=== PATIENT | female | born 1970 | race Two or more races ===

== ENCOUNTER 2020-08-08 11:10 | Outpatient (REF) | payer OTHER, SELFPAY ==
[2020-08-08 12:43] LABS: Hematocrit 32.1 % (37-47); Hemoglobin 10.1 g/dl (12.0-16.0); Mean Corpuscular HGB Conc 31.5 g/dl (31.0-35.0); Mean Corpuscular Hemoglobin 25.1 pg (27.0-33.0); Mean Corpuscular Volume 79.9 fL (80-98); Mean Platelet Volume 11.7 fL (9.4-12.3); Platelet Count 343 X10*3/uL (160-400); Red Blood Count 4.02 X10*6/uL (4.20-5.50); Red Cell Distribution Width 15.7 % (11.0-16.0); White Blood Count 4.6 X10*3/uL (4.8-10.8)
[2020-08-08 13:02] LABS: Alanine Aminotransferase 10 U/L (0-31); Albumin Level 4.3 g/dL (3.5-5.0); Alkaline Phosphatase 87 U/L (39-117); Anion Gap 12 (12-20); Aspartate Amino Transferase 18 U/L (5-31); Bilirubin Direct 0.2 mg/dL (0.0-0.5); Bilirubin Total 0.3 mg/dL (0.0-1.0); Blood Urea Nitrogen 10 mg/dL (9-16); Carbon Dioxide 27 mmol/L (22-29); Chloride 105 mmol/L (96-108); Estimated Glomerular Filt Rate > 60; Glucose Random 92 mg/dL (60-115); Iron 21 mcg/dL (30-160); Percent Iron Saturation 5 % (15-50); Potassium 4.3 mmol/l (3.3-5.1); Sodium 140 mmol/L (135-145); Total Iron Binding Capacity 384 mcg/dL (228-428); Total Protein 7.5 g/dL (6.5-8.0); Unsaturated Iron Binding 363 ug/dL
[2020-08-08 15:59] LABS: Vitamin B12 526 pg/mL (200-900)
[2020-08-08 17:05] LABS: Ferritin < 1 ng/mL (10-250); Thyroid Stimulating Hormone 25.65 mIU/mL (0.32-4.0); Vitamin D 25-OH Total 19.6 ng/mL (>30)
[2020-08-11 08:30] LABS: HIV AB/AG Nonreactive (Nonreactive); HIV Num 1 0.06 S/CO (0.00-0.99)
[2020-08-11 08:32] LABS: ~HepC Num1 0.14 S/CO (0.00-0.79); ~Hepatitis C Antibody Nonreactive (Nonreactive)
== END 2020-08-08 11:11 | disposition home or self-care (01) ==
LOC: HO.LAB 11:10
PROVIDERS: PCP Family Medicine; Visit Provider Family Medicine
DX: D50.0 Iron deficiency anemia secondary to blood loss (chronic) (principal); D03.9 Melanoma in situ, unspecified; E55.9 Vitamin D deficiency, unspecified; L29.9 Pruritus, unspecified; R53.83 Other fatigue
CPT/HCPCS: 36415; 80053; 80076; 82248; 82306; 82607; 82728; 83540; 84443; 85027; 86803; 87389

== ENCOUNTER 2020-08-29 07:58 | Outpatient (REF) | payer OTHER, SELFPAY | END 2020-08-29 07:59 | disposition home or self-care (01) | LOC: HO.MDS 07:58 | PROVIDERS: PCP Family Medicine; Visit Provider Internal Medicine | DX: D50.9 Iron deficiency anemia, unspecified (principal) | CPT/HCPCS: 96365; 96366; J1200; J1750; Q0163 ==

== ENCOUNTER 2021-01-20 13:26 | Outpatient (REF) | payer OTHER, SELFPAY ==
[2021-01-20 14:20] LABS: MANUAL DIFF FLAG NO
[2021-01-20 14:32] LABS: Basophils Percent Auto 0.6 % (0-2); Eosinophils Absolute Auto 0.1 X10*3/uL (0.0-0.4); Eosinophils Percent Auto 2.1 % (0-4); Hematocrit 39.2 % (37-47); Hemoglobin 12.7 g/dl (12.0-16.0); Lymphocytes Absolute Auto 1.5 X10*3/uL (1.2-4.9); Lymphocytes Percent Auto 28.4 % (20-40); Mean Corpuscular HGB Conc 32.4 g/dl (31.0-35.0); Mean Corpuscular Hemoglobin 28.9 pg (27.0-33.0); Mean Corpuscular Volume 89.1 fL (80-98); Mean Platelet Volume 11.3 fL (9.4-12.3); Monocytes Absolute Auto 0.5 X10*3/uL (0.1-1.2); Monocytes Percent Auto 8.7 % (2-11); Neutrophils Absolute Auto 3.2 X10*3/uL (2.0-8.3); Neutrophils Percent Auto 60.2 % (45-73); Platelet Count 285 X10*3/uL (160-400); Red Cell Distribution Width 12.3 % (11.0-16.0); White Blood Count 5.3 X10*3/uL (4.8-10.8)
[2021-01-20 14:43] LABS: Alanine Aminotransferase 19 U/L (0-31); Albumin Level 4.3 g/dL (3.5-5.0); Alkaline Phosphatase 84 U/L (39-117); Anion Gap 11 (12-20); Aspartate Amino Transferase 22 U/L (5-31); Bilirubin Total 0.6 mg/dL (0.0-1.0); Blood Urea Nitrogen 13 mg/dL (9-16); Calcium 9.5 mg/dL (8.4-10.2); Carbon Dioxide 30 mmol/L (22-29); Chloride 103 mmol/L (96-108); Estimated Glomerular Filt Rate > 60; Glucose Random 95 mg/dL (60-115); Iron 79 mcg/dL (30-160); Percent Iron Saturation 28 % (15-50); Potassium 4.6 mmol/L (3.3-5.1); Sodium 139 mmol/L (135-145); Total Iron Binding Capacity 282 mcg/dL (228-428); Total Protein 7.5 g/dL (6.5-8.0); Unsaturated Iron Binding 203 ug/dL
[2021-01-20 15:06] LABS: Ferritin 39 ng/mL (10-250); Thyroid Stimulating Hormone 1.23 uIU/mL (0.32-4.0); Vitamin D 25-OH Total 19.9 ng/mL (>30)
[2021-01-20 16:44] LABS: Vitamin B12 384 pg/mL (200-900)
== END 2021-01-20 13:27 | disposition home or self-care (01) ==
LOC: HO.LAB 13:26
PROVIDERS: Absent Provider Internal Medicine; PCP Family Medicine; Visit Provider Family Medicine
DX: E03.9 Hypothyroidism, unspecified (principal); D50.0 Iron deficiency anemia secondary to blood loss (chronic); E55.9 Vitamin D deficiency, unspecified; R53.83 Other fatigue
CPT/HCPCS: 36415; 80053; 82306; 82607; 82728; 83540; 83735; 84443; 85025

== ENCOUNTER 2021-03-28 10:08 | Outpatient (REF) | payer OTHER, SELFPAY ==
--- NOTE | ~2021-03-28 | MM_ITS ---
EXAMINATION: MM SCREENING DIGITAL BREAST TOMOSYNTHESIS, BILATERAL CLINICAL INFORMATION: Screening. Asymptomatic. The lifetime risk of breast cancer based on the Tyrer-Cuzick Model is 12%. COMPARISON: Mammography: 10/27/2018, 10/18/2018, 08/17/2017, 05/21/2014, 05/17/2013 TECHNIQUE: Digital breast tomosynthesis is performed in both the craniocaudal and mediolateral oblique views along with computer-aided detection (CAD). Synthesized 2D images are generated from the tomosynthesis. FINDINGS: There are scattered areas of fibroglandular density (ACR BI-RADS breast composition Category b). There are no significant masses, abnormal calcifications, or other abnormalities. Parenchymal pattern is similar to prior studies. No developing density. No significant changes. MM/MM tomosynthesis screening BI IMPRESSION: No mammographic evidence of malignancy. ASSESSMENT: BI-RADS 1: Negative RECOMMENDATION: Routine annual mammography screening. This patient's information was entered into a reminder system with a target due date for their next mammogram.
== END 2021-03-28 10:09 | disposition home or self-care (01) ==
LOC: HO.MAMMO 10:08
PROVIDERS: Visit Provider Family Medicine
DX: Z12.31 Encounter for screening mammogram for malignant neoplasm of breast (principal)
CPT/HCPCS: 77063; 77067

== ENCOUNTER 2021-08-14 07:17 | Inpatient (IN) | payer OTHER, SELFPAY ==
[2021-08-14] VITALS (13 sets, daily range): BP systolic 127–182; BP diastolic 58–87; PULSE 53–89; RESP 13–20; TEMP 36.1–36.9; O2SAT 96–100; BMI 35.1
--- NOTE | ~2021-08-14 | CT_ITS ---
EXAMINATION: CT ABDOMEN AND PELVIS WITH CONTRAST CLINICAL INFORMATION: Epigastric pain COMPARISON: Ultrasound abdomen right upper quadrant 08/14/2021, CT abdomen and pelvis (report) 10/13/2005. TECHNIQUE: Multidetector volumetric images were obtained from the superior aspect of the liver through the pubic symphysis following administration 100 mL of Omnipaque 350 intravenous contrast. Sagittal and coronal reformatted images were obtained on the technologist's workstation. Oral contrast: No This CT examination was performed using dose optimization techniques as appropriate, variously including the following: *Automated exposure control *Adjustment of mA and/or kV according to patient size (this includes techniques or standardized protocols for targeted exams where dose is matched to indication/reason for exam; i.e. extremities or head) *Use of iterative reconstruction technique DLP: 809 mGy-cm FINDINGS: LUNG BASES: The visualized lung bases are unremarkable. LIVER, GALLBLADDER, AND BILIARY TREE: Liver is normal in size since in contour. Parenchymal is homogeneous. No focal hepatic parenchymal lesion or intrahepatic ductal dilatation. The gallbladder is abnormal, measuring 4 cm in diameter with circumferential wall thickening and subserosal edema. The calculi and sludge noted on today's ultrasound are not appreciated on CT. Findings are consistent with cholecystitis. The common duct is normal in caliber. No visible common duct calculus. PANCREAS: Pancreas is normal in size and contour and attenuation. No pancreatic ductal distention. No peripancreatic inflammatory changes. SPLEEN: Unremarkable. ADRENAL GLANDS: Unremarkable. KIDNEYS AND URETERS: The kidneys are normal in size and show no hydronephrosis, hydroureter, calculi, or perinephric stranding. Left kidney has a interpolar cyst measuring approximately 6 x 4 cm and 2HU attenuation. Right kidney has a small posterior upper pole cyst 1.1 cm. No additional imaging follow-up required for the renal cysts. BLADDER: Unremarkable. GASTROINTESTINAL TRACT: There is mild thickening gastric antrum which may be related to nondistention as well as reactive changes from adjacent cholecystitis. There is no gastric distention or pneumatosis. The small and large bowel are normal in caliber. The appendix is normal. There is no ascites or fluid collection. ABDOMINAL WALL: No significant hernia is appreciated. LYMPH NODES: No lymphadenopathy. VASCULAR: Unremarkable. PELVIC VISCERA: The uterus is enlarged and has several fibroids, including exophytic left 5 cm and intramural left 5 cm. Small left adnexal cyst measures 2.0 x 2.7 cm. Small right adnexal cyst measures 2.0 x 2.9 cm. No pelvic ascites. The cysts are simple appearing and no follow-up imaging recommended. No pelvic ascites. OSSEOUS STRUCTURES: Unremarkable. CT/CT abdomen pelvis w con IMPRESSION: 1. Cholecystitis. No intrahepatic or extrahepatic biliary ductal dilatation. 2. Normal pancreas. No pancreatic ductal distention. 3. No hydronephrosis or perinephric stranding. 4. Enlarged uterus with fibroids.
--- NOTE | ~2021-08-14 | US_ITS ---
EXAMINATION: US ABDOMEN LIMITED CLINICAL INFORMATION: Epigastric pain. History gallstones. COMPARISON: Report CT abdomen and pelvis 10/13/2005. TECHNIQUE: Real-time imaging of the right upper quadrant abdominal viscera. FINDINGS: PANCREAS: The visualized pancreas is normal in size and echogenicity. There is no pancreatic ductal distention or retroperitoneal effusion. Portion distal body and tail obscured by bowel gas and not completely imaged. LIVER: Liver is normal in size and smooth in contour and normal in echogenicity. There is no focal hepatic parenchymal lesion or intrahepatic ductal dilatation. Doppler shows portal flow towards the liver. GALLBLADDER: The gallbladder is distended to 3.6 cm in diameter. There are scattered gallstones present as well as moderate layering sludge. There is mild circumferential thickening gallbladder wall measuring 0.5-0.6 cm. No pericholecystic fluid. Sonographic Chatterjee's sign is positive. COMMON BILE DUCT: Normal in caliber measuring 0.4 cm in diameter. No visible ductal calculus. RIGHT KIDNEY: Right kidney measures 10.8 cm in length. There is no hydronephrosis or caliectasis or visible calculi. Small cyst present upper pole 1.5 x 1.2 x 1.0 cm. There is normal renal parenchymal thickness and echogenicity. FREE FLUID: None. US/US abdomen limited IMPRESSION: 1. Abnormal gallbladder with gallstones, moderate intraluminal sludge, circumferential wall thickening, and positive sonographic Chatterjee's sign. Findings may be associated with acute or chronic cholecystitis. 2. No intrahepatic biliary ductal dilatation. Common duct unremarkable.
--- NOTE | 2021-08-14 07:43 | ECG_ITS ---
Test Reason : ABD PAIN Blood Pressure : / mmHG Vent. Rate : 057 BPM Atrial Rate : 057 BPM P-R Int : 140 ms QRS Dur : 086 ms QT Int : 458 ms P-R-T Axes : 031 008 026 degrees QTc Int : 445 ms Sinus bradycardia Minimal voltage criteria for LVH, may be normal variant ( R in aVL ) Borderline ECG NO PREVIOUS EKG Referred By: Michelle Alves Electronically Signed By:RAMYA ESCOBEDO MD
--- NOTE | 2021-08-14 07:46 | ED_ITS ---
HPI - Abdominal Pain General Chief Complaint: Abdominal Pain Stated Complaint: back & abd pain Time Seen by Provider: 08/14/21 07:25 Source: patient Mode of arrival: ambulatory Limitations: no limitations History of Present Illness HPI narrative: Patient comes emergency room complaining of 4 days of epigastric pain radiating towards the back. Patient also complaining of mild right upper quadrant pain. Patient states she feels very distended, bloated. Patient has tried [id number] pain medications and gas medications without relief. Patient denies vomiting, complaining of nausea, no diarrhea. Patient states that in the past, her PCP has told the patient that she has gallstones that were found incidentally, but due to the lack of symptoms, patient did not need any further intervention. Related Data Home Medications Medication Instructions Recorded Confirmed docusate sodium 100 mg capsule 1 cap PO BID 08/26/20 08/26/20 (DOK) ergocalciferol (vitamin D2) 1,250 1 cap PO QWEEK 08/26/20 08/26/20 mcg (50,000 unit) capsule ferrous sulfate 325 mg (65 mg 1 tab PO TID 08/26/20 08/26/20 iron) tablet levothyroxine 150 mcg tablet 1 tab PO DAILY 08/26/20 08/26/20 (Synthroid) melatonin 5 mg tablet 1 tab PO BEDTIME PRN 08/26/20 08/26/20 Allergies Allergy/AdvReac Type Severity Reaction Status Date / Time No Known Allergies Allergy Verified 08/26/20 13:25 Review of Systems Review of Systems Constitutional : No Weight loss, No Fever, No Chills, No Night Sweats, No Fatigue, No Malaise ENT/Mouth : No Hearing loss, No Ear Pain, No Nasal Congestion, No Sinus Pain, No Hoarseness, No sore throat, No Rhinorrhea, No Swallowing Difficulty Eyes: No Eye Pain, No Swelling, No Redness, No Foreign Body, No Discharge, No Vision Changes Cardiovascular : No Chest Pain, No SOB, No Dyspnea on Exertion, No Orthopnea, No Edema, No Palpitations Respiratory : No Cough, No Sputum, No Wheezing, No Smoke Exposure, No Dyspnea Gastrointestinal : Complaining of Nausea, No Vomiting, No Diarrhea, No Constipation, complaining of distension, epigastric and right upper quadrant pain radiating towards the back, denies melena Genitourinary : no irregular bleeding, No Dysuria, No Urinary Frequency, No Hematuria, No Urinary Incontinence, No Urgency, No Flank Pain, No Urinary Flow Changes, No Hesitancy Musculoskeletal : No joint pain, No Myalgias, No Joint Swelling Skin : No Skin Lesions, No rash Neuro : No Weakness, No Numbness, No Paresthesias, No Loss of Consciousness, No Dizziness, No Headache Psych : No Anxiety/Panic, No Depression, No SI/HI/AH/VH, No Social Issues, Heme/Lymph: No Bruising, No Bleeding,No Lymphadenopathy Endocrine : No Polyuria, No Polydipsia, No Temperature Intolerance Physical Exam Vital Signs: Vital Signs: Last Vital Signs Temp 97.1 F 08/14/21 07:32 Pulse 60 08/14/21 08:27 Resp 20 08/14/21 08:27 BP 138/65 08/14/21 09:07 Pulse Ox 100 08/14/21 08:27 Body Mass Index 35.1 Const: Other: Appearance: Alert. Oriented X3. No acute distress. Eyes: Pupils equal, round and reactive to light. ENT: Pharynx normal. Neck: Normal inspection. Neck supple. No lymph nodes noted. No crepitus CVS: Normal heart rate and rhythm. Pulses normal. Normal S1 and S2 Respiratory: No respiratory distress. Breath sounds normal. No Wheezing. No rales Abdomen: Soft , mildly distended, negative Chatterjee sign, pain to palpation over epigastric area, no rebound, no guarding. Skin: Skin warm and dry. Normal skin color. Normal skin turgor. Extremities: No lower extremity edema. No Lacerations. No Rash Neuro: Oriented X 3. No motor deficit. No sensory deficit. Moving all exter mities. No slurred speech. Course Course Course Narrative: Patient was evaluated by Dr. Hazel. Patient will be admitted to surgery service. CT scan has been ordered for Dr. Hazel' recomendations MDM - Abdominal Pain Lab Data Result diagrams: 08/14/21 08:20 08/14/21 08:20 Labs: Lab Results 08/14/21 08/14/21 08/14/21 Range/Units 08:20 08:20 08:20 WBC 7.0 (4.8-10.8) X10*3/uL RBC 4.54 (4.20-5.50) X10*6/uL Hgb 12.9 (12.0-16.0) g/dl Hct 38.7 (37-47) % MCV 85.2 (80-98) fL MCH 28.4 (27.0-33.0) pg MCHC 33.3 (31.0-35.0) g/dl RDW 13.0 (11.0-16.0) % Plt Count 243 (160-400) X10*3/uL MPV 11.0 (9.4-12.3) fL Immature Gran % (Auto) 0.3 (0.0-0.4) % Neut % (Auto) 69.9 (45-73) % Lymph % (Auto) 20.2 (20-40) % [place] % (Auto) 7.7 (2-11) % Eos % (Auto) 1.6 (0-4) % Baso % (Auto) 0.3 (0-2) % Lymph # (Auto) 1.4 (1.2-4.9) X10*3/uL [place] # (Auto) 0.5 (0.1-1.2) X10*3/uL Eos # (Auto) 0.1 (0.0-0.4) X10*3/uL Baso # (Auto) 0.0 (0.0-0.2) X10*3/uL Abs Immat Gran (auto) 0.02 (0.00-0.03) X10*3/uL Absolute Neuts (auto) 4.9 (2.0-8.3) X10*3/uL Absolute Nucleated RBC 0.000 (0.0-0.012) X10*3/uL Nucleated RBC % (auto) 0.0 (0.0-0.2) /100WBC Sodium 138 (135-145) mmol/L Potassium 4.2 (3.3-5.1) mmol/L Chloride 103 (96-108) mmol/L Carbon Dioxide 28 (22-29) mmol/L Anion Gap 11 L (12-20) BUN 8 L (9-16) mg/dL Creatinine 0.72 (0.5-1.4) mg/dL Estim Creat Clear Calc 95.7 Estimated GFR > 60 Random Glucose 107 (60-115) mg/dL Calcium 9.8 (8.4-10.2) mg/dL Total Bilirubin 0.7 (0.0-1.0) mg/dL Direct Bilirubin 0.2 (0.0-0.5) mg/dL AST 21 (5-31) U/L ALT 13 (0-31) U/L Alkaline Phosphatase 97 (39-117) U/L Total Protein 7.6 (6.5-8.0) g/dL Albumin 4.2 (3.5-5.0) g/dL Lipase 24 (8-78) U/L Urine Color YELLOW Urine Appearance CLEAR Urine pH 6.0 (5.0-8.0) Ur Specific [place] 1.020 (1.005-1.025) Urine Protein NEG (NEG-TRACE) MG/DL Urine Glucose (UA) NEG (NEG) MG/DL Urine Ketones NEG (NEG) MG/DL Urine Blood TRACE (NEG) Urine Nitrite NEG (NEG) Ur Leukocyte Esterase TRACE H (NEG) Urine RBC 1-4 (0) /HPF Urine WBC 5-9 H (0-4) /HPF Ur Squamous Epith Cells 1+ /LPF Urine Bacteria TRACE /LPF Urine Mucus 1+ /LPF Imaging Data US - abdomen: Radiologist's impression: US ABDOMEN LIMITED CLINICAL INFORMATION: Epigastric pain. History gallstones. COMPARISON: Report CT abdomen and pelvis 10/13/2005. TECHNIQUE: Real-time imaging of the right upper quadrant abdominal viscera. FINDINGS: PANCREAS: The visualized pancreas is normal in size and echogenicity. There is no pancreatic ductal distention or retroperitoneal effusion. Portion distal body and tail obscured by bowel gas and not completely imaged. LIVER: Liver is normal in size and smooth in contour and normal in echogenicity. There is no focal hepatic parenchymal lesion or intrahepatic ductal dilatation. Doppler shows portal flow towards the liver. GALLBLADDER: The gallbladder is distended to 3.6 cm in diameter. There are scattered gallstones present as well as moderate layering sludge. There is mild circumferential thickening gallbladder wall measuring 0.5-0.6 cm. No pericholecystic fluid. Sonographic Chatterjee's sign is positive. COMMON BILE DUCT: Normal in caliber measuring 0.4 cm in diameter. No visible ductal calculus. RIGHT KIDNEY: Right kidney measures 10.8 cm in length. There is no hydronephrosis or caliectasis or visible calculi. Small cyst present upper pole 1.5 x 1.2 x 1.0 cm. There is normal renal parenchymal thickness and echogenicity. FREE FLUID: None. US/US abdomen limited IMPRESSION: ? 1. Abnormal gallbladder with gallstones, moderate intraluminal sludge, circumferential wall thickening, and positive sonographic Chatterjee's sign. Findings may be associated with acute or chronic cholecystitis. ? 2. No intrahepatic biliary ductal dilatation. Common duct unremarkable. Discharge Plan Discharge Clinical Impression: Cholecystitis Patient Disposition: Admitted As Inpatient Prescriptions: No Action ferrous sulfate 325 mg (65 mg iron) tablet 1 tab PO TID RF: 0 levothyroxine [Synthroid] 150 mcg tablet 1 tab PO DAILY RF: 0 docusate sodium [DOK] 100 mg capsule 1 cap PO BID RF: 0 ergocalciferol (vitamin D2) 1,250 mcg (50,000 unit) capsule 1 cap PO QWEEK RF: 0 melatonin 5 mg tablet 1 tab PO BEDTIME PRN (Reason: insomnia) RF: 0 PMFSH Past Medical History Medical History Anxiety Candidosis of skin HTN (hypertension) Hypothyroid TANIA (iron deficiency anemia) Macromastia Shortness of breath Vitamin D deficiency Surgical History Previous section Social History Social History Are you a primary healthcare or medical to a significant other at home: No Alcohol intake: never Patient Tobacco Use Status: Never used Tobacco Use of substances other than those prescribed or required for medical reasons: No Advance Directives: No Patient : No
[2021-08-14 08:25] LABS: MANUAL DIFF FLAG NO
[2021-08-14] MEDS: ondansetron HCL 4 MG/2 ML VIAL IVPUSH (08:25)
[2021-08-14] MEDS: Morphine Sulfate 4 MG/ML CARTRIDGE IVPUSH (08:25)
[2021-08-14 08:26] LABS: Appearance Urine CLEAR; Color Urine YELLOW; Glucose Urine UA NEG (NEG); Leukocyte Esterase Urine TRACE (NEG); Nitrite Urine NEG (NEG); UACC Culture Trigger YES; Urine Blood TRACE (NEG); Urine Ketones NEG (NEG); Urine Protein NEG (NEG-TRACE)
[2021-08-14 08:28] LABS: Basophils Percent Auto 0.3 % (0-2); Eosinophils Absolute Auto 0.1 X10*3/uL (0.0-0.4); Eosinophils Percent Auto 1.6 % (0-4); Hematocrit 38.7 % (37-47); Hemoglobin 12.9 g/dl (12.0-16.0); Imm Gran Abs Auto 0.02 X10*3/uL (0.00-0.03); Imm Gran Pct Auto 0.3 % (0.0-0.4); Lymphocytes Absolute Auto 1.4 X10*3/uL (1.2-4.9); Lymphocytes Percent Auto 20.2 % (20-40); Mean Corpuscular HGB Conc 33.3 g/dl (31.0-35.0); Mean Corpuscular Hemoglobin 28.4 pg (27.0-33.0); Mean Corpuscular Volume 85.2 fL (80-98); Monocytes Absolute Auto 0.5 X10*3/uL (0.1-1.2); Monocytes Percent Auto 7.7 % (2-11); Neutrophils Absolute Auto 4.9 X10*3/uL (2.0-8.3); Neutrophils Percent Auto 69.9 % (45-73); Platelet Count 243 X10*3/uL (160-400); Red Blood Count 4.54 X10*6/uL (4.20-5.50)
[2021-08-14 08:37] LABS: Bacteria Urine TRACE /LPF; Mucus Urine 1+ /LPF; Squamous Epithelial Cell Urine 1+ /LPF
[2021-08-14 08:50] LABS: Alanine Aminotransferase 13 U/L (0-31); Albumin Level 4.2 g/dL (3.5-5.0); Alkaline Phosphatase 97 U/L (39-117); Anion Gap 11 (12-20); Aspartate Amino Transferase 21 U/L (5-31); Bilirubin Direct 0.2 mg/dL (0.0-0.5); Bilirubin Total 0.7 mg/dL (0.0-1.0); Blood Urea Nitrogen 8 mg/dL (9-16); Calcium 9.8 mg/dL (8.4-10.2); Carbon Dioxide 28 mmol/L (22-29); Chloride 103 mmol/L (96-108); Creatinine Clr Calc Pharmacy 95.7; Estimated Glomerular Filt Rate > 60; Glucose Random 107 mg/dL (60-115); Lipase 24 U/L (8-78); Potassium 4.2 mmol/L (3.3-5.1); Sodium 138 mmol/L (135-145); Total Protein 7.6 g/dL (6.5-8.0)
--- NOTE | 2021-08-14 09:08 | PC.NURSE ---
pt resting peacefully, reports feeling better, no pain in the upper mid abd, just some pain in the back, 3/10 denies nausea
--- NOTE | 2021-08-14 10:36 | PC.NURSE ---
dr acevedo the surgeon at bedside
[2021-08-14] MEDS: iohexoL 350 MG/ML 100 ML INFUS..BTL IV (11:36)
--- NOTE | 2021-08-14 12:18 | P.HPGS_ITS ---
History of Present Illness History of Present Illness Date of Service: 08/17/21 <Naresh Hazel MD - Last Filed: 08/17/21 13:12> 08/14/21 <Yolanda Norris MD - Last Filed: 08/14/21 14:22> Chief complaint: ACUTE CHOLECYSTITIS <Naresh Hazel MD - Last Filed: 08/17/21 13:12> Narrative: Farzana Quintnailla is a 51 year old female with thyroid disease, and asthma, who came to the emergency room this morning because of right upper quadrant pain. She says that this actually has been going on for about 4 days now. This had been periodic would be coming in waves. She however says that these had not improved at all and often times would be severe so she decided to eventually come to the emergency room this morning. She describes occasional nausea but no vomiting. She says she had been diagnosed to have gallstones in the past and would have periodic pain on the same area but this would resolve immediately. She otherwise denies any other significant complaints. She also mentioned that her past episodes seem to correlate with intake of fatty food. <Naresh Hazel MD - Last Filed: 08/17/21 13:12> Review of Systems Constitutional: Constitutional: Denies chills and Denies fever(s) <Naresh Hazel MD - Last Filed: 08/17/21 13:12> Cardiovascular: Cardiovascular: Denies chest pain, Denies dyspnea and Denies dyspnea on exertion <Naresh Hazel MD - Last Filed: 08/17/21 13:12> Respiratory: Respiratory: Denies cough, Denies dyspnea and Denies dyspnea on exertion <Naresh Hazel MD - Last Filed: 08/17/21 13:12> Gastrointestinal: Gastrointestinal: Denies hematochezia and Denies change in bowel habits <Naresh Hazel MD - Last Filed: 08/17/21 13:12> Genitourinary: Genitourinary: Denies hematuria <Naresh Hazel MD - Last Filed: 08/17/21 13:12> Musculoskeletal: Musculoskeletal: Denies back pain and Denies limited range of motion <Naresh Hazel MD - Last Filed: 08/17/21 13:12> Neurologic: Denies focal weakness and Denies convulsions <Naresh Hazel MD - Last Filed: 08/17/21 13:12> Psychiatric: Psychiatric: Denies depression and Denies mood swings <Naresh Hazel MD - Last Filed: 08/17/21 13:12> [facility] Past Medical History Medical History: Medical History Anxiety Candidosis of skin HTN (hypertension) Hypothyroid TANIA (iron deficiency anemia) Macromastia Shortness of breath Vitamin D deficiency <Naresh Hazel MD - Last Filed: 08/17/21 13:12> Surgical History Surgical History: Surgical History Previous section <Naresh Hazel MD - Last Filed: 08/17/21 13:12> Social History Social History: Social History Household Members: Spouse Housing: Apartment Are you a primary spiritual care coordinator to a significant other at home: No Do you presently have visiting nurse or other home services: No Alcohol intake: never Patient Tobacco Use Status: Never used Tobacco Second Hand Smoke Exposure: No service: No <Naresh Hazel MD - Last Filed: 08/17/21 13:12> Meds Allergies/Adverse reactions: Allergies Allergy/AdvReac Type Severity Reaction Status Date / Time No Known Allergies Allergy Verified 08/26/20 13:25 <Naresh Hazel MD - Last Filed: 08/17/21 13:12> Home medications: Home Medications Medication Instructions Recorded Confirmed Last Taken Type docusate sodium 100 mg capsule 1 cap PO BID 08/26/20 08/26/20 Unknown History (DOK) ergocalciferol (vitamin D2) 1,250 1 cap PO QWEEK 08/26/20 08/26/20 Unknown History mcg (50,000 unit) capsule ferrous sulfate 325 mg (65 mg 1 tab PO TID 08/26/20 08/26/20 Unknown History iron) tablet levothyroxine 150 mcg tablet 1 tab PO DAILY 08/26/20 08/26/20 Unknown History (Synthroid) melatonin 5 mg tablet 1 tab PO BEDTIME PRN 08/26/20 08/26/20 Unknown History <Naresh Hazel MD - Last Filed: 08/17/21 13:12> Physical Exam Vital Signs: Vital Signs: Last Vital Signs Temp 97.1 F 08/14/21 07:32 Pulse 53 10/29/21 10:46 Resp 20 08/14/21 10:46 BP 149/64 H 08/14/21 10:46 Pulse Ox 100 08/14/21 10:46 Body Mass Index 35.1 <Naresh Hazel MD - Last Filed: 08/17/21 13:12> Const: General: comfortable and no acute distress <Naresh Hazel MD - Last Filed: 08/17/21 13:12> Orientation/consciousness: patient oriented x3 <Naresh Hazel MD - Last Filed: 08/17/21 13:12> Neck: Neck: Yes no lymphadenopathy <Naresh Hazel MD - Last Filed: 08/17/21 13:12> Resp: Auscultation: clear to auscultation bilaterally <Naresh Hazel MD - Last Filed: 08/17/21 13:12> Cardio: Rhythm: regular rhythm <Naresh Hazel MD - Last Filed: 08/17/21 13:12> GI: Other: Tender on the right upper quadrant <Naresh Hazel MD - Last Filed: 08/17/21 13:12> Palpation (GI): Soft to palpation, Tenderness to palpation present (GI) and no guarding <Naresh Hazel MD - Last Filed: 08/17/21 13:12> Neuro: General: patient oriented x3 <Naresh Hazel MD - Last Filed: 08/17/21 13:12> Results Results Labs: Short CBC 08/14/21 Range/Units 08:20 WBC 7.0 (4.8-10.8) X10*3/uL Hgb 12.9 (12.0-16.0) g/dl Hct 38.7 (37-47) % Plt Count 243 (160-400) X10*3/uL BMP 08/14/21 08:20 Sodium 138 Potassium 4.2 Chloride 103 Carbon Dioxide 28 BUN 8 L Creatinine 0.72 Calcium 9.8 Liver Function 08/14/21 Range/Units 08:20 Total Bilirubin 0.7 (0.0-1.0) mg/dL Direct Bilirubin 0.2 (0.0-0.5) mg/dL AST 21 (5-31) U/L ALT 13 (0-31) U/L Alkaline Phosphatase 97 (39-117) U/L Albumin 4.2 (3.5-5.0) g/dL Urine 08/14/21 Range/Units 08:20 Urine Color YELLOW Urine Appearance CLEAR Urine pH 6.0 (5.0-8.0) Ur Specific [place] 1.020 (1.005-1.025) Urine Protein NEG (NEG-TRACE) MG/DL Urine Glucose (UA) NEG (NEG) MG/DL <Naresh Hazel MD - Last Filed: 08/17/21 13:12> Assessment and Plan (1) Cholecystitis: Status: Acute <Naresh Hazel MD - Last Filed: 08/17/21 13:12> 51-year-old female admitted for right upper quadrant pain. Her ultrasound does show some thickening of the gallbladder along with gallstones. This is highly suggestive of acute cholecystitis. Still has persistent pain so she wants to proceed with cholecystectomy. I explained to her the technique of laparoscopic cholecystectomy and possible open cholecystectomy. I reviewed with her the risks including but not limited to bleeding, infections, injury to the bowel, the liver and the bile duct, inherent risks of anesthesia, as well as the benefits and alternatives. She has given consent. Her sister was with her during the discussion. <Naresh Hazel MD - Last Filed: 08/17/21 13:12> Quality Stroke Does the patient have a stroke diagnosis?: No <Naresh Hazel MD - Last Filed: 08/17/21 13:12> VTE Prior VTE?: No <Naresh Hazel MD - Last Filed: 08/17/21 13:12> VTE Risk Level:: Medical - moderate - high <Naresh Hazel MD - Last Filed: 08/17/21 13:12> VTE Device Contraindication: N/A - Device Ordered <Naresh Hazel MD - Last Filed: 08/17/21 13:12> VTE Drug Contraindication: N/A - Med Ordered <Naresh Hazel MD - Last Filed: 08/17/21 13:12> Procedures Date of Service Date of Service: 08/14/21 <Naresh Hazel MD - Last Filed: 08/17/21 13:12>
[2021-08-14 13:20] LABS: COVID-19 Test Negative (Negative)
--- NOTE | 2021-08-14 14:16 | P.CONAN_ITS ---
[facility] Active Problems Active Problems: All Active Problems (Updated 08/14/21 @ 10:40 by Michelle rae MD) Anemia (Acute) Cholecystitis (Acute) Past Medical History Medical History Anxiety Candidosis of skin HTN (hypertension) Hypothyroid TANIA (iron deficiency anemia) Macromastia Shortness of breath Vitamin D deficiency Family History Family history of problems with anesthesia: No Surgical History Surgical History Previous section History of Problems with Anesthesia: No Social History Social History Are you a primary healthcare applications analyst to a significant other at home: No Alcohol intake: never Patient Tobacco Use Status: Never used Tobacco Second Hand Smoke Exposure: No Use of substances other than those prescribed or required for medical reasons: No Are you DNR?: No Advance Directives: No Advance Directives Information Provided: No (declined) Advance Directives on File: No Patient : No Meds Allergies Allergy/AdvReac Type Severity Reaction Status Date / Time No Known Allergies Allergy Verified 08/26/20 13:25 Active Medications: Current Medications Sodium Chloride (0.9 % Sodium Chloride Flush 3 Ml Syringe) [facility] Home Medications Medication Instructions Recorded Confirmed Last Taken Type docusate sodium 100 mg capsule 1 cap PO BID 08/26/20 08/26/20 Unknown History (DOK) ergocalciferol (vitamin D2) 1,250 1 cap PO QWEEK 08/26/20 08/26/20 Unknown History mcg (50,000 unit) capsule ferrous sulfate 325 mg (65 mg 1 tab PO TID 08/26/20 08/26/20 Unknown History iron) tablet levothyroxine 150 mcg tablet 1 tab PO DAILY 08/26/20 08/26/20 Unknown History (Synthroid) melatonin 5 mg tablet 1 tab PO BEDTIME PRN 08/26/20 08/26/20 Unknown History Exam Exam Date and Time: August 14, 2021 1416 Height,Weight and Vital Signs: Height 5 ft 2 in Weight 87.09 kg Last Vital Signs Temp 97.0 F 08/14/21 12:53 Pulse 57 08/14/21 12:53 Resp 16 08/14/21 12:53 BP 162/81 H 10/29/21 12:53 Pulse Ox 96 08/14/21 12:53 Pertinent Lab Results Pertinent Lab Results: Laboratory Tests 08/14/21 08/14/21 08/14/21 08:20 08:20 08:20 WBC 7.0 RBC 4.54 Hgb 12.9 Hct 38.7 MCV 85.2 MCH 28.4 MCHC 33.3 RDW 13.0 Plt Count 243 MPV 11.0 Immature Gran % (Auto) 0.3 Neut % (Auto) 69.9 Lymph % (Auto) 20.2 [place] % (Auto) 7.7 Eos % (Auto) 1.6 Baso % (Auto) 0.3 Lymph # (Auto) 1.4 [place] # (Auto) 0.5 Eos # (Auto) 0.1 Baso # (Auto) 0.0 Abs Immat Gran (auto) 0.02 Absolute Neuts (auto) 4.9 Absolute Nucleated RBC 0.000 Nucleated RBC % (auto) 0.0 Sodium 138 Potassium 4.2 Chloride 103 Carbon Dioxide 28 Anion Gap 11 L BUN 8 L Creatinine 0.72 Estim Creat Clear Calc 95.7 Estimated GFR > 60 Random Glucose 107 Calcium 9.8 Total Bilirubin 0.7 Direct Bilirubin 0.2 AST 21 ALT 13 Alkaline Phosphatase 97 Total Protein 7.6 Albumin 4.2 Lipase 24 Urine Color YELLOW Urine Appearance CLEAR Urine pH 6.0 Ur Specific Coello 1.020 Urine Protein NEG Urine Glucose (UA) NEG Urine Ketones NEG Urine Blood TRACE Urine Nitrite NEG Ur Leukocyte Esterase TRACE H Urine RBC 1-4 Urine WBC 5-9 H Ur Squamous Epith Cells 1+ Urine Bacteria TRACE Urine Mucus 1+ COVID-19 ([facility]) COVID-19 Clin Com 08/14/21 12:58 WBC RBC Hgb Hct MCV MCH MCHC RDW Plt Count MPV Immature Gran % (Auto) Neut % (Auto) Lymph % (Auto) [place] % (Auto) Eos % (Auto) Baso % (Auto) Lymph # (Auto) [place] # (Auto) Eos # (Auto) Baso # (Auto) Abs Immat Gran (auto) Absolute Neuts (auto) Absolute Nucleated RBC Nucleated RBC % (auto) Sodium Potassium Chloride Carbon Dioxide Anion Gap BUN Creatinine Estim Creat Clear Calc Estimated GFR Random Glucose Calcium Total Bilirubin Direct Bilirubin AST ALT Alkaline Phosphatase Total Protein Albumin Lipase Urine Color Urine Appearance Urine pH Ur Specific Coello Urine Protein Urine Glucose (UA) Urine Ketones Urine Blood Urine Nitrite Ur Leukocyte Esterase Urine RBC Urine WBC Ur Squamous Epith Cells Urine Bacteria Urine Mucus COVID-19 ([facility]) Negative COVID-19 Clin Com See Note Airway Mallampati Class: II TM Dist: >3cm Neck ROM: Full Heart: rrr Lungs: cta Assessment and Plan Assessment Anesthesia Assessment: Anesthesia Plan Discussed and Chart Reviewed Final Anesthetic Review Family History of Problems with Anesthesia: No History of Problems with Anesthesia: No NPO: Yes ASA Class: II Final Preanesthetic Review: No Changes in Pt Med Stat, Meds/Allgs Chart Reviewed and Consent Obtained/Reviewed Patient Risk: Intermediate Procedure Risk: Intermediate Anesthetic Plan Anesthetic Plan: GA Disposition: Standard PACU
--- NOTE | 2021-08-14 17:45 | W.PM.OPN ---
Operative Note Operative Note Date of Service: 08/14/21 Narrative: Preop diagnosis: Acute calculous cholecystitis Postop diagnosis: Acute calculous cholecystitis with hydrops, severe inflammation Procedure: Laparoscopic cholecystectomy Surgeon: Naresh Hazel MD The patient is a 51-year-old female seen in the ED this morning because of right upper quadrant pain. Imaging studies showed acute cholecystitis with gallstones. In view of severe pain, I explained to her that it would be best to proceed with cholecystectomy today. I reviewed with her the technique of laparoscopic cholecystectomy and possible open. I discussed the risks, benefits, and alternatives and she had given consent. She was brought to the operating room and placed supine on table under general anesthesia via endotracheal tube. The abdomen was prepped and draped in usual sterile fashion. A surgical time-out was done. The patient received Cefotan 2 g IV preoperatively I made a short incision on the supraumbilical margin using a blade 15 and this was carried down through the full-thickness of skin subcutaneous fat to the fascia. The fascia was incised. The peritoneum was entered. Please note the patient had a thick amount of subcutaneous fat in view of her morbid obesity. Through this incision a Uriel port was introduced. Pneumoperitoneum was introduced to a pressure of 15 mmHg and from here on the rest of procedure was done under vision with the laparoscope. With laparoscopic visualization, I proceeded to insert a 5/12 mm port in the epigastric area below the subcostal margin. 5 mm port introduced a small incision below the subcostal margin along the anterior axillary line and the midclavicular line. Graspers were placed through these working ports. The patient is placed in head-up and [id number] position. The fundus of the gallbladder was seen and this was markedly distended, inflamed and erythematous. We were unable to grasp the fundus in view of his distension and induration so I had to decompress this with an aspirating needle through 1 of the working ports. Clear fluid consistent with hydrops was aspirated. Eventually were able to apply a grasper at the fundus and used the suture tract the gallbladder cephalad. There was note of a lot of adherent omentum and adhesions on the anterior wall which had to carefully dissect using the [place] dissector. Eventually is able to apply another grasper towards the pouch. The neck of the gallbladder was severely inflamed there was note of a lot of indurated tissue in this area. There was a large stone impacted at the neck, and we had to gently milked this upwards towards the body of the gallbladder. We had a difficult time dissecting the neck of the gallbladder with the [place] dissector because of this dense induration. Proceeded slowly and this part of the procedure took bowel the extended period of time. Eventually, as able to visualize the cystic duct. The cystic artery was also seen and there was note of a lot of indurated and thick fibrotic tissue surrounding both the thick duct and the cystic artery. However, with careful dissection I was able to clearly define the confluence of the cystic duct with the neck of the gallbladder. I applied clips and 2 clips were applied distally. The cystic artery duct was transected between clips and scissors. We continued to therefore retract the gallbladder away from the liver bed. Continued to do blunt dissection with the [place] dissector to clearly define the cystic artery as well. This was clipped and was transected between clips with Endo scissors. With traction on the gallbladder away from the liver bed, I proceeded to then carefully divide across the thick, indurated hilum. I had to use the L hook cautery to divide through this very thick hilum. The plane between the gallbladder wall and liver bed was difficult to define in view of the thick, severe induration of the entire gallbladder wall. Again, this part of the procedure took an extended period of time. We had to do a mm by mm dissection with the L hook cautery as well as the electrocautery spatula to carefully separate the gallbladder wall from the liver bed. In view of the friability of the gallbladder wall, there were tears from the retraction and there were all stones that we had to retrieve that had spilled. We continued to separate the entire gallbladder wall from the liver bed. This dissection took a long period of time in view of the poor planes and severe induration. Eventually is on be able to completely separate the gallbladder and this was retrieved through an endobag through the umbilical incision. There were a lot of stones that had spilled from the air so we had to retrieve these and placed these in the endobag as well. I then did copious irrigation with the large carcass washer and suctioned out the irrigant fluid with a 10 mm so suction to retrieve any smaller stones as well. I then passed a 7. ALLIE drain through the epigastric port and the position this in the subhepatic space. This was brought out through the lateral-most port site. I observed for hemostasis. There was no evidence of any bile leak or any bleeding from the subhepatic space. I observed for 4 quadrants as well and there was no other pathology nor any evidence of any bowel injury Once hemostasis was ensured, I proceeded to then desufflate through the port sites. The ALLIE drain was secured to the skin with nylon 3-0 anchoring stitch. All ports were removed under vision laparoscoped. The umbilical port was removed last. The fascia of the umbilical incision was closed with [id number] Dexon 0 stitch. Skin closure was achieved on the incision using Polysorb 4-0 subcuticular running sutures. Steri-Strips and dressings were applied. All incisions were infiltrated with Marcaine 0.5% for postop analgesia. The patient tolerated procedure well. No complication noted. Initial final counts of sponges and instruments were correct. Estimated blood loss was about 100 cc Patient was extubated without difficulty and transferred to the recovery room with stable vital signs. Again in view of the difficulty of this procedure, it took an extended period of time to complete the entire cholecystectomy.
[2021-08-14] MEDS: fentaNYL citrate/PF 100 MCG/2 ML VIAL 25 MCG IVPUSH (18:08)
--- NOTE | 2021-08-14 18:49 | PM.EVENT ---
Event Note Date of Service: 08/14/21 Event Note: Seen postop Underwent laparoscopic cholecystectomy Prolonged procedure in view of severe inflammation, hydrops Seems to have adequate pain control ALLIE drain in place Serosanguineous output Stable vital sign Pain management Doing well overall Family updated by phone
[2021-08-14] MEDS: Piperacillin Sodium/Tazobactam 3.375 GM in 0.9 % Sodium Chloride 50 ML IV (19:58)
[2021-08-14] MEDS: Lactated Ringers 1,000 ML 80 ML IVCONT (19:59)
[2021-08-15] VITALS: BP 127/72; PULSE 73; RESP 17; TEMP 36.2; O2SAT 96
[2021-08-15] MEDS: Piperacillin Sodium/Tazobactam 3.375 GM in 0.9 % Sodium Chloride 50 ML IV ×4 (01:38→19:40)
[2021-08-15 04:00] VITALS: BP 134/63; PULSE 68; RESP 18; TEMP 36.6; O2SAT 99
[2021-08-15 06:12] LABS: Hematocrit 35.7 % (37-47); Mean Corpuscular HGB Conc 33.6 g/dl (31.0-35.0); Mean Corpuscular Hemoglobin 28.6 pg (27.0-33.0); Platelet Count 233 X10*3/uL (160-400); Red Cell Distribution Width 13.1 % (11.0-16.0); White Blood Count 8.2 X10*3/uL (4.8-10.8)
[2021-08-15] MEDS: Morphine Sulfate 2 MG/ML CARTRIDGE IVPUSH ×2 (06:18→19:40)
[2021-08-15 06:47] LABS: Anion Gap 10 (12-20); Blood Urea Nitrogen 6 mg/dL (9-16); Calcium 8.7 mg/dL (8.4-10.2); Carbon Dioxide 28 mmol/L (22-29); Chloride 104 mmol/L (96-108); Creatinine Clr Calc Pharmacy 98.4; Estimated Glomerular Filt Rate > 60; Glucose Random 104 mg/dL (60-115); Sodium 138 mmol/L (135-145)
[2021-08-15 07:57] VITALS: BP 132/62; PULSE 65; RESP 16; TEMP 37.6; O2SAT 98
[2021-08-15] MEDS: 0.9 % Sodium Chloride Flush 3 ML SYRINGE IVFLUSH ×2 (08:08→15:24)
--- NOTE | 2021-08-15 10:42 | PM.PNGS ---
Subjective Subjective Date of Service: 08/15/21 Interval history: Feels much better today than yesterday Some incisional pain Tolerating diet Physical Exam Vital Signs: Vital Signs: Last Vital Signs Temp 99.6 F 08/15/21 07:57 Pulse 65 08/15/21 07:57 Resp 16 08/15/21 07:57 BP 132/62 08/15/21 07:57 Pulse Ox 98 08/15/21 07:57 Body Mass Index 35.1 Const: Other: Chemistry 08/14/21 08/15/21 08:20 05:53 Sodium 138 138 Potassium 4.2 4.0 Carbon Dioxide 28 28 BUN 8 L 6 L Creatinine 0.72 0.70 Calcium 9.8 8.7 D Hematology 08/14/21 08/15/21 08:20 05:53 WBC 7.0 8.2 Hgb 12.9 12.0 Plt Count 243 233 Urinalysis 08/14/21 08:20 Urine Color YELLOW Urine Appearance CLEAR Urine pH 6.0 Ur Specific Gravit y 1.020 Urine Protein NEG Urine Glucose (UA) NEG Urine Ketones NEG Urine Blood TRACE Urine Nitrite NEG Ur Leukocyte Chante ase TRACE H Urine RBC 1-4 Urine WBC 5-9 H Ur Squamous Epith Cells 1+ General: comfortable and no acute distress Eyes: Sclerae: sclerae normal Resp: Effort & Inspection: normal respiratory effort GI: Other: Soft, ALLIE drain with scanty serosanguinous output, dressings dry Palpation (GI): not firm and no guarding Procedures Date of Service Date of Service: 08/15/21 Progress Note: A&P Assessment and plan (1) Cholecystitis: Status: Acute Assessment and Plan: Status post lap cholecystectomy Doing well Labs okay ALLIE drain with his scanty serosanguineous output Pain management Possible home tomorrow Family at bedside Fall Risk Details Current Medications: Current Medications Albuterol Sulfate (Albuterol Sulfate (0.083%) 2.5 Mg/3 Ml Vial.Neb) 2.5 mg INHALE ONCE PRN PRN Reason: Wheezing Fentanyl (Fentanyl Citrate/Pf 100 Mcg/2 Ml Vial) 50 mcg IVPUSH Q5M PRN; Protocol PRN Reason: Pain, Severe (Pain Scale 7-10) Fentanyl (Fentanyl Citrate/Pf 100 Mcg/2 Ml Vial) 25 mcg IVPUSH Q5M PRN; Protocol PRN Reason: Pain, Moderate (Pain Scale 4-6 Last Admin: 08/14/21 18:08 Dose: 25 mcg Documented by: Heparin Sodium (Porcine) (Heparin Sodium,Porcine 5,000 Unit/Ml Vial) 5,000 unit SUBCUT Q12H [facility] Piperacillin Sod/Tazobactam (Sod 3.375 gm/ Sodium Chloride) 50 mls @ 100 mls/hr IV Q6H [facility] Last Admin: 08/15/21 08:08 Dose: 100 mls/hr Documented by: Lactated Ringer's (Lr) 1,000 mls @ 80 mls/hr IVCONT .[id number] [facility] Last Admin: 08/14/21 19:59 Dose: 80 mls/hr Documented by: Levothyroxine Sodium (Levothyroxine Sodium 150 Mcg Tablet) 150 mcg PO DAILY@0600 [facility] Last Admin: 08/15/21 09:55 Dose: Not Given Documented by: Morphine Sulfate (Morphine Sulfate 2 Mg/Ml Cartridge) 2 mg IVPUSH Q3H PRN; Protocol PRN Reason: Pain, Severe (Pain Scale 7-10) Last Admin: 08/15/21 06:18 Dose: 2 mg Documented by: Ondansetron HCl (Ondansetron Hcl 4 Mg/2 Ml Vial) 4 mg IVPUSH ONCE PRN PRN Reason: Nausea and Vomiting Ondansetron HCl (Ondansetron Hcl 4 Mg/2 Ml Vial) 4 mg IVPUSH Q8H PRN PRN Reason: Nausea Oxycodone HCl (Oxycodone Hcl Immed Release 5 Mg Tablet) 10 mg PO ONCE PRN PRN Reason: Pain, Severe (Pain Scale 7-10) Oxycodone HCl (Oxycodone Hcl Immed Release 5 Mg Tablet) 5 mg PO ONCE PRN PRN Reason: Pain, Severe (Pain Scale 7-10) Oxycodone HCl (Oxycodone Hcl Immed Release 5 Mg Tablet) 10 mg PO Q4H PRN PRN Reason: Pain, Moderate (Pain Scale 4-6 Sodium Chloride (0.9 % Sodium Chloride Flush 3 Ml Syringe) 3 ml IVFLUSH QSHIFT [facility] Last Admin: 08/15/21 08:08 Dose: 3 ml Documented by: Time Spent With Patient Time: Total time spent is greater than 50% in coordination of care (as documented) at patient's floor/unit and/or counseling patient: Time with patient: 15 - 24 minutes Quality Stroke Does the patient have a stroke diagnosis?: No VTE Prior VTE?: No VTE Risk Level:: Medical - moderate - high VTE Device Contraindication: N/A - Device Ordered VTE Drug Contraindication: N/A - Med Ordered
--- NOTE | 2021-08-15 10:56 | MHC.CM.PN ---
dc plan home no servceis pt is independen t
[2021-08-15 11:38] VITALS: BP 128/62; PULSE 67; RESP 16; TEMP 36.7; O2SAT 100
--- NOTE | 2021-08-15 13:24 | HO.POSTANES ---
Post Anesthesia Evaluation Post Anesthesia Evaluation Vital Signs: Vital Signs Temp Pulse Resp BP Pulse Ox 08/15/21 11:38 98.1 F 67 16 128/62 100 08/15/21 07:57 99.6 F 65 16 132/62 98 08/15/21 04:00 97.8 F 68 18 134/63 99 Anesthesia: General Endotracheal-GETA Mental Status: Awake Pain Control: Satisfactory Nausea/Vomiting: None Hydration: Adequate Anesthesia-Related Issues: No Anes. Related Issues
[2021-08-15] MEDS: Heparin Sodium,Porcine 5,000 UNIT/ML VIAL 5000 UNIT SUBCUT ×2 (14:42→23:42)
[2021-08-15] MEDS: Lactated Ringers 1,000 ML 80 ML IVCONT (15:18)
[2021-08-15 15:36] VITALS: BP 119/60; PULSE 73; RESP 16; TEMP 37.2; O2SAT 95
[2021-08-15 19:30] VITALS: BP 153/55; PULSE 97; RESP 16; TEMP 36.8; O2SAT 94
[2021-08-16] VITALS: BP 127/72; PULSE 86; RESP 16; TEMP 36.7; O2SAT 92
[2021-08-16] MEDS: Piperacillin Sodium/Tazobactam 3.375 GM in 0.9 % Sodium Chloride 50 ML IV ×4 (01:05→21:00)
[2021-08-16 03:35] VITALS: BP 157/68; PULSE 77; RESP 16; TEMP 36.3; O2SAT 93
[2021-08-16] MEDS: Levothyroxine Sodium 150 MCG TABLET PO (05:30)
[2021-08-16] MEDS: Lactated Ringers 1,000 ML 80 ML IVCONT (05:31)
[2021-08-16 08:00] VITALS: BP 128/72; PULSE 75; RESP 18; TEMP 36.5; O2SAT 94
--- NOTE | 2021-08-16 11:09 | P.PNGS_ITS ---
Subjective Subjective Date of Service: 08/16/21 Interval history: Feels well Says she is much better compared to prior to surgery Has been ambulating Good oral intake Denies significant pain She says she has been ready to be discharged Physical Exam Vital Signs: Vital Signs: Last Vital Signs Temp 97.7 F 08/16/21 08:00 Pulse 75 08/16/21 08:00 Resp 18 08/16/21 08:00 BP 128/72 08/16/21 08:00 Pulse Ox 94 08/16/21 08:00 Body Mass Index 35.1 Chemistry 08/14/21 08/15/21 08:20 05:53 Sodium 138 138 Potassium 4.2 4.0 Carbon Dioxide 28 28 BUN 8 L 6 L Creatinine 0.72 0.70 Calcium 9.8 8.7 D Hematology 08/14/21 08/15/21 08:20 05:53 WBC 7.0 8.2 Hgb 12.9 12.0 Plt Count 243 233 Urinalysis 08/14/21 08:20 Urine Color YELLOW Urine Appearance CLEAR Urine pH 6.0 Ur Specific Gravit y 1.020 Urine Protein NEG Urine Glucose (UA) NEG Urine Ketones NEG Urine Blood TRACE Urine Nitrite NEG Ur Leukocyte Chante ase TRACE H Urine RBC 1-4 Urine WBC 5-9 H Ur Squamous Epith Cells 1+ Const: Other: Ambulating well General: comfortable and no acute distress Eyes: Sclerae: sclerae normal Resp: Effort & Inspection: normal respiratory effort GI: Other: Soft, nondistended, incisions clean and dry, ALLIE drain in place, scanty serosanguineous output with some old blood Procedures Date of Service Date of Service: 08/16/21 Progress Note: A&P Assessment and plan (1) Cholecystitis: Status: Acute Assessment and Plan: Status post laparoscopic cholecystectomy Doing very well She wants to go home Will DC home with ALILE drain Will see her in the office this week to remove ALLIE Instructed on care of the drain was with her during discussion Looks well and she agrees with plan Fall Risk Details Current Medications: Current Medications Albuterol Sulfate (Albuterol Sulfate (0.083%) 2.5 Mg/3 Ml Vial.Neb) 2.5 mg INHALE ONCE PRN PRN Reason: Wheezing Fentanyl (Fentanyl Citrate/Pf 100 Mcg/2 Ml Vial) 50 mcg IVPUSH Q5M PRN; Protocol PRN Reason: Pain, Severe (Pain Scale 7-10) Fentanyl (Fentanyl Citrate/Pf 100 Mcg/2 Ml Vial) 25 mcg IVPUSH Q5M PRN; Protocol PRN Reason: Pain, Moderate (Pain Scale 4-6 Last Admin: 08/14/21 18:08 Dose: 25 mcg Documented by: Heparin Sodium (Porcine) (Heparin Sodium,Porcine 5,000 Unit/Ml Vial) 5,000 unit SUBCUT Q12H [facility] Last Admin: 08/15/21 23:42 Dose: 5,000 unit Documented by: Piperacillin Sod/Tazobactam (Sod 3.375 gm/ Sodium Chloride) 50 mls @ 100 mls/hr IV Q6H [facility] Last Infusion: 08/16/21 06:53 Dose: Infused Documented by: Lactated Ringer's (Lr) 1,000 mls @ 80 mls/hr IVCONT .[id number] [facility] Last Admin: 08/16/21 05:31 Dose: 80 mls/hr Documented by: Levothyroxine Sodium (Levothyroxine Sodium 150 Mcg Tablet) 150 mcg PO DAILY@0600 [facility] Last Admin: 08/16/21 05:30 Dose: 150 mcg Documented by: Morphine Sulfate (Morphine Sulfate 2 Mg/Ml Cartridge) 2 mg IVPUSH Q3H PRN; Protocol PRN Reason: Pain, Severe (Pain Scale 7-10) Last Admin: 08/15/21 19:40 Dose: 2 mg Documented by: Ondansetron HCl (Ondansetron Hcl 4 Mg/2 Ml Vial) 4 mg IVPUSH ONCE PRN PRN Reason: Nausea and Vomiting Ondansetron HCl (Ondansetron Hcl 4 Mg/2 Ml Vial) 4 mg IVPUSH Q8H PRN PRN Reason: Nausea Oxycodone HCl (Oxycodone Hcl Immed Release 5 Mg Tablet) 10 mg PO ONCE PRN PRN Reason: Pain, Severe (Pain Scale 7-10) Oxycodone HCl (Oxycodone Hcl Immed Release 5 Mg Tablet) 5 mg PO ONCE PRN PRN Reason: Pain, Severe (Pain Scale 7-10) Oxycodone HCl (Oxycodone Hcl Immed Release 5 Mg Tablet) 10 mg PO Q4H PRN PRN Reason: Pain, Moderate (Pain Scale 4-6 Sodium Chloride (0.9 % Sodium Chloride Flush 3 Ml Syringe) 3 ml IVFLUSH QSHIFT [facility] Last Admin: 08/16/21 07:59 Dose: Not Given Documented by: Time Spent With Patient Time: Total time spent is greater than 50% in coordination of care (as documented) at patient's floor/unit and/or counseling patient: Time with patient: 15 - 24 minutes Quality Stroke Does the patient have a stroke diagnosis?: No VTE Prior VTE?: No VTE Risk Level:: Medical - moderate - high VTE Device Contraindication: N/A - Device Ordered VTE Drug Contraindication: N/A - Med Ordered
[2021-08-16 11:50] VITALS: BP 114/63; PULSE 85; RESP 18; TEMP 37.6; O2SAT 94
[2021-08-16] MEDS: Heparin Sodium,Porcine 5,000 UNIT/ML VIAL 5000 UNIT SUBCUT (12:21)
--- NOTE | 2021-08-16 13:51 | MHC.CM.PN ---
DC TODAY, HOME WITH NO SERVICES
[2021-08-16 15:39] VITALS: BP 162/70; PULSE 100; RESP 16; TEMP 36.6; O2SAT 98
[2021-08-16] MEDS: 0.9 % Sodium Chloride Flush 3 ML SYRINGE IVFLUSH (16:22)
[2021-08-16 19:27] VITALS: BP 175/69; PULSE 84; RESP 15; TEMP 36.6; O2SAT 97
[2021-08-17] VITALS: BP 135/65; PULSE 71; RESP 16; TEMP 36.4; O2SAT 97
[2021-08-17 03:33] VITALS: BP 163/80; PULSE 73; RESP 16; TEMP 36; O2SAT 99
[2021-08-17] MEDS: Levothyroxine Sodium 150 MCG TABLET PO (06:29)
[2021-08-17] MEDS: oxyCODONE HCl Immed Release 5 MG TABLET 10 MG PO ×2 (07:48→11:02)
[2021-08-17 07:50] VITALS: BP 136/77; PULSE 66; RESP 18; TEMP 36.5; O2SAT 95
--- NOTE | 2021-08-17 08:27 | PM.PNGS ---
Subjective Subjective Date of Service: 08/17/21 Interval history: Continues to do well Says she is comfortable No significant pain Good GI intake Physical Exam Vital Signs: Vital Signs: Last Vital Signs Temp 97.7 F 08/17/21 07:50 Pulse 66 08/17/21 07:50 Resp 18 08/17/21 07:50 BP 136/77 08/17/21 07:50 Pulse Ox 95 08/17/21 07:50 Body Mass Index 35.1 Const: General: comfortable and no acute distress Eyes: Sclerae: sclerae normal Resp: Effort & Inspection: normal respiratory effort Cardio: Rate: regular rate GI: Other: ALLIE drain in place, with scanty thick old blood, incisions clean and dry Palpation (GI): Soft to palpation, not firm and nontender Procedures Date of Service Date of Service: 08/17/21 Progress Note: A&P Assessment and plan (1) Cholecystitis: Status: Acute Assessment and Plan: Status post laparoscopic cholecystectomy Continues do well Exam benign DC home as planned Follow-up in the office this week removed ALLIE drain Fall Risk Details Current Medications: Current Medications Albuterol Sulfate (Albuterol Sulfate (0.083%) 2.5 Mg/3 Ml Vial.Neb) 2.5 mg INHALE ONCE PRN PRN Reason: Wheezing Fentanyl (Fentanyl Citrate/Pf 100 Mcg/2 Ml Vial) 50 mcg IVPUSH Q5M PRN; Protocol PRN Reason: Pain, Severe (Pain Scale 7-10) Fentanyl (Fentanyl Citrate/Pf 100 Mcg/2 Ml Vial) 25 mcg IVPUSH Q5M PRN; Protocol PRN Reason: Pain, Moderate (Pain Scale 4-6 Last Admin: 08/14/21 18:08 Dose: 25 mcg Documented by: Heparin Sodium (Porcine) (Heparin Sodium,Porcine 5,000 Unit/Ml Vial) 5,000 unit SUBCUT Q12H COUNTS INCLUDE 234 BEDS AT THE [facility] Last Admin: 08/16/21 23:21 Dose: Not Given Documented by: Piperacillin Sod/Tazobactam (Sod 3.375 gm/ Sodium Chloride) 50 mls @ 100 mls/hr IV Q6H COUNTS INCLUDE 234 BEDS AT THE [facility] Last Admin: 08/17/21 07:46 Dose: Not Given Documented by: Lactated Ringer's (Lr) 1,000 mls @ 80 mls/hr IVCONT .[id number] COUNTS INCLUDE 234 BEDS AT THE [facility] Last Admin: 08/17/21 07:46 Dose: Not Given Documented by: Levothyroxine Sodium (Levothyroxine Sodium 150 Mcg Tablet) 150 mcg PO DAILY@0600 COUNTS INCLUDE 234 BEDS AT THE [facility] Last Admin: 08/17/21 06:29 Dose: 150 mcg Documented by: Morphine Sulfate (Morphine Sulfate 2 Mg/Ml Cartridge) 2 mg IVPUSH Q3H PRN; Protocol PRN Reason: Pain, Severe (Pain Scale 7-10) Last Admin: 08/15/21 19:40 Dose: 2 mg Documented by: Ondansetron HCl (Ondansetron Hcl 4 Mg/2 Ml Vial) 4 mg IVPUSH ONCE PRN PRN Reason: Nausea and Vomiting Ondansetron HCl (Ondansetron Hcl 4 Mg/2 Ml Vial) 4 mg IVPUSH Q8H PRN PRN Reason: Nausea Oxycodone HCl (Oxycodone Hcl Immed Release 5 Mg Tablet) 5 mg PO ONCE PRN PRN Reason: Pain, Severe (Pain Scale 7-10) Oxycodone HCl (Oxycodone Hcl Immed Release 5 Mg Tablet) 10 mg PO Q4H PRN PRN Reason: Pain, Moderate (Pain Scale 4-6 Sodium Chloride (0.9 % Sodium Chloride Flush 3 Ml Syringe) 3 ml IVFLUSH QSHIFT COUNTS INCLUDE 234 BEDS AT THE [facility] Last Admin: 08/17/21 07:46 Dose: Not Given Documented by: Time Spent With Patient Time: Total time spent is greater than 50% in coordination of care (as documented) at patient's floor/unit and/or counseling patient: Time with patient: 15 - 24 minutes Quality Stroke Does the patient have a stroke diagnosis?: No VTE Prior VTE?: No VTE Risk Level:: Medical - moderate - high VTE Device Contraindication: N/A - Device Ordered VTE Drug Contraindication: N/A - Med Ordered
--- NOTE | 2021-08-17 08:34 | MHC.CM.PN ---
PT CLEARED TO DC HOME TODAY WITH NO NEW SERVICES PT TO ARRANGE TRANSPORTATION
--- NOTE | 2021-08-17 12:37 | P.DS_ITS ---
DS: Providers Provider Date of Service: 08/17/21 Date of admission: 08/14/21 12:21 Primary care physician: Magui Perez MD Attending physician on admission: Naresh Hazel DS: Diagnosis Discharge Diagnosis (1) Cholecystitis: Status: Acute DS: Summary Hospital Course Hospital Course: BRIEF HPI: ?Farzana Quintanilla is a 51 year old female with thyroid disease, and asthma, who came to the emergency room this morning because of right upper quadrant pain.? She says that this actually has been going on for about 4 days now.? This had been periodic would be coming in waves.? She however says that these had not improved at all and often times would be severe so she decided to eventually come to the emergency room this morning. She describes occasional nausea but no vomiting.? She says she had been diagnosed to have gallstones in t he past and would have periodic pain on the same area but this would resolve immediately.? She otherwise denies any other significant complaints. Her past episodes seem to correlate with intake of fatty food. Work up in the ED included an ABD US which showed some thickening of the gallbladder along with gallstones, suggestive of acute cholecystitis.? HOSPITAL COURSE: She was admitted to the surgical service for treatment of the acute calculous cholecystitis. In view of her persistent pain, she wanted to proceed with laparoscopic cholecystectomy possible open. On 08/14/21, a laparoscopic cholecystectomy was performed by Dr. Hazel without complication. The gallbladder was markedly distended, inflamed and erythematous with an adherent omentum and found to be hydroptic. A ALLIE drain was placed intraoperatively. The patient tolerated the procedure well, completed routine recovery in PACU and was admitted to the medical/surgical floor for observation. The patient had an uncomplicated recovery course. Her home medications were resumed. She felt much improved post operatively with good pain control on PRN analgesics. She remained inpatient for 3 days post op for pain control and while her activity and PO intake increased. She was kept on IV zosyn while inpatient given the significant inflammation found intraoperatively. She was ambulated. Her ALLIE drain output remained nonbilious but was left in place until she is seen at the office this week. On the day of discharge, she was tolerating a solid diet with good PO intake, had good pain control with a benign abdominal exam and clean incisions. She was discharged to home on 08/17/21 in stable condition with the ALLIE drain in place. She is to follow up with Dr. Hazel this week for drain removal, post op check. Status at Discharge Functional status at discharge: independent ambulation Overall status at discharge: patient is progressing back to baseline Time Spent with Patient Time attestation: Total time spent providing and/or coordinating discharge services: Discharge coordination time: Greater than 30 minutes Quality: Stroke Does the patient have a stroke diagnosis?: No Physical Exam Vital Signs: Vital Signs: Last Vital Signs Temp 97.7 F 08/17/21 07:50 Pulse 66 08/17/21 07:50 Resp 18 08/17/21 07:50 BP 136/77 08/17/21 07:50 Pulse Ox 95 08/17/21 07:50 Body Mass Index 35.1 Const: General: comfortable, no acute distress and alert Eyes: Sclerae: sclerae normal GI: Other: ALLIE with scanty old bloody drainage Inspection: No distended and Yes incision (clean) Palpation (GI): Soft to palpation, Tenderness to palpation present (GI) (mild incisional), no guarding and not rigid Skin: General skin exam: no rashes or lesions noted DS: Data Data Completed and Pending Pending studies at discharge: Pending at discharge 08/14/21 17:05 Surgical [PTH] Routine Discharge Plan Discharge Patient Disposition: Home, Self-Care Discharge Diagnosis: Acute calculous cholecystitis with hydrops Referrals: Magui Perez MD [Primary Care Provider] - 1 Week Naresh Hazel MD [Physician] - 1 Week Discharge Medications: New oxycodone-acetaminophen [Percocet] 5-325 mg tablet 1 tab PO Q4-6H PRN (Reason: pain) Qty: 30 RF: 0 ibuprofen 600 mg tablet 600 mg PO Q6H PRN (Reason: pain) Qty: 20 RF: 0 Continued ferrous sulfate 325 mg (65 mg iron) tablet 1 tab PO TID RF: 0 levothyroxine [Synthroid] 150 mcg tablet 1 tab PO DAILY RF: 0 docusate sodium [DOK] 100 mg capsule 1 cap PO BID RF: 0 ergocalciferol (vitamin D2) 1,250 mcg (50,000 unit) capsule 1 cap PO QWEEK RF: 0 melatonin 5 mg tablet 1 tab PO BEDTIME PRN (Reason: insomnia) RF: 0 Discharge Orders: Discharge Order (Routine); Ordered 08/16/21 Ordered By: Naresh Hazel Activity on Discharge: No heavy lifting Stand Alone Forms: Patient Portal Discharge page Activity Restrictions/Additional Instructions: If the incision area is tender, you may apply an ice pack for short intervals (No more than 20 minutes on, followed by at least 20 minutes off). Do not apply heat. Do not use creams, lotions, or topical antibiotics unless instructed to do so by your surgeon. These can cause infection or allergic reaction. Empty ALLIE drain twice a day and record output OK to shower No lifting more than 20 lb No strenuous activities Call the office for follow-up this week - with Dr. Hazel [phone] Call Your Doctor If: -Your temperature exceeds 101.5? F -You experience excessive pain or swelling -You have an unexpected reaction to medication -You have excessive bleeding -You experience continued vomiting/nausea -Your incision begins to separate -Your incision shows signs of infection such as increased redness, swelling, excessive pain, drainage (light blood or clear fluid is normal) or heat Care Plan Goals: Control pain Health Concerns: Control pain Plan of Treatment: Oral pain meds Assessment: Doing very well Discharge Date/Time: 08/17/21 11:34
== END 2021-08-17 11:34 | disposition home or self-care (01) | DRG 263 ==
LOC: HO.ED 10:52 → HO.EDOVER 12:37 → HO.S3 14:19 → HO.ICU 20:22 → HO.S3 20:28
PROVIDERS: Admitting Provider Surgery; Emergency Provider Emergency Medicine; PCP Family Medicine; Visit Provider Surgery
PROC: 0FT44ZZ Resection of Gallbladder, Percutaneous Endoscopic Approach (ICD-10-PCS; CPT 47562; principal; 2021-08-14 14:30)
DX: K80.01 Calculus of gallbladder with acute cholecystitis with obstruction (principal); K82.1 Hydrops of gallbladder; E03.9 Hypothyroidism, unspecified; Z20.822 Contact with and (suspected) exposure to COVID-19; Z79.1 Long term (current) use of non-steroidal anti-inflammatories (NSAID); Z79.890 Hormone replacement therapy; Z79.899 Other long term (current) drug therapy
CPT/HCPCS: 36415; 74177; 76705; 80048; 80076; 81001; 83690; 85025; 85027; 87086; 87088; 87147; 87186; 87635; 88304; 93005; 96374; 96375; 99024; 99284; 99285; J0131; J1100; J1170; J2250; J2270; J2370; J2405; J2543; J3010; Q9967

== ENCOUNTER → 2021-08-14 12:21 | Outpatient (BNV) | payer OTHER, SELFPAY | PROVIDERS: Admitting Provider Surgery; Emergency Provider Emergency Medicine; PCP Family Medicine; Visit Provider Surgery | DX: K81.9 Cholecystitis, unspecified (principal) ==

== ENCOUNTER → 2021-08-19 14:04 | Outpatient (BNVA) | payer OTHER, SELFPAY | PROVIDERS: PCP Family Medicine; Referring Provider Family Medicine; Visit Provider Surgery ==

== ENCOUNTER 2021-10-05 15:49 | Outpatient (REF) | payer OTHER, SELFPAY ==
--- NOTE | ~2021-10-05 | XR_ITS ---
EXAMINATION: 1. RADIOGRAPHS LEFT CLAVICLE 2. RADIOGRAPHS LEFT SHOULDER 3. RADIOGRAPHS LEFT HUMERUS CLINICAL INFORMATION: Pain COMPARISON: None TECHNIQUE: 2 views of the left clavicle, 4 views of the left shoulder and 2 views of the left humerus were obtained. FINDINGS: No fracture of the left clavicle. There are only minimal hypertrophic changes of the left acromioclavicular joint. There is no fracture of the left humerus. Left humeral head demonstrates good articulation with the glenoid fossa. Visualized left-sided ribs and lung parenchyma are unremarkable. XR/XR clavicle LT IMPRESSION: -Minimal degenerative changes of the left shoulder. -No fracture of the left humerus or left clavicle.
--- NOTE | ~2021-10-05 | XR_ITS ---
EXAMINATION: 1. RADIOGRAPHS LEFT CLAVICLE 2. RADIOGRAPHS LEFT SHOULDER 3. RADIOGRAPHS LEFT HUMERUS CLINICAL INFORMATION: Pain COMPARISON: None TECHNIQUE: 2 views of the left clavicle, 4 views of the left shoulder and 2 views of the left humerus were obtained. FINDINGS: No fracture of the left clavicle. There are only minimal hypertrophic changes of the left acromioclavicular joint. There is no fracture of the left humerus. Left humeral head demonstrates good articulation with the glenoid fossa. Visualized left-sided ribs and lung parenchyma are unremarkable. XR/XR humerus LT IMPRESSION: -Minimal degenerative changes of the left shoulder. -No fracture of the left humerus or left clavicle.
--- NOTE | ~2021-10-05 | XR_ITS ---
EXAMINATION: 1. RADIOGRAPHS LEFT CLAVICLE 2. RADIOGRAPHS LEFT SHOULDER 3. RADIOGRAPHS LEFT HUMERUS CLINICAL INFORMATION: Pain COMPARISON: None TECHNIQUE: 2 views of the left clavicle, 4 views of the left shoulder and 2 views of the left humerus were obtained. FINDINGS: No fracture of the left clavicle. There are only minimal hypertrophic changes of the left acromioclavicular joint. There is no fracture of the left humerus. Left humeral head demonstrates good articulation with the glenoid fossa. Visualized left-sided ribs and lung parenchyma are unremarkable. XR/XR shoulder LT min 2V IMPRESSION: -Minimal degenerative changes of the left shoulder. -No fracture of the left humerus or left clavicle.
== END 2021-10-05 15:50 | disposition home or self-care (01) ==
LOC: HO.LAB 15:49
PROVIDERS: PCP Family Medicine; Visit Provider Internal Medicine
DX: M25.512 Pain in left shoulder (principal); M79.602 Pain in left arm
CPT/HCPCS: 73000; 73030; 73060

== ENCOUNTER 2021-11-26 10:00 | Outpatient (RCR) | payer OTHER, SELFPAY | END 2021-12-11 07:55 | disposition home or self-care (01) | LOC: HO.PTCHIC 10:00 | PROVIDERS: PCP Family Medicine; Visit Provider Family Medicine | DX: M25.512 Pain in left shoulder (principal) | CPT/HCPCS: 97014; 97110; 97140; 97161; 97530 ==

== ENCOUNTER → 2021-12-29 09:59 | Outpatient (BNVA) | payer OTHER, SELFPAY | PROVIDERS: PCP Family Medicine; Visit Provider Physician Assistant | DX: M75.102 Unspecified rotator cuff tear or rupture of left shoulder, not specified as traumatic (principal); G89.29 Other chronic pain | CPT/HCPCS: 99202 ==

== ENCOUNTER → 2022-01-04 13:54 | Outpatient (BNVA) | payer OTHER, SELFPAY | PROVIDERS: PCP Family Medicine; Visit Provider Physician Assistant | DX: M75.102 Unspecified rotator cuff tear or rupture of left shoulder, not specified as traumatic (principal) | CPT/HCPCS: J1040 ==

== ENCOUNTER 2022-03-04 11:49 | Outpatient (REF) | payer OTHER, SELFPAY ==
--- NOTE | ~2022-03-04 | XR_ITS ---
EXAMINATION: XR CHEST CLINICAL INFORMATION: Right upper quadrant pain COMPARISON: None TECHNIQUE: 2 views of the chest were obtained. FINDINGS: No significant abnormality is noted involving the heart, lungs, mediastinum, bony thorax or soft tissues. XR/XR chest 2V IMPRESSION: Unremarkable chest examination.
== END 2022-03-04 11:50 | disposition home or self-care (01) ==
LOC: HO.XRAY 11:49
PROVIDERS: Absent Provider Family Medicine; PCP Family Medicine; Visit Provider Nurse Practitioner Family
DX: R10.11 Right upper quadrant pain (principal)
CPT/HCPCS: 71046

== ENCOUNTER 2022-04-06 13:21 | Outpatient (REF) | payer OTHER, SELFPAY ==
--- NOTE | ~2022-04-06 | MM_ITS ---
EXAMINATION: MM SCREENING DIGITAL BREAST TOMOSYNTHESIS, BILATERAL CLINICAL INFORMATION: Screening. Asymptomatic. The lifetime risk of breast cancer based on the Tyrer-Cuzick Model is 16%. COMPARISON: Mammography: 03/28/2021, 10/27/2018, 10/18/2018, 08/17/2017 TECHNIQUE: Digital breast tomosynthesis is performed in both the craniocaudal and mediolateral oblique views along with computer-aided detection (CAD). Synthesized 2D images are generated from the tomosynthesis. Additional bilateral MLO views are provided. FINDINGS: There are scattered areas of fibroglandular density (ACR BI-RADS breast composition Category b). There are no significant masses, abnormal calcifications, or other abnormalities. Parenchymal pattern is similar to prior studies. No architectural abnormality. The axilla are unremarkable. MM/MM tomosynthesis screening BI IMPRESSION: No mammographic evidence of malignancy. ASSESSMENT: BI-RADS 1: Negative RECOMMENDATION: Routine annual mammography screening. This patient's information was entered into a reminder system with a target due date for their next mammogram.
== END 2022-04-06 13:22 | disposition home or self-care (01) ==
LOC: HO.MAMMO 13:21
PROVIDERS: PCP Family Medicine; Visit Provider Family Medicine
DX: Z12.31 Encounter for screening mammogram for malignant neoplasm of breast (principal)
CPT/HCPCS: 77063; 77067

== ENCOUNTER 2023-04-21 12:53 | Outpatient (REF) | payer OTHER, SELFPAY ==
[2023-04-25 15:48] LABS: Anti Nuclear Antibody Screen NEGATIVE (NEGATIVE)
== END 2023-04-21 12:54 | disposition home or self-care (01) ==
LOC: HO.LAB 12:53
PROVIDERS: PCP Family Medicine; Visit Provider Family Medicine
DX: R53.83 Other fatigue (principal); I10 Essential (primary) hypertension; E55.9 Vitamin D deficiency, unspecified; E03.9 Hypothyroidism, unspecified; D50.8 Other iron deficiency anemias; M79.10 Myalgia, unspecified site
CPT/HCPCS: 36415; 80048; 80061; 80076; 82306; 82607; 82746; 83036; 83540; 84443; 85025; 85652; 86038; 86140; 86431; 86617; 86618

== ENCOUNTER → 2023-05-05 12:00 | Outpatient (BNV) | payer OTHER, SELFPAY | PROVIDERS: PCP Family Medicine; Visit Provider Radiology Diagnostic Radiology | DX: Z12.31 Encounter for screening mammogram for malignant neoplasm of breast (principal) | CPT/HCPCS: 77063; 77067 ==

== ENCOUNTER 2023-05-05 12:12 | Outpatient (REF) | payer OTHER, SELFPAY ==
--- NOTE | ~2023-05-05 | MM_ITS ---
EXAMINATION: MM SCREENING DIGITAL BREAST TOMOSYNTHESIS, BILATERAL CLINICAL INFORMATION: Screening. Asymptomatic. The lifetime risk of breast cancer based on the Tyrer-Cuzick Model is 7.4%. COMPARISON: Mammography: This study is compared with prior exams dating back to 2019. TECHNIQUE: Digital breast tomosynthesis is performed in both the craniocaudal and mediolateral oblique views along with computer-aided detection (CAD). Synthesized 2D images are generated from the tomosynthesis. FINDINGS: The breasts are almost entirely fatty (ACR BI-RADS breast composition Category a). There are no significant masses, abnormal calcifications, or other abnormalities. MM/MM tomosynthesis screening BI IMPRESSION: No mammographic evidence of malignancy. ASSESSMENT: BI-RADS BI-RADS 1 - Negative RECOMMENDATION: Routine annual mammography screening. 1 year F/U This examination should not preclude the clinical evaluation of a suspicious palpable abnormality. This patient's information was entered into a reminder system with a target due date for their next mammogram.
== END 2023-05-05 12:13 | disposition home or self-care (01) ==
LOC: HO.MAMMO 12:12
PROVIDERS: PCP Family Medicine; Visit Provider Family Medicine
DX: Z12.31 Encounter for screening mammogram for malignant neoplasm of breast (principal)
CPT/HCPCS: 77063; 77067

== ENCOUNTER 2023-08-23 10:56 | Outpatient (REF) | payer OTHER, SELFPAY ==
--- NOTE | ~2023-08-23 | XR_ITS ---
EXAMINATION: XR ANKLE, BILATERAL XR FOOT, BILATERAL XR HAND, BILATERAL XR WRIST, BILATERAL XR SHOULDER, BILATERAL XR KNEE, BILATERAL CLINICAL INFORMATION: Pain. COMPARISON: Radiographs of bilateral knees of 08/16/2014. TECHNIQUE: 3 views each of bilateral foot. 3 views each of bilateral ankles. 4 views each of bilateral hands. 4 views each of bilateral knees. 4 views each of bilateral shoulders. FINDINGS: LEFT ANKLE: Tiny plantar calcaneal spur. Joint effusion. Alignment preserved. No displaced fracture. Soft tissue swelling along the medial aspect of the ankle. RIGHT ANKLE: Soft tissue swelling particularly along the medial ankle. Joint effusion. Small plantar calcaneal spur. Alignment preserved. LEFT FOOT: Mild degenerative changes in the 1st metatarsophalangeal joint. Alignment preserved. Mild concavity/ulcerations with sclerosis along the lateral aspects of the 1st, 2nd and 3rd metatarsal heads. No displaced fracture. RIGHT FOOT: Mild degenerative changes in the 1st metatarsophalangeal joint. Alignment preserved. No displaced fracture. LEFT HAND/WRIST: Moderate degenerative changes in the 1st carpometacarpal joint with joint space narrowing and hypertrophic change. Mild degenerative changes in the 1st metacarpophalangeal joint. Alignment preserved. RIGHT HAND/WRIST: Moderate degenerative changes in the 1st carpometacarpal joint with joint space narrowing and hypertrophic change. Mild degenerative changes in the 1st metacarpophalangeal joint. Alignment preserved. LEFT KNEE: Mild medial joint space narrowing with small medial marginal osteophytes. No significant joint effusion. RIGHT KNEE: Mild medial joint space narrowing with small medial marginal osteophytes. No significant joint effusion. LEFT SHOULDER: Mild degenerative changes in the acromioclavicular and glenohumeral joints. No abnormal soft tissue calcifications identified adjacent to the humeral head. Degenerative changes with levoscoliosis on limited images of the upper thoracic spine. RIGHT SHOULDER: Mild degenerative changes in the acromioclavicular and glenohumeral joints. No abnormal soft tissue calcifications identified adjacent to the humeral head XR/XR shoulder LT min 2V IMPRESSION: 1. Bilateral ankle joint effusions with soft tissue swelling. 2. Mild degenerative changes in the bilateral 1st metatarsophalangeal joints. 3. Moderate degenerative changes in the bilateral 1st carpometacarpal joints. 4. Mild degenerative changes in the bilateral knees. 5. Mild degenerative changes in the bilateral shoulders. CT scan or MRI should be considered for further evaluation if there is concern for fracture or other underlying pathology.
[2023-08-23 13:44] LABS: Basophils Percent Auto 0.4 % (0-2); Eosinophils Absolute Auto 0.1 X10*3/uL (0.0-0.4); Eosinophils Percent Auto 1.3 % (0-4); Hematocrit 38.4 % (37.0-47.0); Hemoglobin 12.9 g/dl (12.0-16.0); Imm Gran Abs Auto 0.01 X10*3/uL (0.00-0.03); Imm Gran Pct Auto 0.2 % (0.0-0.4); Lymphocytes Absolute Auto 1.3 X10*3/uL (1.2-4.9); Lymphocytes Percent Auto 29.4 % (20-40); MANUAL DIFF FLAG NO; Mean Corpuscular HGB Conc 33.6 g/dl (31.0-35.0); Mean Corpuscular Hemoglobin 29.2 pg (27.0-33.0); Mean Corpuscular Volume 86.9 fL (80.0-98.0); Mean Platelet Volume 11.7 fL (9.4-12.3); Monocytes Absolute Auto 0.3 X10*3/uL (0.1-1.2); Monocytes Percent Auto 6.4 % (2-11); Neutrophils Absolute Auto 2.8 x10*3/uL (2.0-8.3); Neutrophils Percent Auto 62.3 % (45-73); Platelet Count 299 X10*3/uL (160-400); Red Blood Count 4.42 X10*6/uL (4.20-5.50); Red Cell Distribution Width 12.9 % (11.0-16.0); White Blood Count 4.5 X10*3/uL (4.8-10.8)
[2023-08-23 13:58] LABS: Appearance Urine Clear; Color Urine Yellow; Glucose Urine UA Negative (Negative); Leukocyte Esterase Urine Small (1+) (Negative); Nitrite Urine Negative (Negative); PH 5.5 (5.0-9.0); Specific Gravity - Urine 1.025 (1.005-1.025); UMIC TRIGGER UA YES; Urine Blood Negative (Negative); Urine Ketones Negative (Negative); Urine Protein Negative (Neg-Trace)
[2023-08-23 14:02] LABS: Bacteria Urine Trace (None Seen); Hyaline Casts Urine 0-2 /LPF (0-2); RBC Urine 0-2 /HPF (0-2)
[2023-08-23 14:13] LABS: Alanine Aminotransferase 14 U/L (0-31); Albumin Level 4.3 g/dL (3.5-5.0); Alkaline Phosphatase 113 U/L (39-117); Anion Gap 11 (12-20); Aspartate Amino Transferase 20 U/L (5-31); Bilirubin Total 0.5 mg/dL (0.0-1.0); Blood Urea Nitrogen 14 mg/dL (9-16); C Reactive Protein 0.64 mg/dL (< or = 0.50); Calcium 9.9 mg/dL (8.4-10.2); Carbon Dioxide 27 mmol/L (22-29); Chloride 107 mmol/L (96-108); Estimated Glomerular Filt Rate > 60; Glucose Random 102 mg/dL (60-115); Potassium 3.7 mmol/L (3.3-5.1); Sodium 141 mmol/L (135-145); Total Protein 7.8 g/dL (6.5-8.0)
[2023-08-23 14:30] LABS: Creatinine Urine 187.95 mg/dL; Protein/Creatinine Ratio, Ur 0.06 (<0.2); Total Protein Urine Random 11 mg/dL (<12)
[2023-08-23 21:07] LABS: Erythrocyte Sedimentation Rate 20 MM/HR (0-20)
[2023-08-24 04:27] LABS: HBS Num1 357.93 mIU/mL (0-7.99); HBc Num1 0.12 S/CO (0.00-0.79); HBsAGNum1 0.28 S/CO (0.00-0.99); Hepatitis A Antibody IgM 0.25 Index (0-0.79); Hepatitis B Core Antibody Nonreactive (Nonreactive); Hepatitis B Surface Antigen Negative (Negative); ~HepC Num1 0.08 S/CO (0.00-0.79); ~Hepatitis A Antibody IgM Nonreactive (Nonreactive); ~Hepatitis B Surface Antibody REACTIVE (Nonreactive); ~Hepatitis C Antibody Nonreactive (Nonreactive)
[2023-08-24 17:24] LABS: Complement C3 178 mg/dL (83-193)
[2023-08-25 13:22] LABS: Cyclic Citrullinated Peptide <16 UNITS
[2023-08-25 19:03] LABS: TS Negative Control Passed; TS Panel A 0; TS Panel B 0; TS Positive Control Passed; TSpotTB Negative (Negative)
[2023-08-25 21:54] LABS: Prot Elec - Albumin 4.2 g/dL (3.8-4.8); Prot Elec - Alpha1 0.3 g/dL (0.2-0.3); Prot Elec - Alpha2 0.8 g/dL (0.5-0.9); Prot Elec - Beta 1 0.4 g/dL (0.4-0.6); Prot Elec - Beta 2 0.5 g/dL (0.2-0.5); Prot Elec - Gamma 1.2 g/dL (0.8-1.7); Prot Elec - Total Protein 7.4 g/dL (6.1-8.1)
[2023-08-26 13:18] LABS: Anti DNA DS Antibody <1 IU/mL; Antibody to SS-A Antigen <1.0 NEG AI (<1.0 NEG); Antibody to SS-B Antigen <1.0 NEG AI (<1.0 NEG); SM/Ribonucleoprotein Ab <1.0 NEG AI (<1.0 NEG); Smith Protein <1.0 NEG AI (<1.0 NEG)
[2023-08-31 10:48] LABS: IgA 283 mg/dL (47-310); IgG 1438 mg/dL (600-1640); IgM 119 mg/dL (50-300)
== END 2023-08-23 10:57 | disposition home or self-care (01) ==
LOC: HO.LAB 10:56
PROVIDERS: PCP Family Medicine; Visit Provider Student in an Organized Health Care Education/Training Program
DX: Z11.59 Encounter for screening for other viral diseases (principal); M06.9 Rheumatoid arthritis, unspecified; Z22.7 Latent tuberculosis; M25.50 Pain in unspecified joint; Z72.89 Other problems related to lifestyle
CPT/HCPCS: 36415; 73030; 73110; 73130; 73564; 73610; 73630; 80053; 81001; 82570; 82784; 84156; 84165; 85025; 85652; 86140; 86160; 86200; 86225; 86235; 86334; 86481; 86704; 86706; 86709; 86803; 87340

== ENCOUNTER 2023-08-23 10:56 | Outpatient (AMB) | payer OTHER, SELFPAY ==
--- NOTE | 2023-08-23 10:59 | A.OFFVIS_ITS ---
Intake Vital Signs 08/23/23 11:00 Height 5 ft 2 in Weight 198 lb 3.129 oz BMI 36.2 BP 146/90 H Blood Pressure Location Rt brachial Position Sitting Pulse 76 Pulse Source Pulse Oximeter Temp 97.5 F Temp Source Skin Pulse Oximetry (%) 99 Intake Visit Reasons: arthralgia Intake Note: New pt presents today for consult, referred by PCP Magui Perez. C/o morning stiffness ,headaches, fatigue and pain and swelling in multiple joints. Pain started approx. October 2022. States she feels very tired all the time, she had a hx of anemia in the past, but her iron is good now. Has tried tylenol, diclofenac. 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 The condition started back in 2011. Patient was evaluated by terrazzo installer Dr. Appiah and there was suspicion for seronegative RA. A prednisone trial was prescribed but patient did not follow-up. She states that since the beginning of 2022 she has been having worsening pain everywhere. She has pain in her hands, knuckles, elbows, shoulders, knees, left jaw, ankles. She gets intermittent swelling of her ankles and hands. Morning stiffness lasting 2 hours. She is unaware of any family history of an autoimmune rheumatic disease. She denies any skin rashes. Denies any fevers or weight loss. [facility], [facility] Medical History (Updated 08/23/23 @ 11:55 by Jammie Harvey MD) Shortness of breath Vitamin D deficiency TANIA (iron deficiency anemia) Anxiety Hypothyroid Candidosis of skin HTN (hypertension) Macromastia Surgical History History of laparoscopic cholecystectomy Previous section Family History Other Family history of arthritis Family history of bone cancer Social History Household Members: Spouse Housing: Apartment Are you a primary hourly caregiver to a significant other at home: No Do you presently have visiting nurse or other home services: No Alcohol intake: never Patient Tobacco Use Status: Never used Tobacco Second Hand Smoke Exposure: No service: No 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al status: employed 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 Review of Systems Const Reports fatigue and Reports weakness Eyes Reports dry eyes ENT Reports dry mouth Musc Reports arthralgias, Reports joint swelling and Reports stiffness Skin/Breast Reports alopecia and Reports rash Neuro Reports weakness Endo Reports fatigue Physical Exam Vital Signs: Last Vital Signs Temp 97.5 F 08/23/23 11:00 Pulse 76 08/23/23 11:00 BP 146/90 H 08/23/23 11:00 Pulse Ox 99 08/23/23 11:00 BMI result Body Mass Index 36.2 Const General: cooperative, healthy appearing and comfortable Nutritional Appearance: obese Orientation/consciousness: patient oriented x3 Limitations: no limitations HEENT Head: Yes normocephalic and Yes atraumatic Mouth: moist mucous membranes Resp Effort & Inspection: normal respiratory effort and able to speak in complete sentences Auscultation: clear to auscultation bilaterally Cardio Rate: regular rate GI Inspection: No distended Palpation (GI): Soft to palpation and nontender Neuro General: patient oriented x3 Extrem Other: Right 3rd MCP swelling without significant tenderness Bilateral positive MCP squeeze test Bilateral tender wrists, few tender PIP is Bilateral reduced shoulder abduction Left ankle tenderness Negative MTP squeeze test and negative MTP tenderness Normal nailfold capillaroscopy Assessment & Plan Assessment & Plan (1) Polyarthralgia: Code(s): M25.50 - Pain in unspecified joint Plan: This is a 53-year-old female who presents for evaluation of diffuse joint pain and swelling, symptoms are intermittent and started in 2011 but have become progressive over the last year. Will order comprehensive serology to screen for underlying autoimmune rheumatic disease. Check x-rays of involved joints. Start prednisone therapeutic trial Follow-up in 3 weeks Plan I spent 46 minutes reviewing patient's chart, evaluating patient, ordering diagnostic workup, counseling patient and documenting in the chart Orders: Orders C Reactive Protein Today M06.9 - Rheumatoid arthritis, unspecified Hepatitis A,B,C Profile Today Z11.59 - Encounter for screening for other viral diseases T Spot TB Today Z22.7 - Latent tuberculosis Immunofixation Pnl, Serum Today M06.9 - Rheumatoid arthritis, unspecified XR shoulder LT min 2V Today M06.9 - Rheumatoid arthritis, unspecified XR knee RT 3V Today M06.9 - Rheumatoid arthritis, unspecified XR ankle RT min 3V Today M06.9 - Rheumatoid arthritis, unspecified XR foot LT min 3V Today M06.9 - Rheumatoid arthritis, unspecified Anti DNA DS Antibody Today M25.50 - Pain in unspecified joint Complement C3 Today M25.50 - Pain in unspecified joint Complement C4 Today M25.50 - Pain in unspecified joint UA w Microscopic Today M25.50 - Pain in unspecified joint Complete Blood Count Auto Diff Today M06.9 - Rheumatoid arthritis, unspecified Comprehensive Met. Panel Today M06.9 - Rheumatoid arthritis, unspecified Erythrocyte Sedimentation Rate Today M06.9 - Rheumatoid arthritis, unspecified Protein Electrophoresis, Serum Today M06.9 - Rheumatoid arthritis, unspecified Cyclic Citrullinated Peptide Today M06.9 - Rheumatoid arthritis, unspecified XR hand wrist LT Today M06.9 - Rheumatoid arthritis, unspecified XR hand wrist RT Today M06.9 - Rheumatoid arthritis, unspecified XR shoulder RT min 2V Today M06.9 - Rheumatoid arthritis, unspecified XR knee LT 3V Today M06.9 - Rheumatoid arthritis, unspecified XR knee standing BI Today M06.9 - Rheumatoid arthritis, unspecified XR ankle LT min 3V Today M06.9 - Rheumatoid arthritis, unspecified XR foot RT min 3V Today M06.9 - Rheumatoid arthritis, unspecified Anti Extractable Nuclear Ag Today M25.50 - Pain in unspecified joint Protein Creatinine Ratio, Ur Today M25.50 - Pain in unspecified joint Sjogren's Antibodies Today M25.50 - Pain in unspecified joint Medications: New prednisone Take 3 tabs by mouth once daily for 1 week then 2 tabs daily for 1 week then 1 tab daily for 1 week then stop 42 tabs 0RF Coding Level of Care Code New Pt Level 4 (63970) Diagnoses Polyarthralgia M25.50
[2023-08-23 11:00] VITALS: BP 146/90; PULSE 76; TEMP 36.4; O2SAT 99; BMI 36.2
== END 2023-08-23 11:49 | disposition home or self-care (01) ==
PROVIDERS: PCP Family Medicine; Visit Provider Student in an Organized Health Care Education/Training Program
DX: M25.50 Pain in unspecified joint (principal)
CPT/HCPCS: 99204

== ENCOUNTER 2023-10-26 09:32 | Outpatient (AMB) | payer MEDICAID, SELFPAY ==
--- NOTE | 2023-10-26 09:47 | MHC.OFFVIS ---
Intake Vital Signs 10/26/23 09:49 Height 5 ft 2 in Weight 200 lb 9.93 oz BMI 36.7 BP 152/86 H Blood Pressure Location Rt brachial Position Sitting Pulse 81 Pulse Source Pulse Oximeter Temp 96.8 F Temp Source Skin Pulse Oximetry (%) 97 Oxygen Delivery Method Room Air Intake Visit Reasons: RA Intake Note: Pt last seen 08/23/23 presents today for follow up and test results. C/o lots of pain in knees/legs, hands, neck. Reports almost falling on several occasions due to hip pain. Coiled Tubing Operator Required: Yes Coiled Tubing Operator Name: Simone Angela #[id number] Accompanied by: Self / Same As Patient Allergies No Known Allergies Allergy (Verified 10/26/23 09:51) Medication List - Last Reconciled 10/26/23 by Jammie Harvey MD acetaminophen (Tylenol Extra Strength) 500 mg PO Q6H PRN ibuprofen 600 mg PO Q6H PRN levothyroxine (Synthroid) 1 tab PO DAILY losartan 25 mg PO DAILY melatonin 5 mg PO BEDTIME PRN HPI HPI Comments History of Present Illness Details Patient returns for follow-up after completion of her diagnostic workup. She took prednisone taper as prescribed and it gave her about 60% relief but the pain returned when she completed the course. Initial hx:This is a 53-year-old female who presents for evaluation of diffuse joint pain. The condition started back in 2011. Patient was evaluated by dubbing machine operator Dr. Appiah and there was suspicion for seronegative RA. A prednisone trial was prescribed but patient did not follow-up. She states that since the beginning of 2022 she has been having worsening pain everywhere. She has pain in her hands, knuckles, elbows, shoulders, knees, left jaw, ankles. She gets intermittent swelling of her ankles and hands. Morning stiffness lasting 2 hours. She is unaware of any family history of an autoimmune rheumatic disease. She denies any skin rashes. Denies any fevers or weight loss. [facility] Medical History (Updated 10/26/23 @ 12:05 by Jammie Harvey MD) Shortness of breath Vitamin D deficiency TANIA (iron deficiency anemia) Anxiety Hypothyroid Candidosis of skin HTN (hypertension) Macromastia Surgical History History of laparoscopic cholecystectomy Previous section Family History Other Family history of arthritis Family history of bone cancer Social History Household Members: Spouse Housing: Apartment Are you a primary health care recruiter to a significant other at home: No Do you presently have visiting nurse or other home services: No Alcohol intake: never Patient Tobacco Use Status: Never used Tobacco Second Hand Smoke Exposure: No service: No 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al status: employed 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 Review of Systems Const Reports fatigue and Reports weakness Musc Reports arthralgias, Reports joint swelling and Reports stiffness Neuro Reports weakness Endo Reports fatigue Physical Exam Vital Signs: Last Vital Signs Temp 96.8 F 10/26/23 09:49 Pulse 81 10/26/23 09:49 BP 152/86 H 10/26/23 09:49 Pulse Ox 97 10/26/23 09:49 Oxygen Delivery Method Room Air 10/26/23 09:49 BMI result Body Mass Index 36.7 Const General: cooperative, healthy appearing and comfortable Nutritional Appearance: obese Orientation/consciousness: patient oriented x3 Limitations: no limitations HEENT Head: Yes normocephalic and Yes atraumatic Mouth: moist mucous membranes Resp Effort & Inspection: normal respiratory effort and able to speak in complete sentences Cardio Rate: regular rate GI Inspection: No distended Palpation (GI): Soft to palpation and nontender Neuro General: patient oriented x3 Extrem Other: Right 3rd MCP swelling without significant tenderness Bilateral positive MCP squeeze test Bilateral tender wrists, few tender PIP is Bilateral reduced shoulder abduction Left ankle tenderness Negative MTP squeeze test and negative MTP tenderness Normal nailfold capillaroscopy Results Reviewed Results Reviewed: Ordering Physician: Jammie Harvey MD Date of Service: 08/23/23 Procedure(s): XR shoulder LT min 2V Accession Number(s): [id number] cc: Magui Perez MD; Jammie Harvey MD~ EXAMINATION: XR ANKLE, BILATERAL XR FOOT, BILATERAL XR HAND, BILATERAL XR WRIST, BILATERAL XR SHOULDER, BILATERAL XR KNEE, BILATERAL CLINICAL INFORMATION: Pain. COMPARISON: Radiographs of bilateral knees of 08/16/2014. TECHNIQUE: 3 views each of bilateral foot. 3 views each of bilateral ankles. 4 views each of bilateral hands. 4 views each of bilateral knees. 4 views each of bilateral shoulders. FINDINGS: LEFT ANKLE: Tiny plantar calcaneal spur. Joint effusion. Alignment preserved. No displaced fracture. Soft tissue swelling along the medial aspect of the ankle. RIGHT ANKLE: Soft tissue swelling particularly along the medial ankle. Joint effusion. Small plantar calcaneal spur. Alignment preserved. LEFT FOOT: Mild degenerative changes in the 1st metatarsophalangeal joint. Alignment preserved. Mild concavity/ulcerations with sclerosis along the lateral aspects of the 1st, 2nd and 3rd metatarsal heads. No displaced fracture. RIGHT FOOT: Mild degenerative changes in the 1st metatarsophalangeal joint. Alignment preserved. No displaced fracture. LEFT HAND/WRIST: Moderate degenerative changes in the 1st carpometacarpal joint with joint space narrowing and hypertrophic change. Mild degenerative changes in the 1st metacarpophalangeal joint. Alignment preserved. RIGHT HAND/WRIST: Moderate degenerative changes in the 1st carpometacarpal joint with joint space narrowing and hypertrophic change. Mild degenerative changes in the 1st metacarpophalangeal joint. Alignment preserved. LEFT KNEE: Mild medial joint space narrowing with small medial marginal osteophytes. No significant joint effusion. RIGHT KNEE: Mild medial joint space narrowing with small medial marginal osteophytes. No significant joint effusion. LEFT SHOULDER: Mild degenerative changes in the acromioclavicular and glenohumeral joints. No abnormal soft tissue calcifications identified adjacent to the humeral head. Degenerative changes with levoscoliosis on limited images of the upper thoracic spine. RIGHT SHOULDER: Mild degenerative changes in the acromioclavicular and glenohumeral joints. No abnormal soft tissue calcifications identified adjacent to the humeral head XR/XR shoulder LT min 2V IMPRESSION: 1. Bilateral ankle joint effusions with soft tissue swelling. 2. Mild degenerative changes in the bilateral 1st metatarsophalangeal joints. 3. Moderate degenerative changes in the bilateral 1st carpometacarpal joints. 4. Mild degenerative changes in the bilateral knees. 5. Mild degenerative changes in the bilateral shoulders. CT scan or MRI should be considered for further evaluation if there is concern for fracture or other underlying pathology. Assessment & Plan Assessment & Plan (1) Seronegative rheumatoid arthritis: Code(s): M06.00 - Rheumatoid arthritis without rheumatoid factor, unspecified site Plan: This is a 53-year-old female who presents for evaluation of diffuse joint pain and swelling, symptoms are intermittent and started in 2011 but have become progressive over the last year. On exam she has multiple tender joints and few swollen joints. X-rays show bilateral ankle effusions. Serologies are negative, inflammatory markers are elevated. Clinical picture consistent with new onset seronegative rheumatoid arthritis. Will need to start DMARDs. Discussed risks and benefits of methotrexate. Patient agreed to proceed. Start methotrexate 15 mg weekly for 2 weeks then 20 mg once weekly Folic acid 1 mg daily Labs before next visit in 10 weeks (2) intermediate methotrexate user: Code(s): Z79.631 - continuous churn buttermaker (current) use of antimetabolite agent Plan: Monitor safety labs Patient has been menopausal for about 1 year. Denies alcohol use Plan I spent 29 minutes reviewing patient's chart, evaluating patient, ordering diagnostic workup, counseling patient and documenting in the chart Orders: Orders Complete Blood Count Auto Diff 10 Weeks Z79.631 - intermediate (current) use of antimetabolite agent Erythrocyte Sedimentation Rate 10 Weeks Z79.631 - continuous churn buttermaker (current) use of antimetabolite agent Comprehensive Met. Panel 10 Weeks Z79.631 - continuous churn buttermaker (current) use of antimetabolite agent C Reactive Protein 10 Weeks Z79.631 - continuous churn buttermaker (current) use of antimetabolite agent Medications: New methotrexate sodium take 6 tabs by mouth once weekly for 2 weeks then 8 tabs weekly 72 tabs 0RF folic acid 1 mg PO DAILY 90 tabs 1RF Coding Level of Care Code Est Pt Level 4 (75062) Diagnoses Seronegative rheumatoid arthritis M06.00 intermediate methotrexate user Z79.631
[2023-10-26 09:49] VITALS: BP 152/86; PULSE 81; TEMP 36; O2SAT 97; BMI 36.7
== END 2023-10-26 10:15 | disposition home or self-care (01) ==
PROVIDERS: PCP Family Medicine; Referring Provider Family Medicine; Visit Provider Student in an Organized Health Care Education/Training Program
DX: M06.00 Rheumatoid arthritis without rheumatoid factor, unspecified site (principal); Z79.631 Long term (current) use of antimetabolite agent
CPT/HCPCS: 99214

== ENCOUNTER 2023-10-26 09:32 | Outpatient (REF) | payer MEDICAID, SELFPAY ==
[2023-10-26 11:22] LABS: MANUAL DIFF FLAG NO
[2023-10-26 12:16] LABS: Basophils Percent Auto 0.6 % (0-2); Eosinophils Absolute Auto 0.1 X10*3/uL (0.0-0.4); Eosinophils Percent Auto 2.3 % (0-4); Hematocrit 40.4 % (37.0-47.0); Hemoglobin 13.6 g/dl (12.0-16.0); Imm Gran Abs Auto 0.01 X10*3/uL (0.00-0.03); Imm Gran Pct Auto 0.2 % (0.0-0.4); Lymphocytes Absolute Auto 1.4 X10*3/uL (1.2-4.9); Lymphocytes Percent Auto 27.4 % (20-40); Mean Corpuscular HGB Conc 33.7 g/dl (31.0-35.0); Mean Corpuscular Hemoglobin 29.5 pg (27.0-33.0); Mean Corpuscular Volume 87.6 fL (80.0-98.0); Mean Platelet Volume 11.7 fL (9.4-12.3); Monocytes Absolute Auto 0.4 X10*3/uL (0.1-1.2); Monocytes Percent Auto 6.8 % (2-11); Neutrophils Absolute Auto 3.2 x10*3/uL (2.0-8.3); Neutrophils Percent Auto 62.7 % (45-73); Platelet Count 283 X10*3/uL (160-400); Red Blood Count 4.61 X10*6/uL (4.20-5.50); Red Cell Distribution Width 12.9 % (11.0-16.0); White Blood Count 5.2 X10*3/uL (4.8-10.8)
[2023-10-26 12:46] LABS: Anion Gap 13 (12-20); Blood Urea Nitrogen 14 mg/dL (9-16); Carbon Dioxide 27 mmol/L (22-29); Chloride 105 mmol/L (96-108); Estimated Glomerular Filt Rate > 60; Potassium 4.1 mmol/L (3.3-5.1); Sodium 141 mmol/L (135-145); Uric Acid 5.5 mg/dL (2.4-5.7)
[2023-10-26 12:50] LABS: Creatinine Urine 280.67 mg/dL; Protein/Creatinine Ratio, Ur 0.06 (<0.2); Total Protein Urine Random 16 mg/dL (<12)
[2023-10-26 13:02] LABS: Vitamin D 25-OH Total 14.4 ng/mL (>30)
[2023-10-26 13:56] LABS: Appearance Urine Clear; Color Urine Yellow; Glucose Urine UA Negative (Negative); Leukocyte Esterase Urine Small (1+) (Negative); Nitrite Urine Negative (Negative); PH 5.5 (5.0-9.0); UMIC TRIGGER UA YES; Urine Blood Negative (Negative); Urine Ketones Trace mg/dL (Negative); Urine Protein Negative (Neg-Trace)
[2023-10-26 16:33] LABS: Bacteria Urine Trace (None Seen); RBC Urine 0-2 /HPF (0-2)
[2023-10-26 16:45] LABS: Specific Gravity - Urine >= 1.030 (1.005-1.025)
== END 2023-10-26 09:33 | disposition home or self-care (01) ==
LOC: HO.LAB 09:32
PROVIDERS: PCP Family Medicine; Visit Provider Internal Medicine Nephrology
DX: E55.9 Vitamin D deficiency, unspecified (principal); N28.1 Cyst of kidney, acquired; M06.00 Rheumatoid arthritis without rheumatoid factor, unspecified site; Z79.631 Long term (current) use of antimetabolite agent
CPT/HCPCS: 36415; 80051; 81001; 81003; 82306; 82310; 82565; 82570; 84156; 84520; 84550; 85025; 99212

== ENCOUNTER 2023-11-30 10:28 | Outpatient (AMB) | payer MEDICAID, SELFPAY ==
[2023-11-30 10:34] VITALS: BP 151/72; PULSE 74; BMI 36.7
--- NOTE | 2023-11-30 10:34 | MHC.OFFVIS ---
Intake Vital Signs 11/30/23 10:34 Height 5 ft 2 in Weight 200 lb 9.93 oz BMI 36.7 BP 151/72 H Blood Pressure Location Lt brachial Position Sitting Pulse 74 Intake Visit Reasons: Colonoscopy Screening Intake Note: Patient presents to in office visit today as a new patient for colonoscopy screening. CC: Patient states that everything she eats sends her to the bathroom. She c/o burning sensations from he throat, heartburn, and diarrhea, abdominal pain. Denies other GI symptoms. 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 She is referred by Magui Perez of [facility]. PMX Asthma Seronegative rheumatoid arthritis Hypertension Hypothyroid Iron-deficiency anemia Macromastia Anxiety Knee pain Iron deficiency anemia * SURGICAL HISTORY Cholecystectomy - 3 years ago section Colonoscopy-2011, Mathis negative study * ALLERGIES: NKDA * Shout[facility] LABS: Laboratory Tests 08/23/23 10/26/23 10/26/23 12:36 11:21 11:21 WBC 5.2 Hgb 13.6 Hct 40.4 Plt Count 283 Estimated GFR > 60 Total Bilirubin 0.5 AST 20 ALT 14 Alkaline Phosphata se 113 C-Reactive Protein 0.64 H TODAY'S VISIT She is here with her sister Cyndi who is supportive. She had her GB out 3 years ago and has had many years of severe GERD with burning in her throat, dyspepsia, and fecal urgency after eating. The fecal urgency is more severe in the mornings it makes her fearful to eat breakfast, or to go to eat. The stools will be watery to soft. She will have the same response later in the day although it has not quite as severe. She has a globus sensation and a burning is worse when she lays down at night which is something to be expected. She has been using Tums mostly as needed to treat this. She does not take any regular acid reducing medication. She has gained a little weight recently, she does note is that the symptoms are also much worse with foods like garlic. There is no family history of similar symptoms. There were no medication changes at the time this started, she did start a methotrexate recently which could worsen these conditions but most of this was going on long before she started this medication. She is also due for screening colonoscopy and I think an EGD would be prudent. She does have asthma that is controlled and denies any cardiac problems. There are no prior problems with anesthesia or sedation. There are no infectious disease problems. There is no known family history of colon cancer, stomach cancer, esophageal cancer or colon polyps. We are going to start her on cholestyramine since it sounds like she is having classic post cholecystectomy syndrome with bile gastritis and bile reflux. I am not going to start her any other acid reducing medications yet because were going to get an H pylori breath test to see if this is complicating the presentation. Return office visit in 3 weeks to evaluate her response to medications. [facility] Medical History Shortness of breath Vitamin D deficiency TANIA (iron deficiency anemia) Anxiety Hypothyroid Candidosis of skin HTN (hypertension) Macromastia Surgical History H/O colonoscopy History of laparoscopic cholecystectomy Previous section Family History Other Family history of arthritis Family history of bone cancer Social History Household Members: Spouse Housing: Apartment Are you a primary pet caretaker to a significant other at home: No Do you presently have visiting nurse or other home services: No Alcohol intake: never Patient Tobacco Use Status: Never used Tobacco Second Hand Smoke Exposure: No service: No 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al status: employed 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 Review of Systems Const Denies fatigue, Denies fever(s), Denies night sweats, Denies poor appetite, Reports weight gain and Denies weight loss ENT Reports Normal hearing present, Denies dental pain, Denies dysphagia, Denies hearing loss, Denies mouth pain, Denies odynophagia, Denies throat swelling, Denies tongue swelling and Reports other (Dentition adequate) Card Reports no additional complaints Resp Reports no additional complaints GI Details: Denies abdominal pain, Denies melena, Denies bloating, Denies hematochezia, Denies constipation, Denies GI cramping, Denies dysphagia, Denies excessive flatus, Denies early satiety, Reports dyspepsia, Reports heartburn, Denies diarrhea, Reports loose stools, Denies nausea, Denies odynophagia, Denies vomiting and Denies hematemesis Musc Reports arthralgias and Reports joint swelling Skin/Breast Denies pruritus, Denies lesions, Denies rash and Denies jaundice Neuro Reports Normal hearing present and Denies Abnormal speech present Endo Denies fatigue Aller/Immun Denies throat swelling and Denies tongue swelling Physical Exam Vital Signs: Last Vital Signs Pulse 74 11/30/23 10:34 BP 151/72 H 11/30/23 10:34 BMI result Body Mass Index 36.7 Const General: cooperative, no acute distress, well developed and well groomed Nutritional Appearance: well nourished and obese Orientation/consciousness: oriented to person, oriented to place and oriented to time Limitations: No language barrier HEENT Head: Yes normocephalic and Yes atraumatic Eyes General: appearance normal, both eyes and all related structures Pupils: Equal, round and reactive pupils present Neck Neck: Yes normal visual inspection and Yes no lymphadenopathy Thyroid: Thyroid normal Resp Effort & Inspection: normal respiratory effort and able to speak in complete sentences Auscultation: clear to auscultation bilaterally Cardio Rate: regular rate Rhythm: regular rhythm Heart sounds: Normal, physiologic split S2 sound present Peripheral pulses: radial pulses present and posterior tibial pulses present GI Inspection: No distended, Yes Abdominal panniculus present, Yes obesity, Yes scar and Yes striae Palpation (GI): Soft to palpation, nontender, no guarding, not rigid and No hepatosplenomegaly present Percussion: Yes normal to percussion Auscultation: normal bowel sounds Rectal Exam - Female: deferred Abdomen image: 1. surgical scars 2. 3. Skin General skin exam: no rashes or lesions noted, turgor normal, skin not dry, no jaundice, No spider nevi and no striae Rashes: no rashes Nails: normal Neuro General: oriented to person, oriented to place and oriented to time Cranial nerves: Yes Equal, round and reactive pupils present and Yes Normal hearing present Speech: No Abnormal speech present Extrem General: Yes normal to inspection, No clubbing, No cyanosis and No edema Psych Appearance: grossly normal and well kempt Mental Status: mental status grossly normal Speech and movement: Normal speech and movement present Affect: normal affect Attitude: cooperative Thought process: Normal thought process present and not confabulating Thought content: Normal thought content present Insight: Fair insight present (Psych) and Limited insight present (Psych) Judgement: Fair judgement present (Psych) and Limited judgement present (Psych) Assessment & Plan Assessment & Plan (1) Post-cholecystectomy syndrome: Code(s): K91.5 - Postcholecystectomy syndrome (2) Odynophagia: Code(s): R13.10 - Dysphagia, unspecified (3) GERD (gastroesophageal reflux disease): Code(s): K21.9 - Gastro-esophageal reflux disease without esophagitis (4) Dyspepsia: Code(s): R10.13 - Epigastric pain Plan She is here with her sister Cyndi who is supportive. She had her GB out 3 years ago and has had many years of severe GERD with burning in her throat, dyspepsia, and fecal urgency after eating. The fecal urgency is more severe in the mornings it makes her fearful to eat breakfast, or to go to eat. The stools will be watery to soft. She will have the same response later in the day although it has not quite as severe. She has a globus sensation and a burning is worse when she lays down at night which is something to be expected. She has been using Tums mostly as needed to treat this. She does not take any regular acid reducing medication. She has gained a little weight recently, she does note is that the symptoms are also much worse with foods like garlic. There is no family history of similar symptoms. There were no medication changes at the time this started, she did start a methotrexate recently which could worsen these conditions but most of this was going on long before she started this medication. She is also due for screening colonoscopy and I think an EGD would be prudent. She does have asthma that is controlled and denies any cardiac problems. There are no prior problems with anesthesia or sedation. There are no infectious disease problems. There is no known family history of colon cancer, stomach cancer, esophageal cancer or colon polyps. We are going to start her on cholestyramine since it sounds like she is having classic post cholecystectomy syndrome with bile gastritis and bile reflux. I am not going to start her any other acid reducing medications yet because were going to get an H pylori breath test to see if this is complicating the presentation. Return office visit in 3 weeks to evaluate her response to medications. Orders: Orders EGD/[place] Combo - GI Use Only Today R10.13 - Epigastric pain, R13.10 - Dysphagia, unspecified H Pylori Breath Test Today R10.13 - Epigastric pain, R13.10 - Dysphagia, unspecified Medications: New polyethylene glycol 3350 (Miralax) 238 grams PO ONCE 1 day 238 grams 0RF colonoscopy prep cholestyramine (with sugar) 4 gram administer w/meal; avoid other meds within 1hr before or 4-6hr after dose 4 grams PO BID 60 ea 6RF K21.9 - Gastro-esophageal reflux disease without esophagitis, K91.5 - Postcholecystectomy syndrome, R13.10 - Dysphagia, unspecified bisacodyl (Dulcolax (bisacodyl)) 10 mg (2 x 5 mg) PO BEDTIME 2 days 4 tabs 0RF Coding Level of Care Code New Pt Level 3 (90646) Diagnoses Post-cholecystectomy syndrome K91.5 Odynophagia R13.10 GERD (gastroesophageal reflux disease) K21.9 Dyspepsia R10.13
== END 2023-11-30 12:04 | disposition home or self-care (01) ==
PROVIDERS: PCP Family Medicine; Visit Provider Nurse Practitioner
DX: K91.5 Postcholecystectomy syndrome (principal); R13.10 Dysphagia, unspecified; K21.9 Gastro-esophageal reflux disease without esophagitis; R10.13 Epigastric pain
CPT/HCPCS: 99203

== ENCOUNTER 2023-11-30 10:28 | Outpatient (REF) | payer MEDICAID, SELFPAY ==
[2023-12-02 10:36] LABS: H Pylori Breath Test Negative (Negative)
== END 2023-11-30 10:29 | disposition home or self-care (01) ==
LOC: HO.LNP 10:28
PROVIDERS: PCP Family Medicine; Visit Provider Nurse Practitioner
DX: R13.10 Dysphagia, unspecified (principal); R10.13 Epigastric pain; Z11.0 Encounter for screening for intestinal infectious diseases; K91.5 Postcholecystectomy syndrome; K21.9 Gastro-esophageal reflux disease without esophagitis
CPT/HCPCS: 83013; 99212

== ENCOUNTER 2024-01-17 11:52 | Outpatient (AMB) | payer MEDICAID, SELFPAY ==
--- NOTE | 2024-01-17 12:06 | A.OFFVIS_ITS ---
Vital Signs 01/17/24 12:16 Height 5 ft 2 in Weight 200 lb 9.93 oz BMI 36.7 BP 143/78 H Blood Pressure Location Lt brachial Position Sitting Pulse 67 Intake Visit Reasons: 3 week follow up Intake Note: Patient presents to in office visit today in follow up of dyspepsia. CC: Patient states she is doing a little bit better. 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 She had her GB out 3 years ago and has had many years of severe GERD with burning in her throat, dyspepsia, and fecal urgency after eating. The fecal urgency is more severe in the mornings it makes her fearful to eat breakfast, or to go to eat. The stools will be watery to soft. She will have the same response later in the day although it has not quite as severe. She has a globus sensation and a burning is worse when she lays down at night w hich is something to be expected. She has been using Tums mostly as needed to treat this. She does not take any regular acid reducing medication. She has gained a little weight recently, she does note is that the symptoms are also much worse with foods like garlic. There is no family history of similar symptoms. There were no medication changes at the time this started, she did start a methotrexate recently which could worsen these conditions but most of this was going on long before she started this medication. She is also due for screening colonoscopy and I think an EGD would be prudent. She does have asthma that is controlled and denies any cardiac problems. There are no prior problems with anesthesia or sedation. There are no infectious disease problems. There is no known family history of colon cancer, stomach cancer, esophageal cancer or colon polyps. We are going to start her on cholestyramine since it sounds like she is having classic post cholecystectomy syndrome with bile gastritis and bile reflux. I am not going to start her any other acid reducing medications yet because were going to get an H pylori breath test to see if this is complicating the prese ntation. Return office visit in 3 weeks to evaluate her response to medications. Orders: Orders EGD/[place] Combo - GI Use Only Today R10.13 - Epigastric pain, R13.10 - Dysphagia, unspecified H Pylori Breath Test Today R10.13 - Epigastric pain, R13.10 - Dysphagia, unspecified Medications: New polyethylene glycol 3350 (Miralax) 238 grams PO ONCE 1 day 238 grams 0RF colonoscopy prep cholestyramine (with sugar) 4 gram administer w/meal; avoid other meds within 1hr before or 4-6hr after dose 4 grams PO BID 60 ea 6RF K21.9 - Gastro-esophageal reflux disease without esophagitis, K91.5 - Postcholecystectomy syndrome, R13.10 - Dysphagia, unspecified bisacodyl (Dulcolax (bisacodyl)) 10 mg (2 x 5 mg) PO BEDTIME 2 days 4 tabs 0RF LABS: Laboratory Tests 11/30/23 12:02 H. pylori Breath Test Negative EGD/COLONOSCOPY BIOPSY TODAY'S VISIT She has not heard to schedule the scope, I did not send the request, sending today. She is doing much better with the cholestyramine, but not taking consistently bid. Will increase to 2 packets as she still will have post prandial diarrhea. Her nausea is also improved. I explained to her why it is important to take it consistently and why it will probably be a chronic lifelong medication. However we will also try increasing the dose to see if this helps her more before we move on to a different medication. Return office visit in 8 weeks [facility] Medical History Shortness of breath Vitamin D deficiency TANIA (iron deficiency anemia) Anxiety Hypothyroid Candidosis of skin HTN (hypertension) Macromastia Surgical History H/O colonoscopy History of laparoscopic cholecystectomy Previous section Family History Other Family history of arthritis Family history of bone cancer Social History Household Members: Spouse Housing: Apartment Are you a primary healthcare educator to a significant other at home: No Do you presently have visiting nurse or other home services: No Alcohol intake: never Patient Tobacco Use Status: Never used Tobacco Second Hand Smoke Exposure: No service: No 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al status: employed 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 Review of Systems Const Denies fatigue, Denies fever(s), Denies night sweats, Denies poor appetite and Denies weight loss ENT Reports Normal hearing present, Denies dental pain, Denies dysphagia, Denies hearing loss, Denies mouth pain, Denies odynophagia, Denies throat swelling, Denies tongue swelling and Reports other (Dentition adequate) Card Reports no additional complaints Resp Reports no additional complaints GI Details: Denies abdominal pain, Denies melena, Denies bloating, Denies hematochezia, Denies constipation, Denies GI cramping, Denies dysphagia, Denies excessive flatus, Denies early satiety, Denies heartburn, Reports diarrhea, Denies nausea, Denies odynophagia, Denies vomiting and Denies hematemesis Skin/Breast Denies pruritus, Denies lesions, Denies rash and Denies jaundice Neuro Reports Normal hearing present and Denies Abnormal speech present Endo Denies fatigue Aller/Immun Denies throat swelling and Denies tongue swelling Physical Exam Vital Signs: Last Vital Signs Pulse 67 01/17/24 12:16 BP 143/78 H 01/17/24 12:16 BMI result Body Mass Index 36.7 Const General: cooperative, no acute distress, well developed and well groomed Nutritional Appearance: well nourished and obese Orientation/consciousness: oriented to person, oriented to place and oriented to time Limitations: No language barrier HEENT Head: Yes normocephalic and Yes atraumatic Eyes General: appearance normal, both eyes and all related structures Pupils: Equal, round and reactive pupils present Neck Neck: Yes normal visual inspection and Yes no lymphadenopathy Thyroid: Thyroid normal Resp Effort & Inspection: normal respiratory effort and able to speak in complete sentences Auscultation: clear to auscultation bilaterally Cardio Rate: regular rate Rhythm: regular rhythm Heart sounds: Normal, physiologic split S2 sound present Peripheral pulses: radial pulses present and posterior tibial pulses present GI Inspection: No distended, No Abdominal panniculus present and Yes obesity Palpation (GI): Soft to palpation, nontender, no guarding, not rigid and No hepatosplenomegaly present Percussion: Yes normal to percussion Auscultation: normal bowel sounds Rectal Exam - Female: deferred Skin General skin exam: no rashes or lesions noted, turgor normal, skin not dry, no jaundice, No spider nevi and no striae Rashes: no rashes Nails: normal Neuro General: oriented to person, oriented to place and oriented to time Cranial nerves: Yes Equal, round and reactive pupils present and Yes Normal hearing present Speech: No Abnormal speech present Extrem General: Yes normal to inspection, No clubbing, No cyanosis and No edema Psych Appearance: grossly normal and well kempt Mental Status: mental status grossly normal Speech and movement: Normal speech and movement present Affect: normal affect Attitude: cooperative Thought process: Normal thought process present and not confabulating Thought content: Normal thought content present Insight: Limited insight present (Psych) Judgement: Limited judgement present (Psych) Assessment & Plan Assessment & Plan (1) Post-cholecystectomy syndrome: Code(s): K91.5 - Postcholecystectomy syndrome Category: Medical (2) GERD (gastroesophageal reflux disease): Code(s): K21.9 - Gastro-esophageal reflux disease without esophagitis Category: Medical (3) Odynophagia: Code(s): R13.10 - Dysphagia, unspecified Category: Medical (4) Dyspepsia: Code(s): R10.13 - Epigastric pain Category: Medical Plan She has not heard to schedule the scope, I did not send the request, sending today. She is doing much better with the cholestyramine, but not taking consistently bid. Will increase to 2 packets as she still will have post prandial diarrhea. Her nausea is also improved. I explained to her why it is important to take it consistently and why it will probably be a chronic lifelong medication. However we will also try increasing the dose to see if this helps her more before we move on to a different medication. Return office visit in 8 weeks Medications: Changed From cholestyramine (with sugar) 4 gram administer w/meal; avoid other meds within 1hr before or 4-6hr after dose 4 grams PO BID 60 ea 6RF K91.5 - Postcholecystectomy syndrome, K21.9 - Gastro- esophageal reflux disease without esophagitis, R13.10 - Dysphagia, unspecified To cholestyramine (with sugar) 4 gram administer w/meal; avoid other meds within 1hr before or 4-6hr after dose 8 grams PO BID 120 ea 6RF K91.5 - Postcholecystectomy syndrome, K21.9 - Gastro- esophageal reflux disease without esophagitis, R13.10 - Dysphagia, unspecified Coding Level of Care Code Est Pt Level 3 (06584) Diagnoses Post-cholecystectomy syndrome K91.5 GERD (gastroesophageal reflux disease) K21.9 Odynophagia R13.10 Dyspepsia R10.13
[2024-01-17 12:16] VITALS: BP 143/78; PULSE 67; BMI 36.7
== END 2024-01-17 12:54 | disposition home or self-care (01) ==
PROVIDERS: PCP Family Medicine; Visit Provider Nurse Practitioner
DX: K91.5 Postcholecystectomy syndrome (principal); K21.9 Gastro-esophageal reflux disease without esophagitis; R13.10 Dysphagia, unspecified; R10.13 Epigastric pain
CPT/HCPCS: 99213

== ENCOUNTER → 2024-01-17 11:52 | Outpatient (BNVA) | payer MEDICAID, SELFPAY | PROVIDERS: PCP Family Medicine; Visit Provider Nurse Practitioner | DX: K91.5 Postcholecystectomy syndrome (principal); K21.9 Gastro-esophageal reflux disease without esophagitis; R13.10 Dysphagia, unspecified; R10.13 Epigastric pain | CPT/HCPCS: 99212 ==

== ENCOUNTER 2024-01-26 07:41 | Outpatient (REF) | payer MEDICAID, SELFPAY ==
[2024-02-02 18:59] LABS: HPV mRNA E6/E7 rflx Not Detected (Not Detected)
[2024-02-03 00:48] LABS: C. trachomatis RNA TMA NOT DETECTED (NOT DETECTED); N. gonorrhoeae RNA TMA NOT DETECTED (NOT DETECTED); Trichomonas (NAAT) NOT DETECTED (NOT DETECTED)
== END 2024-01-26 07:42 | disposition home or self-care (01) ==
LOC: HO.HHCLNP 07:41
PROVIDERS: Visit Provider Family Medicine
DX: Z01.419 Encounter for gynecological examination (general) (routine) without abnormal findings (principal)
CPT/HCPCS: 36415; 87491; 87591; 87624; 87661; 88142

== ENCOUNTER 2024-01-26 12:52 | Outpatient (REF) | payer MEDICAID, SELFPAY ==
--- NOTE | ~2024-01-26 | XR_ITS ---
EXAMINATION: XR TEMPOROMANDIBULAR JOINT, BILATERAL CLINICAL INFORMATION: TMJ inflammation, pain in left TMJ base. COMPARISON: None available. TECHNIQUE: Lateral closed and open views as well as a single Bala view of bilateral temporomandibular joints. 5 views total. FINDINGS: Visualized severely limited due to overlying bony structures. RIGHT TMJ Condyle appears to be seated within the mandibular fossa on the closed-mouth view with expected movement on open-mouth view. LEFT TMJ The condyle is difficult to appreciate on the closed-mouth view due to multiple overlying bony structures, but is possibly appropriately seated within the mandibular fossa. The condyle appears to translate anteriorly on the open-mouth view. XR/XR TMJ BI IMPRESSION: 1. Right TMJ condyle appears to be seated within the mandibular fossa on the closed-mouth view with expected movement on open-mouth view. 2. Left TMJ condyle is difficult to appreciate on the closed-mouth view due to multiple overlying bony structures, but is possibly appropriately seated within the mandibular fossa. The condyle appears to translated anteriorly on the open-mouth view. 3. Visualization severely limited due to overlying bony structures. Additional imaging, possibly with MRI, recommended for better visualization.
== END 2024-01-26 12:53 | disposition home or self-care (01) ==
LOC: HO.XRAY 12:52
PROVIDERS: Visit Provider Family Medicine
DX: M26.69 Other specified disorders of temporomandibular joint (principal)
CPT/HCPCS: 36415; 70330; 87491; 87591; 87624; 87661; 88142

== ENCOUNTER 2024-02-23 11:51 | Outpatient (REF) | payer MEDICAID, SELFPAY ==
[2024-02-23 12:06] LABS: MANUAL DIFF FLAG NO
[2024-02-23 12:48] LABS: Basophils Percent Auto 0.2 % (0-2); Eosinophils Absolute Auto 0.1 X10*3/uL (0.0-0.4); Eosinophils Percent Auto 2.5 % (0-4); Hematocrit 38.2 % (37.0-47.0); Hemoglobin 12.9 g/dl (12.0-16.0); Imm Gran Abs Auto 0.01 X10*3/uL (0.00-0.03); Imm Gran Pct Auto 0.2 % (0.0-0.4); Lymphocytes Absolute Auto 1.3 X10*3/uL (1.2-4.9); Lymphocytes Percent Auto 30.8 % (20-40); Mean Corpuscular HGB Conc 33.8 g/dl (31.0-35.0); Mean Corpuscular Hemoglobin 29.5 pg (27.0-33.0); Mean Corpuscular Volume 87.2 fL (80.0-98.0); Mean Platelet Volume 11.1 fL (9.4-12.3); Monocytes Absolute Auto 0.3 X10*3/uL (0.1-1.2); Monocytes Percent Auto 7.4 % (2-11); Neutrophils Absolute Auto 2.5 x10*3/uL (2.0-8.3); Neutrophils Percent Auto 58.9 % (45-73); Platelet Count 308 X10*3/uL (160-400); Red Blood Count 4.38 X10*6/uL (4.20-5.50); Red Cell Distribution Width 13.4 % (11.0-16.0); White Blood Count 4.3 X10*3/uL (4.8-10.8)
[2024-02-23 13:25] LABS: Erythrocyte Sedimentation Rate 27 MM/HR (0-20)
[2024-02-23 13:27] LABS: Alanine Aminotransferase 16 U/L (0-31); Albumin Level 4.4 g/dL (3.5-5.0); Alkaline Phosphatase 104 U/L (39-117); Anion Gap 14 (12-20); Aspartate Amino Transferase 21 U/L (5-31); Bilirubin Total 0.6 mg/dL (0.0-1.0); Blood Urea Nitrogen 14 mg/dL (9-16); C Reactive Protein 0.65 mg/dL (< or = 0.50); Carbon Dioxide 25 mmol/L (22-29); Chloride 105 mmol/L (96-108); Estimated Glomerular Filt Rate > 60; Glucose Random 100 mg/dL (60-115); Potassium 4.2 mmol/L (3.3-5.1); Sodium 140 mmol/L (135-145)
== END 2024-02-23 11:52 | disposition home or self-care (01) ==
LOC: HO.LAB 11:51
PROVIDERS: Visit Provider Student in an Organized Health Care Education/Training Program
DX: Z79.631 Long term (current) use of antimetabolite agent (principal)
CPT/HCPCS: 36415; 80053; 85025; 85652; 86140

== ENCOUNTER 2024-03-13 11:16 | Outpatient (AMB) | payer MEDICAID, SELFPAY ==
--- NOTE | 2024-03-13 11:18 | A.OFFVIS_ITS ---
Vital Signs 03/13/24 11:25 Height 5 ft 2 in Weight 199 lb 11.821 oz BMI 36.5 BP 144/69 H Blood Pressure Location Lt brachial Position Sitting Pulse 63 Intake Visit Reasons: 8 week follow up Intake Note: Patient in office today in 8 weeks follow up of post-cholecystectomy syndrome. CC: Patient states that she is doing better with new dose of Cholestyramine and denies having any new GI concerns. Sdv Pilot/Navigator/Dds Operator Required: No Accompanied by: Self / Same As Patient Allergies No Known Allergies Allergy (Verified 03/13/24 11:28) HPI HPI 8 week follow up: Details: Assessment & Plan (1) Post-cholecystectomy syndrome: Code(s): K91.5 - Postcholecystectomy syndrome Category: Medical (2) GERD (gastroesophageal reflux disease): Code(s): K21.9 - Gastro-esophageal reflux disease without esophagitis Category: Medical (3) Odynophagia: Code(s): R13.10 - Dysphagia, unspecified Category: Medical (4) Dyspepsia: Code(s): R10.13 - Epigastric pain Category: Medical Plan She has not heard to schedule the scope, I did not send the request, sending today. She is doing much better with the cholestyramine, but not taking consistently bid. Will increase to 2 packets as she still will have post prandial diarrhea. Her nausea is also improved. I explained to her why it is important to take it consistently and why it will probably be a chronic lifelong medication. However we will also try increasing the dose to see if this helps her more before we move on to a different medication. Return office visit in 8 weeks Medications: Changed From cholestyramine (with sugar) 4 gram administer w/meal; avoid other meds within 1hr before or 4-6hr after dose 4 grams PO BID 60 ea 6RF K91.5 - Postcholecystectomy syndrome, K21.9 - Gastro-esophageal reflux disease without esophagitis, R13.10 - Dysphagia, unspecified To cholestyramine (with sugar) 4 gram administer w/meal; avoid other meds within 1hr before or 4-6hr after dose 8 grams PO BID 120 ea 6RF K91.5 - Postcholecystectomy syndrome, K21.9 - Gastro- esophageal reflux disease without esophagitis, R13.10 - Dysphagia, unspecified EGD/COLONOSCOPY Scheduled 06/07/2024 BIOPSY TODAY'S VISIT She has a / appt after scope, she continues to do quite well on cholestyramine to control her diarrhea. Asks for dx list r/t applying for disability r/t OA. With this she remains satisfied with her GI regimen. ROV in [facility] Medical History (Updated 03/13/24 @ 16:39 by CHARY Hernandez) Shortness of breath Vitamin D deficiency TANIA (iron deficiency anemia) Anxiety Hypothyroid Candidosis of skin HTN (hypertension) Macromastia Surgical History (Updated 03/13/24 @ 11:38 by CHARY Hernandez) H/O colonoscopy History of laparoscopic cholecystectomy Previous section Family History Other Family history of arthritis Family history of bone cancer Social History Household Members: Spouse Housing: Apartment Are you a primary life care planner to a significant other at home: No Do you presently have visiting nurse or other home services: No Alcohol intake: never Patient Tobacco Use Status: Never used Tobacco Second Hand Smoke Exposure: No service: No 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al status: employed 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 Review of Systems Const Denies fatigue, Denies fever(s), Denies night sweats, Denies poor appetite and Denies weight loss ENT Reports Normal hearing present, Denies dental pain, Denies dysphagia, Denies hearing loss, Denies mouth pain, Reports neck pain, Denies odynophagia, Denies throat swelling, Denies tongue swelling and Reports other (Dentition adequate) Card Reports no additional complaints Resp Reports no additional complaints GI Details: Denies abdominal pain, Denies melena, Denies bloating, Denies hematochezia, Denies constipation, Denies GI cramping, Denies dysphagia, Denies excessive flatus, Denies early satiety, Reports heartburn, Reports diarrhea, Denies nausea, Denies odynophagia, Denies vomiting and Denies hematemesis Musc Reports myalgias, Reports arthralgias, Reports joint swelling and Reports neck pain Skin/Breast Denies pruritus, Denies lesions, Denies rash and Denies jaundice Neuro Reports Normal hearing present and Denies Abnormal speech present Endo Denies fatigue Aller/Immun Denies throat swelling and Denies tongue swelling Physical Exam Vital Signs: Last Vital Signs Pulse 63 03/13/24 11:25 BP 144/69 H 03/13/24 11:25 BMI result Body Mass Index 36.5 Const General: cooperative, no acute distress, well developed and well groomed Nutritional Appearance: well nourished and obese Orientation/consciousness: oriented to person, oriented to place and oriented to time Limitations: No language barrier HEENT Head: Yes normocephalic and Yes atraumatic Eyes General: appearance normal, both eyes and all related structures Pupils: Equal, round and reactive pupils present Neck Neck: Yes normal visual inspection and Yes no lymphadenopathy Thyroid: Thyroid normal Resp Effort & Inspection: normal respiratory effort and able to speak in complete sentences Auscultation: clear to auscultation bilaterally Cardio Rate: regular rate Rhythm: regular rhythm Heart sounds: Normal, physiologic split S2 sound present Peripheral pulses: radial pulses present and posterior tibial pulses present GI Inspection: No distended, No Abdominal panniculus present and Yes obesity Palpation (GI): Soft to palpation, nontender, no guarding, not rigid and No hepatosplenomegaly present Percussion: Yes normal to percussion Auscultation: normal bowel sounds Rectal Exam - Female: deferred Skin General skin exam: no rashes or lesions noted, turgor normal, skin not dry, no jaundice, No spider nevi and no striae Rashes: no rashes Nails: normal Neuro General: oriented to person, oriented to place and oriented to time Cranial nerves: Yes Equal, round and reactive pupils present and Yes Normal hearing present Speech: No Abnormal speech present Extrem General: No clubbing, No cyanosis and No edema Right upper extremity: edema, elbow/forearm Details: swelling Location: of the olecranon and wrist Details: swelling Location: of the dorsal wrist Psych Appearance: grossly normal and well kempt Mental Status: mental status grossly normal Speech and movement: Normal speech and movement present Affect: normal affect Attitude: cooperative Thought process: Normal thought process present and not confabulating Thought content: Normal thought content present Insight: Limited insight present (Psych) Judgement: Limited judgement present (Psych) Assessment & Plan Assessment & Plan (1) Post-cholecystectomy syndrome: Code(s): K91.5 - Postcholecystectomy syndrome Category: Medical (2) GERD (gastroesophageal reflux disease): Comment: Managed with cholestyramine Code(s): K21.9 - Gastro-esophageal reflux disease without esophagitis Category: Medical (3) Odynophagia: Code(s): R13.10 - Dysphagia, unspecified Category: Medical (4) Dyspepsia: Comment: Managed with cholestyramine Code(s): R10.13 - Epigastric pain Category: Medical Plan She has a 9/5 appt after scope, she continues to do quite well on cholestyramine to control her diarrhea. Asks for dx list r/t applying for disability r/t OA. With this she remains satisfied with her GI regimen. ROV in Jun. Coding Level of Care Code Est Pt Level 3 (08899) Diagnoses Post-cholecystectomy syndrome K91.5 GERD (gastroesophageal reflux disease) K21.9 Odynophagia R13.10 Dyspepsia R10.13
[2024-03-13 11:25] VITALS: BP 144/69; PULSE 63; BMI 36.5
== END 2024-03-13 12:39 | disposition home or self-care (01) ==
PROVIDERS: PCP Family Medicine; Visit Provider Nurse Practitioner
DX: K91.5 Postcholecystectomy syndrome (principal); K21.9 Gastro-esophageal reflux disease without esophagitis; R13.10 Dysphagia, unspecified; R10.13 Epigastric pain
CPT/HCPCS: 99213

== ENCOUNTER → 2024-03-13 11:16 | Outpatient (BNVA) | payer MEDICAID, SELFPAY | PROVIDERS: PCP Family Medicine; Visit Provider Nurse Practitioner | DX: K91.5 Postcholecystectomy syndrome (principal); K21.9 Gastro-esophageal reflux disease without esophagitis; R13.10 Dysphagia, unspecified; R10.13 Epigastric pain | CPT/HCPCS: 99212 ==

== ENCOUNTER 2024-04-02 12:45 | Outpatient (AMB) | payer MEDICAID, SELFPAY ==
--- NOTE | 2024-04-02 12:50 | A.OFFVIS_ITS ---
Vital Signs 04/02/24 12:51 Height 5 ft 2 in Weight 199 lb 8.293 oz BMI 36.5 BP 138/72 Blood Pressure Location Rt brachial Position Sitting Pulse 93 Pulse Source Pulse Oximeter Pulse Oximetry (%) 100 Oxygen Delivery Method Room Air Intake Visit Reasons: RA Intake Note: Patient last seen 10/26/23 presents today for follow up and test results. Allergies No Known Allergies Allergy (Verified 04/02/24 12:53) Medication List - Last Reconciled 04/02/24 by Jammie Harvey MD acetaminophen (Tylenol Extra Strength) 500 mg PO Q6H PRN bisacodyl (Dulcolax (bisacodyl)) 10 mg (2 x 5 mg) PO BEDTIME 2 days cholestyramine (with sugar) 4 gram 8 grams PO BID folic acid 1 mg PO DAILY ibuprofen 600 mg PO Q6H PRN levothyroxine (Synthroid) 1 tab PO DAILY losartan 25 mg PO DAILY melatonin 5 mg PO BEDTIME PRN methotrexate sodium 20 mg (8 x 2.5 mg) PO QWEEK polyethylene glycol 3350 (Miralax) 238 grams PO ONCE 1 day prednisone Take 3 tabs daily for 1 week, 2 tabs daily for 1 week, 1 tab daily for 1 week then stop HPI Comments Details: 53-year-old female with seronegative RA returns for follow-up. After last visit patient took methotrexate as prescribed for 2 months but did not follow-up or do the requested blood work. She restarted the methotrexate about a month ago. Patient stated that the methotrexate helped her ankle swelling but did not help her wrist and shoulder pain much. She is complaining of pain in both shoulders, worse on the right, right wrist, both ankles worse on the right. Initial hx:This is a 53-year-old female who presents for evaluation of diffuse joint pain. The condition started back in 2011. Patient was evaluated by silk washing machine operator Dr. Appiah and there was suspicion for seronegative RA. A prednisone trial was prescribed but patient did not follow-up. She states that since the beginning of 2022 she has been having worsening pain everywhere. She has pain in her hands, knuckles, elbows, shoulders, knees, left jaw, ankles. She gets intermittent swelling of her ankles and hands. Morning stiffness lasting 2 hours. She is unaware of any family history of an autoimmune rheumatic disease. She denies any skin rashes. Denies any fevers or weight loss. [facility] Medical History Shortness of breath Vitamin D deficiency TANIA (iron deficiency anemia) Anxiety Hypothyroid Candidosis of skin HTN (hypertension) Macromastia Surgical History H/O colonoscopy History of laparoscopic cholecystectomy Previous section Family History Other Family history of arthritis Family history of bone cancer Social History Household Members: Spouse Housing: Apartment Are you a primary care center manager to a significant other at home: No Do you presently have visiting nurse or other home services: No Alcohol intake: never Patient Tobacco Use Status: Never used Tobacco Second Hand Smoke Exposure: No service: No 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al status: employed 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 Review of Systems Musc Reports arthralgias, Reports joint swelling and Reports stiffness Physical Exam Vital Signs: Last Vital Signs Pulse 93 04/02/24 12:51 BP 138/72 04/02/24 12:51 Pulse Ox 100 04/02/24 12:51 Oxygen Delivery Method Room Air 04/02/24 12:51 BMI result Body Mass Index 36.5 Const General: cooperative, healthy appearing and comfortable Nutritional Appearance: obese Orientation/consciousness: patient oriented x3 Limitations: no limitations HEENT Head: Yes normocephalic and Yes atraumatic Mouth: moist mucous membranes Resp Effort & Inspection: normal respiratory effort and able to speak in complete sentences Cardio Rate: regular rate GI Inspection: No distended Palpation (GI): Soft to palpation and nontender Neuro General: patient oriented x3 Extrem Other: Right wrist swelling and pain with flexion and extension Right 3rd MCP swelling without significant tenderness Z deformity bilateral thumbs Bilateral reduced shoulder abduction R>L Bilateral ankle swelling and tenderness, more prominent on the right Bilateral knee pain with full extension. No swelling, warmth or tenderness Normal nailfold capillaroscopy Results Reviewed Results Reviewed: Ordering Physician: Jammie Harvey MD Date of Service: 08/23/23 Procedure(s): XR shoulder LT min 2V Accession Number(s): [id number] cc: Magui Perez MD; Jammie Harvey MD~ EXAMINATION: XR ANKLE, BILATERAL XR FOOT, BILATERAL XR HAND, BILATERAL XR WRIST, BILATERAL XR SHOULDER, BILATERAL XR KNEE, BILATERAL CLINICAL INFORMATION: Pain. COMPARISON: Radiographs of bilateral knees of 08/16/2014. TECHNIQUE: 3 views each of bilateral foot. 3 views each of bilateral ankles. 4 views each of bilateral hands. 4 views each of bilateral knees. 4 views each of bilateral shoulders. FINDINGS: LEFT ANKLE: Tiny plantar calcaneal spur. Joint effusion. Alignment preserved. No displaced fracture. Soft tissue swelling along the medial aspect of the ankle. RIGHT ANKLE: Soft tissue swelling particularly along the medial ankle. Joint effusion. Small plantar calcaneal spur. Alignment preserved. LEFT FOOT: Mild degenerative changes in the 1st metatarsophalangeal joint. Alignment preserved. Mild concavity/ulcerations with sclerosis along the lateral aspects of the 1st, 2nd and 3rd metatarsal heads. No displaced fracture. RIGHT FOOT: Mild degenerative changes in the 1st metatarsophalangeal joint. Alignment preserved. No displaced fracture. LEFT HAND/WRIST: Moderate degenerative changes in the 1st carpometacarpal joint with joint space narrowing and hypertrophic change. Mild degenerative changes in the 1st metacarpophalangeal joint. Alignment preserved. RIGHT HAND/WRIST: Moderate degenerative changes in the 1st carpometacarpal joint with joint space narrowing and hypertrophic change. Mild degenerative changes in the 1st metacarpophalangeal joint. Alignment preserved. LEFT KNEE: Mild medial joint space narrowing with small medial marginal osteophytes. No significant joint effusion. RIGHT KNEE: Mild medial joint space narrowing with small medial marginal osteophytes. No significant joint effusion. LEFT SHOULDER: Mild degenerative changes in the acromioclavicular and glenohumeral joints. No abnormal soft tissue calcifications identified adjacent to the humeral head. Degenerative changes with levoscoliosis on limited images of the upper thoracic spine. RIGHT SHOULDER: Mild degenerative changes in the acromioclavicular and glenohumeral joints. No abnormal soft tissue calcifications identified adjacent to the humeral head XR/XR shoulder LT min 2V IMPRESSION: 1. Bilateral ankle joint effusions with soft tissue swelling. 2. Mild degenerative changes in the bilateral 1st metatarsophalangeal joints. 3. Moderate degenerative changes in the bilateral 1st carpometacarpal joints. 4. Mild degenerative changes in the bilateral knees. 5. Mild degenerative changes in the bilateral shoulders. CT scan or MRI should be considered for further evaluation if there is concern for fracture or other underlying pathology. Assessment & Plan Assessment & Plan (1) Seronegative rheumatoid arthritis: Comment: -ve RF -ve CCP dx 10/2023 MTX 10/2023 Code(s): M06.00 - Rheumatoid arthritis without rheumatoid factor, unspecified site Category: Medical Plan: This is a 53-year-old female with seronegative RA who presents for follow-up. Patient was last seen/2023 and did not take methotrexate consistently as prescribed. He continues to have multiple swollen tender joints. Advised patient to be compliant with methotrexate. Take methotrexate 20 mg weekly split dose. Folic acid 1 mg daily Prednisone taper for relief Labs before next visit in 2 months (2) group home methotrexate user: Code(s): Z79.631 - intermission coordinator (current) use of antimetabolite agent Category: Medical Plan: Monitor safety labs Patient has been menopausal for about 1 year. Denies alcohol use Plan I spent 29 minutes reviewing patient's chart, evaluating patient, ordering diagnostic workup, counseling patient and documenting in the chart Orders: Orders Complete Blood Count Auto Diff 2 Months M06.00 - Rheumatoid arthritis without rheumatoid factor, unspecified site, Z79.631 - group home (current) use of antimetabolite agent C Reactive Protein 2 Months M06.00 - Rheumatoid arthritis without rheumatoid factor, unspecified site, Z79.631 - intermission coordinator (current) use of antimetabolite agent Erythrocyte Sedimentation Rate 2 Months M06.00 - Rheumatoid arthritis without rheumatoid factor, unspecified site, Z79.631 - intermission coordinator (current) use of antimetabolite agent Comprehensive Met. Panel 2 Months M06.00 - Rheumatoid arthritis without rheumatoid factor, unspecified site, Z79.631 - group home (current) use of antimetabolite agent Medications: New prednisone Take 3 tabs daily for 1 week, 2 tabs daily for 1 week, 1 tab daily for 1 week then stop 42 tabs 0RF Coding Level of Care Code Est Pt Level 4 (64641) Diagnoses Seronegative rheumatoid arthritis M06.00 group home methotrexate user Z79.631
[2024-04-02 12:51] VITALS: BP 138/72; PULSE 93; O2SAT 100; BMI 36.5
== END 2024-04-02 13:04 | disposition home or self-care (01) ==
PROVIDERS: PCP Family Medicine; Referring Provider Family Medicine; Visit Provider Student in an Organized Health Care Education/Training Program
DX: M06.00 Rheumatoid arthritis without rheumatoid factor, unspecified site (principal); Z79.631 Long term (current) use of antimetabolite agent
CPT/HCPCS: 99214

== ENCOUNTER → 2024-04-02 12:45 | Outpatient (BNVA) | payer MEDICAID, SELFPAY | PROVIDERS: PCP Family Medicine; Visit Provider Student in an Organized Health Care Education/Training Program | DX: M06.00 Rheumatoid arthritis without rheumatoid factor, unspecified site (principal); Z79.631 Long term (current) use of antimetabolite agent | CPT/HCPCS: 99212 ==

== ENCOUNTER 2024-04-30 11:31 | Outpatient (REF) | payer MEDICAID, SELFPAY ==
[2024-04-30 13:15] LABS: MANUAL DIFF FLAG NO
[2024-04-30 13:32] LABS: Basophils Percent Auto 0.5 % (0-2); Eosinophils Absolute Auto 0.1 X10*3/uL (0.0-0.4); Hemoglobin 12.8 g/dl (12.0-16.0); Imm Gran Abs Auto 0.01 X10*3/uL (0.00-0.03); Imm Gran Pct Auto 0.2 % (0.0-0.4); Lymphocytes Absolute Auto 1.3 X10*3/uL (1.2-4.9); Lymphocytes Percent Auto 29.2 % (20-40); Mean Corpuscular HGB Conc 33.7 g/dl (31.0-35.0); Mean Corpuscular Hemoglobin 29.8 pg (27.0-33.0); Mean Corpuscular Volume 88.4 fL (80.0-98.0); Mean Platelet Volume 11.4 fL (9.4-12.3); Monocytes Absolute Auto 0.3 X10*3/uL (0.1-1.2); Monocytes Percent Auto 6.3 % (2-11); Neutrophils Absolute Auto 2.6 x10*3/uL (2.0-8.3); Neutrophils Percent Auto 60.8 % (45-73); Platelet Count 289 X10*3/uL (160-400); White Blood Count 4.3 X10*3/uL (4.8-10.8)
[2024-04-30 13:54] LABS: Alanine Aminotransferase 16 U/L (0-31); Albumin Level 4.3 g/dL (3.5-5.0); Alkaline Phosphatase 108 U/L (39-117); Amylase 59 U/L (28-100); Anion Gap 14 (12-20); Aspartate Amino Transferase 20 U/L (5-31); Bilirubin Total 0.5 mg/dL (0.0-1.0); Blood Urea Nitrogen 14 mg/dL (9-16); Calcium 9.7 mg/dL (8.4-10.2); Carbon Dioxide 26 mmol/L (22-29); Chloride 106 mmol/L (96-108); Estimated Glomerular Filt Rate > 60; Glucose Random 99 mg/dL (60-115); Lipase 28 U/L (8-78); Potassium 4.2 mmol/L (3.3-5.1); Sodium 142 mmol/L (135-145); Total Protein 7.7 g/dL (6.5-8.0)
== END 2024-04-30 11:32 | disposition home or self-care (01) ==
LOC: HO.HHCL 11:31
PROVIDERS: Visit Provider Internal Medicine
DX: R10.10 Upper abdominal pain, unspecified (principal); R39.15 Urgency of urination
CPT/HCPCS: 36415; 80053; 82150; 83690; 85025; 87086

== ENCOUNTER 2024-05-02 15:11 | Outpatient (REF) | payer MEDICAID, SELFPAY ==
[2024-05-02 18:10] LABS: CDiff Gene PCR NEGATIVE (Negative)
== END 2024-05-02 15:12 | disposition home or self-care (01) ==
LOC: HO.HHCLNP 15:11
PROVIDERS: Visit Provider Internal Medicine
DX: R10.10 Upper abdominal pain, unspecified (principal)
CPT/HCPCS: 87338; 87493

== ENCOUNTER 2024-05-07 11:18 | Outpatient (REF) | payer MEDICAID, SELFPAY | END 2024-05-07 11:19 | disposition home or self-care (01) | LOC: HO.MAMMO 11:18 | PROVIDERS: PCP Family Medicine; Visit Provider Family Medicine | DX: Z12.31 Encounter for screening mammogram for malignant neoplasm of breast (principal) | CPT/HCPCS: 77063; 77067 ==

== ENCOUNTER → 2024-05-07 11:45 | Outpatient (BNV) | payer MEDICAID, SELFPAY | PROVIDERS: PCP Family Medicine; Visit Provider Radiology Diagnostic Radiology | DX: Z12.31 Encounter for screening mammogram for malignant neoplasm of breast (principal) | CPT/HCPCS: 77063; 77067 ==

== ENCOUNTER 2024-06-07 10:27 | Day surgery (SDC) | payer MEDICAID, SELFPAY ==
[2024-06-07 10:59] VITALS: BMI 36.6
--- NOTE | 2024-06-07 11:07 | HO.ANESPROP2 ---
HPI - Anesthesia Eval Consult details Narrative: for colon screen and upper endo PMFSH Active Problems Active Problems: All Active Problems Dyspepsia (Acute) Odynophagia (Acute) GERD (gastroesophageal reflux disease) (Acute) Post-cholecystectomy syndrome (Acute) jail methotrexate user (Acute) Seronegative rheumatoid arthritis (Acute) Painful arc syndrome of left shoulder (Acute) Anemia (Acute) Previous section (Acute) History of laparoscopic cholecystectomy (Acute) H/O colonoscopy (Acute) HTN (hypertension) (Acute) Hypothyroid (Acute) Vitamin D deficiency (Acute) TANIA (iron deficiency anemia) (Acute) Past Medical History Medical History Asthma Shortness of breath Vitamin D deficiency TANIA (iron deficiency anemia) Anxiety Hypothyroid Candidosis of skin HTN (hypertension) Macromastia Family History Family History Other Family history of arthritis Family history of bone cancer Family history of problems with anesthesia: No Surgical History Surgical History H/O colonoscopy History of laparoscopic cholecystectomy Previous section History of Problems with Anesthesia: No Social History Social History Household Members: Spouse Housing: Apartment Are you a primary doggy daycare activities director to a significant other at home: No Do you presently have visiting nurse or other home services: No Alcohol intake: never Patient Tobacco Use Status: Never used Tobacco Second Hand Smoke Exposure: No Advance Directives: No Advance Directives Information Provided: Yes service: No 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al status: employed 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 Meds Allergies Allergy/AdvReac Type Severity Reaction Status Date / Time No Known Allergies Allergy Verified 06/07/24 10:51 Active Medications: Current Medications Lactated Ringer's (Lr) 1,000 mls @ 100 mls/hr IVCONT .Q10H [facility] Home Medications ?Medication ?Instructions ?Recorded ?Confirmed ?Last Taken ?Type levothyroxine 150 mcg tablet 1 tab PO DAILY 08/26/20 06/07/24 Unknown History (Synthroid) acetaminophen 500 mg tablet 500 mg PO Q6H PRN Pain, Mild 08/23/23 06/07/24 Unknown History (Tylenol Extra Strength) losartan 25 mg tablet 25 mg PO DAILY 08/23/23 06/07/24 Unknown History melatonin 5 mg tablet 5 mg PO BEDTIME PRN Sleep 08/23/23 06/07/24 Unknown History Exam Airway Mallampati Class: II TM Dist: >3cm Neck ROM: Full Heart: rrr Lungs: cta Assessment and Plan Assessment Anesthesia Assessment: Anesthesia Plan Discussed Final Anesthetic Review Family History of Problems with Anesthesia: No History of Problems with Anesthesia: No NPO: Yes ASA Class: III Final Preanesthetic Review: No Changes in Pt Med Stat, Meds/Allgs Chart Reviewed, Consent Obtained/Reviewed and Anes Risks/Benef Reviewed Patient Risk: Intermediate Procedure Risk: Low Anesthetic Plan Anesthetic Plan: MAC: Disposition: Standard PACU
[2024-06-07 11:12] VITALS: BP 141/79; PULSE 71; RESP 14; TEMP 36.3; O2SAT 96
[2024-06-07 11:21] VITALS: BP 141/79; PULSE 71; RESP 14; TEMP 36.3; O2SAT 96
[2024-06-07] MEDS: Lactated Ringers 1,000 ML 100 ML IVCONT (11:30)
--- NOTE | 2024-06-07 11:58 | MHC.SHP ---
Pre-Procedural Eval Section A - 24 Hr Update-Section A only Date of Service: 06/07/24 Section B - Complete if H&P > 30 days Chief Complaint: GERD, dysphagia, diarrhea Details of Present Illness: Shortness of breath Vitamin D deficiency TANIA (iron deficiency anemia) Anxiety Hypothyroid Candidosis of skin HTN (hypertension) Macromastia Surgical History (Updated 03/13/24 @ 11:38 by CHARY Hernandez) H/O colonoscopy History of laparoscopic cholecystectomy Previous section Allergies: Allergies Allergy/AdvReac Type Severity Reaction Status Date / Time No Known Allergies Allergy Verified 06/07/24 10:51 Review of Systems Review of Systems Comment: Ten point ROS negative Exam Exam Comment: Gen appear: No acute distress HEENT: no icterus Chest: No overt resp distress Abd: soft, nontender, nondistended Psych: Stable affect, answering questions appropriately Neuro: A/Ox3 noted to move all extremities spontaneously Ext: no peripheral edema Plan Diagnosis/Plan: Unchanged I have reviewed the history and physical and performed a pertinent physical examination on my patient. No changes have occurred unless specified. Time Spent With Patient Time: Total time managing care of this patient today ____ minutes.
--- NOTE | 2024-06-07 12:39 | P.OPN-COLO_ITS ---
Colonoscopy Operative Note Operative Note Date of Service: 06/07/24 Narrative: Procedure: Upper endoscopy and colonoscopy Indication: GERD, dysphagia, chronic diarrhea Endoscopist: Dasia Guzman MD Anesthesia Provider: Renya Orona CRNA Anesthesia type: MAC Instrument: [id number] and [id number] Colonoscopy Procedure:? The procedure, indications, preparation and potential complications were reviewed with the patient, who indicated understanding and gave written informed consent to proceed. A digital rectal exam was performed which was abnormal for external hemorrhoids.? A distal attachment cap was affixed to the tip of the scope and the colonoscope was then inserted through the anus and advanced through the colon and advanced to the cecum at 75 cm and terminal ileum.? Appendiceal orifice and ileocecal valve were identified. Mucosa was carefully examined under high definition white light as the instrument was slowly withdrawn in a r etrograde panoramic fashion. Retroflexion was performed in rectum. The procedure was not difficult. The quality of the prep was BBPS: 3+3+3 = excellent Withdrawal time 7 minutes Limitations: No limitations Findings: Mucosa: Normal mucosa to cecum and terminal ileum. Cold forceps biopsies were taken from the right and left side of the colon to rule out microscopic colitis. Protruding lesions: * Large internal hemorrhoids without stigmata of recent bleeding. Excavated lesions: * Moderate diverticulosis of the left colon. EGD Procedure:?? The patient was then turned for the upper endoscopy The endoscope was introduced through the bite block, and advanced to the 2nd part of the duodenum. The mucosa was carefully examined on slow withdrawal of the endoscope. The patient tolerated the procedure well. There were no immediate complications.? EGD Findings:? * Esophagus:? The Z-line was at 36 cm. There were small erosions at GEJ not crossing the top of mucosal folds. Cold forceps biopsies were taken from the lower esophagus. * Stomach:?Scant heme in the body of the stomach, otherwise normal gastric mucosa. Retroflexion was performed in the cardia that showed Hill grade 2 hiatal hernia. Random cold forceps biopsies were taken to rule out H pylori * Duodenum:? Normal duodenal mucosa to the extent examined. Cold forceps biopsies were taken from the duodenal bulb and 2nd portion of the duodenal to rule out celiac sprue. Additional intervention: A soft tipped Savary wire was advanced through the biopsy channel and left in the antrum. The gastroscope was then backed out. A 19 mm Savary Gavin bougie was advanced over the guidewire and the esophagus was dilated. The scope was then reintroduced. No tear or heme was seen. Impression: * Grade A esophagitis (biopsy) * Hiatal hernia * Gastritis (biopsy) * Normal duodenal mucosa (biopsy) * Normal colon and terminal ileum mucosa (biopsy) * Diverticulosis * Hemorrhoids Recommendations:?? * Follow-up path results * Start omeprazole 20 mg once daily * Avoid NSAIDs * Repeat colonoscopy for symptomatic colorectal cancer screening recommended in 10 years
[2024-06-07 12:43] VITALS: BP 115/71; PULSE 103; RESP 16; TEMP 36.3; O2SAT 94
[2024-06-07 12:58] VITALS: BP 128/79; PULSE 65; RESP 16; O2SAT 99
[2024-06-07 13:13] VITALS: BP 148/63; PULSE 63; RESP 16; O2SAT 100
--- OUTSIDE RECORDS SUMMARY | 2024-06-09 23:41 | XMS_ITS | Continuity of Care Document ---
Author Organization [facility] Address [address] [place] [address]- Care Team Providers Care Registered Nurse Nursery Name Role Phone Magui Perez MD Primary Care Physician Encounter [facility] Date(s): 11/22/19 - 02/24/20 [facility] Care [address] [place] [address]- [facility] Discharge Disposition: A-D/C Home Attending Physician: Wendy Goode MD Admitting Physician: Wendy Goode MD Referring Physician: Magui Perez MD Allergies, Adverse Reactions, Alerts Substance Reaction Severity Status NKA Active Medications Synthroid 0.075 mg oral tablet 1 tablet = 75 mcg, By Mouth, Daily, # 30 tablet, 0 Refills, Maintenance, 02/23/18 10:28:37 EDT, Tablet Start Date: 02/23/18 Status: Ordered Vitamin D 49155 iu oral capsule 50,000 International_Units, 1, capsule, By Mouth, Daily, Refills 0, Maintenance, 02/23/18 10:28:50 EDT Start Date: 02/23/18 Status: Ordered Problem List Condition Effective Dates Status Health Status Inform ant Hypothyroidism(Confirmed) Active Iron deficiency anemia(Confirmed) Active Menorrhagia(Confirmed) Active Vital Signs Most recent to oldest [Reference Range]: 1 Height 157.48 cm (12/25/19 2:27 PM) Weight 85.6 kg (12/25/19 2:27 PM) Pulse Rate [55-90 bpm] 70 bpm (12/25/19 2:27 PM) Body Mass Index [18.5-24.99] 34.52 *>HHI* (12/25/19 2:27 PM) Blood Pressure [90-138/55-84 mm Hg] 143/ 64mm Hg *H* (12/25/19 2:27 PM) Temperature [96.8-100.4 DegF] 96.9 DegF (12/25/19 2:27 PM) Blood pressure sites Arm, left (12/25/19 2:27 PM) Temperature Route Temporal (12/25/19 2:27 PM) Dry Weight 85.6 kg (12/25/19 2:27 PM) Weight Obtained Via Standing scale (12/25/19 2:27 PM) Dry Weight Obtained Via Standing scale (12/25/19 2:27 PM) Social History Social History Type Response Smoking Status Never smoker entered on: 01/01/15 Sex
--- OUTSIDE RECORDS SUMMARY | 2024-06-09 23:41 | XMS_ITS | Continuity of Care Document ---
Author Organization [facility] ancer Care Address [address] [place] [address]- Care Team Providers Care Faculty Research Physician Name Role Phone Magui Perez MD Primary Care Physician Encounter [facility] [id number] Date(s): 11/22/19 - 12/02/19 [facility] Care [address] [place] [address]- [facility] Attending Physician: Daniel Brooks Admitting Physician: Admtr, Daniel Referring Physician: Admtr, Ar8 Allergies, Adverse Reactions, Alerts Substance Reaction Severity Status NKA Active Medications Aerochamber See Instructions, # 1 each, Maintenance, Use with albuterol, 10/05/17 7:56:21, Compound Start Date: 10/05/17 Status: Ordered albuterol CFC free 90 mcg/inh inhalation aerosol 2, puffs, Inhalation, 4 times a day, PRN, # 25 Gm, Refills 0, Tot. Refills 0, Maintenance, 177:56:07, Aerosol, Print Requisition, Compound Start Date: 10/05/17 Status: Ordered Iron Chews = 15 mg, By Mouth, Daily, 0 Refills, Maintenance, 02/23/18 10:29:03 EDT Start Date: 02/23/18 Status: Ordered Synthroid 0.075 mg oral tablet 1 tablet = 75 mcg, By Mouth, Daily, # 30 tablet, 0 Refills, Maintenance, 02/23/18 10:28:37 EDT, Tablet Start Date: 02/23/18 Status: Ordered Vitamin D 79480 iu oral capsule 50,000 International_Units, 1, capsule, By Mouth, Daily, Refills 0, Maintenance, 02/23/18 10:28:50 EDT Start Date: 02/23/18 Status: Ordered Problem List Condition Effective Dates Status Health Status Inform ant Hypothyroidism(Confirmed) Active Iron deficiency anemia(Confirmed) Active Menorrhagia(Confirmed) Active Social History Social History Type Response Smoking Status Never smoker entered on: 01/01/15 Sex
--- OUTSIDE RECORDS SUMMARY | 2024-06-09 23:41 | XMS_ITS | Patient Health Record ---
Author Organization Buddy Sanchez III, MD Address [address] [facility] [place] [address] Care Team Providers Care Snowboarding Instructor Name Role Phone [facility] Primary Care Provider Ksenia vailable Buddy Sanchez Unavailable [phone] REASON FOR REFERRAL No Information MEDICATIONS Medication SIG (Take, Route, Frequency, Duration) Notes Start Date End Date Status Zithromax Z-Luisito 250 MG 2 tablets on the first day, then 1 tablet daily for 4 days Orally Once a day 09/28/2013 10/17/2023 Active Ferrous Sulfate 325 (65 Fe) MG 1 tablet Orally once a day 10/17/2023 10/17/2023 Active Synthroid 137 MCG 1 tablet on an empty stomach in the morning Orally Once a day 10/17/2023 10/17/2023 Active SOCIAL HISTORY Sex Assigned At : Social History Observation Description Sex Assigned At Unknown Alcohol Screen Question Answer Notes Did you have a drink containing alcohol in the p ast year? No Points 0 Interpretation Negative PROBLEMS Problem Type ICD Code Onset Dates Problem Status W/U Status Risk SNOMED Code Notes Problem Obesity (278.00) Active confirmed Obesity (273274543) I discussed portion control, weight reduction, gradual exercise with her today. Problem Hypothyroid (244.9) Active confirmed Hypothyroid (29335231) Problem Iron deficiency anemia (280.9) Active confirmed Iron deficiency anemia (46024967) Her hematocrit is stable in the anemia has resolved with iron therapy. No change in her regimen as necessary. Problem Graves disease (242.00) Active confirmed Graves disease (908386193) Problem Menorrhagia (626.2) Active confirmed Menorrhagia (375540814) PLAN OF TREATMENT Pending Test Test Name Order Date PROFILE, RANDOM (COMPREHENSIVE METABOLIC ) 09/21/2012 PROFILE, RANDOM (COMPREHENSIVE METABOLIC ) 09/28/2013 PROFILE, RANDOM (COMPREHENSIVE METABOLIC ) 05/16/2012 PROFILE, RANDOM (COMPREHENSIVE METABOLIC ) 05/28/2013 PROFILE, RANDOM (COMPREHENSIVE METABOLIC ) 11/24/2012 PROFILE, RANDOM (COMPREHENSIVE METABOLIC ) 12/26/2013 FERRITIN 09/21/2012 FERRITIN 09/28/2013 FERRITIN 05/16/2012 FERRITIN 05/28/2013 FERRITIN 11/24/2012 FERRITIN 12/26/2013 CBC w DIFF 11/24/2012 CBC w DIFF 12/26/2013 CBC w DIFF 09/21/2012 CBC w DIFF 09/28/2013 CBC w DIFF 05/16/2012 CBC w DIFF 05/28/2013 RETICULOCYTE COUNT,CORRECTED 11/24/2012 RETICULOCYTE COUNT,CORRECTED 05/16/2012 RETICULOCYTE COUNT,CORRECTED 05/28/2013 Insurance Providers Payer Name Payer Address Payer Phone Subscriber Number Group Number Insured Name Patient Relationship to Insured Coverage Start Date Coverage End Date [facility] [address] [place] [address] [id number] ELBA ROBB Self - patient is the insured MEDICAL (GENERAL) HISTORY Medical History History ICD Code Graves diease hypoithyroid secondary SYED ablation iron deicilency anemia menorraghia
--- OUTSIDE RECORDS SUMMARY | 2024-06-09 23:41 | XMS_ITS | Continuity of Care Document ---
Author Organization [facility] Address [address] [place] [address]- Care Team Providers Care Telecommunication Operator Name Role Phone Magui Perez MD Primary Care Physician Encounter [facility] [place] Date(s): 12/06/23 - 01/05/24 [facility] [address] [place] [address]- Attending Physician: Daniel Brooks Admitting Physician: Daniel Brooks Referring Physician: trDaniel Allergies, Adverse Reactions, Alerts No Known Allergies Medications Synthroid 0.075 mg oral tablet 1 tablet = 75 mcg, By Mouth, Daily, # 30 tablet, 0 Refills, Maintenance, 02/23/18 10:28:37 EDT, Tablet Start Date: 02/23/18 Status: Ordered Vitamin D 99983 iu oral capsule 50,000 International_Units, 1, capsule, By Mouth, Daily, Refills 0, Maintenance, 02/23/18 10:28:50 EDT Start Date: 02/23/18 Status: Ordered Problem List Condition Confirmation Course Effective Dates Status H ealth Status Informant Hypothyroidism Confirmed Active Iron deficiency anemia Confirmed Active Menorrhagia Confirmed Active Social History Social History Type Response Smoking Status Never smoker entered on: 01/01/15 Sex Laboratory * Event Display: Non BH Lab Results Authored Date: Patient Care team information Care Team Personnel Name: Magui Perez MD Position: [facility] Outreach Member Role: PCP Address: Address: [address] [place] [address] [address] [place] [address]- Name: Jose David Howard MD Position: [facility] Renal MD Member Role: Lifetime Consulting Physician Address: Address: [address] [facility] [place] [address]- Care Team Related Persons Name: WALKERBI COYNEBELL Address: [address] [address]
--- OUTSIDE RECORDS SUMMARY | 2024-06-09 23:41 | XMS_ITS | Continuity of Care Document ---
Author Organization [facility] Address [address] [place] [address]- Care Team Providers Care Wood Cut Engraver Name Role Phone Magui Perez MD Primary Care Physician Encounter [facility] ACCT R [id number] Date(s): 09/07/23 - 01/05/24 [facility] [address] [place] [address]- Attending Physician: Darius Jessica Admitting Physician: Darius Jessica Referring Physician: Magui Perez MD Allergies, Adverse Reactions, Alerts No Known Allergies Medications Synthroid 0.075 mg oral tablet 1 tablet = 75 mcg, By Mouth, Daily, # 30 tablet, 0 Refills, Maintenance, 02/23/18 10:28:37 EDT, Tablet Start Date: 02/23/18 Status: Ordered Vitamin D 35092 iu oral capsule 50,000 International_Units, 1, capsule, By Mouth, Daily, Refills 0, Maintenance, 02/23/18 10:28:50 EDT Start Date: 02/23/18 Status: Ordered Problem List Condition Confirmation Course Effective Dates Status H ealth Status Informant Hypothyroidism Confirmed Active Iron deficiency anemia Confirmed Active Menorrhagia Confirmed Active Social History Social History Type Response Smoking Status Never smoker entered on: 01/01/15 Sex Patient Care team information Care Team Personnel Name: Magui Perez MD Position: [facility] Outreach Member Role: PCP Address: Address: [address] [facility] [address] [place] [address]- [place] Name: Jose David Howard MD Position: [facility] Renal MD Member Role: Lifetime Consulting Physician Address: Address: [address] [place] [address] [address] [facility] [place] [address]- Care Team Related Persons Name: WALKERJOHANNA COYNE Address: home [address] [place] [address]
== END 2024-06-07 14:13 | disposition home or self-care (01) ==
PROVIDERS: PCP Family Medicine; Visit Provider Internal Medicine
PROC: (CPT 45380; principal; 2024-06-07 11:30)
DX: K91.5 Postcholecystectomy syndrome (principal); K52.9 Noninfective gastroenteritis and colitis, unspecified; K57.30 Diverticulosis of large intestine without perforation or abscess without bleeding; K64.8 Other hemorrhoids; R13.10 Dysphagia, unspecified; K21.9 Gastro-esophageal reflux disease without esophagitis; K20.80 Other esophagitis without bleeding; K29.50 Unspecified chronic gastritis without bleeding; K44.9 Diaphragmatic hernia without obstruction or gangrene; I10 Essential (primary) hypertension; D50.9 Iron deficiency anemia, unspecified; R06.02 Shortness of breath; E03.9 Hypothyroidism, unspecified; E55.9 Vitamin D deficiency, unspecified; Z79.899 Other long term (current) drug therapy; Z90.49 Acquired absence of other specified parts of digestive tract
CPT/HCPCS: 45380; 43248; 43239; 88305; 88313; 88342; C1769; J1596; J2704

== ENCOUNTER → 2024-06-07 10:27 | Outpatient (BNV) | payer MEDICAID, SELFPAY | PROVIDERS: PCP Family Medicine; Visit Provider Internal Medicine | DX: K52.9 Noninfective gastroenteritis and colitis, unspecified (principal); K57.30 Diverticulosis of large intestine without perforation or abscess without bleeding; K64.8 Other hemorrhoids; K21.00 Gastro-esophageal reflux disease with esophagitis, without bleeding | CPT/HCPCS: 43248; 45380 ==

== ENCOUNTER → 2024-06-12 14:31 | Outpatient (RCR) | payer OTHER, SELFPAY ==
[2020-08-26 13:16] VITALS: BMI 35.2
[2020-08-26 13:18] VITALS: BP 148/76; PULSE 92; RESP 18; TEMP 37.1; O2SAT 98
--- NOTE | 2020-08-26 13:30 | PM.HEMONCCN ---
Subjective - Subjective Chief complaint: Fatigue Patient: new to practice Consult date: 08/26/20 Primary Care Provider: Magui Perez MD HPI - Consult Narrative Narrative: Farzana Quintanilla is a 50 year old female with longstanding history of iron deficiency anemia. She has a history of both blood transfusion and iron infusion because of this. Her hemoglobin has been as low as 6 gram/dL in the past. She was seen by instructional leader multiple times in the past. She had a GI workup with both endoscopy and colonoscopy some years ago which was negative. She has been on oral iron supplementation for the past few weeks. She does get some stomach upset and feels that it takes too long for oral iron to have any effect. She reports fatigue, excessive sleepiness, exertional shortness of breath and occasional dizziness. She would like to have an iron infusion. Her last iron infusion was at [facility] a year ago and she tolerated it quite well. She denies any fever, chills, cough or shortness of breath. No heartburn or reflux symptoms. No hematochezia, melena or abdominal discomfort. Review of Systems - Constitutional Reports as per HPI, Reports no additional constitutional complaints - Cardiovascular Reports no additional cardiovascular complaints - Respiratory Reports no additional respiratory complaints - Gastrointestinal Reports no additional gastrointestinal complaints Oncology Screenings - ECOG Performance Status ECOG Performance Status: 1 [facility] Medical History: Medical History (Last Updated 08/26/20 @ 12:53 by Mary Hooper RN) Anxiety Candidosis of skin HTN (hypertension) Hypothyroid TANIA (iron deficiency anemia) Macromastia Shortness of breath Vitamin D deficiency Surgical History: Surgical History (Last Updated 08/26/20 @ 13:27 by Mary Hooper RN) Previous section Smoking status: Never smoker Home Medications and Allergies Current Medications: Current Medications Generic Name Dose Route Start Last Admin Trade Name Freq PRN Reason Stop Dose Admin Influenza Virus Vaccine Quadrival 0.5 ml 08/26/20 13:24 Flu Vacc [id number](6mos Up)/Pf 0.5 Ml Syringe IM 08/26/20 13:25 .ONCE ONE Home Medications Medication Instructions Recorded Confirmed Type docusate sodium [DOK] 1 cap PO BID 08/26/20 08/26/20 History ergocalciferol (vitamin D2) 1 cap PO QWEEK 08/26/20 08/26/20 History ferrous sulfate 1 tab PO TID 08/26/20 08/26/20 History levothyroxine [Synthroid] 1 tab PO DAILY 08/26/20 08/26/20 History melatonin 1 tab PO BEDTIME PRN 08/26/20 08/26/20 History Allergies Allergy/AdvReac Type Severity Reaction Status Date / Time No Known Allergies Allergy Verified 08/26/20 13:25 Physical Exam Vital signs: Vital Signs Temp 98.7 F 08/26/20 13:18 Pulse 92 08/26/20 13:18 Resp 18 08/26/20 13:18 BP 148/76 H 08/26/20 13:18 Pulse Ox 98 08/26/20 13:18 Intake & Output 08/25/20 08/26/20 08/26/20 18:59 06:59 18:59 Other: Weight 87.2 kg Weight 87.2 kg - Constitutional Present: no acute distress - Routine HEENT Exam Head: Present: normal inspection Eye: Present: EOMI - Routine Neck Exam Present: full ROM. Absent: lymphadenopathy - Routine Respiratory Exam Present: CTAB - Routine Cardiovascular Exam Cardiovascular: Present: RRR, S1, S2 - Routine Abdominal Exam Present: soft. Absent: tenderness - Routine Extremities Exam Absent: pedal edema Assessment and Plan (1) Anemia Status: Acute Qualifiers: Anemia type: iron deficiency Iron deficiency anemia type: chronic blood loss Qualified Code(s): D50.0 - Iron deficiency anemia secondary to blood loss (chronic) 1. This is a 50 year old woman with longstanding iron deficiency anemia. She appears to have inadequate absorption of iron from dietary sources and has had chronic blood loss with previous menorrhagia. She has a history of port blood transfusion and parenteral iron therapy with instructional leader in the past. Her last iron infusion was over a year ago. She tolerates it well and usually does well after iron infusion, she does not tolerate oral iron very well. She has had a GI workup with both EGD and colonoscopy for iron deficiency anemia a few years ago, this was normal. Today we discussed parenteral iron therapy with iron dextran. Possible infusion reactions were discussed. Patient is willing to proceed. Repeat blood work including iron studies, vitamin B12 /folic acid levels on her next visit. Follow-up in 2 months.
[2020-08-26] MEDS: Flu Vacc QS2020-21(6mos up)/PF 0.5 ML SYRINGE IM (13:55)
--- NOTE | 2020-08-26 15:06 | MHC.HEMONC ---
Intial consult, Patient booked for iron dextran for 08/29/20 based on hgb of 10.1 from 08/08/20 draw per . Flu shot given in right deltoid pt ana maria. well. Follow up in 3 months.
== END | disposition home or self-care (01) ==
LOC: HO.ONC 08-26 12:47
PROVIDERS: PCP Family Medicine; Referring Provider Family Medicine; Visit Provider Internal Medicine
DX: D50.0 Iron deficiency anemia secondary to blood loss (chronic) (principal); Z23 Encounter for immunization
CPT/HCPCS: 90686; 99204

== ENCOUNTER 2024-06-14 14:14 | Outpatient (AMB) | payer MEDICAID, SELFPAY ==
--- NOTE | 2024-06-14 14:18 | A.OFFVIS_ITS ---
Vital Signs 06/14/24 14:22 Height 5 ft 2 in Weight 198 lb 3.129 oz BMI 36.2 BP 126/70 Blood Pressure Location Lt brachial Position Sitting Pulse 75 Pulse Source Pulse Oximeter Pulse Oximetry (%) 97 Oxygen Delivery Method Room Air Intake Visit Reasons: RA Intake Note: Patient presents today for follow up on RA and lab review. She was last seen on 04/02/2024. Allergies prednisone Adverse Reaction (Mild, Verified 06/14/24 14:22) Stomach Upset Medication List - Last Reconciled 06/14/24 by Jammie Harvey MD acetaminophen (Tylenol Extra Strength) 500 mg PO Q6H PRN folic acid 1 mg PO DAILY ibuprofen 600 mg PO Q6H PRN levothyroxine (Synthroid) 1 tab PO DAILY losartan 25 mg PO DAILY melatonin 5 mg PO BEDTIME PRN methotrexate sodium 20 mg (8 x 2.5 mg) PO QWEEK omeprazole 20 mg PO DAILY prednisone Take 3 tabs daily for 1 week, 2 tabs daily for 1 week, 1 tab daily for 1 week then stop HPI Comments Details: 54-year-old female with seronegative RA returns for follow-up. She has been taking methotrexate 20 mg weekly regularly since last visit. It is well tolerated. She states that the pain and swelling of her ankles and feet is much better. Main complaint today is significant pain on the radial aspect of her right wrist. Significant difficulty with activity such as carrying and twisting. 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 Initial hx:This is a 53-year-old female who presents for evaluation of diffuse joint pain. The condition started back in 2011. Patient was evaluated by english as a second language teacher Dr. Appiah and there was suspicion for seronegative RA. A prednisone trial was prescribed but patient did not follow-up. She states that since the beginning of 2022 she has been having worsening pain everywhere. She has pain in her hands, knuckles, elbows, shoulders, knees, left jaw, ankles. She gets intermittent swelling of her ankles and hands. Morning stiffness lasting 2 hours. She is unaware of any family history of an autoimmune rheumatic disease. She denies any skin rashes. Denies any fevers or weight loss. [facility] Medical History Asthma Shortness of breath Vitamin D deficiency TANIA (iron deficiency anemia) Anxiety Hypothyroid Candidosis of skin HTN (hypertension) Macromastia Surgical History H/O colonoscopy History of laparoscopic cholecystectomy Previous section Family History Other Family history of arthritis Family history of bone cancer Social History Household Members: Spouse Housing: Apartment Are you a primary healthcare technician to a significant other at home: No Do you presently have visiting nurse or other home services: No Alcohol intake: never Patient Tobacco Use Status: Never used Tobacco Second Hand Smoke Exposure: No service: No 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al status: employed 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: ROLL 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/ rt hand Review of Systems Musc Reports arthralgias and Reports stiffness Physical Exam Vital Signs: Last Vital Signs Pulse 75 06/14/24 14:22 BP 126/70 06/14/24 14:22 Pulse Ox 97 06/14/24 14:22 Oxygen Delivery Method Room Air 06/14/24 14:22 BMI result Body Mass Index 36.2 Const General: cooperative, healthy appearing and comfortable Nutritional Appearance: obese Orientation/consciousness: patient oriented x3 Limitations: no limitations HEENT Head: Yes normocephalic and Yes atraumatic Mouth: moist mucous membranes Resp Effort & Inspection: normal respiratory effort and able to speak in complete sentences Cardio Rate: regular rate GI Inspection: No distended Palpation (GI): Soft to palpation and nontender Neuro General: patient oriented x3 Extrem Other: Right wrist tenderness at the radial aspect With positive Gwendolyn's test No active synovitis otherwise both hands and wrists Normal range of motion of shoulders without pain Negative MTP squeeze test bilaterally No ankle swelling or tenderness bilaterally Z deformity bilateral thumbs Normal nailfold capillaroscopy Results Reviewed Results Reviewed: Ordering Physician: Jammie Harvey MD Date of Service: 08/23/23 Procedure(s): XR shoulder LT min 2V Accession Number(s): [id number] cc: Magui Perez MD; Jammie Harvey MD~ EXAMINATION: XR ANKLE, BILATERAL XR FOOT, BILATERAL XR HAND, BILATERAL XR WRIST, BILATERAL XR SHOULDER, BILATERAL XR KNEE, BILATERAL CLINICAL INFORMATION: Pain. COMPARISON: Radiographs of bilateral knees of 08/16/2014. TECHNIQUE: 3 views each of bilateral foot. 3 views each of bilateral ankles. 4 views each of bilateral hands. 4 views each of bilateral knees. 4 views each of bilateral shoulders. FINDINGS: LEFT ANKLE: Tiny plantar calcaneal spur. Joint effusion. Alignment preserved. No displaced fracture. Soft tissue swelling along the medial aspect of the ankle. RIGHT ANKLE: Soft tissue swelling particularly along the medial ankle. Joint effusion. Small plantar calcaneal spur. Alignment preserved. LEFT FOOT: Mild degenerative changes in the 1st metatarsophalangeal joint. Alignment preserved. Mild concavity/ulcerations with sclerosis along the lateral aspects of the 1st, 2nd and 3rd metatarsal heads. No displaced fracture. RIGHT FOOT: Mild degenerative changes in the 1st metatarsophalangeal joint. Alignment preserved. No displaced fracture. LEFT HAND/WRIST: Moderate degenerative changes in the 1st carpometacarpal joint with joint space narrowing and hypertrophic change. Mild degenerative changes in the 1st metacarpophalangeal joint. Alignment preserved. RIGHT HAND/WRIST: Moderate degenerative changes in the 1st carpometacarpal joint with joint space narrowing and hypertrophic change. Mild degenerative changes in the 1st metacarpophalangeal joint. Alignment preserved. LEFT KNEE: Mild medial joint space narrowing with small medial marginal osteophytes. No significant joint effusion. RIGHT KNEE: Mild medial joint space narrowing with small medial marginal osteophytes. No significant joint effusion. LEFT SHOULDER: Mild degenerative changes in the acromioclavicular and glenohumeral joints. No abnormal soft tissue calcifications identified adjacent to the humeral head. Degenerative changes with levoscoliosis on limited images of the upper thoracic spine. RIGHT SHOULDER: Mild degenerative changes in the acromioclavicular and glenohumeral joints. No abnormal soft tissue calcifications identified adjacent to the humeral head XR/XR shoulder LT min 2V IMPRESSION: 1. Bilateral ankle joint effusions with soft tissue swelling. 2. Mild degenerative changes in the bilateral 1st metatarsophalangeal joints. 3. Moderate degenerative changes in the bilateral 1st carpometacarpal joints. 4. Mild degenerative changes in the bilateral knees. 5. Mild degenerative changes in the bilateral shoulders. CT scan or MRI should be considered for further evaluation if there is concern for fracture or other underlying pathology. Assessment & Plan Assessment & Plan (1) Seronegative rheumatoid arthritis: Comment: -ve RF -ve CCP dx 10/2023 MTX 10/2023 Code(s): M06.00 - Rheumatoid arthritis without rheumatoid factor, unspecified site Category: Medical Plan: This is a 53-year-old female with seronegative RA who presents for follow-up. Patient has been taking methotrexate 20 mg weekly regularly since last visit with significant improvement. Her complaint today is due to right de Quervain tenosynovitis. Continue with methotrexate 20 mg weekly Continue folic acid 1 mg daily Labs before next visit in 3 months (2) custodial methotrexate user: Code(s): Z79.631 - custodial (current) use of antimetabolite agent Category: Medical Plan: Monitor safety labs Patient has been menopausal for about 1 year. Denies alcohol use (3) De Quervain's tenosynovitis, right: Code(s): M65.4 - Radial styloid tenosynovitis [de Quervain] Category: Medical Plan: Discussed with patient the nature of de Quervain tenosynovitis. It is an overuse tendonitis. It needs some rest. I will prescribe a thumb spica splint. Advised patient to use Voltaren gel 4 times a day Plan I spent 29 minutes reviewing patient's chart, evaluating patient, ordering diagnostic workup, counseling patient and documenting in the chart Medications: New [thumb spica] wear nightly & as much as possible throughout the day 1 ea 0RF M65.4 - Radial styloid tenosynovitis [de Quervain] Refilled methotrexate sodium 20 mg (8 x 2.5 mg) PO QWEEK 96 tabs 0RF Discontinued prednisone Discontinued Reason: Patient Completed Course Take 3 tabs daily for 1 week, 2 tabs daily for 1 week, 1 tab daily for 1 week then stop 42 tabs 0RF Coding Level of Care Code Est Pt Level 4 (69752) Diagnoses Seronegative rheumatoid arthritis M06.00 ocean transportation intermediary methotrexate user Z79.631 De Quervain's tenosynovitis, right M65.4
[2024-06-14 14:22] VITALS: BP 126/70; PULSE 75; O2SAT 97; BMI 36.2
== END 2024-06-14 14:42 | disposition home or self-care (01) ==
PROVIDERS: PCP Family Medicine; Visit Provider Student in an Organized Health Care Education/Training Program
DX: M06.00 Rheumatoid arthritis without rheumatoid factor, unspecified site (principal); Z79.631 Long term (current) use of antimetabolite agent; M65.4 Radial styloid tenosynovitis [de Quervain]
CPT/HCPCS: 99214

== ENCOUNTER → 2024-06-14 14:14 | Outpatient (BNVA) | payer MEDICAID, SELFPAY | PROVIDERS: PCP Family Medicine; Visit Provider Student in an Organized Health Care Education/Training Program | DX: M06.00 Rheumatoid arthritis without rheumatoid factor, unspecified site (principal); M65.4 Radial styloid tenosynovitis [de Quervain]; Z79.631 Long term (current) use of antimetabolite agent | CPT/HCPCS: 99212 ==

== ENCOUNTER 2024-06-21 11:41 | Outpatient (REF) | payer MEDICAID, SELFPAY ==
[2024-06-21 13:37] LABS: MANUAL DIFF FLAG NO
[2024-06-21 13:45] LABS: Basophils Percent Auto 0.4 % (0-2); Eosinophils Absolute Auto 0.2 X10*3/uL (0.0-0.4); Eosinophils Percent Auto 3.2 % (0-4); Hematocrit 39.9 % (37.0-47.0); Hemoglobin 13.1 g/dl (12.0-16.0); Lymphocytes Absolute Auto 1.4 X10*3/uL (1.2-4.9); Lymphocytes Percent Auto 27.4 % (20-40); Mean Corpuscular HGB Conc 32.8 g/dl (31.0-35.0); Mean Corpuscular Hemoglobin 28.6 pg (27.0-33.0); Mean Corpuscular Volume 87.1 fL (80.0-98.0); Mean Platelet Volume 11.7 fL (9.4-12.3); Monocytes Absolute Auto 0.4 X10*3/uL (0.1-1.2); Monocytes Percent Auto 7.7 % (2-11); Neutrophils Absolute Auto 3.1 x10*3/uL (2.0-8.3); Neutrophils Percent Auto 61.3 % (45-73); Platelet Count 304 X10*3/uL (160-400); Red Blood Count 4.58 X10*6/uL (4.20-5.50); Red Cell Distribution Width 12.7 % (11.0-16.0); White Blood Count 5.1 X10*3/uL (4.8-10.8)
[2024-06-21 14:09] LABS: Alanine Aminotransferase 16 U/L (0-31); Albumin Level 4.3 g/dL (3.5-5.0); Alkaline Phosphatase 116 U/L (39-117); Anion Gap 14 (12-20); Aspartate Amino Transferase 19 U/L (5-31); Bilirubin Direct 0.2 mg/dL (0.0-0.5); Bilirubin Total 0.5 mg/dL (0.0-1.0); Blood Urea Nitrogen 14 mg/dL (9-16); C Reactive Protein 1.02 mg/dL (< or = 0.50); Calcium 10.1 mg/dL (8.4-10.2); Carbon Dioxide 25 mmol/L (22-29); Chloride 107 mmol/L (96-108); Cholesterol 205 mg/dL (<200); Estimated Glomerular Filt Rate > 60; Glucose Random 100 mg/dL (60-115); HDL Cholesterol 57 mg/dL (>40); Iron 79 mcg/dL (30-160); LDL Cholesterol Calculated 127 mg/dL (<100); Percent Iron Saturation 30 % (15-50); Potassium 4.1 mmol/L (3.3-5.1); Sodium 142 mmol/L (135-145); Total Iron Binding Capacity 264 mcg/dL (228-428); Total Protein 7.8 g/dL (6.5-8.0); Triglycerides 109 mg/dL (<150); Unsaturated Iron Binding 185 ug/dL
[2024-06-21 14:26] LABS: Thyroid Stimulating Hormone 7.58 uIU/mL (0.32-4.0)
[2024-06-21 14:36] LABS: Erythrocyte Sedimentation Rate 29 MM/HR (0-20)
[2024-06-21 18:45] LABS: Estimated Average Glucose 111 mg/dL; Hemoglobin A1c % 5.5 % (<6.0)
[2024-06-21 19:08] LABS: Ferritin 65 ng/mL (10-250); Free T4 (Free Thyroxine) 1.22 ng/dL (0.71-1.85); Vitamin D 25-OH Total 22.4 ng/mL (>30)
== END 2024-06-21 11:42 | disposition home or self-care (01) ==
LOC: HO.HHCL 11:41
PROVIDERS: Referring Provider Student in an Organized Health Care Education/Training Program; Visit Provider Family Medicine
DX: M06.00 Rheumatoid arthritis without rheumatoid factor, unspecified site (principal); R53.83 Other fatigue; Z79.631 Long term (current) use of antimetabolite agent; K21.9 Gastro-esophageal reflux disease without esophagitis; K91.5 Postcholecystectomy syndrome
CPT/HCPCS: 36415; 80053; 80061; 82248; 82306; 82728; 83036; 83540; 84439; 84443; 85025; 85652; 86140; 99212

== ENCOUNTER 2024-06-21 15:30 | Outpatient (AMB) | payer MEDICAID, SELFPAY ==
--- NOTE | 2024-06-21 15:37 | A.OFFVIS_ITS ---
Vital Signs 06/21/24 15:38 Height 5 ft 2 in Weight 198 lb 13.711 oz BMI 36.4 BP 110/82 Blood Pressure Location Lt brachial Position Sitting Pulse 94 Intake Visit Reasons: s/p colonoscopy Intake Note: Patient in office today in follow up s/p colonoscopy and EGD. CC: Patient c/o constipation, nausea, noises and movement from her stomach since after procedure. Per patient she took Miralax and was able to have a BM. Denies having other GI symptoms or concerns. Animal Shelter Clerk Required: No Accompanied by: Self / Same As Patient Allergies prednisone Adverse Reaction (Mild, Verified 06/21/24 15:42) Stomach Upset HPI HPI s/p colonoscopy: Details: Assessment & Plan (1) Post-cholecystectomy syndrome: Code(s): K91.5 - Postcholecystectomy syndrome Category: Medical (2) GERD (gastroesophageal reflux disease): Comment: Managed with cholestyramine Code(s): K21.9 - Gastro-esophageal reflux disease without esophagitis Category: Medical (3) Odynophagia: Code(s): R13.10 - Dysphagia, unspecified Category: Medical (4) Dyspepsia: Comment: Managed with cholestyramine Code(s): R10.13 - Epigastric pain Category: Medical Plan She has a 9/5 appt after scope, she continues to do quite well on cholestyramine to control her diarrhea. Asks for dx list r/t applying for disability r/t OA. With this she remains satisfied with her GI regimen. ROV in Jun. EGD/COLONOSCOPY 06/07/24 Findings: Mucosa: Normal mucosa to cecum and terminal ileum. Cold forceps biopsies were taken from the right and left side of the colon to rule out microscopic colitis. Protruding lesions: * Large internal hemorrhoids without stigmata of recent bleeding.Excavated lesions: * Moderate diverticulosis of the left colon. EGD Procedure:?? The patient was then turned for the upper endoscopy The endoscope was introduced through the bite block, and advanced to the 2nd part of the duodenum. The mucosa was carefully examined on slow withdrawal of the endoscope. The patient tolerated the procedure well. There were no immediate complications.? EGD Findings:? * Esophagus:? The Z-line was at 36 cm. There were small erosions at GEJ not crossing the top of mucosal folds. Cold forceps biopsies were taken from the lower esophagus. * Stomach:?Scant heme in the body of the stomach, otherwise normal gastric mucosa. Retroflexion was performed in the cardia that showed Hill grade 2 hiatal hernia. Random cold forceps biopsies were taken to rule out H pylori * Duodenum:? Normal duodenal mucosa to the extent examined. Cold forceps biopsies were taken from the duodenal bulb and 2nd portion of the duodenal to rule out celiac sprue.Additional intervention: A soft tipped Savary wire was advanced through the biopsy channel and left in the antrum. The gastroscope was then backed out. A 19 mm Savary Gavin bougie was advanced over the guidewire and the esophagus was dilated. The scope was then reintroduced. No tear or heme was seen. Impression: * Grade A esophagitis (biopsy) * Hiatal hernia * Gastritis (biopsy) * Normal duodenal mucosa (biopsy) * Normal colon and terminal ileum mucosa (biopsy) * Diverticulosis * Hemorrhoids Recommendations:?? * Follow-up path results * Start omeprazole 20 mg once daily * Avoid NSAIDs * Repeat colonoscopy for symptomatic colorectal cancer screening recommended in 10 years BIOPSY Received: 06/07/24 Diagnosis A. Colon, right, biopsy: Colonic mucosa within normal limits; negative for m icroscopic colitis. B. Colon, left, biopsy: Colonic mucosa within normal limits; negative for microscopic colitis. C. Duodenum, biopsy: Duodenal mucosa within normal limits. D. Stomach, random, biopsy: Antral-type and oxyntic mucosa with mild chronic inactive inflammation; no Helicobacter organisms seen. E. Esophagus, lower, biopsy: - Cardiac-type mucosa with mild chronic inactive inflammation; no intestinal metaplasia seen. - Squamous mucosa within normal limits TODAY'S VISIT She is agreeable to a 10 year follow up. The procedure was well tolerated. The results were explained and the patient is agreeable to the follow-up interval as stated. The bowel pattern has returned to normal. Education was provided to tell any 1st degree relatives about their findings to be sure that they are screened by age 45. Educated that they will be put on a recall list when it is time for their repeat scope but should they move out of state or away from the hospital they will need to remember along with their primary to repeat the procedure in a timely fashion to avoid any adverse complications. She feels quite well on her cholestyramine and omeprazole. She now has occasional CIC, discussed cutting back to qd yesica until bowels moving better. Biopsies showed healing already, so she likely had bile mediated gastritis/GERD that was well effected by the bile binding agent. ROV 6 mos. PFSH Medical History (Updated 06/21/24 @ 15:52 by CHARY Hernandez) Dyspepsia TANIA (iron deficiency anemia) Asthma Shortness of breath Vitamin D deficiency Anxiety Hypothyroid Candidosis of skin HTN (hypertension) Macromastia Surgical History (Updated 06/21/24 @ 15:52 by CHARY Hernandez) Previous section History of laparoscopic cholecystectomy H/O colonoscopy Family History Other Family history of arthritis Family history of bone cancer Social History Household Members: Spouse Housing: Apartment Are you a primary healthcare specialist to a significant other at home: No Do you presently have visiting nurse or other home services: No Alcohol intake: never Patient Tobacco Use Status: Never used Tobacco Second Hand Smoke Exposure: No service: No 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al status: employed 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 Review of Systems Const Denies fatigue, Denies fever(s), Denies night sweats, Denies poor appetite and Denies weight loss ENT Reports Normal hearing present, Denies dental pain, Denies dysphagia, Denies hearing loss, Denies mouth pain, Denies odynophagia, Denies throat swelling, Denies tongue swelling and Reports other (Dentition adequate) Card Reports no additional complaints Resp Reports no additional complaints GI Details: Denies abdominal pain, Denies melena, Denies bloating, Denies hematochezia, Denies constipation, Denies GI cramping, Denies dysphagia, Denies excessive flatus, Denies early satiety, Reports heartburn, Reports diarrhea, Denies nausea, Denies odynophagia, Denies vomiting and Denies hematemesis Skin/Breast Denies pruritus, Denies lesions, Denies rash and Denies jaundice Neuro Reports Normal hearing present and Denies Abnormal speech present Endo Denies fatigue Aller/Immun Denies throat swelling and Denies tongue swelling Physical Exam Vital Signs: Last Vital Signs Pulse 94 06/21/24 15:38 BP 110/82 06/21/24 15:38 BMI result Body Mass Index 36.4 Const General: cooperative, no acute distress, well developed and well groomed Nutritional Appearance: well nourished and obese Orientation/consciousness: oriented to person, oriented to place and oriented to time Limitations: No language barrier HEENT Head: Yes normocephalic and Yes atraumatic Eyes General: appearance normal, both eyes and all related structures Pupils: Equal, round and reactive pupils present Neck Neck: Yes normal visual inspection and Yes no lymphadenopathy Thyroid: Thyroid normal Resp Effort & Inspection: normal respiratory effort and able to speak in complete sentences Auscultation: clear to auscultation bilaterally Cardio Rate: regular rate Rhythm: regular rhythm Heart sounds: Normal, physiologic split S2 sound present Peripheral pulses: radial pulses present and posterior tibial pulses present GI Inspection: No distended, No Abdominal panniculus present and Yes obesity Palpation (GI): Soft to palpation, nontender, no guarding, not rigid and No hepatosplenomegaly present Percussion: Yes normal to percussion Auscultation: normal bowel sounds Rectal Exam - Female: deferred Skin General skin exam: no rashes or lesions noted, turgor normal, skin not dry, no jaundice, No spider nevi and no striae Rashes: no rashes Nails: normal Neuro General: oriented to person, oriented to place and oriented to time Cranial nerves: Yes Equal, round and reactive pupils present and Yes Normal hearing present Speech: No Abnormal speech present Extrem General: Yes normal to inspection, No clubbing, No cyanosis and No edema Psych Appearance: grossly normal and well kempt Mental Status: mental status grossly normal Speech and movement: Normal speech and movement present Affect: normal affect Attitude: cooperative Thought process: Normal thought process present and not confabulating Thought content: Normal thought content present Insight: Fair insight present (Psych) Judgement: Fair judgement present (Psych) Results Reviewed Results Reviewed: EGD/COLONOSCOPY 06/07/24 Findings: Mucosa: Normal mucosa to cecum and terminal ileum. Cold forceps biopsies were taken from the right and left side of the colon to rule out microscopic colitis. Protruding lesions: * Large internal hemorrhoids without stigmata of recent bleeding.Excavated lesions: * Moderate diverticulosis of the left colon. EGD Procedure:?? The patient was then turned for the upper endoscopy The endoscope was introduced through the bite block, and advanced to the 2nd part of the duodenum. The mucosa was carefully examined on slow withdrawal of the endoscope. The patient tolerated the procedure well. There were no immediate complications.? EGD Findings:? * Esophagus:? The Z-line was at 36 cm. There were small erosions at GEJ not crossing the top of mucosal folds. Cold forceps biopsies were taken from the lower esophagus. * Stomach:?Scant heme in the body of the stomach, otherwise normal gastric mucosa. Retroflexion was performed in the cardia that showed Hill grade 2 hiatal hernia. Random cold forceps biopsies were taken to rule out H pylori * Duodenum:? Normal duodenal mucosa to the extent examined. Cold forceps biopsies were taken from the duodenal bulb and 2nd portion of the duodenal to rule out celiac sprue.Additional intervention: A soft tipped Savary wire was advanced through the biopsy channel and left in the antrum. The gastroscope was then backed out. A 19 mm Savary Gavin bougie was advanced over the guidewire and the esophagus was dilated. The scope was then reintroduced. No tear or heme was seen. Impression: * Grade A esophagitis (biopsy) * Hiatal hernia * Gastritis (biopsy) * Normal duodenal mucosa (biopsy) * Normal colon and terminal ileum mucosa (biopsy) * Diverticulosis * Hemorrhoids Recommendations:?? * Follow-up path results * Start omeprazole 20 mg once daily * Avoid NSAIDs * Repeat colonoscopy for symptomatic colorectal cancer screening recommended in 10 years BIOPSY Received: 06/07/24 Diagnosis A. Colon, right, biopsy: Colonic mucosa within normal limits; negative for microscopic colitis. B. Colon, left, biopsy: Colonic mucosa within normal limits; negative for microscopic colitis. C. Duodenum, biopsy: Duodenal mucosa within normal limits. D. Stomach, random, biopsy: Antral-type and oxyntic mucosa with mild chronic inactive inflammation; no Helicobacter organisms seen. E. Esophagus, lower, biopsy: - Cardiac-type mucosa with mild chronic inactive inflammation; no intestinal metaplasia seen. - Squamous mucosa within normal limits Assessment & Plan Assessment & Plan (1) GERD (gastroesophageal reflux disease): Comment: Managed with cholestyramine Code(s): K21.9 - Gastro-esophageal reflux disease without esophagitis Category: Medical (2) Post-cholecystectomy syndrome: Code(s): K91.5 - Postcholecystectomy syndrome Category: Medical Plan She is agreeable to a 10 year follow up. The procedure was well tolerated. The results were explained and the patient is agreeable to the follow-up interval as stated. The bowel pattern has returned to normal. Education was provided to tell any 1st degree relatives about their findings to be sure that they are screened by age 45. Educated that they will be put on a recall list when it is time for their repeat scope but should they move out of state or away from the hospital they will need to remember along with their primary to repeat the procedure in a timely fashion to avoid any adverse complications. She feels quite well on her cholestyramine and omeprazole. She now has occasional CIC, discussed cutting back to qd yesica until bowels moving better. Biopsies showed healing already, so she likey had bile mediated gastritis/GERD that was well effected by the bile binding agent. ROV 6 mos. Medications: New cholestyramine (with sugar) 4 gram administer w/meal; avoid other meds within 1hr before or 4-6hr after dose 4 grams PO BID 60 ea 6RF K91.5 - Postcholecystectomy syndrome Refilled omeprazole 20 mg PO DAILY 90 caps 1RF Coding Level of Care Code Est Pt Level 3 (31076) Diagnoses GERD (gastroesophageal reflux disease) K21.9 Post-cholecystectomy syndrome K91.5
[2024-06-21 15:38] VITALS: BP 110/82; PULSE 94; BMI 36.4
== END 2024-06-21 15:59 | disposition home or self-care (01) ==
PROVIDERS: PCP Family Medicine; Visit Provider Nurse Practitioner
DX: K21.9 Gastro-esophageal reflux disease without esophagitis (principal); K91.5 Postcholecystectomy syndrome
CPT/HCPCS: 99213

== ENCOUNTER 2024-06-28 13:04 | Outpatient (REF) | payer MEDICAID, SELFPAY ==
--- NOTE | ~2024-06-28 | US_ITS ---
EXAMINATION: US SOFT TISSUE HEAD/NECK CLINICAL INFORMATION: Pain and swelling right suboccipital area. COMPARISON: None available. TECHNIQUE: Linear transducer grayscale and color Doppler examination of the area indicated by the patient in the right suboccipital area. FINDINGS: Within the right occipital region, there are 7 x 4 x 6 mm and 7 x 4 x 3 mm reniform lymph nodes. These show normal architectural features. No sizable lymphadenopathy is seen. There is no mass or fluid collection. No foreign body is seen. US/US soft tiss head and/or neck IMPRESSION: There are shotty, nonpathologically enlarged right occipital lymph nodes, corresponding with the palpable finding described by the patient. These are nonspecific and should be managed on a clinical basis. No sizable lymphadenopathy or mass is seen. Electronically signed by: Martin Thomas MD 07/05/2024 07:27 PM EDT
== END 2024-06-28 13:05 | disposition home or self-care (01) ==
LOC: HO.US 13:04
PROVIDERS: PCP Family Medicine; Visit Provider Family Medicine
DX: R22.1 Localized swelling, mass and lump, neck (principal)
CPT/HCPCS: 76536

== ENCOUNTER 2024-07-19 09:55 | Outpatient (REF) | payer MEDICAID, SELFPAY ==
[2024-07-19 11:18] LABS: MANUAL DIFF FLAG NO
[2024-07-19 11:27] LABS: Basophils Percent Auto 0.4 % (0-2); Eosinophils Absolute Auto 0.1 X10*3/uL (0.0-0.4); Eosinophils Percent Auto 2.6 % (0-4); Hematocrit 37.7 % (37.0-47.0); Hemoglobin 12.5 g/dl (12.0-16.0); Imm Gran Abs Auto 0.01 X10*3/uL (0.00-0.03); Imm Gran Pct Auto 0.2 % (0.0-0.4); Lymphocytes Absolute Auto 1.4 X10*3/uL (1.2-4.9); Lymphocytes Percent Auto 30.5 % (20-40); Mean Corpuscular HGB Conc 33.2 g/dl (31.0-35.0); Mean Corpuscular Hemoglobin 28.7 pg (27.0-33.0); Mean Corpuscular Volume 86.7 fL (80.0-98.0); Mean Platelet Volume 11.3 fL (9.4-12.3); Monocytes Absolute Auto 0.4 X10*3/uL (0.1-1.2); Monocytes Percent Auto 8.1 % (2-11); Neutrophils Absolute Auto 2.7 x10*3/uL (2.0-8.3); Neutrophils Percent Auto 58.2 % (45-73); Platelet Count 285 X10*3/uL (160-400); Red Blood Count 4.35 X10*6/uL (4.20-5.50); Red Cell Distribution Width 12.7 % (11.0-16.0); White Blood Count 4.6 X10*3/uL (4.8-10.8)
[2024-07-19 11:39] LABS: Anion Gap 12 (12-20); Blood Urea Nitrogen 12 mg/dL (9-16); Calcium 10.1 mg/dL (8.4-10.2); Carbon Dioxide 27 mmol/L (22-29); Chloride 108 mmol/L (96-108); Estimated Glomerular Filt Rate > 60; Glucose Random 105 mg/dL (60-115); Potassium 4.3 mmol/L (3.3-5.1); Sodium 143 mmol/L (135-145)
[2024-07-19 12:14] LABS: Folate 8.1 ng/mL (> or = 4.0); Vitamin B12 452 pg/mL (200-900)
[2024-07-19 13:40] LABS: TSH reflex Free T4 0.47 uIU/mL (0.32-4.0); Vitamin D 25-OH Total 25.7 ng/mL (>30)
== END 2024-07-19 09:56 | disposition home or self-care (01) ==
LOC: HO.HHCL 09:55
PROVIDERS: Visit Provider Family Medicine
DX: E03.9 Hypothyroidism, unspecified (principal); E55.9 Vitamin D deficiency, unspecified; R53.83 Other fatigue
CPT/HCPCS: 36415; 80048; 82306; 82607; 82746; 84443; 85025

== ENCOUNTER 2024-08-07 09:11 | Outpatient (REF) | payer MEDICAID, SELFPAY ==
--- NOTE | ~2024-08-07 | FL_ITS ---
EXAMINATION: XR FLUOROSCOPY UPPER GI WITH AIR CLINICAL INFORMATION: Dysphagia. Globus sensation COMPARISON: None TECHNIQUE: Fluoroscopic air contrast upper GI examination was performed utilizing standard techniques with thin and thick barium and effervescent granules. Numerous spot images were obtained. FINDINGS: Lateral cine images of the oropharynx and hypopharynx demonstrate normal swallow mechanism with normal epiglottic inversion and soft palate elevation. No tracheal penetration, glottic or subglottic aspiration identified. No nasopharyngeal reflux present. Hypopharyngeal structures appear normal without evidence of mass or diverticulum. There was no significant cricopharyngeal achalasia. Dual and single contrast images of the esophagus demonstrate normal caliber, contour, and mucosal pattern. No evidence of stricture, mass, or ulcerations identified. Esophageal peristalsis is mildly disorganized. A small type I hiatal hernia is present. No significant gastroesophageal reflux was seen during the course of the examination and on reflux views. Dual contrast and single contrast images of the stomach demonstrated a normal contour. There are multiple small foci of contrast pooling in the body and fundus of the stomach that may present small superficial mucosal erosions. No masses are seen. Contrast freely passed into the gastric antrum and duodenal bulb without delay. Single and air-contrast images of the duodenal bulb demonstrate no abnormality. The duodenal sweep has a normal appearance, course, and mucosal fold appearance. The imaged proximal jejunum has a normal fold pattern and caliber. FLUOROSCOPY TIME: 4 minutes 9 seconds Number of Spot Images: 5 Number of Cine: 14 DOSE AREA PRODUCT: 2999 uGy-m2 (microgray-meter squared) FL/FL barium swallow with air IMPRESSION: 1. Mildly disorganized esophageal peristalsis. 2. Small type I hiatal hernia. 3. Multiple small foci of contrast pooling in the body and fundus of the stomach that may present small superficial mucosal erosions. Recommend correlation with the recent EGD. 4. No findings in the oropharynx or hypopharynx to explain globus sensation. This procedure was performed by Julio César Tucker PA-C, and supervised by Dr. Moran Electronically signed by: Jose Moran MD 08/09/2024 02:06 PM EDT
== END 2024-08-07 09:12 | disposition home or self-care (01) ==
LOC: HO.XRAY 09:11
PROVIDERS: PCP Family Medicine; Visit Provider Family Medicine
DX: K44.9 Diaphragmatic hernia without obstruction or gangrene (principal); R09.A2 Foreign body sensation, throat
CPT/HCPCS: 74221

== ENCOUNTER → 2024-08-07 09:12 | Outpatient (BNV) | payer MEDICAID, SELFPAY | PROVIDERS: PCP Family Medicine; Visit Provider Physician Assistant Surgical | DX: R13.10 Dysphagia, unspecified (principal) | CPT/HCPCS: 74246 ==

== ENCOUNTER 2024-08-27 15:39 | Outpatient (REF) | payer OTHER, SELFPAY ==
[2024-08-27 15:58] LABS: MANUAL DIFF FLAG NO
[2024-08-27 16:10] LABS: Basophils Percent Auto 0.4 % (0-2); Eosinophils Absolute Auto 0.1 X10*3/uL (0.0-0.4); Eosinophils Percent Auto 1.9 % (0-4); Hematocrit 38.4 % (37.0-47.0); Imm Gran Abs Auto 0.01 X10*3/uL (0.00-0.03); Imm Gran Pct Auto 0.2 % (0.0-0.4); Lymphocytes Absolute Auto 1.5 X10*3/uL (1.2-4.9); Lymphocytes Percent Auto 27.3 % (20-40); Mean Corpuscular HGB Conc 33.9 g/dl (31.0-35.0); Mean Corpuscular Hemoglobin 28.6 pg (27.0-33.0); Mean Corpuscular Volume 84.6 fL (80.0-98.0); Mean Platelet Volume 10.4 fL (9.4-12.3); Monocytes Absolute Auto 0.3 X10*3/uL (0.1-1.2); Monocytes Percent Auto 5.8 % (2-11); Neutrophils Absolute Auto 3.4 x10*3/uL (2.0-8.3); Neutrophils Percent Auto 64.4 % (45-73); Platelet Count 305 X10*3/uL (160-400); Red Blood Count 4.54 X10*6/uL (4.20-5.50); Red Cell Distribution Width 12.8 % (11.0-16.0); White Blood Count 5.3 X10*3/uL (4.8-10.8)
[2024-08-27 16:49] LABS: Alanine Aminotransferase 22 U/L (0-31); Albumin Level 4.4 g/dL (3.5-5.0); Alkaline Phosphatase 111 U/L (39-117); Anion Gap 13 (12-20); Aspartate Amino Transferase 25 U/L (5-31); Bilirubin Total 0.6 mg/dL (0.0-1.0); Blood Urea Nitrogen 15 mg/dL (9-16); C Reactive Protein 0.99 mg/dL (< or = 0.50); Calcium 10.2 mg/dL (8.4-10.2); Carbon Dioxide 26 mmol/L (22-29); Chloride 106 mmol/L (96-108); Estimated Glomerular Filt Rate > 60; Glucose Random 108 mg/dL (60-115); Potassium 3.7 mmol/L (3.3-5.1); Sodium 141 mmol/L (135-145)
[2024-08-27 17:09] LABS: Erythrocyte Sedimentation Rate 28 MM/HR (0-20)
== END 2024-08-27 15:40 | disposition home or self-care (01) ==
LOC: HO.LAB 15:39
PROVIDERS: PCP Family Medicine; Visit Provider Student in an Organized Health Care Education/Training Program
DX: M06.00 Rheumatoid arthritis without rheumatoid factor, unspecified site (principal); Z79.631 Long term (current) use of antimetabolite agent
CPT/HCPCS: 36415; 80053; 85025; 85652; 86140

== ENCOUNTER 2024-08-29 10:34 | Outpatient (AMB) | payer OTHER, SELFPAY ==
--- NOTE | 2024-08-29 10:41 | A.OFFVIS_ITS ---
Vital Signs 08/29/24 10:45 Height 5 ft 2 in Weight 201 lb 15.095 oz BMI 36.9 BP 124/80 Blood Pressure Location Lt brachial Position Sitting Respiration 16 Pulse 72 Pulse Source Pulse Oximeter Temp 98 F Pulse Oximetry (%) 98 Oxygen Delivery Method Room Air Intake Visit Reasons: RA/CM Intake Note: Patient presents for RA. Director New Product Required: Yes Director New Product Language: Warp Hauler Services: Director New Product Offered & Declined Director New Product Name: N/A Information Interpreted: non-clinical & clinical Space Scheduler: Space Scheduler Present (N/A) Allergies prednisone Adverse Reaction (Mild, Verified 08/29/24 10:44) Stomach Upset Medication List - Last Reconciled 08/29/24 by Jammie Harvey MD acetaminophen (Tylenol Extra Strength) 500 mg PO Q6H PRN cholestyramine (with sugar) 4 gram 4 grams PO BID ibuprofen 600 mg PO Q6H PRN levothyroxine (Synthroid) 1 tab PO DAILY losartan 25 mg PO DAILY melatonin 5 mg PO BEDTIME PRN omeprazole 20 mg PO DAILY [thumb spica wear nightly & as much as possible throughout the day] HPI Comments Details: 54-year-old female with seronegative RA returns for follow-up. Initial hx:This is a 53-year-old female who presents for evaluation of diffuse joint pain. The condition started back in 2011. Patient was evaluated by fabric worker Dr. Appiah and there was suspicion for seronegative RA. A prednisone trial was prescribed but patient did not follow-up. She states that since the beginning of 2022 she has been having worsening pain everywhere. She has pain in her hands, knuckles, elbows, shoulders, knees, left jaw, ankles. She gets intermittent swelling of her ankles and hands. Morning stiffness lasting 2 hours. She is unaware of any family history of an autoimmune rheumatic disease. She denies any skin rashes. Denies any fevers or weight loss. [facility] Medical History (Updated 08/29/24 @ 11:18 by Jammie Harvey MD) Dyspepsia TANIA (iron deficiency anemia) Asthma Shortness of breath Vitamin D deficiency Anxiety Hypothyroid Candidosis of skin HTN (hypertension) Macromastia Surgical History Previous section History of laparoscopic cholecystectomy H/O colonoscopy Family History Other Family history of arthritis Family history of bone cancer Social History Household Members: Spouse Housing: Apartment Are you a primary career resource technician to a significant other at home: No Do you presently have visiting nurse or other home services: No Alcohol intake: never Patient Tobacco Use Status: Never used Tobacco Second Hand Smoke Exposure: No service: No 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al status: employed 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 Physical Exam Vital Signs: Last Vital Signs Temp 98 F 08/29/24 10:45 Pulse 72 08/29/24 10:45 Resp 16 08/29/24 10:45 BP 124/80 08/29/24 10:45 Pulse Ox 98 08/29/24 10:45 Oxygen Delivery Method Room Air 08/29/24 10:45 BMI result Body Mass Index 36.9 Const General: cooperative, healthy appearing and comfortable Nutritional Appearance: obese Orientation/consciousness: patient oriented x3 Limitations: no limitations HEENT Head: Yes normocephalic and Yes atraumatic Mouth: moist mucous membranes Resp Effort & Inspection: normal respiratory effort and able to speak in complete sentences Cardio Rate: regular rate GI Inspection: No distended Palpation (GI): Soft to palpation and nontender Neuro General: patient oriented x3 Extrem Other: Prominence of bilateral 3rd MCPs but no significant swelling or tenderness Negative Gwendolyn's test bilaterally today Bilateral limited shoulder abduction Few fibromyalgia tender points Z deformity bilateral thumbs Normal nailfold capillaroscopy Assessment & Plan Assessment & Plan (1) Seronegative rheumatoid arthritis: Comment: -ve RF -ve CCP dx 10/2023 MTX 10/2023 DC 08/2024 Code(s): M06.00 - Rheumatoid arthritis without rheumatoid factor, unspecified site Category: Medical Plan: This is a 53-year-old female diagnosed with seronegative RA who presents for follow-up. Patient has been taking methotrexate regularly for about 10 months now without any significant improvement. I am questioning the diagnosis of RA. DC methotrexate and folic acid. I will order right hand MRI to evaluate for inflammatory arthritis. Follow-up after MRI is completed Plan I spent 15 minutes reviewing patient's chart, evaluating patient, ordering diagnostic workup, counseling patient and documenting in the chart Orders: Orders MR hand RT wo con Today M25.541 - Pain in joints of right hand Medications: Discontinued folic acid Discontinued Reason: Doctor's Order 1 mg PO DAILY 90 tabs 1RF methotrexate sodium Discontinued Reason: Doctor's Order 20 mg (8 x 2.5 mg) PO QWEEK 96 tabs 0RF Coding Level of Care Code Est Pt Level 3 (69566) Diagnoses Seronegative rheumatoid arthritis M06.00
[2024-08-29 10:45] VITALS: BP 124/80; PULSE 72; RESP 16; TEMP 36.6; O2SAT 98; BMI 36.9
== END 2024-08-29 11:20 | disposition home or self-care (01) ==
PROVIDERS: PCP Family Medicine; Visit Provider Student in an Organized Health Care Education/Training Program
DX: M06.00 Rheumatoid arthritis without rheumatoid factor, unspecified site (principal)
CPT/HCPCS: 99213

== ENCOUNTER → 2024-08-29 10:34 | Outpatient (BNVA) | payer OTHER, SELFPAY | PROVIDERS: PCP Family Medicine; Visit Provider Student in an Organized Health Care Education/Training Program | DX: M06.00 Rheumatoid arthritis without rheumatoid factor, unspecified site (principal) | CPT/HCPCS: 99212 ==

== ENCOUNTER 2024-10-09 13:44 | Outpatient (AMB) | payer OTHER, SELFPAY ==
[2024-10-09 14:02] VITALS: BP 134/72; PULSE 94; O2SAT 98; BMI 36.2
--- NOTE | 2024-10-09 14:02 | A.OFFVIS_ITS ---
Vital Signs 10/09/24 14:02 Height 5 ft 2 in Weight 198 lb BMI 36.2 BP 134/72 Blood Pressure Location Lt brachial Position Sitting Pulse 94 Pulse Source Pulse Oximeter Pulse Oximetry (%) 98 Oxygen Delivery Method Room Air Intake Visit Reasons: RA/FMS Intake Note: Patient last seen by Doctor Jammie Harvey on 08/29/24. Presents today for RA/FMS follow up and MRI RT hand test results. Accompanied by: Spouse Allergies prednisone Adverse Reaction (Mild, Verified 10/09/24 14:03) Stomach Upset Medication List - Last Reconciled 10/09/24 by Jammie Harvey MD acetaminophen (Tylenol Extra Strength) 500 mg PO Q6H PRN cholestyramine (with sugar) 4 gram 4 grams PO BID ibuprofen 600 mg PO Q6H PRN levothyroxine (Synthroid) 1 tab PO DAILY losartan 25 mg PO DAILY melatonin 5 mg PO BEDTIME PRN omeprazole 20 mg PO DAILY [thumb spica wear nightly & as much as possible throughout the day] HPI Comments Details: 54-year-old female with seronegative RA returns for follow-up. She has discontinued methotrexate since last visit. She completed her right hand MRI. She states that she continues to have diffuse pain especially her right hand, especially the right wrist, intermittent ankle pain, neck pain, left hip pain, she has days when she has morning stiffness that lasts all day, Initial hx:This is a 53-year-old female who presents for evaluation of diffuse joint pain. The condition started back in 2011. Patient was evaluated by mass spectrometry specialist Dr. Appiah and there was suspicion for seronegative RA. A prednisone trial was prescribed but patient did not follow-up. She states that since the beginning of 2022 she has been having worsening pain everywhere. She has pain in her hands, knuckles, elbows, shoulders, knees, left jaw, ankles. She gets intermittent swelling of her ankles and hands. Morning stiffness lasting 2 hours. She is unaware of any family history of an autoimmune rheumatic disease. She denies any skin rashes. Denies any fevers or weight loss. [facility] Medical History (Updated 10/09/24 @ 14:57 by Jammie Harvey MD) Dyspepsia TANIA (iron deficiency anemia) Asthma Shortness of breath Vitamin D deficiency Anxiety Hypothyroid Candidosis of skin HTN (hypertension) Macromastia Surgical History Previous section History of laparoscopic cholecystectomy H/O colonoscopy Family History Other Family history of arthritis Family history of bone cancer Social History Household Members: Spouse Housing: Apartment Are you a primary life care planner to a significant other at home: No Do you presently have visiting nurse or other home services: No Alcohol intake: never Patient Tobacco Use Status: Never used Tobacco Second Hand Smoke Exposure: No service: No 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al status: employed 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 Review of Systems ENT Reports neck pain Musc Reports back pain, Reports arthralgias, Reports neck pain and Reports stiffness Physical Exam Vital Signs: Last Vital Signs Pulse 94 10/09/24 14:02 BP 134/72 10/09/24 14:02 Pulse Ox 98 10/09/24 14:02 Oxygen Delivery Method Room Air 10/09/24 14:02 BMI result Body Mass Index 36.2 Const General: cooperative, healthy appearing and comfortable Nutritional Appearance: obese Orientation/consciousness: patient oriented x3 Limitations: no limitations HEENT Head: Yes normocephalic and Yes atraumatic Mouth: moist mucous membranes Resp Effort & Inspection: normal respiratory effort and able to speak in complete sentences Cardio Rate: regular rate GI Inspection: No distended Palpation (GI): Soft to palpation and nontender Neuro General: patient oriented x3 Extrem Other: Right wrist tenderness and pain with full flexion and extension Left wrist with no swelling, tenderness or pain with full flexion-extension Prominence of bilateral 3rd MCPs but no significant swelling or tenderness Negative Gwendolyn's test bilaterally today Bilateral limited shoulder abduction Few fibromyalgia tender points Z deformity bilateral thumbs Normal nailfold capillaroscopy Assessment & Plan Assessment & Plan (1) Seronegative rheumatoid arthritis: Comment: -ve RF -ve CCP dx 10/2023 MTX 10/2023 DC 08/2024 ineffective Code(s): M06.00 - Rheumatoid arthritis without rheumatoid factor, unspecified site Category: Medical Plan: This is a 89year-old female diagnosed with seronegative RA who presents for follow-up after completion of her right hand MRI which showed right radioulnar joint effusion. Which is consistent with active inflammatory arthritis. At this time, patient failed methotrexate. Needs a different DMARDs. Discussed risks and benefits of TNF inhibitors. Patient agreed to proceed. Will start prior authorization for [facility] before next visit in 3 months (2) High risk medication use: Code(s): Z79.899 - Other shelter (current) drug therapy Category: Medical Plan: Side effects of Enbrel were discussed with the patient in detail including increased risk of infection, demyelinating disease, reactivation of latent TB, possible increased risk of solid and skin tumors. Patient fully aware. Advised patient to seek medical care [facility] if patient has an infection and advised patient to stop the medication until the infection is resolved. Plan I spent 25 minutes reviewing patient's chart, evaluating patient, ordering diagnostic workup, counseling patient and documenting in the chart Orders: Orders Complete Blood Count Auto Diff 3 Months M06.00 - Rheumatoid arthritis without rheumatoid factor, unspecified site C Reactive Protein 3 Months M06.00 - Rheumatoid arthritis without rheumatoid factor, unspecified site T Spot TB 3 Months Z11.7 - Encounter for testing for latent tuberculosis infection Comprehensive Met. Panel 3 Months M06.00 - Rheumatoid arthritis without rheumatoid factor, unspecified site Erythrocyte Sedimentation Rate 3 Months M06.00 - Rheumatoid arthritis without rheumatoid factor, unspecified site Hepatitis A,B,C Profile 3 Months Z11.59 - Encounter for screening for other viral diseases Coding Level of Care Code Est Pt Level 4 (10849) Diagnoses Seronegative rheumatoid arthritis M06.00 High risk medication use Z79.899
== END 2024-10-09 14:53 | disposition home or self-care (01) ==
PROVIDERS: PCP Family Medicine; Visit Provider Student in an Organized Health Care Education/Training Program
DX: M06.00 Rheumatoid arthritis without rheumatoid factor, unspecified site (principal); Z79.899 Other long term (current) drug therapy
CPT/HCPCS: 99214

== ENCOUNTER → 2024-10-09 13:44 | Outpatient (BNVA) | payer OTHER, SELFPAY | PROVIDERS: PCP Family Medicine; Visit Provider Student in an Organized Health Care Education/Training Program | DX: M06.00 Rheumatoid arthritis without rheumatoid factor, unspecified site (principal); Z79.899 Other long term (current) drug therapy | CPT/HCPCS: 99212 ==

== ENCOUNTER 2025-01-24 10:20 | Outpatient (REF) | payer MEDICAID, SELFPAY ==
--- OUTSIDE RECORDS SUMMARY | 2025-01-24 12:10 | XMS_ITS | Encounter Summary ---
Author Organization [employer] Address [address] [place] [address] 7 [place] [address] Care Team Providers Care Picker Feeder Name Role Phone Magui Perez MD Primary Care Provider +1- [phone] Enrique Harvey MD Unavailable January Unavailable Manjinder Serrano Unavailable Unavailable Reason for Visit * Reason Onset Date Comments Med Refill 01/17/2025 Encounter Details Date Type Department Care Team (Late st Contact Info) Description 01/17/2025 Refill [facility] MEDICINE [address] [place], [place] [phone] Magui Perez MD [address] [place], [place] [phone] Depression, unspecified depression type Social History Tobacco Use Types Packs/Day Years Used Date Smoking Tobacco: Never Passive Smoke Exposure: Never Smokeless Tobacco: Never Alcohol Use Standard Drinks/Week Comments Never 0 (1 standard drink = 0.6 oz pur e alcohol) Alcohol Answer Date Recorded Frequency of Alcohol Consumption Not on file 07/19/2024 Average Number of Drinks Not on file 024 Frequency of Binge Drinking Not on file 12/2023 Score 0 07/19/2024 Depression Answer Date Recorded Patient Health Questionnaire-9 Score 14 07/19/2024 Patient Health Questionnaire-9 Score 14 07/19/2024 Last PHQ-9: Questionnaire Data Not on file 1 Housing Stability Answer Date Recorded What is your housing situation today? I have padmini suarez 06/21/[address] you li ve. Do you have problems with any of the following? None of the above 06/21/2024 Food Insecurity Answer Date Recorded Within the past 12 months, y ou worried that your food would run out before you got money to buy more: Never True 06/21/2024 Within the past 12 months,th e food you bought just didn't last and you didn't have enough money to get more: Never True 02/2024 Transportation Answer Date Recorded In the past 12 months, has l ack of transportation kept you from medical appts, meetings, work or from getting things needed for daily living? No 06/21/2024 Utilities Answer Date Recorded In the past 12 months, has t he electric, gas, oil or water company threatened to shut off services in your home? No 06/21/2024 Depression Answer Date Recorded Patient Health Questionnaire-2 Score 2 07/19/2024 Internet Access Answer Date Recorded Internet Access Q1 Yes 06/21/2024 Internet Access Q2 Not on file 06/21/2024 Comments Unknown Sex and Gender Information Value Date Recorded Sex Assigned at Female 04/14/2023 11:47 AM EDT Legal Sex Female 3:50 PM EDT Gender Identity Female 04/14/2023 11:47 AM EDT Sexual Orientation Straight 04/14/2023 11 :47 AM EDT documented as of this encounter Plan of Treatment Not on file documented as of this encounter Visit Diagnoses Diagnosis Depression, unspecified depression type documented in this encounter Additional Health Concerns Assessment Noted Time PHQ-9 Depression Total Score: 14 024 10:21 AM EDT documented as of this encounter Care Teams Picker Feeder Relationship Specialty Start Date End Date Magui Perez MD [address] [place] [id number] PCP - General Family Medicine 12/14/17 Enrique Harvey MD [address] [place] [address] Rheumatology 10/09/24January [address] 3rd [place] [address] Gastroenterology 10/09/24 Manjinder Serrano [address] [place] [phone] Ophthalmology 11/02/24 documented as of this encounter
--- OUTSIDE RECORDS SUMMARY | 2025-01-24 12:11 | XMS_ITS | Encounter Summary ---
Author Organization [employer] Address [address] [facility] 7 [place] [address] Care Team Providers Care Pharmacy Services Director Name Role Phone Magui Perez MD Primary Care Provider [phone]- [phone] Enrique Harvey MD Unavailable January Unavailable Manjinder Serrano Unavailable Unavailable Reason for Visit * Reason Onset Date Comments Referral 10/21/2023 Encounter Details Date Type Department Care Team (Late st Contact Info) Description 10/21/2023 Telephone [facility] MEDICINE [address] [place] [address] Magui Perez MD [address] [place] [address] Referral Social History Tobacco Use Types Packs/Day Years Used Date Smoking Tobacco: Never Smokeless Tobacco: Never Depression Answer Date Recorded Patient Health Questionnaire-9 Score 0 04/20/2023 Housing Stability Answer Date Recorded What is your housing situation today? I have padmini suarez 08/02/[address] you li ve. Do you have problems with any of the following? None of the above 08/02/2023 Food Insecurity Answer Date Recorded Within the past 12 months, y ou worried that your food would run out before you got money to buy more: Never True 08/02/2023 Within the past 12 months,th e food you bought just didn't last and you didn't have enough money to get more: Never True Transportation Answer Date Recorded In the past 12 months, has l ack of transportation kept you from medical appts, meetings, work or from getting things needed for daily living? No 08/02/2023 Utilities Answer Date Recorded In the past 12 months, has t he electric, gas, oil or water company threatened to shut off services in your home? No 08/02/2023 Depression Answer Date Recorded Patient Health Questionnaire-2 Score 0 04/20/2023 Comments Unknown Sex and Gender Information Value Date Recorded Sex Assigned at Female 04/14/2023 11:47 AM EDT Legal Sex Female 3:50 PM EDT Gender Identity Female 04/14/2023 11:47 AM EDT Sexual Orientation Straight 04/14/2023 11 :47 AM EDT documented as of this encounter Miscellaneous Notes * Telephone Encounter - Jarocho Shah - 10/21/2023 2:59 PM EST Tc from pt requesting a [facility] Patient has not symptoms Please contact pt @ [phone] documented in this encounter Plan of Treatment Not on file documented as of this encounter Visit Diagnoses Diagnosis Routine eye exam Examination of eyes and vision documented in this encounter Additional Health Concerns Assessment Noted Time PHQ-9 Depression Total Score: 0 04/20/20 23 10:16 AM EDT documented as of this encounter Care Teams Pharmacy Services Director Relationship Specialty Start Date End Date Magui Perez MD [address] [place] [address] PCP - General Family Medicine 12/14/17 Enrique Harvey MD [address] [place] [address] Rheumatology 10/09/24January [address] 3rd [place] [address] Gastroenterology 10/09/24 Manjinder Serrano [address] [place] [address] Ophthalmology 11/02/24 documented as of this encounter
--- OUTSIDE RECORDS SUMMARY | 2025-01-24 12:11 | XMS_ITS | Encounter Summary ---
Author Organization [employer] Address [address] [place] [address] 7 [place] [address] Care Team Providers Care Potato Loader Name Role Phone Magui Perez MD Primary Care Provider +1- [phone] Enrique Harvey MD Unavailable January Unavailable Manjinder Serrano Unavailable Unavailable Reason for Visit * Reason Onset Date Comments Med Refill chartprep 07/16/2024 Encounter Details Date Type Department Care Team (Late st Contact Info) Description 07/16/2024 Refill [facility] MEDICINE [address] [place], [place] [phone] Leana To DO [address] [place], [place] [phone] Pain Social History Tobacco Use Types Packs/Day Years [...] encounter Miscellaneous Notes * Telephone Encounter - Cailin Villarreal RN - 07/19/2024 4:38 PM EDT Telephone call to pt to advise of below results. Advised pt that thyroid levels are normal and to continue with medication. Advised pt that vitamin D level improved but still low and to take supplement that was sent to pharmacy on file and also to get 10-15 min of sunshine per day. Pt asked if she can get a refill on inhaler, did not know name of inhaler. No inhaler noted on current med list, will route message to PCP for guidance. * Telephone Encounter - Cailin Villarreal RN - 07/19/2024 4:37 PM EDT ----- Message from Magui Perez MD sent at 07/19/2024 2:04 PM EDT ----- Please let patient know thyroid is great. Continue current med. Vit is is improved but still a little low, Continue her vit D 2000IU daily and try to get about 10-15 min of sun daily. Thank you. * Telephone Encounter - Cailin Villarreal RN - 07/19/2024 3:06 PM EDT ----- Message from Magui Perez MD sent at 07/19/2024 2:04 PM EDT ----- Please let patient know thyroid is great. Continue current med. Vit is is improved but still a little low, Continue her vit D 2000IU daily and try to get about 10-15 min of sun daily. Thank you. * Telephone Encounter - Sherly Craft MA - 07/16/2024 8:23 AM EDT ..Chart Prep Labs: done Images: done Vaccines due: Covid Due and Shingles in pharmacy Due Referrals: Derm is pending and Home sleep test 07/17/24 1:00 [facility] Screenings: colonoscopy done and Mammogram done Overdue care gaps: PHQ-9 and Oral Health documented in this encounter Plan of Treatment Not on file documented as of this encounter Visit Diagnoses Diagnosis Pain Generalized pain documented in this encounter Additional Health Concerns Assessment Noted Time PHQ-9 Depression Total Score: 0 04/20/20 23 10:16 AM EDT documented as of this encounter Care Teams Potato Loader Relationship Specialty Start Date End Date Magui Perez MD [address] [place] [id number] PCP - General Family Medicine 12/14/17 Enrique Harvey MD [address] [place] [address] [place] [address] Rheumatology 10/09/24January [address] [facility] [address] [place] [address] Gastroenterology 10/09/24 Manjinder Serrano [address] [place] [address] Ophthalmology 11/02/24 documented as of this encounter
--- OUTSIDE RECORDS SUMMARY | 2025-01-24 12:11 | XMS_ITS | Encounter Summary ---
Author Organization [facility], Address [address] [place] [address] Phone Care Team Providers Care Biomedical Engineering Director Name Role Phone Magui Perez MD Primary Care Provider U [email or web address] Encounter Details Date Type Department Care Team (Late st Contact Info) Description 03/30/2022 Documentation Only [facility], [address] [place] [address] Magui Perez MD [address] [place] [address] Social History Tobacco Use Types Packs/Day Years Used Date Smoking Tobacco: Never Assessed Comments Unknown Sex and Gender Information Value Date Recorded Sex Assigned at Not on file Legal Sex Female 10:19 AM EDT Gender Identity Not on file Sexual Orientation Not on file documented as of this encounter Plan of Treatment Not on file documented as of this encounter Visit Diagnoses Not on filedocumented in this encounter Care Teams Biomedical Engineering Director Relationship Specialty Start Date End Date Magui Perez MD PCP - General Family Medicine 03/30/22 documented as of this encounter
--- OUTSIDE RECORDS SUMMARY | 2025-01-24 12:11 | XMS_ITS | Encounter Summary ---
Author Organization [employer] [facility] Address [address] [place] [address] 7 [place] [address] Care Team Providers Care Supply Chain Director Name Role Phone Magui Perez MD Primary Care Provider +1- [phone] Enrique Harvey MD Unavailable January Unavailable Manjinder Serrano Unavailable Unavailable Encounter Details Date Type Department Care Team (Late st Contact Info) Description 10/31/2022 Abstract [facility] MEDICINE [address] [place], [place] [phone] Magui Perez MD [address] [place], [place] [phone] Social History Tobacco Use Types Packs/Day Years Used Date Smoking Tobacco: Never Smokeless Tobacco: Never Comments Unknown Sex and Gender Information Value Date Recorded Sex Assigned at Female 04/14/2023 11:47 AM EDT Legal Sex Female 3:50 PM EDT Gender Identity Female 04/14/2023 11:47 AM EDT Sexual Orientation Straight 04/14/2023 11 :47 AM EDT COVID-19 Exposure Response Date Recorded In the last 10 days, have yo u been in contact with someone who was confirmed or suspected to have Coronavirus/COVID-19? No / Unsure 10/14/2022 8:51 AM EST documented as of this encounter Plan of Treatment Not on file documented as of this encounter Procedures Procedure Name Priority Date/Time Associated Diagnosis Comments HPV HIGH RISK PCR Routine 10/18/2018 12:00 AM EST PAP SMEAR Routine 10/18/2018 12:00 AM EST documented in this encounter Results * HPV High Risk PCR (10/18/2018 12:00 AM EST) Swab Cervical swab / Unknown Historical Provider LAB MICROBIOLOGY - GENERA L ORDERABLES Final Result Performing Organization Address [facility] Co de Phone Number [facility] [address] [place] [address] [phone] * Pap Smear (10/18/2018 12:00 AM EST) Swab Historical Provider LAB CYTOLOGY ORDERABLES F inal Result Performing Organization Address [facility] Co de Phone Number [facility] [address] [place] [address] [phone] documented in this encounter Visit Diagnoses Not on filedocumented in this encounter Care Teams Supply Chain Director Relationship Specialty Start Date End Date Chris, MD Magui [address] [place] [address] PCP - General Family Medicine 12/14/17 Enrique Harvey MD [address] [place] [address] Rheumatology 10/09/24[address] 3rd [place] [address] Gastroenterology 10/09/24 Manjinder Serrano [address] [place] [address] Ophthalmology 11/02/24 documented as of this encounter
--- OUTSIDE RECORDS SUMMARY | 2025-01-24 12:11 | XMS_ITS | Data Portability ---
Author Organization [place] - [facility], Allergy Address [address] [place] [id number] Assessment Encounter Date Assessment Date Assessment LastModified by Organization Details LastModified Time 12/10/2024 12/10/2024 Patient describe s 2-year history of intermittent dysphagia for solid food with a residual sensation of something in her throat. She has begun work with gastroenterology with upper GI study as well as reflux management and adjustment of medications to address previous gallbladder removal. My examination today reveals no palpable mass in the neck and a fiberoptic laryngoscopy was also benign with no lesions around the larynx or hypopharynx. Reassurance was given, no specific new intervention is recommended. 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 Results were not available for me to review today [email or web address] Not available 12/10/2024 09:37:00 Plan of Treatment Reminders Order Date Submit Date Provider Last Modified By Organization Details Last Modified Time Details Appointments Hearing Test 2024 10:30A M Hearing Test Not available Not available Not available Establish ed 15 2024 11:00A M MICHELLE MORENO MD Not available Not available Not available Lab None recorded. Referral None recorded. Procedures None recorded. Surgeries None recorded. Imaging None recorded. Medication Orders None recorded. Patient TargetsNo targets recorded. Patient InstructionsNo instructions recorded. Reason for Referral None Reported. Problems Name Problem SNOMED Code Status Onset Date Resolution Date Notes Provider Name and Address Organization Details Recorded Time Feeling of lump in throat 315106076 Active 2024 MICHELLE MORENO MD [address], [address], [place] - [facility] 09:35:32 Bilateral tinnitus 8940886355376 Active 2024 MICHELLE MORENO MD 100 [facility] 100, [place], [address], [facility] - [facility] 09:35:37 Problem Notes None recorded. Procedures Surgical History Date Name Laterality Status Provider Name and Address Organization Details Recorded Time 12/10/2024 FOL_DP completed MICHELLE MORENO MD 100 [facility] 100, [place], [address], [facility] - [facility] 12/06/2024 08:09:31 Imaging Results None recorded. Procedure Notes None recorded. Medical Equipment None Reported. Medications Name Sig Start Date Stop Date Status Note LastModified by Organization Details LastModified Time amoxicillin 500 mg capsule TAKE 1 CAPSULE BY MOUTH EVERY 8 HOURS active Not Available Not Available No t Available prednisone 10 mg tablet TAKE 3 TABS DAILY FOR 1 WEEK, 2 TABS DAILY FOR 1 WEEK, 1 TAB DAILY FOR 1 WEEK THEN STOP 12/10 completed Not Available Not Available Not Available Synthroid 150 mcg tablet TAKE 1 TABLET (150 MCG) BY MOUTH BEFORE BREAKFAST . active Not Available Not Available No t Available triamcinolo ne acetonide 0.025 % lotion 1 APPLICATI ON 2X A DAY X15 DAYS.USE FINGERTIP UNITS DISCUSSED WHICH IS EQUIVALEN T TO 0.5GRAM active Not Available Not Available No t Available ondansetron 8 mg disintegrat ing tablet DISSOLVE 1 TABLET BY MOUTH EVERY 8 HOURS NEEDED FOR NAUSEA AND VOMITING FOR UP TO 7 DAYS active Not Available Not Available No t Available famotidine 20 mg tablet TAKE 1 TABLET BY MOUTH TWICE DAILY active Not Available Not Available No t Available methotrexat e sodium 2.5 mg tablet TAKE 8 TABLETS BY MOUTH EVERY WEEK active Not Available Not Available No t Available baclofen 10 mg tablet TAKE 1 TABLET BY MOUTH THREE TIMES DAILY IN THE MORNING, AT NOON, AND AT BEDTIME NEEDED FOR MUSCLE SPASMS active Not Available Not Available No t Available neomycin-po lymyxin-dex ameth 3.5 mg/mL-10,00 0 unit/mL-0.1 % eye drops INSTILL 1 DROP INTO BOTH EYES FOUR TIMES A DAY USE FOR 2 WEEKS active Not Available Not Available No t Available triamcinolo ne acetonide 0.1 % topical ointment APPLY TOPICALLY IF NEEDED IN THE MORNING AND AT BEDTIME FOR RASH. active Not Available Not Available No t Available losartan 25 mg tablet TAKE 1 TABLET (25 MG) BY MOUTH ONCE PER DAY. active Not Available Not Available No t Available omeprazole 20 mg capsule,del ayed release TAKE 1 CAPSULE BY MOUTH EVERY DAY , DO NOT BREAK, CRUSH, DISSOLVE OR CHEW active Not Available Not Available No t Available folic acid 1 mg tablet TAKE 1 TABLET BY MOUTH EVERY DAY active Not Available Not Available No t Available estradiol 0.01% (0.1 mg/gram) vaginal cream APPLY 1 GRAM TOPICALLY VAGINALLY EVERY DAY AT BEDTIME FOR FOURTEEN DAYS THEN DECREASE TO TWICE A WEEK active Not Available Not Available No t Available fluticasone propionate 50 mcg/actuati on nasal spray,suspe nsion INSTILL 2 SPRAYS IN EACH NOSTRIL ONCE DAILY active Not Available Not Available No t Available clotrimazol e 1 % topical cream TAKE 1 APPLICATI ON (TOPICAL) 2 TIMES PER DAY FOR 2 WKS active Not Available Not Available No t Available loratadine 10 mg tablet TAKE 1 TABLET BY MOUTH EVERY DAY active Not Available Not Available No t Available Ventolin HFA 90 mcg/actuati on aerosol inhaler INHALE 2 PUFFS EVERY 4 HOURS IF NEEDED FOR WHEEZING. active Not Available Not Available No t Available Sharps Container active Not Available Not Available No t Available cholestyram ine (with sugar) 4 gram powder for susp in a packet 4 G ORALLY 2 TIMES A DAY ADMINISTE R W/MEAL AVOID OTHER MEDS WITHIN 1HR BEFORE OR 4-6HR AFTER DOSE active Not Available Not Available No t Available Alcohol Prep Pads active Not Available Not Available No t Available duloxetine 20 mg capsule,del ayed release TAKE 1 TAB BY MOUTH DAILY DO NOT CRUSH OR CHEW. active Not Available Not Available No t Available Enbrel SureClick 50 mg/mL (1 mL) subcutaneou s pen injector active Not Available Not Available Not Available diclofenac 1 % topical gel APPLY 2 G TOPICALLY IF NEEDED IN THE MORNING, AT NOON, IN THE EVENING, AND AT BEDTIME (PAIN). active Not Available Not Available No t Available melatonin 5 mg tablet TAKE 1 TABLET BY MOUTH DAILY AT BEDTIME NEEDED FOR SLEEP. active Not Available Not Available No t Available cholecalcif emy (vitamin D3) 50 mcg (2,000 unit) capsule TAKE 1 CAPSULE (50 MCG) BY MOUTH ONCE PER DAY. active Not Available Not Available No t Available Vitals Date Recorded Body height Body mass index (BMI) Body weight Provider Name and Address Organization Details Last Updated DateTime 12/10/2024 157.48 cm 36.6 kg/m2 16978.47 g Brenton Spear [place] - [facility] 12/10/2024 09:18:56 Social History None recorded. Functional Status None recorded. Mental Status None recorded. Family History Relationship Description Onset Age of this Age Resolved Age Notes LastModified by Organization Details LastModified Time Paternal Aunt Disorder of thyroid gland [email or web address] Not available 2024 09:24:19 Maternal Grandmother Asthma [email or web address] Not available 2024 09:24:19 Sister Migraine [email or web address] Not available 12/10/2024 09:24:19 Medical History Condition Response Allergies/Hayfever N Heart Problems N Tonsil Infections N Emphysema N Migraines N Thyroid Problems Y Glaucoma N Developmental Delay N Depression N COPD N Nasal or Sinus Problems N Anemia Y Immune System Disorder N Anesthesia Complications N Heart Attack (HI) N Other Skin Condition N Diabetes N Rhinitis N Bleeding Disorder Y Food Allergy N Hearing Loss N Arthritis Y Hyperlipidemia N Cancer N Stroke N Dementia N Nasal polyps N Asthma Y Sleep Disorder Y High Cholesterol N GERD/Reflux Y Liver Disease N Headaches N Fibromyalgia N Hypertension Y Speech Delay N Kidney Disease N Gynecological HistoryNo gynecological history recorded. Obstetrics History GPAL:G 0 P 0 0 0 0 Past Encounters Encounter ID Performer Location Encounter Start Date Encounter Closed Date Diagnosis/Indication Diagnosis SNOMED-CT Code Diagnosis ICD10 Code Diagnosis Note [id number] MICHELLE MORENO MD [facility] [address] [address] 12/10/2024 09:12:12 12/10/2024 09:38:15 Feeling of lump in throat 053333025 R09.89 Bilateral tinnitus 57721 96150 102 H93.13 At the end of the visit patient indicated a secondary concern of bilateral tinnitus that has been present for a long time. Will make arrangemen ts for audiometri c testing at a future appointmen t with physician medical lab assistant Health Concerns Section Related Observation LastModified by Organization Detai ls LastModified Time None Recorded Concern Status LastModified by Organization Details LastModified Time None Recorded Advance Directives Directive None Recorded Payers Encounter Date Sequence Insurance Name Policy Number Policy Estevez Covered Member ID Estevez Member ID Guarantor Name 12/10/2024 1 [place] [facility] Farzana Denis [id number] Farzana Denis Notes Date Note Type Note Provider Name and Address Organization Details Recorded Time 5 text/html globusdysphagia with some solid food and pills get stuck intermittentlocated left neck near larynxonset around 2021+reflux on pepcid+hx of radiation to thyroidno difficulty with liquid or solidhad ba swallow at [facility] in Aug 2024[facility] consult December to review results. UGI showed inflammation in esophagus and stomachprev using meds for reflux famotidine & omeprazole, now only TUMS as she feels better controlhx of galbladder removal - now on cholestyramine MICHELLE MORENO MD [address] [place] [address], [address], [place] - [facility] 12/10/2024 09:37:17 OBGyn Episode No OBEpisode recorded.
--- OUTSIDE RECORDS SUMMARY | 2025-01-24 12:11 | XMS_ITS | Encounter Summary ---
Author Organization [facility], Address [address] [place] [address] Phone Care Team Providers Care Digital Color Press Operator Name Role Phone Magui Perez MD Primary Care Provider U bettyaildaiana Encounter Details Date Type Department Care Team (Late st Contact Info) Description 04/12/2022 Documentation Only [facility], [address] [place] [address] Magui Preez MD [address] [place] [address] Social History Tobacco Use Types Packs/Day Years [...] on filedocumented in this encounter Care Teams Digital Color Press Operator Relationship Specialty Start Date End Date Magui Perez MD PCP - General Family Medicine 03/30/22 documented as of this encounter
--- OUTSIDE RECORDS SUMMARY | 2025-01-24 12:11 | XMS_ITS | Encounter Summary ---
Author Organization [employer] Address [address] [place] [address] 7 [place] [address] Care Team Providers Care Campaign Consultant Name Role Phone Magui Perez MD Primary Care Provider [phone]- [phone] Enrique Harvey MD Unavailable January Unavailable Manjinder Serrano Unavailable Unavailable Reason for Visit * Reason Onset Date Comments Med Refill 08/06/2024 Encounter Details Date Type Department Care Team (Late st Contact Info) Description 08/06/2024 Telephone [facility] MEDICINE [address] [place], [place] [phone] Magui Perez MD [address] [place], [place] [phone] Med Refill Social History Tobacco Use Types Packs/Day Years [...] encounter Miscellaneous Notes * Telephone Encounter - Kathy Laura RN - 08/07/2024 2:41 PM EDT TC placed to pt with a performance improvement manager in regards to request for an albuterol inhaler due to difficulty breathing and occasional wheezing. No documented albuterol is mentioned in pt medication list or PCP OV notes. Pt did have a visit on 11/04/20 in which she was assessed to have mild intermittent asthma and given an albuterol inhaler to aid in SOB. Pt informed that this message will be sent to Dr. Dorado's for further review and if the albuterol is prescribed the pt will be informed. * Telephone Encounter - Jarrod Craft - 08/06/2024 1:26 PM EDT Tc from patient calling to request a script for a albuterol inhaler technical report writer does not see medication on chart and asked who prescribed the medication and why is it needed and patient responded it was the PCP and it is only for night time use for wheezing during the day patient is fine documented in this encounter Plan of Treatment Not on file documented as of this encounter Visit Diagnoses Not on filedocumented in this encounter Additional Health Concerns Assessment Noted Time PHQ-9 Depression Total Score: 14 024 10:21 AM EDT documented as of this encounter Care Teams Campaign Consultant Relationship Specialty Start Date End Date Magui Perez MD [address] [place] [address] PCP - General Family Medicine 12/14/17 Enrique Harvey MD [address] [place] [address] Rheumatology 10/09/24January [address] 3rd [place] [address] Gastroenterology 10/09/24 Manjinder Serrano [address] [place] [address] Ophthalmology 11/02/24 documented as of this encounter
--- OUTSIDE RECORDS SUMMARY | 2025-01-24 12:11 | XMS_ITS | Encounter Summary ---
Author Organization [facility], Address [address] [place] [address] Phone Care Team Providers Care Band Presser Name Role Phone Magui Perez MD Primary Care Provider U malik Encounter Details Date Type Department Care Team (Late st Contact Info) Description 10/28/2023 Documentation Only [facility], [address] [place] [address] [place] [address] [place] [address] Social History Tobacco Use Types Packs/Day Years Used Date Smoking Tobacco: Never Alcohol Use Standard Drinks/Week Comments Never 0 (1 standard drink = 0.6 oz pur e alcohol) Comments Unknown Sex and Gender Information Value Date Recorded Sex Assigned at Not on file Legal Sex Female 10:19 AM EDT Gender Identity Not on file Sexual Orientation Not on file documented as of this encounter Plan of Treatment Not on file documented as of this encounter Visit Diagnoses Not on filedocumented in this encounter Care Teams Band Presser Relationship Specialty Start Date End Date Magui Perez MD PCP - General Family Medicine 03/30/22 documented as of this encounter
--- OUTSIDE RECORDS SUMMARY | 2025-01-24 12:11 | XMS_ITS | Encounter Summary ---
Author Organization [employer] Address [address] [facility] [address] 7 [place] [address] Care Team Providers Care Insurance Claims Representative Name Role Phone Magui Perez MD Primary Care Provider +1- [phone] Enrique Harvey MD Unavailable January Unavailable Manjinder Serrano Unavailable Unavailable Reason for Visit * Reason Comments Med Refill Encounter Details Date Type Department Care Team (Late st Contact Info) Description 06/14/2024 Refill [facility] MEDICINE [address] [place], [place] [phone] Farzana Haq MD [address] [place], [place] [phone] Insomnia, unspecified type Social History Tobacco Use Types Packs/Day Years Used Date Smoking Tobacco: Never Passive Smoke Exposure: Never Smokeless Tobacco: Never Alcohol Use Standard Drinks/Week Comments Never 0 (1 standard drink = 0.6 oz pur e alcohol) Depression Answer Date Recorded Patient Health Questionnaire-9 [...] as of this encounter Visit Diagnoses Diagnosis Insomnia, unspecified type documented in this encounter Additional Health Concerns Assessment Noted Time PHQ-9 Depression Total Score: 0 04/20/20 23 10:16 AM EDT documented as of this encounter Care Teams Insurance Claims Representative Relationship Specialty Start Date End Date Magui Perez MD [address] [place] [address] PCP - General Family Medicine 12/14/17 Enrique Harvey MD [address] [place] [address] Rheumatology 10/09/24January [address] 3rd [place] [address] Gastroenterology 10/09/24 Manjinder Serrano [address] [place] [address] Ophthalmology 11/02/24 documented as of this encounter
--- OUTSIDE RECORDS SUMMARY | 2025-01-24 12:11 | XMS_ITS | Encounter Summary ---
Author Organization [employer] Address [address] [facility] 7 [place] [address] Care Team Providers Care Scrap Cutter Name Role Phone Magui Perez MD Primary Care Provider +1- [phone] Enrique Harvey MD Unavailable January Unavailable Manjinder Serrano Unavailable Unavailable Encounter Details Date Type Department Care Team (Late st Contact Info) Description 11/21/2023 Orders Only [facility] MEDICINE [address] [place], [place] [phone] Magui Perez MD [address] [place], [place] [phone] Arthralgia, unspecified joint Social History Tobacco Use Types Packs/Day Years [...] as of this encounter Visit Diagnoses Diagnosis Arthralgia, unspecified joint documented in this encounter Additional Health Concerns Assessment Noted Time PHQ-9 Depression Total Score: 0 04/20/20 23 10:16 AM EDT documented as of this encounter Care Teams Scrap Cutter Relationship Specialty Start Date End Date Magui Perez MD [address] [place] [address] PCP - General Family Medicine 12/14/17 Enrique Harvey MD [address] [place] [address] Rheumatology 10/09/24January [address]rd [place] [address] Gastroenterology 10/09/24 Manjinder Serrano [address] [place] [id number] Ophthalmology 11/02/24 documented as of this encounter
--- OUTSIDE RECORDS SUMMARY | 2025-01-24 12:11 | XMS_ITS | Encounter Summary ---
Author Organization [employer] Address [address] [facility] 7 [place] [address] Care Team Providers Care Relay Adjuster Name Role Phone Magui Perez MD Primary Care Provider +1- [phone] Enrique Harvey MD Unavailable January Unavailable Manjinder Serrano Unavailable Unavailable Reason for Visit * Reason Comments Med Change Request Encounter Details Date Type Department Care Team (Late st Contact Info) Description 07/30/2024 Refill [facility] MEDICINE [address] [place], [place] [phone] Magui Perez MD [address] [place], [place] [phone] Insomnia, unspecified type Social History Tobacco Use [...] documented as of this encounter Care Teams Relay Adjuster Relationship Specialty Start Date End Date Magui Perez MD [address] [place] [address] PCP - General Family Medicine 12/14/17 Enrique Harvey MD [address] [place] [address] Rheumatology 10/09/24January [address] 3rd [place] [address] Gastroenterology 10/09/24 Manjinder Serrano [address] [place] [address] Ophthalmology 11/02/24 documented as of this encounter
--- OUTSIDE RECORDS SUMMARY | 2025-01-24 12:11 | XMS_ITS | Encounter Summary ---
Author Organization [facility], Address [address] [place] [address] Phone Care Team Providers Care Loans Officer Name Role Phone Magui Perez MD Primary Care Provider U bettyaildaiana Encounter Details Date Type Department Care Team (Late st Contact Info) Description 03/30/2022 Documentation Only [facility], [address] [place] [address] Magui Perez MD [address] [place] [address] Social History Tobacco Use Types Packs/Day Years [...] on filedocumented in this encounter Care Teams Loans Officer Relationship Specialty Start Date End Date Magui Perez MD PCP - General Family Medicine 03/30/22 documented as of this encounter
--- OUTSIDE RECORDS SUMMARY | 2025-01-24 12:11 | XMS_ITS | Clinical Summary ---
Author Organization [facility], Address [address] [place] [address] [place] [address] Phone Care Team Providers Care French Lecturer Name Role Phone Chris, Magui Steinberg MD Primary Care Provider U navailable Allergies No known active allergies Medications FeroSul 325 (65 Fe) MG tablet TAKE 1 TABLET BY MOUTH THREE TIMES DAILY WITH ORANGE JUICE 03/12/2022 Active losartan (COZAAR) 25 MG tablet Take 25 mg by mouth 1 (one) time each day 03/04/2022 Active Active Problems Problem Noted Date Diagnosed Date Multiple acquired kidney cysts 05/31/2022 Hypertension 05/28/2022 Hypothyroidism 05/28/2022 Anemia 05/28/2022 Vitamin D deficiency 05/28/2022 Social History Tobacco Use Types Packs/Day Years Used Date Smoking Tobacco: Never Tobacco Cessation:Counseling Given: Not Answered Alcohol Use Standard Drinks/Week Comments Never 0 (1 standard drink = 0.6 oz pur e alcohol) Comments Unknown Sex and Gender Information Value Date Recorded Sex Assigned at Not on file Legal Sex Female 10:19 AM EDT Gender Identity Not on file Sexual Orientation Not on file Last Filed Vital Signs Vital Sign Reading Time Taken Comments Blood Pressure 130/83 11/01/2023 3:57 PM EST Pulse 60 11/01/2023 3:57 PM EST Temperature - - Respiratory Rate - - Oxygen Saturation - - Inhaled Oxygen Concentration - - Weight - - Height - - Body Mass Index - - Plan of Treatment Health Maintenance Due Date Last Done Comments Breast Cancer Screening 1971 Hepatitis B Vaccine (1 of 3 - 19+ 3-dose series) 1990 09/28/2006, 04/05/2006, 03/04/2006 Colorectal Cancer Screening: Annual FOBT 2020 Colorectal Cancer Screening: Colonoscopy 2020 Colorectal Cancer Screening: Sigmoidoscopy 2020 Influenza Vaccine (Season Ended) 2025 07/30/2022, 12/03/2021, 08/26/2020, Additional history exists Pneumococcal Vaccine: Peds ( 0 to 5 Years) and At-Risk Patients (6 to 49 Years) Completed 04/20/2023 Insurance Medicaid [place] Care Teams French Lecturer Relationship Specialty Start Date End Date Park, Magui Steinberg MD PCP - General Family Medicine 03/30/22
--- OUTSIDE RECORDS SUMMARY | 2025-01-24 12:11 | XMS_ITS | Clinical Summary ---
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 Role Phone Magui Perez MD Primary Care Provider [phone] Enrique Harvey MD Unavailable January Unavailable Manjinder Serrano Unavailable Unavailable Allergies No known active allergies Medications estradiol (Estrace) 0.1 MG/GM vaginal creamIndications:V aginal atrophy 1 gram cream per vagina nightly for 14 days then 1 gram cream per vagina twice a week, estonian 42.5 g 024 Active baclofen (Lioresal) 10 MG tabletIndications: Pain TAKE 1 TABLET BY MOUTH IN THE MORNING, AT NOON AND AT BEDTIME IF NEEDED FOR MUSCLE SPASMS 60 tablet 1 024 Active cholecalciferol (Vitamin D-3) 50 MCG (2000 UT) capsuleIndications :Vitamin D deficiency Take 1 capsule (50 mcg) by mouth Once per day. 30 capsule 11 024 Active cholestyramine (Questran) 4 g packetIndications: History of cholecystectomy Take 2 packets (8 g) by mouth with breakfast and with evening meal. 60 each 3 024 Active Diclofenac Sodium 1 % gelIndications:Ser onegative rheumatoid arthritis (CMS/HCC) Apply 2 g topically if needed in the morning, at noon, in the evening, and at bedtime (pain). 150 g 1 024 Active fluticasone (Flonase) 50 MCG/ACT nasal sprayIndications:S easonal allergies Administer 2 sprays into each nostril Once per day. Shake gently. Before first use, prime pump. After use, clean tip and replace cap. 16 g 3 024 2024 Active loratadine (Claritin) 10 MG tabletIndications: Seasonal allergies Take 1 tablet (10 mg) by mouth Once per day. 30 tablet 3 024 2024 Active losartan (Cozaar) 25 MG tabletIndications: Primary hypertension Take 1 tablet (25 mg) by mouth Once per day. 90 tablet 3 024 Active omeprazole (PriLOSEC) [address] capsuleIndications :Gastroesophageal reflux disease, unspecified whether esophagitis present Take 1 capsule (20 mg) by mouth before breakfast. Do not crush or chew. 30 capsule 3 024 2024 Active DULoxetine (Cymbalta) [address] capsuleIndications :Depression, unspecified depression type Take 1 tab po daily Do not crush or chew. 90 capsule 3 024 Active Ventolin HFA 108 (90 Base) MCG/ACT inhalerIndications :Mild intermittent asthma without complication INHALE 2 PUFFS EVERY 4 HOURS IF NEEDED FOR WHEEZING. 18 g 1 024 Active methotrexate 2.5 MG tabletIndications: Seronegative rheumatoid arthritis (CMS/HCC) Take by mouth. Follow directions carefully, and ask to explain any part you do not understand. Take exactly as directed. Active folic acid (Folvite) 1 MG tabletIndications: Seronegative rheumatoid arthritis (CMS/HCC) Take by mouth Once per day. Active terbinafine (LamISIL AT) 1 % creamIndications:T inea pedis of right foot Apply topically 2 times daily. 12 g 1 025 Active melatonin 5 MG tabletIndications: Insomnia, unspecified type TAKE 1 TABLET BY MOUTH DAILY AT BEDTIME NEEDED FOR SLEEP. 90 tablet 025 Active levothyroxine (Synthroid, Levoxyl) 50 MCG tabletIndications: Hypothyroidism, unspecified type TAKE 1 TABLET BY MOUTH EVERY DAY BEFORE BREAKFAST 90 tablet 025 Active levothyroxine (Synthroid, Levoxyl) 150 MCG tabletIndications: Hypothyroidism, unspecified type TAKE 1 TABLET BY MOUTH BEFORE BREAKFAST 90 tablet 024 2024 Discontinued(R eorder (will not trigger notification to Pharmacy)) melatonin 5 MG tabletIndications: Insomnia, unspecified type TAKE 1 TABLET BY MOUTH DAILY AT BEDTIME NEEDED FOR SLEEP. 30 tablet 1 025 2024 Discontinued levothyroxine (Synthroid, Levoxyl) 150 MCG tabletIndications: Hypothyroidism, unspecified type TAKE 1 TABLET BY MOUTH BEFORE BREAKFAST 90 tablet 025 2024 Discontinued levothyroxine (Synthroid, Levoxyl) 50 MCG tabletIndications: Hypothyroidism, unspecified type TAKE 1 TABLET BY MOUTH EVERY DAY BEFORE BREAKFAST 90 tablet 025 2024 Discontinued(R eorder (will not trigger notification to Pharmacy)) Active Problems Problem Noted Date Diagnosed Date Tinea pedis of right foot 10/24/2024 Overview (10/24/2024): - Prescribed terbinafine (LamISIL AT) 1 % cream 10/24/24 Assessment & Plan (10/24/2024 10:42 AM EST): - Prescribed terbinafine (LamISIL AT) 1 % cream 10/24/24 Macromastia 10/24/2024 Overview (10/24/2024): - Referred to Physical Therapy 10/24/24 Assessment & Plan (10/24/2024 10:41 AM EST): - Referred to Physical Therapy 10/24/24 Depression 07/19/2024 Overview (07/19/2024): -Start Cymbalta 20 mg Assessment & Plan (07/19/2024 11:06 AM EDT): -Start Cymbalta 20 mg Gastroesophageal reflux disease 07/19/2024 Seasonal allergies 07/19/2024 Skin lesion 07/19/2024 Overview (10/24/2024): - Seen on 08/31/24 in [facility]. Spots in her body to be checked, developed over yrs. Benign nevus: Benign, R cheek, defer tx. Dermatofibroma: Benign, R thigh. Defer tx Assessment & Plan (10/24/2024 9:52 AM EST): - Seen on 08/31/24 in [facility]. Spots in her body to be checked, developed over yrs. Benign nevus: Benign, R cheek, defer tx. Dermatofibroma: Benign, R thigh. Defer tx Assessment & Plan (07/19/2024 11:07 AM EDT): -referred to Derm 07/19/24 Globus sensation 07/06/2024 Overview (09/04/2024): Seen in walk in 06/21/24 for fatigue and cocern for neck swelling. US 07/05/24 There are shotty, nonpathologically enlarged right occipital lymph nodes, corresponding with the palpable finding described by the patient. These are nonspecific and should be managed on a clinical basis. No sizable lymphadenopathy or mass is seen. Barrium swallow 09/03/2024 1. Mildly disorganized esophageal peristalsis. 2. Small type I hiatal hernia. 3. Multiple small foci of contrast pooling in the body and fundus of the stomach that may present small superficial mucosal erosions. Recommend correlation with the recent EGD. 4. No findings in the oropharynx or hypopharynx to explain globus sensation. H/O tubal ligation 06/21/2024 Chronic abdominal pain 02/14/2024 Overview (03/13/2024): Patient has many years of severe GERD with burning in her throat, dyspepsia, and fecal urgency after eating. She has a chronic globus sensation and a burning is worse when she lays down at night. -seen by GI 02/14/24 EGD and colonoscopy ordered -seen by GI 03/13/24 doing well on cholestyramine to control her diarrhea Iron deficiency anemia 01/26/2024 TMJ inflammation 01/26/2024 Overview (02/07/2024): XR 02/07/24 IMPRESSION: 1. Right TMJ condyle appears to be seated within the mandibular fossa on the closed-mouth view with expected movement on open-mouth view. 2. Left TMJ condyle is difficult to appreciate on the closed-mouth view due to multiple overlying bony structures, but is possibly appropriately seated within the mandibular fossa. The condyle appears to translated anteriorly on the open-mouth view. 3. Visualization severely limited due to overlying bony structures. Additional imaging, possibly with MRI, recommended for better visualization. Assessment & Plan (01/26/2024 11:37 AM EDT): Jaw: Tenderness, swelling and pain on movement present. Comments: Tenderness on the left TMJ Tinnitus of left ear 01/26/2024 Vaginal atrophy 01/26/2024 Overview (01/26/2024): -trial of estrogen cream Assessment & Plan (01/26/2024 11:55 AM EDT): -trial of estrogen cream Daytime somnolence 01/26/2024 Overview (07/19/2024): -referral to sleep study on 01/26/2024, has not been scheduled -advised pt to call 07/19/24 Assessment & Plan (07/19/2024 11:00 AM EDT): -referral to sleep study on 01/26/2024, has not been scheduled -advised pt to call 07/19/24 Assessment & Plan (01/26/2024 12:01 PM EDT): -referral to sleep study on 01/26/2024 Cardiac risk counseling 01/26/2024 Overview (07/19/2024): The 10-year ASCVD risk score (Yadira COLLAZO, et al., 2019) is: 2.5% Values used to calculate the score: Age: 54 years Sex: Female Is Non- : No Diabetic: No Tobacco smoker: No Systolic Blood Pressure: 138 mmHg Is BP treated: Yes HDL Cholesterol: 57 mg/dL Total Cholesterol: 205 mg/dL Graves disease 04/20/2023 Menorrhagia 04/20/2023 Obesity 04/20/2023 Seronegative rheumatoid arthritis 04/20/2023 Overview (10/24/2024): Pt reports multiple areas or arthralgia with associated fatigue and swelling. Symptoms worse in the morning. -Labs on 04/20/2023 showed significant for elevated CRP of 1.04 with mildly elevated ESR of 23, ISMAEL rhumatiod factor and lyme antibodies negative, TSH was normal. -Given her swelliong on exam and cont pain will referr to rhumatology 05/23/2023. -last rheumatology visit 10/2023 of diffuse joint pain and swelling, symptoms are intermittent and started in 2011 but have become progressive over the last year. On exam she has multiple tender joints and few swollen joints. X-rays show bilateral ankle effusions. Serologies are negative, inflammatory markers are elevated. Clinical picture consistent with new onset seronegative rheumatoid arthritis. Will need to start DMARDs. In 10/2023 discussed risks and benefits of methotrexate. Patient agreed to proceed. Start methotrexate 15 mg weekly for 2 weeks then 20 mg once week. Folic acid 1 mg daily. Saw [facility] Lead last month in 06/2024. 07/19/24 discussed possibility of menopausal symptoms worsening pain, pt declined any treatment offered. -will trial Diclofenac Gel. -will provide a note that states pt cannot work due to the severity of her disease. -Seen by presetter operator Dr. Harvey 08/31/24 diagnosed with seronegative RA who presents for follow-up. Patient has been taking methotrexate regularly for about 10 months now without any significant improvement. I am questioning the diagnosis of RA. DC methotrexate and folic acid. I will order right hand MRI toevaluate for inflammatory arthritis. Follow-up after MRI is completed - note from Dr. Harvey 10/09/24: right hand MRI which showed right radioulnar joint effusion. Which is consistent with active inflammatory arthritis. At this time, patient failed methotrexate. Needs a different DMARDs. Discussed risks and benefits of TNF inhibitors. Patient agreed to proceed. Will start prior authorization for Enbrel - Continue Cymbalta. Will follow up with Dr. Harvey in December of 202410/24/24 - Prescribed methotrexate 2.5 MG tablet 10/24/24 - Prescribed folic acid (Folvite) 1 MG tablet 10/24/24 Assessment & Plan (10/24/2024 10:38 AM EST): Pt reports multiple areas or arthralgia with associated fatigue and swelling. Symptoms worse in the morning. -Labs on 04/20/2023 showed significant for elevated CRP of 1.04 with mildly elevated ESR of 23, ISMAEL rhumatiod factor and lyme antibodies negative, TSH was normal. -Given her swelliong on exam and cont pain will referr to rhumatology 05/23/2023. -last rheumatology visit 10/2023 of diffuse joint pain and swelling, symptoms are intermittent and started in 2011 but have become progressive over the last year. On exam she has multiple tender joints and few swollen joints. X-rays show bilateral ankle effusions. Serologies are negative, inflammatory markers are elevated. Clinical picture consistent with new onset seronegative rheumatoid arthritis. Will need to start DMARDs. In 10/2023 discussed risks and benefits of methotrexate. Patient agreed to proceed. Start methotrexate 15 mg weekly for 2 weeks then 20 mg once week. Folic acid 1 mg daily. Saw [facility] Lead last month in 06/2024. 07/19/24 discussed possibility of menopausal symptoms worsening pain, pt declined any treatment offered. -will trial Diclofenac Gel. -will provide a note that states pt cannot work due to the severity of her disease. -Seen by presetter operator Dr. Harvey 08/31/24 diagnosed with seronegative RA who presents for follow-up. Patient has been taking methotrexate regularly for about 10 months now without any significant improvement. I am questioning the diagnosis of RA. DC methotrexate and folic acid. I will order right hand MRI toevaluate for inflammatory arthritis. Follow-up after MRI is completed - note from Dr. Harvey 10/09/24: right hand MRI which showed right radioulnar joint effusion. Which is consistent with active inflammatory arthritis. At this time, patient failed methotrexate. Needs a different DMARDs. Discussed risks and benefits of TNF inhibitors. Patient agreed to proceed. Will start prior authorization for Enbrel - Continue Cymbalta. Will follow up with Dr. Harvey in December of 202410/24/24 - Prescribed methotrexate 2.5 MG tablet 10/24/24 - Prescribed folic acid (Folvite) 1 MG tablet 10/24/24 Assessment & Plan (07/19/2024 11:03 AM EDT): Pt reports multiple areas or arthralgia with associated fatigue and swelling. Symptoms worse in the morning. -Labs on 04/20/2023 showed significant for elevated CRP of 1.04 with mildly elevated ESR of 23, ISMAEL rhumatiod factor and lyme antibodies negative, TSH was normal. -Given her swelliong on exam and cont pain will referr to rhumatology 05/23/2023. -last rheumatology visit 10/2023 of diffuse joint pain and swelling, symptoms are intermittent and started in 2011 but have become progressive over the last year. On exam she has multiple tender joints and few swollen joints. X-rays show bilateral ankle effusions. Serologies are negative, inflammatory markers are elevated. Clinical picture consistent with new onset seronegative rheumatoid arthritis. Will need to start DMARDs. In 10/2023 discussed risks and benefits of methotrexate. Patient agreed to proceed. Start methotrexate 15 mg weekly for 2 weeks then 20 mg once week. Folic acid 1 mg daily. Saw [facility] Lead last month in 06/2024. 07/19/24 discussed possibility of menopausal symptoms worsening pain, pt declined any treatment offered. -will trial Diclofenac Gel. -will provide a note that states pt cannot work due to the severity of her disease. Assessment & Plan (01/26/2024 11:43 AM EDT): Pt reports multiple areas or arthralgia with associated fatigue and swelling. Symptoms worse in the morning. -Labs on 04/20/2023 showed significant for elevated CRP of 1.04 with mildly elevated ESR of 23, ISMAEL rhumatiod factor and lyme antibodies negative, TSH was normal. -Given her swelliong on exam and cont pain will referr to rhumatology 05/23/2023. -last rheumatology visit 10/2023 of diffuse joint pain and swelling, symptoms are intermittent and started in 2011 but have become progressive over the last year. On exam she has multiple tender joints and few swollen joints. X-rays show bilateral ankle effusions. Serologies are negative, inflammatory markers are elevated. Clinical picture consistent with new onset seronegative rheumatoid arthritis. Will need to start DMARDs. Discussed risks and benefits of methotrexate. Patient agreed to proceed. Start methotrexate 15 mg weekly for 2 weeks then 20 mg once weekly Folic acid 1 mg daily Assessment & Plan (05/23/2023 11:19 AM EDT): Pt reports multiple areas or arthralgia with associated fatigue and swelling. Symptoms worse in the morning. -Labs on 04/20/2023 showed significant for elevated CRP of 1.04 with mildly elevated ESR of 23, ISMAEL rhumatiod factor and lyme antibodies negative, TSH was normal. -Given her swelliong on exam and cont pain will referr to rhumatology 05/23/2023. Assessment & Plan (04/20/2023 10:54 AM EDT): Pt reports multiple areas or arthralgia with associated fatigue and swelling. Symptoms worse in the morning. -Labs ordered 04/20/2023. -Follow up 1 month. Other specified health status 04/15/2023 Overview (11/02/2024): -next physical exam due after 07/19/25 -eye care facilitated by [facility] -dental home is [facility] -health care proxy filed 07/19/24 Assessment & Plan (07/19/2024 10:34 AM EDT): -next physical exam due after 07/19/25 -[facility] -dental home is [facility] -health care proxy given and filed 07/19/24 Assessment & Plan (01/26/2024 11:41 AM EDT): -next physical exam due after 04/20/2024 -eye care facilitated by [facility] -dental home is [facility] Assessment & Plan (04/20/2023 10:45 AM EDT): -next physical exam due after 04/20/2024. -eye care facilitated by [facility] -dental home is Colon cancer screening 04/15/2023 Overview (07/19/2024): -colonocopy normal with Dr. Mathis 06/06/2012 who left the area -referal for [facility] gastro given 04/2023, pt given number for [facility] gastro to call 05/23/2023 -seen by Tanya [facility]OS[facility] 11/30/2023 for colonoscopy intake -colonoscopy done 05/2024 with abnormal results. Assessment & Plan (01/26/2024 11:37 AM EDT): -colonocopy normal with Dr. Mathis 06/06/2012 who left the area -referal for [facility] gastro given 04/2023, pt given number for [facility] gastro to call 05/23/2023 -seen by Tanya [facility] 11/30/2023 for colonoscopy intake Assessment & Plan (05/23/2023 11:08 AM EDT): -colonocopy normal with Dr. Mathis 06/06/2012 -Gave number for [facility] gastro to call 05/23/2023. Assessment & Plan (04/20/2023 10:52 AM EDT): -colonocopy normal with Dr. Mathis 06/06/2012 -Referral placed 04/20/2023. Cyst of kidney, acquired 05/31/2022 Overview (10/24/2024): Ultrasound done for abdominal pain on 03/16/22 showed a 4.1 renal cyst with septation will repeat in 6 months -Followed by nephrology had apt for circa Oct 2023 and per pt does not need follow up Assessment & Plan (01/26/2024 11:43 AM EDT): Ultrasound done for abdominal pain on 03/16/22 showed a 4.1 renal cyst with septation will repeat in 6 months -Followed by nephrology had apt for Jun 2023 Assessment & Plan (04/20/2023 11:06 AM EDT): Ultrasound done for abdominal pain on 03/16/22 showed a 4.1 renal cyst with septation will repeat in 6 months -Followed by nephrology and has apt for Jun 2023 Vitamin D deficiency 05/28/2022 Overview (07/19/2024): Lab Results Component Value Date [id number] 22.4 04/21/2023 -reordered Vit D 07/19/24 Assessment & Plan (07/19/2024 10:50 AM EDT): Lab Results Component Value Date [id number] 22.4 04/21/2023 -reordered Vit D 07/19/24 Assessment & Plan (01/26/2024 11:42 AM EDT): Lab Results Component Value Date [id number] 22.4 04/21/2023 Anxiety 11/15/2013 Hypertension 05/28/2013 Overview (07/19/2024): -Blood pressure is at goal -Continue lifestyle modifications -Continue current medications Assessment & Plan (10/24/2024 11:35 AM EST): -Blood pressure is at goal -Continue lifestyle modifications -Continue current medications Assessment & Plan (07/19/2024 10:53 AM EDT): -Blood pressure is at goal -Continue lifestyle modifications -Continue current medications Assessment & Plan (01/26/2024 11:43 AM EDT): -Blood pressure is at goal -Continue lifestyle modifications -Continue current medications Assessment & Plan (04/20/2023 10:55 AM EDT): -Blood pressure normal on recheck. -Continue lifestyle modifications -Continue current medications Hypothyroid 06/09/2012 Overview (10/24/2024): Lab Results Component Value Date TSH 0.47 07/19/2024 TSH 7.58 (H) 06/21/2024 TSH 12.13 (H) 10/14/2022 -PA done for Syntrhoid prescribed by endocrinology who wanted pt on brand name due to uncontrolled on generic -take med at same time on empty stomach daily -will restart Synthroid as pt was not taking it consistently 07/19/24 Assessment & Plan (10/24/2024 11:35 AM EST): Lab Results Component Value Date TSH 0.47 07/19/2024 TSH 7.58 (H) 06/21/2024 TSH 12.13 (H) 10/14/2022 -PA done for Syntrhoid prescribed by endocrinology who wanted pt on brand name due to uncontrolled on generic -take med at same time on empty stomach daily -will restart Synthroid as pt was not taking it consistently 07/19/24 Assessment & Plan (07/19/2024 10:49 AM EDT): Lab Results Component Value Date TSH 3.06 04/21/2023 TSH 12.13 (H) 10/14/2022 -PA done for Syntrhoid prescribed by endocrinology who wanted pt on brand name due to uncontrolled on generic -take med at same time on empty stomach daily -will restart Synthroid as pt was not taking it consistently 07/19/24 -reordered labs 07/19/24 Assessment & Plan (01/26/2024 11:42 AM EDT): Lab Results Component Value Date TSH 3.06 04/21/2023 TSH 12.13 (H) 10/14/2022 -PA done for Syntrhoid prescribed by endocrinology who wanted pt on brand name due to uncontrolled on generic -take med at same time on empty stomach daily Assessment & Plan (05/23/2023 11:02 AM EDT): -Continue Synthroid 150mg daily -PA done for Syntrhoid prescribed by endocrinology who wanted pt on brand name due to uncontrolled on generic -take med at same time on empty stomach daily Lab Results Component Value Date TSH 3.06 04/21/2023 TSH 12.13 (H) 10/14/2022 Assessment & Plan (04/20/2023 10:24 AM EDT): -Continue Synthroid 150mg daily -PA done for Syntrhoid prescribed by endocrinology who wanted pt on brand name due to uncontrolled on generic -take med at same time on empty stomach daily -TSH on 03/04/22 0.81. History of anemia 06/09/2012 Overview (01/26/2024): Lab Results Component Value Date HGB 12.9 08/23/2023 HGB 13.0 04/21/2023 HGB 13.9 10/14/2022 HGB 12.5 03/04/2022 HEMATOCRIT 40.9 10/14/2022 HEMATOCRIT 37.2 03/04/2022 Assessment & Plan (01/26/2024 11:42 AM EDT): Lab Results Component Value Date HGB 12.9 08/23/2023 HGB 13.0 04/21/2023 HGB 13.9 10/14/2022 HGB 12.5 03/04/2022 HEMATOCRIT 40.9 10/14/2022 HEMATOCRIT 37.2 03/04/2022 Resolved Problems Problem Noted Date Diagnosed Date Resolved Date History of cholecystectomy 07/19/2024 0 10/24/2024 History of laparoscopic cholecystectomy 06/21/2024 09/04/2024 prison methotrexate user 06/21/2024 10/24/2024 Upper abdominal pain 04/30/2024 024 Assessment & Plan (04/30/2024 12:22 PM EDT): labs ordered Patient is s/p cholecystectomy hold US/T for now Famotidine and zofran fr symptoms Once I know results I will call patient I advise not to miss her GI appointment I advise patient to avoid NSAIDs, spicy and acid food, I advise to eat at the same time every day, I advise to elevate the head of the bed and take medications as prescribe Urinary urgency 04/30/2024 10/09/2024 Assessment & Plan (04/30/2024 12:21 PM EDT): UA done was clean I will send anyway culture and Ill let her know results Dislocation of jaw 01/26/2024 Cervical cancer screening 01/26/2024 Candidiasis 04/20/2023 11/21/2023 Assessment & Plan (04/20/2023 10:52 AM EDT): Powder given 04/20/2023. Anemia 05/28/2022 04/20/2023 Knee pain 08/20/2014 10/24/2024 Encounters Date Type Department Care Team Description 01/17/2025 Refill [facility] [address] [place] [address] Magui Perez MD Depression, unspecified depression type 01/16/2025 Refill [facility] [address] [place] [address] Magui Perez MD Hypothyroidism, unspecified type 01/16/2025 Refill [facility] [address] [place] [address] Magui Perez MD Insomnia, unspecified type 01/10/2025 Refill [facility] [address] [place] [address] [place], [place], [facility] Hypothyroidism, unspecified type 01/09/2025 Telephone [facility] [address] [place] [address] Magui Perez MD Med Refill 01/04/2025 Refill [facility] [address] [place] [address] Magui Perez MD Hypothyroidism, unspecified type 12/28/2024 Population Health Risk Score [facility] () Department [address] [id number] Provider, Population Health Generic 12/23/2024 Refill [facility] [address] [place] [address] Magui Perez MD Insomnia, unspecified type from Last 3 Months Immunizations Name Administration Dates Next Due Hep B, adult 09/28/2006,04/05/2006,03/04/2006 Influenza injectable quadriv alent IIV4 with preservative 12/14/2017 Influenza injectable quadriv alent preservative free 07/30/2022,12/03/2021,08/26/2020,2018 Influenza, IIV3, injectable 07/03/2014,0 07/09/2011,07/16/2009,2007,07/25/2007,08/29/2006,10/12/2005 Influenza, Split (incl. thais fied surface antigen) 07/23/2013 Pneumococcal Conjugate PCV 20 04/20/2023 TD (adult), 2 Lf tetanus tox oid, preservative free, adsorbed 03/04/2006 Tdap 12/14/2017 Family History Medical History Relation Name Comments Diabetes Father Hypertension Father Pancreatic cancer Mother Relation Name Status Comments Father Mother Social History Tobacco Use Types Packs/Day Years [...] Orientation Straight 04/14/2023 11 :47 AM EDT Last Filed Vital Signs Vital Sign Reading Time Taken Comments Blood Pressure 139/86 10/24/2024 9:49 AM EST Pulse 65 10/24/2024 9:49 AM EST Temperature 36.1 ??C (96.9 ??F) 10/24/2024 9:49 AM ES T Respiratory Rate 19 10/24/2024 9:49 AM EST Oxygen Saturation 96% 10/24/2024 9:49 AM EST Inhaled Oxygen Concentration - - Weight 91.2 kg (201 lb) 10/24/2024 9:49 AM EST Height 157.5 cm (5' 2 ) 10/24/2024 9:49 AM EST Body Mass Index 36.76 10/24/2024 9:49 AM EST Plan of Treatment Health Maintenance Due Date Last Done Comments CT Colonography 1971 FIT DNA/Cologuard 1971 FIT 1971 FOBT 1970 Sigmoidoscopy 1971 Dental Prophylaxis 01/22/2015 07/23/2014 Dental Oral Exam 08/02/2015 01/30/2015, 06/28/2014 Dental X-Ray: Bitewings 02/01/2016 01/30/2015, 06/28 Dental X-Ray: Full Mouth 06/29/2017 06/28/2014 Depression Monitoring 01/17/2025 07/19/2024, 024 Influenza Vaccine (#1) 2025 , 12/03/2021, 08/26/2020, Additional history exists Postponed from 06/17/2024 (Patient Refused) SDOH Screening 06/21/2025 06/21/2024 Alcohol/Substance Use Screening 07/19/2025 07/19/2024 COVID-19 Vaccine ( season) 2025 01/23/2021, 12/26/2020 Postponed from 06/17/2024 (Patient Refused) Depression Screening 07/19/2025 07/19/2024, 07/19/20 24 Zoster Vaccines (1 of 2) 07/19/2025 Pos tponed from 2021 (Patient Refused) Tobacco Screening 10/24/2025 10/24/2024 Mammogram 05/07/2026 05/07/2024, 04/17, 04/06/2022, Additional history exists Pap Smear 01/25/2027 01/26/2024, 01/15, 10/18/2018 DTaP/Tdap/Td Vaccines (2 - Td or Tdap) 12/14/2027 12/14/2017, 03/04/2006 Cervical Cancer Screening 01/25/2029 HPV/Cotest 01/25/2029 01/26/2024, 11/2018, 10/18/2018 Lipid Panel 06/21/2029 06/21/2024, 03/2023, 12/04/2021 Colonoscopy 06/07/2034 06/07/2024, 05/18, 06/06/2012 Colorectal Cancer Screening 06/07/2034 RSV Patients and Patients Aged 60 years or older (1 - 1-dose 75+ series) 2046 Hepatitis B Vaccines Completed 09/28/2006, 04/05/2006, 03/04/2006 HIV Screening Completed 08/08/2020, 11/19/2019 Pneumococcal Vaccine: 50+ Years Completed 04/20/2023 Hepatitis C Screening Completed 08/23/2023 , 03/04/2022, 03/04/2022, Additional history exists HIB Vaccines Aged Out No longer eligi ble based on patient's age to complete this topic HPV Vaccines Aged Out No longer eligi ble based on patient's age to complete this topic Hepatitis A Vaccines Aged Out No long er eligible based on patient's age to complete this topic IPV Vaccines Aged Out No longer eligi ble based on patient's age to complete this topic Meningococcal Vaccine Aged Out No kristian geetha eligible based on patient's age to complete this topic RSV under 20 months Aged Out No longe r eligible based on patient's age to complete this topic Rotavirus Vaccines Aged Out No longer eligible based on patient's age to complete this topic Procedures Procedure Name Priority Date/Time Associated Diagnosis Comments LIPID PANEL, STANDARD Routine 06/21/2024 11:45 AM EDT Fatigue, unspecified type HM COLONOSCOPY Routine 06/07/2024 BI MAMMOGRAM SCREENING TOMOSYNTHESIS BILATERAL Routine 05/07/2024 11:36 AM EDT HPV MRNA E6/E7 REFLEX TO HPV 16, 18/45 Routine 01/26/2024 12:00 PM EDT PAP SMEAR Routine 01/26/2024 12:00 PM EDT TMJ inflammation HEPATITIS PANEL, GENERAL Routine 08/23/2023 12:36 PM EST ZZZ HISTORICAL HIV AB/AG Routine 08/08/2020 11:40 AM EDT BITEWINGS - 4 RADIOGRAPHIC IMAGES Routine 01/30/2015 12:00 AM EDT PERIODIC ORAL EVALUATION - ESTABLISHED PATIENT Routine 01/30/2015 12:00 AM EDT PROPHYLAXIS - ADULT Routine 07/23/2014 1 2:00 AM EDT INTRAORAL - COMPLETE SERIES OF RADIOGRAPHIC IMAGES Routine 06/28/2014 12:00 AM EDT from Last 3 Months or Most Recently Relevant to Health Maintenance Results * (ABNORMAL) Lipid Panel, Standard (06/21/2024 11:45 AM EDT) Triglycerides 109 <150 mg/dL [facility] Comment:Desirable Triglyceri de: less than 150 mg/dLBorderline High Triglyceride 150-199 mg/dLHigh Triglyceride: 200-499 mg/dLVery High Triglyceride: greater than or equal to 5OO mg/dL Cholesterol 205(H) <200 mg/dL [facility] Comment:Desirable Cholestero l: less than 200 mg/dLBorderline High Cholesterol: 200-239 mg/dLHigh Cholesterol: greater than 239 mg/dL LDL Cholesterol Calculated 127(H) <100 mg/dL [facility] Comment:Desirable LDL: less than 100 mg/dLNear Optimal/Above Optimal LDL: 110- 129 mg/dLBorderline High LDL: 130-159 mg/dLHigh LDL: 160-189 mg/dLVery High LDL: greater than or equal to 190 mg/dL HDL Cholesterol 57 >40 mg/dL [facility] Comment:Desirable HDL: great er than 40 mg/dL Note: This HDL assay may give artificially low results in patients with liver disease. Blood Venous blood specimen / Unknown 06/21/2024 11:45 AM EDT 06/21/2024 1:30 PM EDT us Leana To DO LAB BLOOD ORDERABLES Final R esult [facility] [address] [place] [address] [phone] * Hm Colonoscopy (06/07/2024) Colonoscopy Normal Normal Comment:with Dasia Guzman MD Historical Provider HEALTH MAINTENANCE Final Result * BI Mammogram Screening Tomosynthesis Bilateral (05/07/2024 11:36 AM EDT) Anatomical Region Laterality Modality Breast Bilateral Mammography 05/07/2024 11:3 6 AM EDT Narrative 05/29/2024 9:40 PM EDT ? [facility] [place] ? [address] ?[place] [address] ? Mammography Report ? Signed ? Patient: Adeel Quintanilla,Vivian ?MR#: ?? [id number] ? : 1970 ?Acct:[id number] ? Age/Sex: 53 / F ?ADM Date: 07/22/24 ? Loc: HO.MAMMO ? Attending Dr: Magui Perez MD ? Ordering Physician: Magui Perez MD ?Results: 1N ?? egative ? Date of Service: 05/07/24 ?Follow Up: 1 Year From Orig ?? inal Mammogram ? Procedure(s): MM tomosynthesis screening BI ?? Accession Number(s): [id number] ? cc: Magui Perez MD ? EXAMINATION: ?? MM SCREENING DIGITAL BREAST TOMOSYNTHESIS, BILATERAL ? CLINICAL INFORMATION: ? Screening. Asymptomatic. ? COMPARISON: ?? Mammography: This study is compared with prior exams dating back to ?? 2019. ? TECHNIQUE: ?? Digital breast tomosynthesis is performed in both the craniocaudal and ?? mediolateral oblique views along with computer-aided detection (CAD). ?? Synthesized 2D images are generated from the tomosynthesis. ? FINDINGS: ?? The breasts are almost entirely fatty (ACR BI-RADS breast composition ?? Category a). ? There are no significant masses, abnormal calcifications, or other ?? abnormalities. ? MM/MM tomosynthesis screening BI ?? IMPRESSION: ?? No mammographic evidence of malignancy. ? ASSESSMENT: ? BI-RADS BI-RADS 1 - Negative ? RECOMMENDATION: ?? Routine annual mammography screening. ? 1 year F/U ? This examination should not preclude the clinical evaluation of a ?? suspicious palpable abnormality. ? This patient's information was entered into a reminder system with a ?? target due date for their next mammogram. ? Dictated By: ?Rosy Palm MD ? Signed By: ?<Electronically signed by Rosy Palm MD in OV> ? 05/29/242135 ? DD/ 35 ? TD/TT: ? Chef Under: ? Procedure Brian Pelaez - 05/29/2024 [facility] [address] [place], [place] [address] Mammography Report Signed Patient: Farzana Zapien MMR#: [id number] : 1970Acct:[id number] Age/Sex: 53 / FADM Date: 05/07/24 Loc: HO.MAMMO Attending Dr: Magui Perez MD Ordering Physician: Magui Perez MDResults: 1N egative Date of Service: 05/07/24Follow Up: 1 Year From Orig inal Mammogram Procedure(s): MM tomosynthesis screening BI Accession Number(s): [id number] cc: Magui Perez MD EXAMINATION: MM SCREENING DIGITAL BREAST TOMOSYNTHESIS, BILATERAL CLINICAL INFORMATION: Screening. Asymptomatic. COMPARISON: Mammography: This study is compared with prior exams dating back to 2019. TECHNIQUE: Digital breast tomosynthesis is performed in both the craniocaudal and mediolateral oblique views along with computer-aided detection (CAD). Synthesized 2D images are generated from the tomosynthesis. FINDINGS: The breasts are almost entirely fatty (ACR BI-RADS breast composition Category a). There are no significant masses, abnormal calcifications, or other abnormalities. MM/MM tomosynthesis screening BI IMPRESSION: No mammographic evidence of malignancy. ASSESSMENT: BI-RADS BI-RADS 1 - Negative RECOMMENDATION: Routine annual mammography screening. 1 year F/U This examination should not preclude the clinical evaluation of a suspicious palpable abnormality. This patient's information was entered into a reminder system with a target due date for their next mammogram. Dictated By: Rosy Palm MD Signed By: <Electronically signed by Rosy Palm MD in OV> 05/29/24 2136 DD/ 1136 TD/TT: Chef Under: us Magui Perez MD IMG BI PROCEDURES Edited R esult - Final * HPV mRNA E6/E7 w/Reflex to HPV Genotypes 16, 18/45 (01/26/2024 12:00 PM EDT) HPV nRNA E6/E7 Not Detected Not Detected [facility] Comment:Methodology: Transcr iption-Mediated AmplificationThis assay detects E6/E7 viral messenger RNA (mRNA) from 14high-risk HPV types (16,18,31,33,35,39,45,51,52,56,58,59,66,68).Cervical sources are required for HPV testing.If a vaginal source from a patient who has had atotal hysterectomy with removal of cervix wassubmitted, please contact the testing laboratoryfor alternative testing options.For additional information, please refer tohttp://education.ProviderTrust/faq/NVR540e5(This link if provided for information/educational purposes only.)THIS TEST WAS PERFORMED AT:[facility] [place] [phone] ENRIQUEZ MD HPV mRNA E6/E7 [facility] HPV 16 RNA [facility] HPV 18/45 RNA [facility] 01/26/2024 12:0 0 PM EDT 01/31/2024 12:00 PM EDT us Magui Perez MD LAB CYTOLOGY ORDERABLES Fi nal Result [facility] [address] [place] [phone] * Pap Smear (01/26/2024 12:00 PM EDT) 01/26/2024 12:0 0 PM EDT 01/31/2024 12:00 PM EDT Narrative [facility] - 02/13/2024 12:50 PM EDT ----- ------- Name: Farzana Zapien ? Age/Sex: 53/F ? : 1970 Unit#: [id number] ?? Attend Dr: Magui Perez MD ?Re01/26/24 ?Status: DEP REF ? Location: HO.HHCLNP ? Disch: ? ----- ------- SPEC : [id number] ? RECD: 01/31/24-1199 ? STATUS: ??SOUT ? REQ NUM: [id number] ? JAMILAH: 01/26/24-1200 ? SUBM DR: Magui Perez MD ? ENTERED: ??01/31/24-1246 ?SP TYPE: Pap Smr ?OTHR DR: ? ORDERED: ??Pap Smear ? Interpretation ?? Satisfactory for evaluation. ?? Negative for intraepithelial lesion or malignancy. ?HPV mRNA E6/E7: ?NOT DETECTED ? This assay detects E6/E7 viral messenger RNA (mRNA) from 14 high-risk HPV types (16, 18, ?? 31, 33, 35, 39, 45, 51, 52, 56, 58, 59, 66, 68) ?? HPV testing performed by [facility], [place], [place]. ??See reference laboratory ?? portion of the EMR for entire report. ?Clinical Information LMP: Postmenopausal Previous PAP test: Unknown date, WNL ? Material Received ?? ThinPrep-Vaginal/Cervical ----- ------- Signed (signature on file) JUSTIN Doe (ASCP) 02/13/24 1250 ? ----- ------- ? END OF REPORT ? us Magui Perez MD LAB CYTOLOGY ORDERABLES Fi nal Result [facility] [address] [place] [address] [phone] * Hepatitis Panel, General (08/23/2023 12:36 PM EST) Hepatitis A IgM Nonreactive Nonreactive [facility] Comment:IgM antibodies to HUANG V not detected; does not exclude earlyacute or recovered HAV infection. ~Hepatitis B Surface Antibody REACTIVE Nonreactive [facility] Comment:REACTIVE: > 11.99 mI U/mL Hepatitis B Core Antibody Nonreactive Nonreactive [facility] Hepatitis C Antibody Nonreactive Nonreactive [facility] Comment:Antibodies to HCV no t detected; does not exclude early acuteHCV infection. Hepatitis B Surface Ag Negative Negative [facility] 08/23/2023 12:3 6 PM EST 08/23/2023 12:36 PM EST us Generic External Data Provider LAB BLOOD ORDERAB LES Final Result Performing Organization Address City/[facility]/ZIP Co de Phone Number [facility] [address] [place] [address] [phone] * HIV AB/AG (08/08/2020 11:40 AM EDT) HIV AB/AG Nonreactive Nonreactive [facility] Comment: HIV-1 p24 Ag and/or HIV-1/HIV-2 Ab not detected. ?? A test result that is nonreactive does not exclude the possibility of exposure to or infection with HIV-1 and/or HIV-2. Nonreactive results in this assay for individuals with prior exposure to HIV-1 and/or HIV-2 may be due to antigen and antibody levels that are below the limit of detection of this assay. ?? The [employer] Bilingual Patient Support Caseworker HIV Ag/Ab Combo assay result and supplemental assay results should be interpreted in conjunction with the patient's clinical presentation, history and other laboratory results. ??If the results are inconsistent with clinical evidence, additional testing is suggested to confirm the result. 08/08/2020 11:4 0 AM EDT Magui Perez MD HISTORICAL/NON ORDERABLE L ABS Final Result Performing Organization Address City/[facility]/ZIP Co de Phone Number [facility] [address] from Last 3 Months or Most Recently Relevant to Health Maintenance Insurance [facility] C3 HSN PARTIAL DENTAL-[facility] MEDICAID STAND ADULT BY[place] DENTAL [facility] Advance Directives Documents on File Type Date Recorded Patient Stone Belt Sander Expl anation Advance Directives and Living Will 07/19/2024 Health Care Proxy 07/19/24 Care Teams Oil Seal Assembler Relationship Specialty Start Date End Date Chris, MD Magui [address] [place] [address] PCP - General Family Medicine 12/14/17 Enrique Harvey MD [address] [place] [address] Rheumatology 10/09/24[address] [place] [address] Gastroenterology 10/09/24 Manjinder Serrano [address] [place] [phone] Ophthalmology 11/02/24
--- OUTSIDE RECORDS SUMMARY | 2025-01-24 12:11 | XMS_ITS | Encounter Summary ---
Author Organization [employer] Address [address] [facility] [address] [facility] 7 [place] [address] Care Team Providers Care Home Health Rn Name Role Phone Magui Perez MD Primary Care Provider [phone]- [phone] Enrique Harvey MD Unavailable January Unavailable Manjinder Serrano Unavailable Unavailable Reason for Visit * Reason Onset Date Comments Med Refill 07/03/2024 Encounter Details Date Type Department Care Team (Late st Contact Info) Description 07/03/2024 Refill [facility] [address] [place], [place] [phone] Leana To DO [address] [place], [place] [phone] Social History Tobacco Use Types Packs/Day Years Used Date Smoking Tobacco: Never Passive Smoke Exposure: Never Smokeless Tobacco: Never Alcohol Use Standard Drinks/Week Comments Never 0 (1 standard drink = 0.6 oz pur e alcohol) Depression Answer Date Recorded Patient Health Questionnaire-9 Score 0 04/20/2023 Housing Stability Answer Date Recorded What is your housing situation today? I have padminikevin suarez 06/21/[address] you [...] Recorded Patient Health Questionnaire-2 Score 0 04/20/2023 Internet Access Answer Date Recorded Internet Access [...] documented as of this encounter Care Teams Home Health Rn Relationship Specialty Start Date End Date Magui Perez MD [address] [place] [address] PCP - General Family Medicine 12/14/17 Enrique Harvey MD [address] [place] [address] Rheumatology 10/09/24January [address] [place] [address] Gastroenterology 10/09/24 Manjinder Serrano [address] [place] [address] Ophthalmology 11/02/24 documented as of this encounter
--- OUTSIDE RECORDS SUMMARY | 2025-01-24 12:11 | XMS_ITS | Encounter Summary ---
Author Organization [facility] Address [address] [place] [address] 7 [place] [address] Care Team Providers Care Switchgear Repairer Name Role Phone Magui Perez MD Primary Care Provider [phone]- [phone] Enrique Harvey MD Unavailable January Unavailable Manjinder Serrano Unavailable Unavailable Reason for Visit * Reason Onset Date Comments Med Refill 04/20/2023 Encounter Details Date Type Department Care Team (Late st Contact Info) Description 04/20/2023 Telephone [facility] [address] [place], [place] [phone] Magui Perez MD [address] [place], [place] [phone] Med Refill Social History Tobacco Use Types Packs/Day Years Used Date Smoking Tobacco: Never Smokeless Tobacco: Never Depression Answer Date Recorded Patient Health Questionnaire-9 Score 0 04/20/2023 Depression Answer Date Recorded Patient Health Questionnaire-2 [...] suspected to have Coronavirus/COVID-19? No / Unsure 04/20/2023 9:56 AM EDT documented as of this encounter Miscellaneous Notes * Telephone Encounter - Kaylin Marks - 04/20/2023 11:21 AM EDT Tc from pt requesting medication nystatin (Mycostatin) [id number] UNIT/GM powder to be sent to [facility] pharmacy. documented in this encounter Plan of Treatment Not on file documented as of this encounter Visit Diagnoses Not on filedocumented in this encounter Additional Health Concerns Assessment Noted Time PHQ-9 Depression Total Score: 0 04/20/20 23 10:16 AM EDT documented as of this encounter Care Teams Switchgear Repairer Relationship Specialty Start Date End Date Magui Perez MD [address] [place] [address] PCP - General Family Medicine 12/14/17 nErique Harvey MD [address] [place] [address] Rheumatology 10/09/24January [address] [place] [address] Gastroenterology 10/09/24 Manjinder Serrano [address] [place] [address] Ophthalmology 11/02/24 documented as of this encounter
--- OUTSIDE RECORDS SUMMARY | 2025-01-24 12:11 | XMS_ITS | Encounter Summary ---
Author Organization [employer] Address [address] [facility] 7 [place] [address] Care Team Providers Care Health Lead Name Role Phone Magui Perez MD Primary Care Provider [phone]- [phone] Enrique Harvey MD Unavailable January Unavailable Manjinder Serrano Unavailable Unavailable Encounter Details Date Type Department Care Team (Late st Contact Info) Description 07/20/2024 Orders Only [facility] [address] [place], [place] [phone] Magui Perez MD [address] [place], [place] [phone] Social History Tobacco Use Types Packs/Day Years [...] documented as of this encounter Care Teams Health Lead Relationship Specialty Start Date End Date Magui Perez MD [address] [place] [phone] PCP - General Family Medicine 12/14/17 Enrique Harvey MD [address] [place] [address] Rheumatology 10/09/24January [address]rd [place] [address] Gastroenterology 10/09/24 Manjinder Serrano [address] [place] [address] Ophthalmology 11/02/24 documented as of this encounter
[2025-01-24 14:42] LABS: MANUAL DIFF FLAG NO
[2025-01-24 14:51] LABS: Basophils Percent Auto 0.7 % (0-2); Eosinophils Absolute Auto 0.1 X10*3/uL (0.0-0.4); Eosinophils Percent Auto 2.9 % (0-4); Hematocrit 39.3 % (37.0-47.0); Hemoglobin 13.1 g/dl (12.0-16.0); Imm Gran Abs Auto 0.01 X10*3/uL (0.00-0.03); Imm Gran Pct Auto 0.2 % (0.0-0.4); Lymphocytes Absolute Auto 1.6 X10*3/uL (1.2-4.9); Lymphocytes Percent Auto 38.2 % (20-40); Mean Corpuscular HGB Conc 33.3 g/dl (31.0-35.0); Mean Corpuscular Hemoglobin 28.5 pg (27.0-33.0); Mean Corpuscular Volume 85.6 fL (80.0-98.0); Mean Platelet Volume 11.1 fL (9.4-12.3); Monocytes Absolute Auto 0.4 X10*3/uL (0.1-1.2); Monocytes Percent Auto 8.7 % (2-11); Neutrophils Percent Auto 49.3 % (45-73); Platelet Count 304 X10*3/uL (160-400); Red Blood Count 4.59 X10*6/uL (4.20-5.50); Red Cell Distribution Width 13.4 % (11.0-16.0); White Blood Count 4.1 X10*3/uL (4.8-10.8)
[2025-01-24 15:21] LABS: Alanine Aminotransferase 21 U/L (0-31); Anion Gap 10 (12-20); Aspartate Amino Transferase 28 U/L (5-31); Bilirubin Total 0.6 mg/dL (0.0-1.0); Blood Urea Nitrogen 11 mg/dL (9-16); C Reactive Protein 0.42 mg/dL (< or = 0.50); Calcium 9.4 mg/dL (8.4-10.2); Carbon Dioxide 27 mmol/L (22-29); Chloride 109 mmol/L (96-108); Estimated Glomerular Filt Rate > 60; Glucose Random 93 mg/dL (60-115); Potassium 3.9 mmol/L (3.3-5.1); Sodium 142 mmol/L (135-145); Total Protein 7.4 g/dL (6.5-8.0)
[2025-01-24 15:27] LABS: Erythrocyte Sedimentation Rate 16 MM/HR (0-20)
[2025-01-24 15:29] LABS: Alkaline Phosphatase 103 U/L (39-117)
[2025-01-25 04:19] LABS: HBS Num1 309.72 mIU/mL (0-7.99); Hepatitis B Core Antibody Nonreactive (Nonreactive); Hepatitis B Surface Antigen Negative (Negative); ~HepC Num1 0.23 S/CO (0.00-0.79); ~Hepatitis B Surface Antibody REACTIVE (Nonreactive); ~Hepatitis C Antibody Nonreactive (Nonreactive)
[2025-01-27 14:12] LABS: TS Negative Control Passed; TS Panel A 1; TS Panel B 0; TS Positive Control Passed; TSpotTB Negative (Negative)
[2025-01-29 08:06] LABS: Hepatitis A Antibody IgM 0.16 Index (0-0.79); ~Hepatitis A Antibody IgM Nonreactive (Nonreactive)
== END 2025-01-24 10:21 | disposition home or self-care (01) ==
LOC: HO.CHCLDS 10:20
PROVIDERS: Visit Provider Student in an Organized Health Care Education/Training Program
DX: M06.00 Rheumatoid arthritis without rheumatoid factor, unspecified site (principal); Z11.7 Encounter for testing for latent tuberculosis infection; Z11.59 Encounter for screening for other viral diseases
CPT/HCPCS: 36415; 80053; 85025; 85652; 86140; 86481; 86704; 86706; 86709; 86803; 87340

== ENCOUNTER 2025-01-31 10:58 | Outpatient (AMB) | payer OTHER, SELFPAY ==
--- NOTE | 2025-01-31 11:19 | A.OFFVIS_ITS ---
Vital Signs 01/31/25 11:24 Height 5 ft 2 in Weight 199 lb 4.766 oz BMI 36.4 BP 130/82 Blood Pressure Location Lt brachial Position Sitting Respiration 16 Pulse 77 Pulse Source Pulse Oximeter Pulse Oximetry (%) 99 Oxygen Delivery Method Room Air Intake Visit Reasons: RA Intake Note: Patient presents today for RA follow up. Allergies prednisone Adverse Reaction (Mild, Verified 01/31/25 11:24) Stomach Upset Medication List - Last Reconciled 01/31/25 by Cary Kraus MD acetaminophen (Tylenol Extra Strength) 500 mg PO Q6H PRN cholestyramine (with sugar) 4 gram 4 grams PO BID ibuprofen 600 mg PO Q6H PRN levothyroxine (Synthroid) 1 tab PO DAILY losartan 25 mg PO DAILY melatonin 5 mg PO BEDTIME PRN omeprazole 20 mg PO DAILY [thumb spica wear nightly & as much as possible throughout the day] HPI Comments Details: Patient is a 54-year-old female with hypothyroidism, hypertension, GERD and seronegative rheumatoid arthritis here today for follow up Interval History: Patient last seen 10/09/[address] Harvey. At that time she was following up for her rheumatoid arthritis. She had discontinued her methotrexate and completed her right hand MRI. The right hand MRI showed right radioulnar joint effusion consistent with active inflammatory arthritis. Given she did not tolerate methotrexate she was started on Enbrel Patient started the Enbrel but noted dizziness and injection site reactions and so self discontinued the medication Continues to have prolonged AM stiffness with pain involving the hands, elbows and shoulders R>L Rheumatologic History: This is a 53-year-old female who presents for evaluation of diffuse joint pain. The condition started back in 2011. Patient was evaluated by operations administrative assistant Dr. Appiah and there was suspicion for seronegative RA. A prednisone trial was prescribed but patient did not follow-up. She states that since the beginning of 2022 she has been having worsening pain everywhere. She has pain in her hands, knuckles, elbows, shoulders, knees, left jaw, ankles. She gets intermittent swelling of her ankles and hands. Morning stiffness lasting 2 hours. She is unaware of any family history of an autoimmune rheumatic disease. She denies any skin rashes. Denies any fevers or weight loss. Current Rheumatology Medication(s): Enbrel 50mg SC weekly (self discontinued) [facility] Medical History (Updated 01/31/25 @ 11:46 by Cary Kraus MD) Dyspepsia TANIA (iron deficiency anemia) Asthma Shortness of breath Vitamin D deficiency Anxiety Hypothyroid Candidosis of skin HTN (hypertension) Macromastia Surgical History Previous section History of laparoscopic cholecystectomy H/O colonoscopy Family History Other Family history of arthritis Family history of bone cancer Social History Household Members: Spouse Housing: Apartment Are you a primary child care cook to a significant other at home: No Do you presently have visiting nurse or other home services: No Alcohol intake: never Patient Tobacco Use Status: Never used Tobacco Second Hand Smoke Exposure: No service: No 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al status: employed 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 Review of Systems Const Details: Review of Systems Constitutional: Denies fever, chills, weight loss ENT: Denies vision changes, eye pain or eye redness, dental caries, dry mouth GI: Denies nausea, vomiting, diarrhea, abdominal pain, change in BM Pulm: Denies SOB, CRESPO, hemoptysis, wheezing Cards: Denies chest pain, palpitations Skin: Denies Raynaud's, rash, nail changes, photosensitivity, RN MEDICATION: Denies headaches, weakness, paresthesias, recurrent falls MSK: as per HPI All other systems reviewed and are unremarkable except noted above Physical Exam Vital Signs: Last Vital Signs Pulse 77 01/31/25 11:24 Resp 16 01/31/25 11:24 BP 130/82 01/31/25 11:24 Pulse Ox 99 01/31/25 11:24 Oxygen Delivery Method Room Air 01/31/25 11:24 BMI result Body Mass Index 36.4 Vital signs reviewed Physical Examination CONSTITUITIONAL Patient alert and cooperative. Well appearing and in no apparent painful distress HEENT Conjunctiva and sclera clear. ?Pupils equal round and reactive to light. ?No lymphadenopathy. ? CHEST/RESPIRATORY SYSTEM Normal respiratory effort and able to speak in complete sentences. ?Clear to auscultation bilaterally. ?No crackles, rales, rhonchi, wheezes heard. CARDIAC SYSTEM Regular rate and rhythm. ?S1 and S2 heard no murmurs. ?Radial pulses intact bilaterally MSK Hands: ?Able to make a fist bilaterally. No TTP of the MCPs. TTP of the PIPs bilaterally Wrists: ?Full range of motion at the wrists without pain. ?No tenderness to palpation or synovitis noted to the wrists. Elbows: Full range of motion without pain. No tenderness, weakness, swelling, increased warmth or erythema. Shoulders: Decreased active ROM to the right shoulder but full passive ROM with TTP of the subacromial bursa. Full active ROM to the left shoulder. Hips: Full range of motion without pain. Hip bursa: No tenderness to palpation Knees: ?Full range of motion. ?No tenderness, swelling, increased warmth or erythema.?Bilateral crepitations felt Ankles: Full range of motion. ?No tenderness, swelling, increased warmth or erythema.? Feet: ?Negative squeeze test. ?No tenderness to palpation or swelling of the MTPs. Tender points:?No tenderness to palpation of the bilateral trapezius, supraspinatus, greater trochanters, anterior costochondral junctions, bilateral gluteal areas, bilateral suboccipital muscle insertions SKIN Skin intact without rashes. Results Reviewed Results Reviewed: Laboratory Tests 07/19/24 08/27/24 01/24/25 11:35 15:58 10:21 WBC 4.1 L RBC 4.59 Hgb 13.1 Hct 39.3 Plt Count 304 ESR 28 H 16 Sodium 142 Potassium 3.9 Chloride 109 H Carbon Dioxide 27 BUN 11 Creatinine 0.68 AST 28 ALT 21 Alkaline Phosphatase 103 C-Reactive Protein 0.99 H 0.42 25-OH Vitamin D Total 25.7 L Immunology labs 04/21/23 08/23/23 08/23/23 13:16 12:36 Unknown Rheumatoid Factor < 13.0 Cycl Citrul Peptide IgG <16 YANDY Screen NEGATIVE SS-A/Ro Antibody <1.0 NEG SS-B/La Antibody <1.0 NEG Sm (Matthews) Antibody <1.0 NEG SM/BENCH TECHNICIAN IgG Antibody <1.0 NEG Double Strand DNA Ab <1 Complement C3 178 Complement C4 42 MRI Right Hand 09/06/24 There is nonspecific arthropathy at the 1st DIP with dorsal subluxation of the 1st distal phalanx in relation to the 1st proximal phalanx with a joint effusion and mild subchondral bone edema. There is also mild degenerative change noted at the 1st CMC articulation. There is also a fusion at the distal radioulnar joint noted. No significant erosion detected and no significant tenosynovitis is identified Assessment & Plan Assessment & Plan (1) Seronegative rheumatoid arthritis: Comment: -ve RF -ve CCP dx 10/2023 MTX 10/2023 DC 08/2024 ineffective Enbrel: allergic reactions Code(s): M06.00 - Rheumatoid arthritis without rheumatoid factor, unspecified site Category: Medical Plan: #Seronegative rheumatoid arthritis Patient is a 54-year-old female with seronegative rheumatoid arthritis here today for follow up. Patient not able to tolerate Enbrel and so she self discontinued it. She also had allergic reactions to this medication. She is still having moderate to severe rheumatoid arthritis with tender and swollen jelena nts affecting her hands, wrists and shoulders. We will need to change medications we will start Humira Plan - Stop Enbrel - Start Humira 40mg SC every 2 weeks - RTC 4 months - Labs before visit: CBC, CMP, ESR,CRP (2) Encounter for monitoring of adalimumab therapy: Code(s): Z51.81 - Encounter for therapeutic drug level monitoring; Z79.620 - intermediate accountant (current) use of immunosuppressive biologic Plan: #Long-term Use of TNF Inhibitors: Humira Discussed with the patient the benefits and risks of TNF inhibitors for the management of the rheumatic condition Benefits include reduce pain, maintenance of remission and reduction of flares as well as ?progression of the disease Risks include injection sites/infusion reactions, serious infections (such as bacterial infections, opportunistic infections), malignancy, delaminating syndromes, autoimmune phenomena, CHF exacerbations, palmar plantar psoriasis and cytopenias Recommended rotating injection sites, and holding medication during and for up to 1 week after resolution of a febrile illness or open skin wound Plan I spent 32 minutes reviewing the record and labs, taking a history, examining the patient, discussing the treatment plan, ordering diagnostic work up and documenting in the medical record Orders: Orders Complete Blood Count Auto Diff 4 Months M06.00 - Rheumatoid arthritis without rheumatoid factor, unspecified site Erythrocyte Sedimentation Rate 4 Months M06.00 - Rheumatoid arthritis without rheumatoid factor, unspecified site Comprehensive Met. Panel 4 Months M06.00 - Rheumatoid arthritis without rheumatoid factor, unspecified site C Reactive Protein 4 Months M06.00 - Rheumatoid arthritis without rheumatoid factor, unspecified site Medications: New adalimumab (Humira(CF) Pen) 40 mg (0.4 mL) subcut Q2W 2 ea 5RF M06.00 - Rheumatoid arthritis without rheumatoid factor, unspecified site Discontinued etanercept (Enbrel SureClick) Discontinued Reason: Doctor's Order 50 mg subcut QWEEK 4 mL 5RF M06.00 - Rheumatoid arthritis without rheumatoid factor, unspecified site Coding Level of Care Code Est Pt Level 4 (74063) Complex EM visit Add On G2211 Diagnoses Seronegative rheumatoid arthritis M06.00 Encounter for monitoring of adalimumab therapy Z51.81; Z79.620
[2025-01-31 11:24] VITALS: BP 130/82; PULSE 77; RESP 16; O2SAT 99; BMI 36.4
--- OUTSIDE RECORDS SUMMARY | 2025-01-31 13:25 | XMS_ITS | Encounter Summary ---
Author Organization [employer] Address [address] [place] [address] 7 [place] [address] Care Team Providers Care Ramp Flight Attendant Name Role Phone Magui Perez MD Primary Care Provider [phone]- [phone] Enrique Harvey MD Unavailable January Unavailable Manjinder Serrano Unavailable Unavailable Reason for Visit * Reason Onset Date Comments Med Refill 01/17/2025 Encounter Details Date Type Department Care Team (Late st Contact Info) Description 01/17/2025 Refill [facility] MEDICINE [address] [place], [place] [phone] Magui Perez MD [address] [place], [place] [phone] Depression, unspecified depression type Social History Tobacco [...] documented as of this encounter Care Teams Ramp Flight Attendant Relationship Specialty Start Date End Date Magui Perez MD [address] [place] [address] PCP - General Family Medicine 12/14/17 Enrique Harvey MD [address] [place] [address] Rheumatology 10/09/24January [address] 3rd [place] [address] Gastroenterology 10/09/24 Manjinder Serrano [address] [place] [address] Ophthalmology 11/02/24 documented as of this encounter
--- OUTSIDE RECORDS SUMMARY | 2025-01-31 13:25 | XMS_ITS | Encounter Summary ---
Author Organization [facility], Address [address] [place] [address] Phone Care Team Providers Care Hearing Aid Dispenser Name Role Phone Magui Perez MD Primary Care Provider U bettyaildaiana Encounter Details Date Type Department Care Team (Late st Contact Info) Description 03/30/2022 Documentation Only [facility], [address] [place] [address] Magui Perez MD [address] [place] [address] Social History Tobacco Use Types Packs/Day Years [...] on filedocumented in this encounter Care Teams Hearing Aid Dispenser Relationship Specialty Start Date End Date Magui Perez MD PCP - General Family Medicine 03/30/22 documented as of this encounter
--- OUTSIDE RECORDS SUMMARY | 2025-01-31 13:25 | XMS_ITS | Encounter Summary ---
Author Organization [facility], Address [address] [place] [address] Phone Care Team Providers Care Cyber Analyst Name Role Phone Magui Perez MD Primary Care Provider U bettyaildaiana Encounter Details Date Type Department Care Team (Late st Contact Info) Description 04/12/2022 Documentation Only [facility], [address] [place] [address] Magui Perez MD [address] [place] [address] Social History Tobacco Use Types Packs/Day Years [...] on filedocumented in this encounter Care Teams Cyber Analyst Relationship Specialty Start Date End Date Magui Perez MD PCP - General Family Medicine 03/30/22 documented as of this encounter
--- OUTSIDE RECORDS SUMMARY | 2025-01-31 13:25 | XMS_ITS | Encounter Summary ---
Author Organization [facility], Address [address] [place] [address] Phone Care Team Providers Care Ferryboat Pilot Name Role Phone Magui Perez MD Primary Care Provider U malik Encounter Details Date Type Department Care Team (Late st Contact Info) Description 10/28/2023 Documentation Only [facility], [address] [place] [address] [place], [place] [address] [place] [address] Social History Tobacco Use Types [...] on filedocumented in this encounter Care Teams Ferryboat Pilot Relationship Specialty Start Date End Date Magui Perez MD PCP - General Family Medicine 03/30/22 documented as of this encounter
--- OUTSIDE RECORDS SUMMARY | 2025-01-31 13:25 | XMS_ITS | Encounter Summary ---
Author Organization [facility] Address [address] [place] [address] 7 [place] [address] Care Team Providers Care Hub Associate Name Role Phone Magui Perez MD Primary Care Provider +1- [phone] Enrique Harvey MD Unavailable January Unavailable Manjinder Serrano Unavailable Unavailable Reason for Visit * Reason Onset Date Comments Med Refill 04/20/2023 Encounter Details Date Type Department Care Team (Late st Contact Info) Description 04/20/2023 Telephone [facility] MEDICINE [address] [place], [place] [phone] Magui Perez MD [address] [place], [place] [phone] Med Refill Social History Tobacco Use Types [...] Tc from pt requesting medication nystatin (Mycostatin) 833654 UNIT/GM powder to be sent to [facility] pharmacy. documented in this encounter Plan of Treatment Not on file documented as of this encounter Visit Diagnoses Not on filedocumented in this encounter Additional Health Concerns Assessment Noted Time PHQ-9 Depression Total Score: 0 04/20/20 23 10:16 AM EDT documented as of this encounter Care Teams Hub Associate Relationship Specialty Start Date End Date Magui Perez MD [address] [place] [address] PCP - General Family Medicine 12/14/17 Enrique Harvey MD [address] [place] [address] Rheumatology 10/09/24January [address] 3rd [place] [address] Gastroenterology 10/09/24 Manjinder Serrano [address] [place] [address] Ophthalmology 11/02/24 documented as of this encounter
--- OUTSIDE RECORDS SUMMARY | 2025-01-31 13:25 | XMS_ITS | Encounter Summary ---
Author Organization [facility], Address [address] [place] [address] Phone Care Team Providers Care Environmental Health Technologist Name Role Phone Magui Perez MD Primary Care Provider U bettyaildaaina Encounter Details Date Type Department Care Team (Late st Contact Info) Description 03/30/2022 Documentation Only [facility], [address] [place] [address] Magui Perez MD [address] [place] [address] Social History Tobacco Use Types Packs/Day Years [...] on filedocumented in this encounter Care Teams Environmental Health Technologist Relationship Specialty Start Date End Date Magui Perez MD PCP - General Family Medicine 03/30/22 documented as of this encounter
--- OUTSIDE RECORDS SUMMARY | 2025-01-31 13:26 | XMS_ITS | Clinical Summary ---
Author Organization [facility], Address [address] [place] [address] [place] [address] Phone Care Team Providers Care Grinding Room Supervisor Name Role Phone Chris, Magui Steinberg MD [...] 12/03/2021, 08/26/2020, Additional history exists Pneumococcal Vaccine: 50+ Years Completed 3 Pneumococcal Vaccine: Peds ( 0 to 5 Years) and At-Risk Patients (6 to 49 Years) Discontinued 04/20/2023 Insurance Medicaid [place] Care Teams Grinding Room Supervisor Relationship Specialty Start Date End Date [place], Magui Steinberg MD PCP - General Family Medicine 03/30/22
--- OUTSIDE RECORDS SUMMARY | 2025-01-31 13:26 | XMS_ITS | Encounter Summary ---
Author Organization [employer] [facility] Address [address] [facility] 7 [place] [address] Care Team Providers Care Auto Repair Shop Manager Name Role Phone Magui Perez MD Primary Care Provider [phone]- [phone] Enrique Harvey MD Unavailable January Unavailable Manjinder Serrano Unavailable Unavailable Encounter Details Date Type Department Care Team (Late st Contact Info) Description 07/20/2024 Orders Only [facility] MEDICINE [address] [place], [place] [phone] Magui Perez MD [address] [place], [place] [phone] Social History Tobacco Use Types Packs/Day Years [...] documented as of this encounter Care Teams Auto Repair Shop Manager Relationship Specialty Start Date End Date Magui Perez MD [address] [place] [address] PCP - General Family Medicine 12/14/17 Enrique Harvey MD [address] [place] [address] Rheumatology 10/09/24January [address] 3rd [place] [address] Gastroenterology 10/09/24 Manjinder Serrano [address] [place] [address] Ophthalmology 11/02/24 documented as of this encounter
--- OUTSIDE RECORDS SUMMARY | 2025-01-31 13:26 | XMS_ITS | Data Portability ---
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 Procedures Surgical History Date Name Laterality Status Provider Name and Address Organization Details Recorded Time 12/10/2024 FOL_DP completed MICHELLE MORENO MD 100 [facility], [place], [address], [facility] - [facility] 12/06/2024 08:09:31 Imaging Results None [...] Updated DateTime 12/10/2024 157.48 cm 36.6 kg/m2 84195.47 g Brenton Spear [place] - [facility] 12/10/2024 09:18:56 Social History None [...] Emphysema N Migraines N Thyroid Problems Y Developmental Delay N Glaucoma N Depression N COPD N Nasal or Sinus Problems N Anemia Y Immune System Disorder N Anesthesia Complications N Heart Attack ([place]) N Other Skin Condition N Diabetes N Rhinitis N Bleeding Disorder Y Food Allergy N Arthritis Y Hearing Loss N Hyperlipidemia N Cancer N Stroke N Dementia N Nasal polyps N Asthma Y High Cholesterol N Sleep Disorder Y GERD/Reflux Y Liver Disease N Headaches N Fibromyalgia N Hypertension Y Speech Delay N Kidney Disease N Gynecological HistoryNo gynecological history recorded. Obstetrics History GPAL:G 0 P 0 0 0 0 Past Encounters Encounter ID Performer Location Encounter Start Date Encounter Closed Date Diagnosis/Indication Diagnosis SNOMED-CT Code Diagnosis ICD10 Code Diagnosis Note [id number] MICHELLE MORENO MD [facility] [address] [address] 12/10/2024 09:12:12 12/10/2024 09:38:15 Feeling of lump in throat 805887546 R09.89 Bilateral tinnitus 88625 91655 102 H93.13 At the end of the visit patient indicated a secondary concern of bilateral tinnitus that has been present for a long time. Will make arrangemen ts for audiometri c testing at a future appointmen t with physician nurse's assistant Health Concerns Section Related Observation LastModified by Organization Detai ls LastModified Time None Recorded Concern Status LastModified by Organization Details LastModified Time None Recorded Advance Directives Directive None Recorded Payers Encounter Date Sequence Insurance Name Policy Number Policy Estevez Covered Member ID Estevez Member ID Guarantor Name 12/10/2024 1 [place] [facility] Farzana Denis [id number] Farzana Denis Notes Date Note Type Note Provider Name and Address Organization Details Recorded Time 5 text/html globusdysphagia with some solid food and pills get stuck intermittentlocated left neck near larynxonset around 2021+reflux on pepcid+hx of radiation to thyroidno difficulty with liquid or solidhad ba swallow at [facility] in Aug 2024GI consult December to review results. UGI showed inflammation in esophagus and stomachprev using meds for reflux famotidine & omeprazole, now only TUMS as she feels better controlhx of galbladder removal - now on cholestyramine MICHELLE MORENO MD [address] [place] [address], [phone], [place] - [facility] 12/10/2024 09:37:17 OBGyn Episode No OBEpisode recorded.
--- OUTSIDE RECORDS SUMMARY | 2025-01-31 13:26 | XMS_ITS | Encounter Summary ---
Author Organization [facility] [facility] Address [address] [place] [address] 7 [place] [address] Care Team Providers Care Office Bookkeeper Name Role Phone Magui Perez MD Primary Care Provider +1- [phone] Enrique Harvey MD Unavailable January Unavailable Manjinder Serrano Unavailable Unavailable Encounter Details Date Type Department Care Team (Late st Contact Info) Description 10/31/2022 Abstract [facility] MEDICINE [address] [place], [place] [phone] Magui Perez MD [address] [place], [place] [phone] Social History Tobacco Use Types Packs/Day Years [...] L ORDERABLES Final Result Performing Organization Address [facility] Co de Phone Number [facility] [address] [place] [address] [phone] * Pap Smear (10/18/2018 12:00 AM EST) Swab Historical Provider LAB CYTOLOGY ORDERABLES F inal Result Performing Organization Address [facility] Co de Phone Number [facility] [address] [place] [address] [phone] documented in this encounter Visit Diagnoses Not on filedocumented in this encounter Care Teams Office Bookkeeper Relationship Specialty Start Date End Date Chris, MD Magui [address] [place] [address] PCP - General Family Medicine 12/14/17 Enrique Harvey MD [address] [place] [address] Rheumatology 10/09/24January [address] 3rd [place] [address] Gastroenterology 10/09/24 Manjinder Serrano [address] [place] [address] Ophthalmology 11/02/24 documented as of this encounter
--- OUTSIDE RECORDS SUMMARY | 2025-01-31 13:26 | XMS_ITS | Encounter Summary ---
Author Organization [employer] Address [address] [place] [address] 7 [place] [address] Care Team Providers Care Iv Rn Name Role Phone Magui Perez MD Primary Care Provider +1- [phone] Enrique Harvey MD Unavailable January Unavailable Manjinder Serrano Unavailable Unavailable Reason for Visit * Reason Onset Date Comments Med Refill chartprep 07/16/2024 Encounter Details Date Type Department Care Team (Late st Contact Info) Description 07/16/2024 Refill [facility] [address] [place], [place] [phone] Leana To DO 230 [place], [place] [phone] Pain Social History Tobacco Use Types Packs/Day [...] pending and Home sleep test 07/17/24 1:00 [facility] Screenings: colonoscopy done and Mammogram done Overdue care gaps: PHQ-9 and Oral Health documented in this encounter Plan of Treatment Not on file documented as of this encounter Visit Diagnoses Diagnosis Pain Generalized pain documented in this encounter Additional Health Concerns Assessment Noted Time PHQ-9 Depression Total Score: 0 04/20/20 23 10:16 AM EDT documented as of this encounter Care Teams Iv Rn Relationship Specialty Start Date End Date Magui Perez MD [address] [place] [address] PCP - General Family Medicine 12/14/17 Enrique Harvey MD [address] [place] [address] [place] [address] Rheumatology 10/09/24January [address] 3rd [place] [address] Gastroenterology 10/09/24 Manjinder Serrano [address] [place] [address] Ophthalmology 11/02/24 documented as of this encounter
--- OUTSIDE RECORDS SUMMARY | 2025-01-31 13:26 | XMS_ITS | Clinical Summary ---
Author Organization [employer] Address [address] [place] [address] 7t [place] [address] Care Team Providers Care Intervention Teacher Name Role Phone Magui Perez MD Primary Care Provider +1- [phone] Enrique Harvey MD Unavailable January Unavailable Manjinder Serrano Unavailable Unavailable Allergies No known active allergies Medications estradiol (Estrace) 0.1 MG/GM vaginal creamIndications:V aginal atrophy 1 gram cream per vagina nightly for 14 days then 1 gram cream per vagina twice a week, wolof 42.5 g 024 Active baclofen (Lioresal) 10 [...] Overview (10/24/2024): - Seen on 08/31/24 in [facility]. Spots in her body to be checked, developed over yrs. Benign nevus: Benign, R cheek, defer tx. Dermatofibroma: Benign, R thigh. Defer tx Assessment & Plan (10/24/2024 9:52 AM EST): - Seen on 08/31/24 in [facility]. Spots in her [...] week. Folic acid 1 mg daily. Saw [employer] last month in 06/2024. 07/19/24 discussed possibility of menopausal symptoms worsening pain, pt declined any treatment offered. -will trial Diclofenac Gel. -will provide a note that states pt cannot work due to the severity of her disease. -Seen by national investigative producer Dr. Harvey 08/31/24 diagnosed with seronegative RA [...] week. Folic acid 1 mg daily. Saw [employer] last month in 06/2024. 07/19/24 discussed possibility of menopausal symptoms worsening pain, pt declined any treatment offered. -will trial Diclofenac Gel. -will provide a note that states pt cannot work due to the severity of her disease. -Seen by national investigative producer Dr. Harvey 08/31/24 diagnosed with seronegative RA [...] week. Folic acid 1 mg daily. Saw [employer] last month in 06/2024. 07/19/24 discussed possibility [...] by [facility] -dental home is [facility] -health care proxy filed 07/19/24 Assessment & Plan (07/19/2024 10:34 AM EDT): -next physical exam due after 07/19/25 -[facility] -health care proxy given and filed 07/19/24 Assessment & Plan (01/26/2024 11:41 AM EDT): -next physical exam due after 04/20/2024 -eye care facilitated by [facility] -dental home is [facility] Assessment & Plan (04/20/2023 10:45 AM EDT): -next physical exam due after 04/20/2024. -eye care facilitated by [facility] -dental home is Colon cancer screening 04/15/2023 Overview (07/19/2024): -colonocopy normal with Dr. Mathis 06/06/2012 who left the area -referal for [facility] gastro given 04/2023, pt given number for [facility] gastro to call 05/23/2023 -seen by Tanya RAMOSC 11/30/2023 for colonoscopy intake -colonoscopy done 05/2024 with abnormal results. Assessment & Plan (01/26/2024 11:37 AM EDT): -colonocopy normal with Dr. Mathis 06/06/2012 who left the area -referal for [facility] gastro given 04/2023, pt given number for [...] Overview (07/19/2024): Lab Results Component Value Date [id number] 22.4 04/21/2023 -reordered Vit D 07/19/24 Assessment & Plan (07/19/2024 10:50 AM EDT): Lab Results Component Value Date [id number] 22.4 04/21/2023 -reordered Vit D 07/19/24 Assessment & Plan (01/26/2024 11:42 AM EDT): Lab Results Component Value Date [id number] 22.4 04/21/2023 Anxiety 11/15/2013 Hypertension 05/28/2013 Overview [...] 10/24/2024 History of laparoscopic cholecystectomy 06/21/2024 09/04/2024 assisted methotrexate user 06/21/2024 10/24/2024 Upper abdominal pain [...] Team Description 01/17/2025 Refill [facility] [address] [place] [address] Magui Perez MD Depression, unspecified depression type 01/16/2025 Refill [facility] [address] [place] [address] Magui Perez MD Hypothyroidism, unspecified type 01/16/2025 Refill [facility] [address] [place] [address] Magui Perez MD Insomnia, unspecified type 01/10/2025 Refill [facility] [address] [place] [address] [place], [place], [facility] Hypothyroidism, unspecified type 01/09/2025 Telephone [facility] [address] [place] [address] Magui Perez MD Med Refill 01/04/2025 Refill [facility] [address] [place] [address] Magui Perez MD Hypothyroidism, unspecified type 12/28/2024 Population Health Risk Score [facility] () Department [address] [phone] Provider, Population Health Generic 12/23/2024 Refill [facility] [address] [place] [address] Magui Perez MD Insomnia, unspecified type from [...] 11:45 AM EDT) Triglycerides 109 <150 mg/dL [facility] Comment:Desirable Triglyceri de: less than 150 mg/dLBorderline High Triglyceride 150-199 mg/dLHigh Triglyceride: 200-499 mg/dLVery High Triglyceride: greater than or equal to 5OO mg/dL Cholesterol 205(H) <200 mg/dL [facility] Comment:Desirable Cholestero l: less than 200 mg/dLBorderline High Cholesterol: 200-239 mg/dLHigh Cholesterol: greater than 239 mg/dL LDL Cholesterol Calculated 127(H) <100 mg/dL [facility] Comment:Desirable LDL: less than 100 mg/dLNear Optimal/Above Optimal LDL: 110- 129 mg/dLBorderline High LDL: 130-159 mg/dLHigh LDL: 160-189 mg/dLVery High LDL: greater than or equal to 190 mg/dL HDL Cholesterol 57 >40 mg/dL [facility] Comment:Desirable HDL: great er than 40 mg/dL Note: This HDL assay may give artificially low results in patients with liver disease. Blood Venous blood specimen / Unknown 06/21/2024 11:45 AM EDT 06/21/2024 1:30 PM EDT us Leana To DO LAB BLOOD ORDERABLES Final R esult [facility] [address] [place] [address] [phone] * Hm Colonoscopy (06/07/2024) Colonoscopy Normal Normal Comment:with Dasia Guzman MD Historical Provider HEALTH MAINTENANCE Final Result * BI Mammogram Screening Tomosynthesis Bilateral (05/07/2024 11:36 AM EDT) Anatomical Region Laterality Modality Breast Bilateral Mammography 05/07/2024 11:3 6 AM EDT Narrative 05/29/2024 9:40 PM EDT ? [facility] [place] ? [address] ?[place] [address] ? Mammography Report ? Signed ? Patient: Adeel Quintanilla,Vivian ?MR#: ?? [id number] ? : 1970 ?Acct:[id number] ? Age/Sex: 53 / F ?ADM Date: 07/22/24 ? Loc: HO.MAMMO ? Attending Dr: Magui Perez MD ? Ordering Physician: Magui Perez MD ?Results: 1N ?? egative ? Date of Service: 05/07/24 ?Follow Up: 1 Year From Orig ?? inal Mammogram ? Procedure(s): MM tomosynthesis screening BI ?? Accession Number(s): [id number] ? cc: Magui Perez MD ? EXAMINATION: [...] 05/29/242135 ? DD/ 35 ? TD/TT: ? Viscosity Worker: ? Procedure Brian Pelaez - 05/29/2024 [facility] [address] [place], [place] [address] Mammography Report Signed Patient: Farzana Zapien MMR#: [id number] : 1970Acct:[id number] Age/Sex: 53 / FADM Date: 05/07/24 Loc: HO.MAMMO Attending Dr: Magui Perez MD Ordering Physician: Magui Perez MDResults: 1N egative Date of Service: 05/07/24Follow Up: 1 Year From Orig inal Mammogram Procedure(s): MM tomosynthesis screening BI Accession Number(s): [id number] cc: Magui Perez MD EXAMINATION: MM SCREENING [...] in OV> 05/29/24 2136 DD/ 1136 TD/TT: Viscosity Worker: us Magui Perez MD IMG BI PROCEDURES Edited R esult - Final * HPV mRNA E6/E7 w/Reflex to HPV Genotypes 16, 18/45 (01/26/2024 12:00 PM EDT) HPV nRNA E6/E7 Not Detected Not Detected [facility] Comment:Methodology: Transcr iption-Mediated AmplificationThis assay detects E6/E7 viral messenger RNA (mRNA) from 14high-risk HPV types (16,18,31,33,35,39,45,51,52,56,58,59,66,68).Cervical sources are required for HPV testing.If a vaginal source from a patient who has had atotal hysterectomy with removal of cervix wassubmitted, please contact the testing laboratoryfor alternative testing options.For additional information, please refer tohttp://education.PonoMusic/faq/MTQ744b5(This link if provided for information/educational purposes only.)THIS TEST WAS PERFORMED AT:[facility] [place] [phone] ENRIQUEZ MD HPV mRNA E6/E7 [facility] HPV 16 RNA [facility] HPV 18/45 RNA [facility] 01/26/2024 12:0 0 PM EDT 01/31/2024 12:00 PM EDT us Magui Perez MD LAB CYTOLOGY ORDERABLES Fi nal Result [facility] [address] [place] [phone] * Pap Smear (01/26/2024 12:00 PM EDT) 01/26/2024 12:0 0 PM EDT 01/31/2024 12:00 PM EDT Narrative [facility] - 02/13/2024 12:50 PM EDT ----- ------- Name: Farzana Zapien ? Age/Sex: 53/F ? : 1970 Unit#: [id number] ?? Attend Dr: Magui Perez MD ?Re01/26/24 ?Status: DEP REF ? Location: HO.HHCLNP ? Disch: ? ----- ------- SPEC : [id number] ? RECD: 01/31/24-1199 ? STATUS: ??SOUT ? REQ NUM: [id number] ? JAMILAH: 01/26/24-1200 ? SUBM DR: Magui [...] 66, 68) ?? HPV testing performed by [facility], [place], [place]. ??See reference laboratory ?? portion of the EMR for entire report. ?Clinical Information LMP: Postmenopausal Previous PAP test: Unknown date, WNL ? Material Received ?? ThinPrep-Vaginal/Cervical ----- ------- Signed (signature on file) JUSTIN Doe (ASCP) 02/13/24 1250 ? ----- ------- ? END OF REPORT ? us Magui Perez MD LAB CYTOLOGY ORDERABLES Fi nal Result [facility] [address] [place] [address] [phone] * Hepatitis Panel, General (08/23/2023 12:36 PM EST) Hepatitis A IgM Nonreactive Nonreactive [facility] Comment:IgM antibodies to HUANG V not detected; does not exclude earlyacute or recovered HAV infection. ~Hepatitis B Surface Antibody REACTIVE Nonreactive [facility] Comment:REACTIVE: > 11.99 mI U/mL Hepatitis B Core Antibody Nonreactive Nonreactive [facility] Hepatitis C Antibody Nonreactive Nonreactive [facility] Comment:Antibodies to HCV no t detected; does not exclude early acuteHCV infection. Hepatitis B Surface Ag Negative Negative [facility] 08/23/2023 12:3 6 PM EST 08/23/2023 12:36 PM EST us Generic External Data Provider LAB BLOOD ORDERAB LES Final Result Performing Organization Address City/Va Hospital/ZIP Co de Phone Number [facility] [address] [place] [address] [phone] * HIV AB/AG (08/08/2020 11:40 AM [...] detection of this assay. ?? The [employer] Analyst HIV Ag/Ab Combo assay result and supplemental assay results should be interpreted in conjunction with the patient's clinical presentation, history and other laboratory results. ??If the results are inconsistent with clinical evidence, additional testing is suggested to confirm the result. 08/08/2020 11:4 0 AM EDT Magui Perez MD HISTORICAL/NON ORDERABLE L ABS Final Result Performing Organization Address City/Va Hospital/ZIP Co de Phone Number [facility] [address] from Last 3 Months or Most Recently Relevant to Health Maintenance Insurance [facility] C3 HSN [facility]IAL [facility] MEDICAID [facility] Advance Directives Documents on File Type Date Recorded Patient Facility Mechanic Expl anation Advance Directives and Living Will 07/19/2024 Health Care Proxy 07/19/24 Care Teams Intervention Teacher Relationship Specialty Start Date End Date Chris, MD Magui [address] [place] [address] PCP - General Family Medicine 12/14/17 Enrique Harvey MD [address] [place] [address] Rheumatology 10/09/24January [address] 3rd [place] [address] Gastroenterology 10/09/24 Manjinder Serrano [address] [place] [address] Ophthalmology 11/02/24
--- OUTSIDE RECORDS SUMMARY | 2025-01-31 13:26 | XMS_ITS | Encounter Summary ---
Author Organization [employer] Address [address] [facility] 7 [place] [address] Care Team Providers Care Networking Technology Instructor Name Role Phone Magui Perez MD Primary Care Provider +1- [phone] Enrique Harvey MD Unavailable January Unavailable Manjinder Serrano Unavailable Unavailable Reason for Visit * Reason Comments Med Refill Encounter Details Date Type Department Care Team (Late st Contact Info) Description 06/14/2024 Refill [facility] [address] [place], [place] [phone] Farzana Haq MD [address] [place], [place] [phone] Insomnia, unspecified type Social History Tobacco Use [...] documented as of this encounter Care Teams Networking Technology Instructor Relationship Specialty Start Date End Date Magui Perez MD 230 [place] [address] PCP - General Family Medicine 12/14/17 Enrique Harvey MD [address] [place] [address] Rheumatology 10/09/24January [address] 3rd [place] [address] Gastroenterology 10/09/24 Manjinder Serrano [address] [place] [address] Ophthalmology 11/02/24 documented as of this encounter
--- OUTSIDE RECORDS SUMMARY | 2025-01-31 13:26 | XMS_ITS | Encounter Summary ---
Author Organization [employer] Address 75 [facility] 7 [place] [address] Care Team Providers Care Food Runner Name Role Phone Magui Perez MD Primary Care Provider +1- [phone] Enrique Harvey MD Unavailable January Unavailable Manjinder Serrano Unavailable Unavailable Reason for Visit * Reason Comments Med Change Request Encounter Details Date Type Department Care Team (Late st Contact Info) Description 07/30/2024 Refill [facility] 230 [place], [place] [phone] Magui Perez MD 230 [place], [place] [phone] Insomnia, unspecified type Social History Tobacco Use [...] documented as of this encounter Care Teams Food Runner Relationship Specialty Start Date End Date Magui Perez MD [address] [place] [address] PCP - General Family Medicine 12/14/17 Enrique Harvey MD [address] [place] [address] Rheumatology 10/09/24January [address] 3rd [place] [address] Gastroenterology 10/09/24 Manjinder Serrano [address] [place] [address] Ophthalmology 11/02/24 documented as of this encounter
--- OUTSIDE RECORDS SUMMARY | 2025-01-31 13:26 | XMS_ITS | Encounter Summary ---
Author Organization [employer] Address [address] [facility] 7 [place] [address] Care Team Providers Care Airset Caster Name Role Phone Magui Perez MD Primary Care Provider +1- [phone] Enrique Harvey MD Unavailable January Unavailable Manjinder Serrano Unavailable Unavailable Reason for Visit * Reason Onset Date Comments Med Refill 07/03/2024 Encounter Details Date Type Department Care Team (Late st Contact Info) Description 07/03/2024 Refill [facility] 230 [place], [place] [phone] Leana To DO [address] [place], [place] [phone] Social History Tobacco Use Types Packs/Day Years [...] documented as of this encounter Care Teams Airset Caster Relationship Specialty Start Date End Date Magui Perez MD 230 [place] [address] PCP - General Family Medicine 12/14/17 Enrique Harvey MD [address] [place] [address] Rheumatology 10/09/24January [address] 3rd [place] [address] Gastroenterology 10/09/24 Manjinder Serrano [address] [place] [address] Ophthalmology 11/02/24 documented as of this encounter
--- OUTSIDE RECORDS SUMMARY | 2025-01-31 13:26 | XMS_ITS | Encounter Summary ---
Author Organization [employer] Address [address] [facility] 7 [place] [address] Care Team Providers Care Entry Level Manager Name Role Phone Magui Perez MD Primary Care Provider +1- [phone] Enrique Harvey MD Unavailable January Unavailable Manjinder Serrano Unavailable Unavailable Reason for Visit * Reason Onset Date Comments Referral 10/21/2023 Encounter Details Date Type Department Care Team (Late st Contact Info) Description 10/21/2023 Telephone [facility] [address] [place] [address] Magui Perez MD [address] [place] [address] Referral Social History Tobacco Use [...] has not symptoms Please contact pt @ [phone] documented in this encounter Plan of Treatment Not on file documented as of this encounter Visit Diagnoses Diagnosis Routine eye exam Examination of eyes and vision documented in this encounter Additional Health Concerns Assessment Noted Time PHQ-9 Depression Total Score: 0 04/20/20 23 10:16 AM EDT documented as of this encounter Care Teams Entry Level Manager Relationship Specialty Start Date End Date Magui Perez MD [address] [place] [address] PCP - General Family Medicine 12/14/17 Enrique Harvey MD [address] [place] [address] Rheumatology 10/09/24January [address] 3rd [place] [address] Gastroenterology 10/09/24 Manjinder Serrano [address] [place] [address] Ophthalmology 11/02/24 documented as of this encounter
--- OUTSIDE RECORDS SUMMARY | 2025-01-31 13:26 | XMS_ITS | Encounter Summary ---
Author Organization [employer] Address [address] [place] [address] 7 [place] [address] Care Team Providers Care Mental Health Case Manager Name Role Phone Magui Perez MD Primary Care Provider +1- [phone] Enrique Harvey MD Unavailable January Unavailable Manjinder Serrano Unavailable Unavailable Reason for Visit * Reason Onset Date Comments Med Refill 08/06/2024 Encounter Details Date Type Department Care Team (Late st Contact Info) Description 08/06/2024 Telephone [facility] [address] [place], [place] [phone] Magui Perez MD 230 [place], [place] [phone] Med Refill Social History Tobacco Use Types [...] EDT TC placed to pt with a filenet architect in regards to request for an albuterol [...] request a script for a albuterol inhaler science writer does not see medication on chart [...] documented as of this encounter Care Teams Mental Health Case Manager Relationship Specialty Start Date End Date Magui Perez MD [address] [place] [address] PCP - General Family Medicine 12/14/17 Enrique Harvey MD [address] [place] [address] Rheumatology 10/09/24January [address] 3rd [place] [address] Gastroenterology 10/09/24 Manjinder Serrano [address] [place] [address] Ophthalmology 11/02/24 documented as of this encounter
--- OUTSIDE RECORDS SUMMARY | 2025-01-31 13:26 | XMS_ITS | Encounter Summary ---
Author Organization [employer] Address [address] [facility] 7 [place] [address] Care Team Providers Care Family Educator Name Role Phone Magui Perez MD Primary Care Provider +1- [phone] Enrique Harvey MD Unavailable January Unavailable Manjinder Serrano Unavailable Unavailable Encounter Details Date Type Department Care Team (Late st Contact Info) Description 11/21/2023 Orders Only [facility] [address] [place], [place] [phone] Magui Perez MD 230 [place], [place] [phone] Arthralgia, unspecified joint Social History Tobacco Use [...] documented as of this encounter Care Teams Family Educator Relationship Specialty Start Date End Date Magui Perez MD [address] [place] [address] PCP - General Family Medicine 12/14/17 Enrique Harvey MD [address] [place] [address] Rheumatology 10/09/24January [address] 3rd [place] [address] Gastroenterology 10/09/24 Manjinder Serrano [address] [place] [address] Ophthalmology 11/02/24 documented as of this encounter
== END 2025-01-31 12:05 | disposition home or self-care (01) ==
LOC: HO.RHE 10:59
PROVIDERS: PCP Family Medicine; Visit Provider Student in an Organized Health Care Education/Training Program
DX: M06.00 Rheumatoid arthritis without rheumatoid factor, unspecified site (principal); Z51.81 Encounter for therapeutic drug level monitoring; Z79.620 Long term (current) use of immunosuppressive biologic
CPT/HCPCS: 99214; G2211

== ENCOUNTER → 2025-01-31 10:58 | Outpatient (BNVA) | payer MEDICAID, SELFPAY | PROVIDERS: PCP Family Medicine; Visit Provider Student in an Organized Health Care Education/Training Program | DX: M06.00 Rheumatoid arthritis without rheumatoid factor, unspecified site (principal); Z51.81 Encounter for therapeutic drug level monitoring; Z79.620 Long term (current) use of immunosuppressive biologic | CPT/HCPCS: 99212 ==

== ENCOUNTER 2025-02-21 10:17 | Outpatient (AMB) | payer MEDICAID, SELFPAY ==
--- NOTE | 2025-02-21 10:18 | MHC.OFFVIS ---
Vital Signs 02/21/25 10:32 Height 5 ft 2 in Weight 200 lb BMI 36.6 BP 142/74 H Blood Pressure Location Rt brachial Position Sitting Pulse 72 Pulse Source Pulse Oximeter Pulse Oximetry (%) 96 Oxygen Delivery Method Room Air Intake Visit Reasons: 8 months follow up Intake Note: ESTABLISHED PATIENT for mgmt of GERD. Last colo w/ Dr. Guzman 2023. Recent cholecystectomy. CC; Pt denies any GI sx or concerns at this time. Medications are effective in tx of conditions. 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 The procedure was well tolerated. The results were explained and the patient is agreeable to the follow-up interval as stated. The bowel pattern has returned to normal. Education was provided to tell any 1st degree relatives about their findings to be sure that they are screened by age 45. Educated that they will be put on a recall list when it is time for their repeat scope but should they move out of state or away from the hospital they will need to remember along with their primary to repeat the procedure in a timely fashion to avoid any adverse complications. She feels quite well on her cholestyramine and omeprazole. She now has occasional CIC, discussed cutting back to qd yesica until bowels moving better. Biopsies showed healing already, so she likely had bile mediated gastritis/GERD that was well effected by the bile binding agent. ROV 6 mos. Medications: New cholestyramine (with sugar) 4 gram administer w/meal; avoid other meds within 1hr before or 4-6hr after dose 4 grams PO BID 60 ea 6RF K91.5 - Postcholecystectomy syndrome Refilled omeprazole 20 mg PO DAILY 90 caps 1RF BARIUM SWALLOW 07/2024 FINDINGS: Lateral cine images of the oropharynx and hypopharynx demonstrate normal swallow mechanism with normal epiglottic inversion and soft palate elevation. No tracheal penetration, glottic or subglottic aspiration identified. No nasopharyngeal reflux present. Hypopharyngeal structures appear normal without evidence of mass or diverticulum. There was no significant cricopharyngeal achalasia. Dual and single contrast images of the esophagus demonstrate normal caliber, contour, and mucosal pattern. No evidence of stricture, mass, or ulcerations identified. Esophageal peristalsis is mildly disorganized. A small type I hiatal hernia is present. No significant gastroesophageal reflux was seen during the course of the examination and on reflux views. Dual contrast and single contrast images of the stomach demonstrated a normal contour. There are multiple small foci of contrast pooling in the body and fundus of the stomach that may present small superficial mucosal erosions. No masses are seen. Contrast freely passed into the gastric antrum and duodenal bulb without delay. Single and air-contrast images of the duodenal bulb demonstrate no abnormality. The duodenal sweep has a normal appearance, course, and mucosal fold appearance. The imaged proximal jejunum has a normal fold pattern and caliber. FLUOROSCOPY TIME: 4 minutes 9 seconds Number of Spot Images: 5 Number of Cine: 14 DOSE AREA PRODUCT: 2999 uGy-m2 (microgray-meter squared) FL/FL barium swallow with air IMPRESSION: 1. Mildly disorganized esophageal peristalsis. 2. Small type I hiatal hernia. 3. Multiple small foci of contrast pooling in the body and fundus of the stomach that may present small superficial mucosal erosions. Recommend correlation with the recent EGD. 4. No findings in the oropharynx or hypopharynx to explain globus sensation. TODAY'S VISIT We reviewed the barium swallow it it appears she has a disorganized peristalsis. I explained to her what this means and that it could be driven by age or even anxiety and it is rather difficult to treat. I advise her to utilize safe swallowing precautions and eat more slowly and try to relax during meals. She is having intermittent diarrhea and I explained to her that she will have diarrhea if she does not take her cholestyramine as she admits she is not taking it every day. This isn't because of any side effects but because she forgets. We discussed moving the dose to bedtime and she feels that this will help her remember it rather than trying to take it in the morning when she is in a hurry to get out the door. She did not seem to clearly understand the connection between this medication and her diarrhea so that was emphasized. She continues on omeprazole once a day. She may have an element of bile mediated reflux that is also driving the esophageal disorganization because a splashing at the bottom. Hopefully taking cholestyramine every day will help even this out. Return office visit in 6 months [facility] Medical History Dyspepsia TANIA (iron deficiency anemia) Asthma Shortness of breath Vitamin D deficiency Anxiety Hypothyroid Candidosis of skin HTN (hypertension) Macromastia Surgical History Previous section History of laparoscopic cholecystectomy H/O colonoscopy Family History Other Family history of arthritis Family history of bone cancer Social History Household Members: Spouse Housing: Apartment Are you a primary health care liaison to a significant other at home: No Do you presently have visiting nurse or other home services: No Alcohol intake: never Patient Tobacco Use Status: Never used Tobacco Second Hand Smoke Exposure: No service: No 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al status: employed 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 Review of Systems Const Denies fatigue, Denies fever(s), Denies night sweats, Denies poor appetite and Denies weight loss ENT Reports Normal hearing present, Denies dental pain, Reports dysphagia, Denies hearing loss, Denies mouth pain, Denies odynophagia, Denies throat swelling, Denies tongue swelling and Reports other (Dentition adequate) Card Reports no additional complaints Resp Reports no additional complaints GI Details: Denies abdominal pain, Denies melena, Denies bloating, Denies hematochezia, Denies constipation, Denies GI cramping, Reports dysphagia, Denies excessive flatus, Denies early satiety, Reports heartburn, Reports diarrhea, Denies nausea, Denies odynophagia, Denies vomiting and Denies hematemesis Skin/Breast Denies pruritus, Denies lesions, Denies rash and Denies jaundice Neuro Reports Normal hearing present and Denies Abnormal speech present Endo Denies fatigue Aller/Immun Denies throat swelling and Denies tongue swelling Physical Exam Vital Signs: Last Vital Signs Pulse 72 02/21/25 10:32 BP 142/74 H 02/21/25 10:32 Pulse Ox 96 02/21/25 10:32 Oxygen Delivery Method Room Air 02/21/25 10:32 BMI result Body Mass Index 36.6 Const General: cooperative, no acute distress, well developed and well groomed Nutritional Appearance: well nourished, obese and overweight Orientation/consciousness: oriented to person, oriented to place and oriented to time Limitations: No language barrier, ambulation with cane, ambulation with walker and wheelchair HEENT Head: Yes normocephalic and Yes atraumatic Eyes General: appearance normal, both eyes and all related structures Pupils: Equal, round and reactive pupils present Neck Neck: Yes normal visual inspection and Yes no lymphadenopathy Thyroid: Thyroid normal Resp Effort & Inspection: normal respiratory effort and able to speak in complete sentences Auscultation: clear to auscultation bilaterally Cardio Rate: regular rate Rhythm: regular rhythm Heart sounds: Normal, physiologic split S2 sound present Peripheral pulses: radial pulses present and posterior tibial pulses present GI Inspection: No distended, Yes Abdominal panniculus present and Yes obesity Palpation (GI): Soft to palpation, nontender, no guarding, not rigid and No hepatosplenomegaly present Percussion: Yes normal to percussion Auscultation: normal bowel sounds Rectal Exam - Female: deferred Skin General skin exam: no rashes or lesions noted, turgor normal, skin not dry, no jaundice, No spider nevi and no striae Rashes: no rashes Nails: normal Neuro General: oriented to person, oriented to place and oriented to time Cranial nerves: Yes Equal, round and reactive pupils present and Yes Normal hearing present Speech: No Abnormal speech present Extrem General: Yes normal to inspection, No clubbing, No cyanosis and No edema Psych Appearance: grossly normal and well kempt Mental Status: mental status grossly normal Speech and movement: Normal speech and movement present Affect: normal affect Attitude: cooperative Thought process: Normal thought process present and not confabulating Thought content: Normal thought content present Insight: Limited insight present (Psych) Judgement: Limited judgement present (Psych) Assessment & Plan Assessment & Plan (1) GERD (gastroesophageal reflux disease): Comment: Managed with cholestyramine Code(s): K21.9 - Gastro-esophageal reflux disease without esophagitis Category: Medical (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 I explained to her what this means and that it could be driven by age or even anxiety and it is rather difficult to treat. I advise her to utilize safe swallowing precautions and eat more slowly and try to relax during meals. She is having intermittent diarrhea and I explained to her that she will have diarrhea if she does not take her cholestyramine as she admits she is not taking it every day. This isn't because of any side effects but because she forgets. We discussed moving the dose to bedtime and she feels that this will help her remember it rather than trying to take it in the morning when she is in a hurry to get out the door. She did not seem to clearly understand the connection between this medication and her diarrhea so that was emphasized. She continues on omeprazole once a day. She may have an element of bile mediated reflux that is also driving the esophageal disorganization because a splashing at the bottom. Hopefully taking cholestyramine every day will help even this out. Return office visit in 6 months Medications: Refilled omeprazole 20 mg PO DAILY 90 caps 1RF cholestyramine (with sugar) 4 gram administer w/meal; avoid other meds within 1hr before or 4-6hr after dose 4 grams PO BID 60 ea 6RF K91.5 - Postcholecystectomy syndrome Coding Level of Care Code Est Pt Level 3 (09652) Diagnoses GERD (gastroesophageal reflux disease) K21.9 Post-cholecystectomy syndrome K91.5
[2025-02-21 10:32] VITALS: BP 142/74; PULSE 72; O2SAT 96; BMI 36.6
--- OUTSIDE RECORDS SUMMARY | 2025-02-21 11:27 | XMS_ITS | Encounter Summary ---
Author Organization [employer] Address [address] [facility] 7 [place] [address] Care Team Providers Care Business Employment Specialist Name Role Phone Magui Perez MD Primary Care Provider +1- [phone] Enrique Harvey MD Unavailable January Unavailable Manjinder Serrano Unavailable Unavailable Reason for Visit * Reason Onset Date Comments Referral 10/21/2023 Encounter Details Date Type Department Care Team (Late st Contact Info) Description 10/21/2023 Telephone [facility] MEDICINE 230 [place], [place] [phone] Magui Perez MD 230 [place], [place] [phone] Referral Social History Tobacco Use Types Packs/Day [...] Miscellaneous Notes * Telephone Encounter - Jarocho Borja Pablo - 10/21/2023 2:59 PM EST Tc from pt requesting a Referral for [facility] Patient has not symptoms Please contact pt @ [phone] documented in this encounter Plan of Treatment Not on file documented as of this encounter Visit Diagnoses Diagnosis Routine eye exam Examination of eyes and vision documented in this encounter Additional Health Concerns Assessment Noted Time PHQ-9 Depression Total Score: 0 04/20/20 23 10:16 AM EDT documented as of this encounter Care Teams Business Employment Specialist Relationship Specialty Start Date End Date Magui Perez MD [address] [place] [address] PCP - General Family Medicine 12/14/17 Enrique Harvey MD [address] [place] [address] Rheumatology 10/09/24 01/30/25January [address] 3rd [place] [address] Gastroenterology 10/09/24 Manjinder Serrano [address] [place] [address] Ophthalmology 11/02/24 Cary Kraus MD [address] [place] [address] Rheumatology 01/31/25 documented as of this encounter
--- OUTSIDE RECORDS SUMMARY | 2025-02-21 11:27 | XMS_ITS | Encounter Summary ---
Author Organization [facility], Address [address] [place] [address] Phone Care Team Providers Care Prison Guard Supervisor Name Role Phone Magui Perez MD Primary Care Provider U bettyaildaiana Encounter Details Date Type Department Care Team (Late st Contact Info) Description 04/12/2022 Documentation Only [facility], [address] [place] [address] Magui Perez MD 230 [place] [address] Social History Tobacco Use Types Packs/Day Years [...] on filedocumented in this encounter Care Teams Prison Guard Supervisor Relationship Specialty Start Date End Date Magui Perez MD PCP - General Family Medicine 03/30/22 documented as of this encounter
--- OUTSIDE RECORDS SUMMARY | 2025-02-21 11:27 | XMS_ITS | Encounter Summary ---
Author Organization [facility], Address [address] [place] [address] Phone Care Team Providers Care Primary Care Md Name Role Phone Magui Perez MD Primary Care Provider U bettyaildaiana Encounter Details Date Type Department Care Team (Late st Contact Info) Description 03/30/2022 Documentation Only [facility], [address] [place] [address] Magui Perez MD 230 [place] [address] Social History Tobacco Use Types Packs/Day Years [...] on filedocumented in this encounter Care Teams Primary Care Md Relationship Specialty Start Date End Date Magui Perez MD PCP - General Family Medicine 03/30/22 documented as of this encounter
--- OUTSIDE RECORDS SUMMARY | 2025-02-21 11:27 | XMS_ITS | Encounter Summary ---
Author Organization [employer] Address [address] [facility] 7 [place] [address] Care Team Providers Care Wire Frame Maker Name Role Phone Magui Perez MD Primary Care Provider +1- [phone] Enrique Harvey MD Unavailable January Unavailable Manjinder Serrano Unavailable Unavailable Reason for Visit * Reason Comments Med Change Request Encounter Details Date Type Department Care Team ([facility] st Contact Info) Description 07/30/2024 Refill [facility]INE 230 [place], [place] [phone] Magui Perez MD 230 [place], [place] [phone] Insomnia, unspecified type Social History Tobacco Use [...] documented as of this encounter Care Teams Wire Frame Maker Relationship Specialty Start Date End Date Magui Perez MD [address] [place] [address] PCP - General Family Medicine 12/14/17 Enrique Harvey MD [address] [place] [address] Rheumatology 10/09/24 01/30/25January [address] 3rd [place] [address] Gastroenterology 10/09/24 Manjinder Serrano [address] [place] [address] Ophthalmology 11/02/24 Cary Kraus MD [address] [place] [address] Drive [address] [place] [address] Rheumatology 01/31/25 documented as of this encounter
--- OUTSIDE RECORDS SUMMARY | 2025-02-21 11:27 | XMS_ITS | Encounter Summary ---
Author Organization [employer] Address [address] [place] [address] 7 [place] [address] Care Team Providers Care Dispatcher Tow Truck Name Role Phone Magui Perez MD Primary Care Provider +1- [phone] Enrique Harvey MD Unavailable January Unavailable Manjinder Serrano Unavailable Unavailable Reason for Visit * Reason Onset Date Comments Med Refill chartprep 07/16/2024 Encounter Details Date Type Department Care Team (Late st Contact Info) Description 07/16/2024 Refill [facility] MEDICINE 230 [place], [place] [phone] Leana To DO 230 [place], [place] [phone] Pain Social History Tobacco Use Types Packs/Day [...] pending and Home sleep test 07/17/24 1:00 [facility] Screenings: colonoscopy done and Mammogram done Overdue care gaps: PHQ-9 and Oral Health documented in this encounter Plan of Treatment Not on file documented as of this encounter Visit Diagnoses Diagnosis Pain Generalized pain documented in this encounter Additional Health Concerns Assessment Noted Time PHQ-9 Depression Total Score: 0 04/20/20 23 10:16 AM EDT documented as of this encounter Care Teams Dispatcher Tow Truck Relationship Specialty Start Date End Date Magui Perez MD [address] [place] [address] PCP - General Family Medicine 12/14/17 Enrique Harvey MD [address] [place] [address] [place] [address] Rheumatology 10/09/24 01/30/[address] 3rd [place] [address] Gastroenterology 10/09/24 Manjinder Serrano [address] [place] [address] Ophthalmology 11/02/24 Cary Kraus MD [address] [place] [address] Rheumatology 01/31/25 documented as of this encounter
--- OUTSIDE RECORDS SUMMARY | 2025-02-21 11:27 | XMS_ITS | Clinical Summary ---
Author Organization [facility], Address [address] [place] [address] [place] [address] Phone Care Team Providers Care Psychiatric Clinical Nurse Specialist Name Role Phone [place], Magui Steinberg MD Primary Care Provider U [...] to 49 Years) Discontinued 04/20/2023 Insurance Medicaid [place] Care Teams Psychiatric Clinical Nurse Specialist Relationship Specialty Start Date End Date [place], Magui Steinberg MD PCP - General Family Medicine 03/30/22
--- OUTSIDE RECORDS SUMMARY | 2025-02-21 11:27 | XMS_ITS | Encounter Summary ---
Author Organization [employer] Address [address] [place] [address] 7 [place] [address] Care Team Providers Care Media Consultant Outside Sales Name Role Phone Magui Perez MD Primary Care Provider +1- [phone] Enrique Harvey MD Unavailable January Unavailable Manjinder Serrano Unavailable Unavailable Reason for Visit * Reason Onset Date Comments Med Refill 01/17/2025 Encounter Details Date Type Department Care Team (Late st Contact Info) Description 01/17/2025 Refill [facility] MEDICINE 230 [place], [place] [phone] Magui Perez MD 230 [place], [place] [phone] Depression, unspecified depression type Social History Tobacco [...] documented as of this encounter Care Teams Media Consultant Outside Sales Relationship Specialty Start Date End Date Magui Perez MD [address] [place] [address] PCP - General Family Medicine 12/14/17 Enrique Harvey MD [address] [place] [address] Rheumatology 10/09/24 01/30/25January [address] 3rd [place] [address] Gastroenterology 10/09/24 Manjinder Serrano [address] [place] [address] Ophthalmology 11/02/24 Cary Kraus MD [address] [place] [address] [address] [place] [phone] Rheumatology 01/31/25 documented as of this encounter
--- OUTSIDE RECORDS SUMMARY | 2025-02-21 11:27 | XMS_ITS | Encounter Summary ---
Author Organization [employer] Address [address] [place] [address] 7 [place] [address] Care Team Providers Care Tow Driver Name Role Phone Magui Perez MD Primary Care Provider +1- [phone] Enrique Harvey MD Unavailable January Unavailable Manjinder Serrano Unavailable Unavailable Reason for Visit * Reason Onset Date Comments Med Refill 08/06/2024 Encounter Details Date Type Department Care Team (Late st Contact Info) Description 08/06/2024 Telephone [facility] MEDICINE 230 [place], [place] [phone] Magui Perez MD 230 [place], [place] [phone] Med Refill Social History Tobacco Use Types [...] EDT TC placed to pt with a bioinformatics associate in regards to request for an albuterol [...] request a script for a albuterol inhaler conventional mortgage underwriter does not see medication on chart and [...] documented as of this encounter Care Teams Tow Driver Relationship Specialty Start Date End Date Magui Perez MD 230 [place] [address] PCP - General Family Medicine 12/14/17 Enrique Harvey MD [address] [place] [address] Rheumatology 10/09/24 01/30/25January [address] 3rd [place] [address] Gastroenterology 10/09/24 Manjinder Serrano 180 [place] [address] Ophthalmology 11/02/24 Cary Kraus MD [address] [place] [address] Rheumatology 01/31/25 documented as of this encounter
--- OUTSIDE RECORDS SUMMARY | 2025-02-21 11:27 | XMS_ITS | Encounter Summary ---
Author Organization [employer] Address [address] [facility] 7 [place] [address] Care Team Providers Care Plate Furnace Operator Name Role Phone Magui Perez MD Primary Care Provider +1- [phone] Enrique Harvey MD Unavailable January Unavailable Manjinder Serrano Unavailable Unavailable Encounter Details Date Type Department Care Team (Late st Contact Info) Description 11/21/2023 Orders Only [facility] MEDICINE 230 [place], [place] [phone] Magui Perez MD 230 [place], [place] [phone] Arthralgia, unspecified joint Social History Tobacco Use [...] documented as of this encounter Care Teams Plate Furnace Operator Relationship Specialty Start Date End Date Magui Perez MD [address] [place] [address] PCP - General Family Medicine 12/14/17 Enrique Harvey MD [address] [place] [address] Rheumatology 10/09/24 01/30/25January [address] 3rd [place] [address] Gastroenterology 10/09/24 Manjinder Serrano [address] [place] [address] Ophthalmology 11/02/24 Cary Kraus MD [address] [place] [address] Rheumatology 01/31/25 documented as of this encounter
--- OUTSIDE RECORDS SUMMARY | 2025-02-21 11:27 | XMS_ITS | Encounter Summary ---
Author Organization [employer] Address [address] [place] [address] 7 [place] [address] Care Team Providers Care Compounding Assistant Name Role Phone Magui Perez MD Primary Care Provider +1- [phone] Enrique Harvey MD Unavailable January Unavailable Manjinder Serrano Unavailable Unavailable Encounter Details Date Type Department Care Team (Late st Contact Info) Description 07/20/2024 Orders Only [facility] MEDICINE 230 [place], [place] [phone] Magui Perez MD 230 [place], [place] [phone] Social History Tobacco Use Types Packs/Day Years [...] documented as of this encounter Care Teams Compounding Assistant Relationship Specialty Start Date End Date Magui Perez MD [address] [place] [address] PCP - General Family Medicine 12/14/17 Enrique Harvey MD [address] [place] [address] Rheumatology 10/09/24 01/30/25January [address] 3rd [place] [address] Gastroenterology 10/09/24 Manjinder Serrano [address] [place] [address] Ophthalmology 11/02/24 Cary Kraus MD [address] [facility] [address] [place] [address] Rheumatology 01/31/25 documented as of this encounter
--- OUTSIDE RECORDS SUMMARY | 2025-02-21 11:27 | XMS_ITS | Encounter Summary ---
Author Organization [facility], Address [address] [place] [address] Phone Care Team Providers Care Prawn Trawler Hand Name Role Phone Magui Perez MD Primary Care Provider U bettyaildaiana Encounter Details Date Type Department Care Team (Late st Contact Info) Description 03/30/2022 Documentation Only [facility], [address] [place] [address] Magui Perez MD [address] [place] [address] Social History Tobacco Use Types Packs/Day Years [...] on filedocumented in this encounter Care Teams Prawn Trawler Hand Relationship Specialty Start Date End Date Magui Perez MD PCP - General Family Medicine 03/30/22 documented as of this encounter
--- OUTSIDE RECORDS SUMMARY | 2025-02-21 11:27 | XMS_ITS | Encounter Summary ---
Author Organization [employer] Address [address] [place] [address] [place] [address] Care Team Providers Care Mounting Inspector Name Role Phone Magui Perez MD Primary Care Provider +1- [phone] Enrique Harvey MD Unavailable January Unavailable Manjinder Serrano Unavailable Unavailable Reason for Visit * Reason Onset Date Comments Med Refill 04/20/2023 Encounter Details Date Type Department Care Team (Late st Contact Info) Description 04/20/2023 Telephone [facility] MEDICINE [address] [place], [place] [phone] Magui Perez MD [address] [place], [place] [phone] Med Refill Social History Tobacco Use Types [...] Tc from pt requesting medication nystatin (Mycostatin) [id number] UNIT/GM powder to be sent to [facility] pharmacy. documented in this encounter Plan of Treatment Not on file documented as of this encounter Visit Diagnoses Not on filedocumented in this encounter Additional Health Concerns Assessment Noted Time PHQ-9 Depression Total Score: 0 04/20/20 23 10:16 AM EDT documented as of this encounter Care Teams Mounting Inspector Relationship Specialty Start Date End Date Magui Perez MD [address] [place] [address] PCP - General Family Medicine 12/14/17 Enrique Harvey MD [address] [place] [address] Rheumatology 10/09/24 01/30/25January [address] 3rd [place] [address] Gastroenterology 10/09/24 Manjinder Serrano [address] [place] [address] Ophthalmology 11/02/24 Cary Kraus MD [address] [place] [address] Rheumatology 01/31/25 documented as of this encounter
--- OUTSIDE RECORDS SUMMARY | 2025-02-21 11:27 | XMS_ITS | Encounter Summary ---
Author Organization [employer] Address [address] [facility] 7 [place] [address] Care Team Providers Care Armament Repairer Name Role Phone Magui Perez MD Primary Care Provider +1- [phone] Enrique Harvey MD Unavailable January Unavailable Manjinder Serrano Unavailable Unavailable Reason for Visit * Reason Onset Date Comments Med Refill 07/03/2024 Encounter Details Date Type Department Care Team (Late st Contact Info) Description 07/03/2024 Refill [facility] 230 [place], [place] [phone] Leana To DO 230 [place], [place] [phone] Social History Tobacco Use Types Packs/Day Years [...] documented as of this encounter Care Teams Armament Repairer Relationship Specialty Start Date End Date Magui Perez MD [address] [place] [address] PCP - General Family Medicine 12/14/17 Enrique Harvey MD [address] [place] [address] Rheumatology 10/09/24 01/30/25January [address] 3rd [place] [address] Gastroenterology 10/09/24 Manjinder Serrano [address] [place] [address] Ophthalmology 11/02/24 Cary Kraus MD [address] [place] [address] Rheumatology 01/31/25 documented as of this encounter
--- OUTSIDE RECORDS SUMMARY | 2025-02-21 11:27 | XMS_ITS | Encounter Summary ---
Author Organization [facility], Address [address] [place] [address] Phone Care Team Providers Care Occup Therapist Name Role Phone Magui Perez MD Primary Care Provider U malik Encounter Details Date Type Department Care Team (Late st Contact Info) Description 10/28/2023 Documentation Only [facility], [address] [place] [address] [place], [place] [address] [place] [address] Social History Tobacco Use Types [...] on filedocumented in this encounter Care Teams Occup Therapist Relationship Specialty Start Date End Date Magui Perez MD PCP - General Family Medicine 03/30/22 documented as of this encounter
--- OUTSIDE RECORDS SUMMARY | 2025-02-21 11:27 | XMS_ITS | Clinical Summary ---
Author Organization [employer] Address [address] [place] [address] 7 [place] [address] Care Team Providers Care Brush Finisher Name Role Phone Magui Perez MD Primary Care Provider +1- [phone] January Unavailable Manjinder Serrano Unavailable Unavailable Allergies No known active allergies Medications estradiol (Estrace) 0.1 MG/GM vaginal creamIndications:Va ginal atrophy 1 gram cream per vagina nightly for 14 days then 1 gram cream per vagina twice a week, vietnamese 42.5 g 11 01/26/20 24 Active baclofen (Lioresal) 10 MG tabletIndications:P ain TAKE 1 TABLET BY MOUTH IN THE MORNING, AT NOON AND AT BEDTIME IF NEEDED FOR MUSCLE SPASMS 60 tablet 1 07/03/20 24 Active cholecalciferol (Vitamin D-3) 50 MCG (1999 UT) capsuleIndications: Vitamin D deficiency Take 1 capsule (50 mcg) by mouth Once per day. 30 capsule 11 07/19/20 24 Active cholestyramine (Questran) 4 g packetIndications:H istory of cholecystectomy Take 2 packets (8 g) by mouth with breakfast and with evening meal. 60 each 3 07/19/20 24 Active Diclofenac Sodium 1 % gelIndications:Sero negative rheumatoid arthritis (CMS/HCC) Apply 2 g topically if needed in the morning, at noon, in the evening, and at bedtime (pain). 150 g 1 07/19/20 24 Active fluticasone (Flonase) 50 MCG/ACT nasal sprayIndications:Se asonal allergies Administer 2 sprays into each nostril Once per day. Shake gently. Before first use, prime pump. After use, clean tip and replace cap. 16 g 3 07/19/20 24 025 Active loratadine (Claritin) 10 MG tabletIndications:S easonal allergies Take 1 tablet (10 mg) by mouth Once per day. 30 tablet 3 07/19/20 24 025 Active losartan (Cozaar) 25 MG tabletIndications:P rimary hypertension Take 1 tablet (25 mg) by mouth Once per day. 90 tablet 3 07/19/20 24 Active omeprazole (PriLOSEC) [address] capsuleIndications: Gastroesophageal reflux disease, unspecified whether esophagitis present Take 1 capsule (20 mg) by mouth before breakfast. Do not crush or chew. 30 capsule 3 07/19/20 24 025 Active DULoxetine (Cymbalta) [address] capsuleIndications: Depression, unspecified depression type Take 1 tab po daily Do not crush or chew. 90 capsule 3 07/19/20 24 Active Ventolin HFA 108 (90 Base) MCG/ACT inhalerIndications: Mild intermittent asthma without complication INHALE 2 PUFFS EVERY 4 HOURS IF NEEDED FOR WHEEZING. 18 g 1 08/30/20 24 Active methotrexate 2.5 MG tabletIndications:S eronegative rheumatoid arthritis (CMS/HCC) Take by mouth. Follow directions carefully, and ask to explain any part you do not understand. Take exactly as directed. Active folic acid (Folvite) 1 MG tabletIndications:S eronegative rheumatoid arthritis (CMS/HCC) Take by mouth Once per day. Active terbinafine (LamISIL AT) 1 % creamIndications:Ti blessing pedis of right foot Apply topically 2 times daily. 12 g 1 10/24/19 25 Active melatonin 5 MG tabletIndications:I nsomnia, unspecified type TAKE 1 TABLET BY MOUTH DAILY AT BEDTIME NEEDED FOR SLEEP. 90 tablet 01/18/20 25 Active levothyroxine (Synthroid, Levoxyl) 50 MCG tabletIndications:H ypothyroidism, unspecified type TAKE 1 TABLET BY MOUTH EVERY DAY BEFORE BREAKFAST 90 tablet 01/18/20 25 Active Active Problems Problem Noted Date Diagnosed [...] Overview (10/24/2024): - Seen on 08/31/24 in [facility] for Benign nevus. Spots in her body to be checked, developed over yrs. Benign nevus: Benign, R cheek, defer tx. Dermatofibroma: Benign, R thigh. Defer tx Assessment & Plan (10/24/2024 9:52 AM EST): - Seen on 08/31/24 in [facility] for Benign nevus. Spots in her [...] Obesity 04/20/2023 Seronegative rheumatoid arthritis 04/20/2023 Overview (01/31/2025): Pt reports multiple areas or arthralgia with [...] week. Folic acid 1 mg daily. Saw [facility] Spinner last month in 06/2024. 07/19/24 discussed possibility of menopausal symptoms worsening pain, pt declined any treatment offered. -will trial Diclofenac Gel. -will provide a note that states pt cannot work due to the severity of her disease. -Seen by marriage counselor minister Dr. Harvey 08/31/24 diagnosed with seronegative RA [...] folic acid (Folvite) 1 MG tablet 10/24/24 -seronegative rheumatoid arthritis here today for follow up. -rheumatology note from Cary Kraus, MDPatient not able to tolerate Enbrel and so she self discontinued it. She also had allergic reactions to this medication. She is still having moderate to severe rheumatoid arthritis with tender and swollen joints affecting her hands, wrists and shoulders. We will need to change medications we will start Humira Plan - Stop Enbrel - Start Humira 40mg SC every 2 weeks - RTC 4 months - Labs before visit: CBC, CMP, ESR,CRP Assessment & Plan (10/24/2024 10:38 AM EST): [...] week. Folic acid 1 mg daily. Saw [facility] Spinner last month in 06/2024. 07/19/24 discussed possibility of menopausal symptoms worsening pain, pt declined any treatment offered. -will trial Diclofenac Gel. -will provide a note that states pt cannot work due to the severity of her disease. -Seen by marriage counselor minister Dr. Harvey 08/31/24 diagnosed with seronegative RA [...] week. Folic acid 1 mg daily. Saw Thread Spinner last month in 06/2024. 07/19/24 discussed possibility [...] [facility] -dental home is [facility] -health care proxy filed 07/19/24 Assessment & Plan (07/19/2024 10:34 AM EDT): -next physical exam due after 07/19/25 -eye care facilitated by [facility] -dental home is [facility] -health care proxy given and filed 07/19/24 Assessment & Plan (01/26/2024 11:41 AM EDT): -next physical exam due after 04/20/2024 -eye care facilitated by [facility] -dental home is [facility] Assessment & Plan (04/20/2023 10:45 AM EDT): -next physical exam due after 04/20/2024. -eye care facilitated by [facility] -dental home is Colon cancer screening 04/15/2023 Overview (07/19/2024): -colonocopy normal with Dr. Mathis 06/06/2012 who left the area -referal for [facility] gastro given 04/2023, pt given number for [facility] gastro to call 05/23/2023 -seen by Tanya Landers ANP-C 11/30/2023 for colonoscopy intake -colonoscopy done 05/2024 with abnormal results. Assessment & Plan (01/26/2024 11:37 AM EDT): -colonocopy normal with Dr. Mathis 06/06/2012 who left the area -referal for [facility] gastro given 04/2023, pt given number for [facility] gastro to call 05/23/2023 -seen by Tanya Landers ANP-C 11/30/2023 for colonoscopy intake Assessment & Plan [...] Overview (07/19/2024): Lab Results Component Value Date [id number] 22.4 04/21/2023 -reordered Vit D 07/19/24 Assessment & Plan (07/19/2024 10:50 AM EDT): Lab Results Component Value Date [id number] 22.4 04/21/2023 -reordered Vit D 07/19/24 Assessment & Plan (01/26/2024 11:42 AM EDT): Lab Results Component Value Date [id number] 22.4 04/21/2023 Anxiety 11/15/2013 Hypertension 05/28/2013 Overview [...] 10/24/2024 History of laparoscopic cholecystectomy 06/21/2024 09/04/2024 snf methotrexate user 06/21/2024 10/24/2024 Upper abdominal pain [...] Type Department Care Team Description 01/17/2025 Refill [facility] [address] [place] [address] Magui Perez MD Depression, unspecified depression type 01/16/2025 Refill [facility] [address] [place] [address] Magui Perez MD Hypothyroidism, unspecified type 01/16/2025 Refill [facility] [address] [place] [address] Magui Perez MD Insomnia, unspecified type 01/10/2025 Refill [facility] [address] [place] [address] [facility] Hypothyroidism, unspecified type 01/09/2025 Telephone [facility] [address] [place] [address] Magui Perez MD Med Refill 01/04/2025 Refill [facility] [address] [place] [address] Magui Perez MD Hypothyroidism, unspecified type 12/28/2024 Population Health Risk Score [facility] () Department [address] [place] [phone] Provider, Population Health Generic 12/23/2024 Refill [facility] [address] [place] [address] Magui Perez MD Insomnia, unspecified type from [...] 06/28 Dental X-Ray: Full Mouth 06/29/2017 06/28/2014 Influenza Vaccine (#1) 2025 , 12/03/2021, 08/26/2020, [...] 11:45 AM EDT) Triglycerides 109 <150 mg/dL [facility] Comment:Desirable Triglyceri de: less than 150 mg/dLBorderline High Triglyceride 150-199 mg/dLHigh Triglyceride: 200-499 mg/dLVery High Triglyceride: greater than or equal to 5OO mg/dL Cholesterol 205(H) <200 mg/dL [facility] Comment:Desirable Cholestero l: less than 200 mg/dLBorderline High Cholesterol: 200-239 mg/dLHigh Cholesterol: greater than 239 mg/dL LDL Cholesterol Calculated 127(H) <100 mg/dL [facility] Comment:Desirable LDL: less than 100 mg/dLNear Optimal/Above Optimal LDL: 110- 129 mg/dLBorderline High LDL: 130-159 mg/dLHigh LDL: 160-189 mg/dLVery High LDL: greater than or equal to 190 mg/dL HDL Cholesterol 57 >40 mg/dL [facility] Comment:Desirable HDL: great er than 40 mg/dL Note: This HDL assay may give artificially low results in patients with liver disease. Blood Venous blood specimen / Unknown 06/21/2024 11:45 AM EDT 06/21/2024 1:30 PM EDT us Leana To DO LAB BLOOD ORDERABLES Final R esult [facility] [address] [place] [address] [phone] * Hm Colonoscopy (06/07/2024) Colonoscopy Normal Normal Comment:with Dasia Guzman MD Historical Provider HEALTH MAINTENANCE Final Result * BI Mammogram Screening Tomosynthesis Bilateral (05/07/2024 11:36 AM EDT) Anatomical Region Laterality Modality Breast Bilateral Mammography 05/07/2024 11:3 6 AM EDT Narrative 05/29/2024 9:40 PM EDT ? [facility] ? [address] ?[place] [address] ? Mammography Report ? Signed ? Patient: Farzana Zapien ?MR#: ?? [id number] ? : 1970 ?Acct:[id number] ? Age/Sex: 53 / F ?ADM Date: 05/07/ ? Loc: HO.MAMMO ? Attending Dr: Magui Perez MD ? Ordering Physician: Magui Perez MD ?Results: 1N ?? egative ? Date of Service: 05/07/ ?Follow Up: 1 Year From Orig ?? inal Mammogram ? Procedure(s): MM tomosynthesis screening BI ?? Accession Number(s): [id number] ? cc: Magui Perez MD ? EXAMINATION: [...] by Rosy Palm MD in OV> ? 05/29/246 ? DD/ 1136 ? TD/TT: ? Graphic Pre Press Trades Worker: ? Procedure Note Donrobbieter, Image - 05/29/2024 [facility] [address] [place] [address] [place] [address] Mammography Report Signed Patient: Farzana Zapien MMR#: [id number] : 1970Acct:[id number] Age/Sex: 53 / FADM Date: 05/07/24 Loc: [facility] Attending Dr: Magui Perez MD Ordering Physician: Magui Perezesults: 1N egative Date of Service: 05/07/24Follow Up: 1 Year From Orig ina Mammogram Procedure(s): MM tomosynthesis screening BI Accession Number(s): [id number] cc: Magui Perez MD EXAMINATION: MM SCREENING [...] signed by Rosy Palm MD in OV> 05/29/246 DD/ 1136 TD/TT: Graphic Pre Press Trades Worker: Magui Perez MD [facility] BI PROCEDURES Edited R esult - Final * HPV mRNA E6/E7 w/Reflex to HPV Genotypes 16, 18/45 (01/26/2024 12:00 PM EDT) HPV nRNA E6/E7 Not Detected Not Detected [facility] Comment:Methodology: Transcr iption-Mediated AmplificationThis assay detects E6/E7 viral messenger RNA (mRNA) from 14high-risk HPV types (16,18,31,33,35,39,45,51,52,56,58,59,66,68).Cervical sources are required for HPV testing.If a vaginal source from a patient who has had atotal hysterectomy with removal of cervix wassubmitted, please contact the testing laboratoryfor alternative testing options.For additional information, please refer tohttp://education.questdiagnostics.com/faq/QOG731b0(This link if provided for information/educational purposes only.)THIS TEST WAS PERFORMED AT:[facility] [place] [phone] ENRIQUEZ MD HPV mRNA E6/E7 TNP [facility] HPV 16 RNA TNP [facility] HPV 18/45 RNA TNP [facility] 01/26/2024 12:0 0 PM EDT 01/31/2024 12:00 PM EDT us Magui Perez MD LAB CYTOLOGY ORDERABLES Fi nal Result [facility] [address] [place] [address] [phone] * Pap Smear (01/26/2024 12:00 PM EDT) 01/26/2024 12:0 0 PM EDT 01/31/2024 12:00 PM EDT Narrative [facility] - 02/13/2024 12:50 PM EDT ----- ------- Name: Farzana Zapien ? Age/Sex: 53/F ? : 1970 Unit#: [id number] ?? Attend Dr: Magui Perez MD ?Re01/26/24 ?Status: DEP REF ? Location: HO.HHCLNP ? Disch: ? ----- ------- SPEC : [id number] ? RECD: 01/31/24-1199 ? STATUS: ??SOUT ? REQ NUM: [id number] ? JAMILAH: 01/26/24-1199 ? SUBM DR: Magui Perez MD ? [...] 66, 68) ?? HPV testing performed by [facility], [place], [place]. ??See reference laboratory ?? portion of the EMR for entire report. ?Clinical Information LMP: Postmenopausal Previous PAP test: Unknown date, WNL ? Material Received ?? ThinPrep-Vaginal/Cervical ----- ------- Signed (signature on file) JUSTIN Doe (ASCP) 02/13/24 1250 ? ----- ------- ? END OF REPORT ? us Magui Perez MD LAB CYTOLOGY ORDERABLES Fi nal Result [facility] [address] [place] [phone] * Hepatitis Panel, General (08/23/2023 12:36 PM EST) Hepatitis A IgM Nonreactive Nonreactive [facility] Comment:IgM antibodies to HUANG V not detected; does not exclude earlyacute or recovered HAV infection. ~Hepatitis B Surface Antibody REACTIVE Nonreactive [facility] Comment:REACTIVE: > 11.99 mI U/mL Hepatitis B Core Antibody Nonreactive Nonreactive [facility] Hepatitis C Antibody Nonreactive Nonreactive [facility] Comment:Antibodies to HCV no t detected; does not exclude early acuteHCV infection. Hepatitis B Surface Ag Negative Negative [facility] 08/23/2023 12:3 6 PM EST 08/23/2023 12:36 PM EST us Generic External Data Provider LAB BLOOD ORDERAB LES Final Result Performing Organization Address [facility]/State/ZIP Co de Phone Number [facility] [address] [place] [address] [phone] * HIV AB/AG (08/08/2020 11:40 AM EDT) [facility] HIV AB/AG Nonreactive Nonreactive [facility] [...] detection of this assay. ?? [facility] [address] HIV Ag/Ab Combo assay result and supplemental assay results should be interpreted in conjunction with the patient's clinical presentation, history and other laboratory results. ??If the results are inconsistent with clinical evidence, additional testing is suggested to confirm the result. 08/08/2020 11:4 0 AM EDT us Magui Perez MD HISTORICAL/NON ORDERABLE L ABS Final Result Performing Organization Address City/[facility] Co de Phone Number [facility] [address] from Last 3 Months or Most Recently Relevant to Health Maintenance Insurance [facility] C3 HSN PARTIAL DENTAL-[facility] MEDICAID STAND ADULT JUNIOR DENTAL [facility] Advance Directives Documents on File Type Date Recorded Patient Employee Relations Representative Expl anation Advance Directives and Living Will 07/19/2024 Health Care Proxy 07/19/24 Care Teams Brush Finisher Relationship Specialty Start Date End Date Ida, MD Magui [address] [place] [address] PCP - General Family Medicine 12/14/17January [address] 3rd [place] [address] Gastroenterology 10/09/24 Manjinder Serrano [address] [place] [address] Ophthalmology 11/02/24 Cary Kraus MD [address] [place] [address] Rheumatology 01/31/25
--- OUTSIDE RECORDS SUMMARY | 2025-02-21 11:27 | XMS_ITS | Encounter Summary ---
Author Organization [employer] Address [address] [place] [address] 7 [place] [address] Care Team Providers Care Diving Supervisor Name Role Phone Magui Perez MD Primary Care Provider +1- [phone] Enrique Harvey MD Unavailable January Unavailable Manjinder Serrano Unavailable Unavailable Encounter Details Date Type Department Care Team (Late st Contact Info) Description 10/31/2022 Abstract [facility] [address] [place], [place] [phone] Magui Perez MD [address] [place], [place] [phone] Social History Tobacco Use Types Packs/Day Years [...] L ORDERABLES Final Result Performing Organization Address [facility]/ZIP Co de Phone Number [facility] [address] [place] [address] [phone] * Pap Smear (10/18/2018 12:00 AM EST) Swab Historical Provider MD LAB CYTOLOGY ORDERABLES F inal Result Performing Organization Address [facility] Co de Phone Number [facility] [address] [place] [address] [phone] documented in this encounter Visit Diagnoses Not on filedocumented in this encounter Care Teams Diving Supervisor Relationship Specialty Start Date End Date Magui Perez MD [address] [place] [address] PCP - General Family Medicine 12/14/17 Enrique Harvey MD [address] [place] [address] Rheumatology 10/09/24 01/30/25January [address]rd [place] [address] Gastroenterology 10/09/24 Manjinder Serrano [address] [place] [address] Ophthalmology 11/02/24 Cary Kraus MD [address] [place] [address] Rheumatology 01/31/25 documented as of this encounter
--- OUTSIDE RECORDS SUMMARY | 2025-02-21 11:27 | XMS_ITS | Data Portability ---
Author Organization [place] - [facility], Allergy Address [address] [place] [phone] Assessment Encounter Date Assessment Date Assessment LastModified [...] Encouraged her to continue work with her automatic lathe operator as she likely has repeat upper endoscopy [...] Recorded Time Feeling of lump in throat [id number] Active 2024 MICHELLE MORENO MD [address], [address], [place] - [facility] 09:35:32 Bilateral tinnitus [id number] Active 2024 MICHELLE MORENO MD 100 [facility] 100, [place], [address], [facility] - [facility] 09:35:37 Problem Notes None recorded. Procedures Surgical History Date Name Laterality Status Provider Name and Address Organization Details Recorded Time 12/10/2024 FOL_DP completed MICHELLE MORENO MD 100 [facility] 100, [place], [address], [facility] - [facility] 12/06/2024 08:09:31 Imaging Results None recorded. [...] Updated DateTime 12/10/2024 157.48 cm 36.6 kg/m2 79576.47 g Brenton Spear [place] - [facility] 12/10/2024 09:18:56 Social History None recorded. [...] N Thyroid Problems Y Developmental Delay N Depression N COPD N Glaucoma N Nasal or Sinus Problems N Anemia Y Immune System Disorder N Anesthesia Complications N Heart Attack (CO) N Other Skin Condition N Diabetes N [...] SNOMED-CT Code Diagnosis ICD10 Code Diagnosis Note [id number] MICHELLE MORENO MD [facility] [address] [address] 12/10/2024 09:12:12 12/10/2024 09:38:15 Feeling of lump in throat [id number] R09.89 Bilateral tinnitus 79844 [address]7551 102 H93.13 At the end of the visit patient indicated a secondary concern of bilateral tinnitus that has been present for a long time. Will make arrangemen ts for audiometri c testing at a future appointmen t with physician offset press assistant Health Concerns Section Related Observation LastModified by Organization Detai ls LastModified Time None Recorded Concern Status LastModified by Organization Details LastModified Time None Recorded Advance Directives Directive None Recorded Payers Insurance Date Sequence Insurance Name Policy Number Policy Estevez Covered Member ID Estevez Member ID Guarantor Name 12/10/2024 1 [place] [facility] Farzana Denis [id number] Farzana Denis Notes Date Note Type Note Provider Name and Address Organization Details Recorded Time 5 text/html globusdysphagia with some solid food and pills get stuck intermittentlocated left neck near larynxonset around 2021+reflux on pepcid+hx of radiation to thyroidno difficulty with liquid or solidhad ba swallow at [place] in Aug 2024[place] consult December to review results. UGI showed inflammation in esophagus and stomachprev using meds for reflux famotidine & omeprazole, now only TUMS as she feels better controlhx of galbladder removal - now on cholestyramine MICHELLE MORENO MD [address] [place] [address], [address], [place] - [facility] 12/10/2024 09:37:17 OBGyn Episode No OBEpisode recorded.
--- OUTSIDE RECORDS SUMMARY | 2025-02-21 11:27 | XMS_ITS | Encounter Summary ---
Author Organization [employer] Address 75 [facility] 7 [place] [address] Care Team Providers Care Land Law Examiner Name Role Phone Magui Perez MD Primary Care Provider +1- [phone] Enrique Harvey MD Unavailable January Unavailable Manjinder Serrano Unavailable Unavailable Reason for Visit * Reason Comments Med Refill Encounter Details Date Type Department Care Team (Late st Contact Info) Description 06/14/2024 Refill [facility] MED[facility] 230 [place], [place] [phone] Farzana Haq MD 230 [place], [place] [phone] Insomnia, unspecified type Social History Tobacco Use [...] documented as of this encounter Care Teams Land Law Examiner Relationship Specialty Start Date End Date Magui Perez MD [address] [place] [address] PCP - General Family Medicine 12/14/17 Enrique Harvey MD [address] [place] [address] Rheumatology 10/09/24 01/30/25January [address] 3rd [place] [address] Gastroenterology 10/09/24 Manjinder Serrano 180 [place] [address] Ophthalmology 11/02/24 Cary Kraus MD [address] [place] [address] Rheumatology 01/31/25 documented as of this encounter
== END 2025-02-21 11:00 | disposition home or self-care (01) ==
LOC: HO.HGI 10:17
PROVIDERS: PCP Family Medicine; Visit Provider Nurse Practitioner
DX: K21.9 Gastro-esophageal reflux disease without esophagitis (principal); K91.5 Postcholecystectomy syndrome
CPT/HCPCS: 99213

== ENCOUNTER → 2025-02-21 10:17 | Outpatient (BNVA) | payer MEDICAID, SELFPAY | PROVIDERS: PCP Family Medicine; Visit Provider Nurse Practitioner | DX: K21.9 Gastro-esophageal reflux disease without esophagitis (principal); K91.5 Postcholecystectomy syndrome; K92.89 Other specified diseases of the digestive system | CPT/HCPCS: 99212 ==

== ENCOUNTER 2025-05-29 11:51 | Outpatient (REF) | payer MEDICAID, SELFPAY ==
[2025-05-29 12:02] LABS: MANUAL DIFF FLAG NO
[2025-05-29 12:33] LABS: Hematocrit 39.1 % (37.0-47.0); Hemoglobin 12.9 g/dl (12.0-16.0); Imm Gran Abs Auto 0.00 X10*3/uL (0.00-0.03); Imm Gran Pct Auto 0.0 % (0.0-0.4); Lymphocytes Absolute Auto 1.6 X10*3/uL (1.2-4.9); Mean Corpuscular HGB Conc 33.0 g/dl (31.0-35.0); Mean Corpuscular Hemoglobin 28.1 pg (27.0-33.0); Mean Corpuscular Volume 85.2 fL (80.0-98.0); NRBC Abs Auto 0.000 X10*3/uL (0.0-0.012); NRBC Pct Auto 0.0 /100WBC (0.0-0.2); Platelet Count 281 X10*3/uL (160-400); Red Blood Count 4.59 X10*6/uL (4.20-5.50); White Blood Count 4.4 X10*3/uL (4.8-10.8)
--- OUTSIDE RECORDS SUMMARY | 2025-05-29 12:43 | XMS_ITS | Encounter Summary ---
Author Organization [facility], Address [address] [place] [address] Phone Care Team Providers Care Jacquard Loom Heddles Tier Name Role Phone Magui Perez MD Primary Care Provider U bettyaildaiana Encounter Details Date Type Department Care Team (Late st Contact Info) Description 03/30/2022 Documentation Only [facility], [address] [place] [address] Magui Perez MD 230 [place] [address] Social History Tobacco Use Types Packs/Day Years [...] on filedocumented in this encounter Care Teams Jacquard Loom Heddles Tier Relationship Specialty Start Date End Date Magui Perez MD PCP - General Family Medicine 03/30/22 documented as of this encounter
--- OUTSIDE RECORDS SUMMARY | 2025-05-29 12:43 | XMS_ITS | Encounter Summary ---
Author Organization [employer] Address [address] [place] [address] [place] [address] Care Team Providers Care Automatic Wheel Line Operator Name Role Phone Magui Perez MD Primary Care Provider +1- [phone] Enrique Harvey MD Unavailable January Unavailable Manjinder Serrano Unavailable Unavailable Reason for Visit * Reason Onset Date Comments Med Refill 01/17/2025 Encounter Details Date Type Department Care Team (Late st Contact Info) Description 01/17/2025 Refill [facility] MED[facility]INE 230 [place], [place] [phone] Magui Perez MD 230 [place], [place] [phone] Depression, unspecified depression type Social History Tobacco [...] documented as of this encounter Care Teams Automatic Wheel Line Operator Relationship Specialty Start Date End Date Magui Perez MD [address] [place] [address] PCP - General Family Medicine 12/14/17 Enrique Harvey MD [address] [place] [address] Rheumatology 10/09/24 01/30/25January [address] 3rd [place] [address] Gastroenterology 10/09/24 Manjinder Serrano 180 [place] [address] Ophthalmology 11/02/24 Cary Kraus MD [address] [place] [address] [address] [place] [address] Rheumatology 01/31/25 documented as of this encounter
--- OUTSIDE RECORDS SUMMARY | 2025-05-29 12:43 | XMS_ITS | Patient Health Record ---
Author Organization [facility] Address [address] [place] [address] Care Team Providers Care Industrial Machinery Mechanic Name Role Phone Buddy Valadez Unavailable [phone] Reason For Referral No Information Plan Of Treatment No Information
[2025-05-29 12:59] LABS: Alanine Aminotransferase 25 U/L (0-31); Albumin Level 4.3 g/dL (3.5-5.0); Alkaline Phosphatase 103 U/L (39-117); Anion Gap 10 (12-20); Aspartate Amino Transferase 29 U/L (5-31); Blood Urea Nitrogen 15 mg/dL (9-16); Calcium 9.4 mg/dL (8.4-10.2); Carbon Dioxide 29 mmol/L (22-29); Chloride 108 mmol/L (96-108); Estimated Glomerular Filt Rate > 60; Potassium 4.2 mmol/L (3.3-5.1); Sodium 143 mmol/L (135-145); Total Protein 7.5 g/dL (6.5-8.0)
== END 2025-05-29 11:52 | disposition home or self-care (01) ==
LOC: HO.LAB 11:51
PROVIDERS: Visit Provider Student in an Organized Health Care Education/Training Program
DX: M06.00 Rheumatoid arthritis without rheumatoid factor, unspecified site (principal)
CPT/HCPCS: 36415; 80053; 85025; 85652; 86140

== ENCOUNTER 2025-06-04 13:30 | Outpatient (REF) | payer MEDICAID, SELFPAY ==
--- NOTE | 2025-06-04 | PFT_ITS ---
Indication: Dyspnea Spirometry FEV1 to FVC 88%; FEV1 1.81 L; FVC 2.12 L. No significant response to bronchodilators noted. Lung Volumes Total lung capacity 68% predicted; residual volume 73% predicted; expiratory reserve volume 30% predicted Diffusion Capacity DLCO 91% predicted Comparisons None Interpretation No obstructive ventilatory defects. No significant response to bronchodilators noted. The patient does have a restrictive ventilatory defect consistent with uegh-cl-qxrodybv restrictive lung disease. Need to consider underlying parenchymal lung conditions and or neuromuscular conditions. Although the patient also has an elevated BMI that may be affecting her lung expansion. The patient is diffusing capacity is within normal limits. Clinical correlation warranted. MTDD
[2025-06-04 14:38] VITALS: PULSE 63; O2SAT 99
--- OUTSIDE RECORDS SUMMARY | 2025-06-04 14:45 | XMS_ITS | Patient Health Record ---
Author Organization [facility] Address [address] [place] [address] Care Team Providers Care Concrete Stone Fabricator Name Role Phone Buddy Valadez Unavailable [phone] Reason For Referral No Information Plan Of Treatment No Information
--- OUTSIDE RECORDS SUMMARY | 2025-06-04 14:45 | XMS_ITS | Encounter Summary ---
Author Organization [employer] Address [address] [place] [address] [place] [address] Care Team Providers Care Farm Planner Name Role Phone Magui Perez MD Primary Care Provider +1- [phone] Enrique Harvey MD Unavailable January Unavailable Manjinder Serrano Unavailable Unavailable Reason for Visit * Reason Onset Date Comments Med Refill 01/17/2025 Encounter Details Date Type Department Care Team (Late st Contact Info) Description 01/17/2025 Refill [facility] MEDICINE 230 [place], [place] [phone] Magui Perez MD 230 [place], [place] [phone] Depression, unspecified depression type Social History Tobacco [...] documented as of this encounter Care Teams Farm Planner Relationship Specialty Start Date End Date Magui Perez MD [address] [place] [address] PCP - General Family Medicine 12/14/17 Enrique Harvey MD [address] [place] [address] Rheumatology 10/09/24 01/30/25January [address] 3rd [place] [address] Gastroenterology 10/09/24 Manjinder Serrano 180 [place] [address] Ophthalmology 11/02/24 Cary Kraus MD [address] [place] [address] [address] [place] [address] Rheumatology 01/31/25 documented as of this encounter
--- OUTSIDE RECORDS SUMMARY | 2025-06-04 14:45 | XMS_ITS | Encounter Summary ---
Author Organization [facility], Address [address] [place] [address] Phone Care Team Providers Care Fan Mail Clerk Name Role Phone Magui Perez MD Primary Care Provider U bettyaildaiana Encounter Details Date Type Department Care Team (Late st Contact Info) Description 03/30/2022 Documentation Only [facility], [address] [place] [address] Magui Perez MD 230 [place] [address] Social History Tobacco Use Types Packs/Day Years [...] on filedocumented in this encounter Care Teams Fan Mail Clerk Relationship Specialty Start Date End Date Magui Perez MD PCP - General Family Medicine 03/30/22 documented as of this encounter
== END 2025-06-04 13:31 | disposition home or self-care (01) ==
LOC: HO.RESP 13:30
PROVIDERS: PCP Family Medicine; Visit Provider Family Medicine
DX: J45.30 Mild persistent asthma, uncomplicated (principal)
CPT/HCPCS: 94010; 94640; 94727; 94729

== ENCOUNTER → 2025-06-04 13:59 | Outpatient (BNV) | payer MEDICAID, SELFPAY | PROVIDERS: PCP Family Medicine; Visit Provider Hospitalist | DX: J98.4 Other disorders of lung (principal) | CPT/HCPCS: 94060; 94727; 94729 ==

== ENCOUNTER 2025-06-05 10:16 | Outpatient (AMB) | payer MEDICAID, SELFPAY ==
--- NOTE | 2025-06-05 10:19 | A.OFFVIS_ITS ---
Vital Signs 06/05/25 10:27 Height 5 ft 2 in Weight 202 lb 9.677 oz BMI 37.1 BP 142/90 H Blood Pressure Location Lt brachial Position Sitting Pulse 63 Pulse Source Pulse Oximeter Pulse Oximetry (%) 98 Oxygen Delivery Method Room Air Intake Visit Reasons: 4 months f/u Intake Note: Patient presents for RA follow. Allergies prednisone Adverse Reaction (Mild, Verified 06/05/25 10:26) Stomach Upset Medication List - Last Reconciled 06/05/25 by Cary Kraus MD acetaminophen (Tylenol Extra Strength) 500 mg PO Q6H PRN adalimumab (Humira(CF) Pen) 40 mg (0.4 mL) subcut Q2W cholecalciferol (vitamin D3) (Vitamin D3) 50 mcg PO DAILY cholestyramine (with sugar) 4 gram 4 grams PO BID duloxetine mg PO DAILY ibuprofen 600 mg PO Q6H PRN levothyroxine (Synthroid) 1 tab PO DAILY losartan 25 mg PO DAILY melatonin 5 mg PO BEDTIME PRN omeprazole 20 mg PO DAILY [thumb spica wear nightly & as much as possible throughout the day] HPI Comments Details: Patient is a 55-year-old female with hypothyroidism, hypertension, GERD and seronegative rheumatoid arthritis here today for follow up Interval History: Patient last seen 01/31/25 with va - On Enbrel 50mg SC (self discontinued) - Continued to have prolonged AM stiffness with pain involving the hands, elbows and shoulders R>L - Started Humira Today - On Humira 40mg SC every 2 week - No improvement on the Humira - Continues to have joint stiffness and joint pain Rheumatologic History: Seronegative RA 09/2024 Right hand MRI showed right radioulnar joint effusion consistent with active inflammatory arthritis Methotrexate 09/2024 Enbrel - no improvement Humira 01/2024 - 05/2025 not effective This is a 53-year-old female who presents for evaluation of diffuse joint pain. The condition started back in 2011. Patient was evaluated by restaurant district manager Dr. Appiah and there was suspicion for seronegative RA. A prednisone trial was prescribed but patient did not follow-up. She states that since the beginning of 2022 she has been having worsening pain everywhere. She has pain in her hands, knuckles, elbows, shoulders, knees, left jaw, ankles. She gets intermittent swelling of her ankles and hands. Morning stiffness lasting 2 hours. She is unaware of any family history of an autoimmune rheumatic disease. She denies any skin rashes. Denies any fevers or weight loss. Current Rheumatology Medication(s): Humira 40mg SC every 2 weeks [facility] Medical History Dyspepsia TANIA (iron deficiency anemia) Asthma Shortness of breath Vitamin D deficiency Anxiety Hypothyroid Candidosis of skin HTN (hypertension) Macromastia Surgical History Previous section History of laparoscopic cholecystectomy H/O colonoscopy Family History Other Family history of arthritis Family history of bone cancer Social History Household Members: Spouse Housing: Apartment Are you a primary care transitions manager to a significant other at home: No Do you presently have visiting nurse or other home services: No Alcohol intake: never Patient Tobacco Use Status: Never used Tobacco Second Hand Smoke Exposure: No service: No 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al status: employed 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 Review of Systems Const Details: Review of Systems Constitutional: Denies fever, chills, weight loss ENT: Denies vision changes, eye pain or eye redness, dental caries, dry mouth GI: Denies nausea, vomiting, diarrhea, abdominal pain, change in BM Pulm: Denies SOB, CRESPO, hemoptysis, wheezing Cards: Denies chest pain, palpitations Skin: Denies Raynaud's, rash, nail changes, photosensitivity, PRODUCT MANAGER [employer]: Denies headaches, weakness, paresthesias, recurrent falls MSK: as per HPI All other systems reviewed and are unremarkable except noted above Physical Exam Exam Exam: Vital signs reviewed Physical Examination CONSTITUITIONAL Patient alert and cooperative. Well appearing and in no apparent painful distress MSK Hands * Right Hand: Able to make a fist. No swelling * Left Hand: Able to make a fist. No swelling * TTP of the MCPs and PIPs Wrists * Right Wrist: Full ROM. 70 degrees of wrist flexion, 80 degrees of wrist extension. No swelling * Left Wrist: Full ROM. 70 degrees of wrist flexion, 80 degrees of wrist extension. No swelling * TTP bilaterally Elbows * Right Elbow: Full ROM. No swelling or TTP. No TTP of the medial and lateral epicondyles * Left Elbow: Full ROM. No swelling or TTP. No TTP of the medial and lateral epicondyles Shoulders * Right shoulder: Full ROM. No swelling noted. No TTP of the AC joint, subacromial bursa or posterior shoulder * Left shoulder: Full ROM. No swelling noted. No TTP of the AC joint, subacromial bursa or posterior shoulder Knees * Right knee: Full ROM. No swelling noted. No TTP of the knee joint lie or pes anserine bursa * Left knee: Full ROM. No swelling noted. No TTP of the knee joint lie or pes anserine bursa. Ankles * Right ankle: Good ankle dorsiflexion and plantar flexion. No swelling. No TTP of the ankle joint * Left ankle: Good ankle dorsiflexion and plantar flexion. No swelling. No TTP of the ankle joint Feet * Right foot: Negative squeeze test * Left foot: Negative squeeze test Tender points? * No tenderness to palpation of the bilateral trapezius, supraspinatus, anterior costochondral junctions, bilateral suboccipital muscle insertions SKIN No rashes Vital Signs: Last Vital Signs Pulse 63 06/05/25 10:27 BP 142/90 H 06/05/25 10:27 Pulse Ox 98 06/05/25 10:27 Oxygen Delivery Method Room Air 06/05/25 10:27 BMI result Body Mass Index 37.1 Results Reviewed Results Reviewed: Laboratory Tests 01/24/25 05/29/25 10:21 12:00 WBC 4.4 L RBC 4.59 Hgb 12.9 Hct 39.1 Plt Count 281 ESR 16 23 H Sodium 143 Potassium 4.2 Chloride 108 Carbon Dioxide 29 BUN 15 Creatinine 0.67 AST 29 ALT 25 C-Reactive Protein 0.42 0.52 H Hepatitis A IgM Ab Nonreactive Hep Bs Antigen Negative Hep Bs Antibody REACTIVE Hep B Core Total Ab Nonreactive Hepatitis C Ab (EIA) Nonreactive TB Test (T-Spot) Com Negative Laboratory Tests 04/21/23 08/23/23 08/23/23 13:16 12:36 Unknown Rheumatoid Factor < 13.0 Cycl Citrul Peptide IgG <16 YANDY Screen NEGATIVE SS-A/Ro Antibody <1.0 NEG SS-B/La Antibody <1.0 NEG Sm (Matthews) Antibody <1.0 NEG SM/LIME SLAKER IgG Antibody <1.0 NEG Double Strand DNA Ab <1 Complement C3 178 Complement C4 42 Assessment & Plan Assessment & Plan (1) Seronegative rheumatoid arthritis: Comment: -ve RF -ve CCP dx 10/2023 MTX 10/2023 DC 08/2024 ineffective Enbrel: allergic reactions Humira - not effective Code(s): M06.00 - Rheumatoid arthritis without rheumatoid factor, unspecified site Category: Medical Plan: #Seronegative rheumatoid arthritis Patient is a 55-year-old female with seronegative rheumatoid arthritis here today for follow up. Patient with . She still having moderate to severe rheumatoid arthritis with tender and swollen joints affecting her hands, wrists and shoulders despite Humira monotherapy. We will need to change medications: start actemra Plan - Stop Humira - Actemra 162mg SC every 2 weeks - CT chest High Res due to restrictive disease on PFTs - RTC 4 months - Labs before visit: CBC, CMP, ESR,CRP, lipid panel (2) Encounter for monitoring tocilizumab therapy: Code(s): Z51.81 - Encounter for therapeutic drug level monitoring; Z79.620 - ferry terminal supervisor (current) use of immunosuppressive biologic Plan: #Long-term Use of IL 6 Inhibitors: Tocilizumab/Sarilumab Discussed the risks and benefits of IL6 inhibitors with the management of this patient's rheumatic condition. Benefits include decreased pain, improved mortality, improved quality of life Risks include LFT abnormalities, elevated triglycerides, GI perforations Contraindicated in a patient with history of diverticulitis Monitoring: CBC, CMP, triglycerides Plan I spent 32 minutes reviewing the record and labs, taking a history, examining the patient, discussing the treatment plan, ordering diagnostic work up and documenting in the medical record Orders: Orders CT chest wo con - High Res Today J98.4 - Other disorders of lung, M06.00 - Rheumatoid arthritis without rheumatoid factor, unspecified site Medications: New tocilizumab (Actemra) 162 mg (0.9 mL) subcut Q2W 1.8 mL 5RF M06.00 - Rheumatoid arthritis without rheumatoid factor, unspecified site Discontinued adalimumab (Humira(CF) Pen) Discontinued Reason: Doctor's Order 40 mg (0.4 mL) subcut Q2W 2 ea 5RF M06.00 - Rheumatoid arthritis without rheumatoid factor, unspecified site Coding Level of Care Code Est Pt Level 4 (08704) Complex EM visit Add On G2211 Diagnoses Seronegative rheumatoid arthritis M06.00 Encounter for monitoring tocilizumab therapy Z51.81; Z79.620
[2025-06-05 10:27] VITALS: BP 142/90; PULSE 63; O2SAT 98; BMI 37.1
--- OUTSIDE RECORDS SUMMARY | 2025-06-05 11:29 | XMS_ITS | Encounter Summary ---
Author Organization [employer] Address [address] [place] [address] [place] [address] Care Team Providers Care Optical Glass Etcher Name Role Phone Magui Perez MD Primary Care Provider +1- [phone] Enrique Harvey MD Unavailable January Unavailable Manjinder Serrano Unavailable Unavailable Reason for Visit * Reason Onset Date Comments Med Refill 01/17/2025 Encounter Details Date Type Department Care Team (Late st Contact Info) Description 01/17/2025 Refill [facility] MED[facility]INE 230 [place], [place] [phone] Magui Perez MD 230 [place], [place] [phone] Depression, unspecified depression type Social History Tobacco [...] documented as of this encounter Care Teams Optical Glass Etcher Relationship Specialty Start Date End Date Magui Perez MD [address] [place] [address] PCP - General Family Medicine 12/14/17 Enrique Harvey MD [address] [place] [address] Rheumatology 10/09/24 01/30/25January [address] 3rd [place] [address] Gastroenterology 10/09/24 Manjinder Serrano 180 [place] [address] Ophthalmology 11/02/24 Cary Kraus MD [address] [place] [address] Drive [address] [place] [address] Rheumatology 01/31/25 documented as of this encounter
--- OUTSIDE RECORDS SUMMARY | 2025-06-05 11:29 | XMS_ITS | Patient Health Record ---
Author Organization [facility] Address [address] [place] [address] Care Team Providers Care Inspector Dials Name Role Phone Buddy Valadez Unavailable [phone] Reason For Referral No Information Plan Of Treatment No Information
--- OUTSIDE RECORDS SUMMARY | 2025-06-05 11:29 | XMS_ITS | Encounter Summary ---
Author Organization [facility], Address [address] [place] [address] Phone Care Team Providers Care Hot Billet Shear Operator Name Role Phone Magui Perez MD Primary Care Provider U bettyaildaiana Encounter Details Date Type Department Care Team (Late st Contact Info) Description 03/30/2022 Documentation Only [facility], [address] [place] [address] Magui Perez MD [address] [place] [address] Social History Tobacco Use Types Packs/Day Years [...] on filedocumented in this encounter Care Teams Hot Billet Shear Operator Relationship Specialty Start Date End Date Magui Perez MD PCP - General Family Medicine 03/30/22 documented as of this encounter
== END 2025-06-05 10:53 | disposition home or self-care (01) ==
LOC: HO.RHES 10:17
PROVIDERS: PCP Family Medicine; Visit Provider Student in an Organized Health Care Education/Training Program
DX: M06.00 Rheumatoid arthritis without rheumatoid factor, unspecified site (principal); Z51.81 Encounter for therapeutic drug level monitoring; Z79.620 Long term (current) use of immunosuppressive biologic
CPT/HCPCS: 99214

== ENCOUNTER → 2025-06-05 10:16 | Outpatient (BNVA) | payer MEDICAID, SELFPAY | PROVIDERS: Visit Provider Student in an Organized Health Care Education/Training Program | DX: M06.00 Rheumatoid arthritis without rheumatoid factor, unspecified site (principal); Z51.81 Encounter for therapeutic drug level monitoring; Z79.620 Long term (current) use of immunosuppressive biologic | CPT/HCPCS: 99212 ==

== ENCOUNTER 2025-06-08 10:13 | Outpatient (REF) | payer MEDICAID, SELFPAY ==
--- NOTE | ~2025-06-08 | XR_ITS ---
EXAMINATION: XR CHEST CLINICAL INFORMATION: MILD PERSISTENT ASTHMA WITHOUT COMPLICATIONS,NOCTURNAL WHEEZING COMPARISON: None available. TECHNIQUE: 2 views of the chest were obtained. FINDINGS: No significant abnormality is noted involving the heart, lungs, mediastinum, bony thorax or soft tissues. XR/XR chest 2V IMPRESSION: Unremarkable chest examination. Electronically signed by: Jose Jones MD 06/10/2025 07:15 AM EDT RP
--- OUTSIDE RECORDS SUMMARY | 2025-06-08 10:16 | XMS_ITS | Patient Health Record ---
Author Organization [facility] Address [address] [place] [address] Care Team Providers Care Energy Assistant Name Role Phone Buddy Valadez Unavailable [phone] Reason For Referral No Information Plan Of Treatment No Information
--- OUTSIDE RECORDS SUMMARY | 2025-06-08 10:16 | XMS_ITS | Encounter Summary ---
Author Organization [facility], Address [address] [place] [address] Phone Care Team Providers Care Kaiawhina Kohanga Reo Name Role Phone Magui Perez MD Primary Care Provider U bettyaildaiana Encounter Details Date Type Department Care Team (Late st Contact Info) Description 03/30/2022 Documentation Only [facility], [address] [place] [address] Magui Perez MD 230 [place] [address] Social History Tobacco Use Types Packs/Day Years [...] on filedocumented in this encounter Care Teams Kaiawhina Kohanga Reo Relationship Specialty Start Date End Date Magui Perez MD PCP - General Family Medicine 03/30/22 documented as of this encounter
--- OUTSIDE RECORDS SUMMARY | 2025-06-08 10:16 | XMS_ITS | Encounter Summary ---
Author Organization [employer] Address [address] [place] [address] [place] [address] Care Team Providers Care Career Development Counselor Name Role Phone Magui Perez MD Primary Care Provider +1- [phone] Enrique Harvey MD Unavailable January Unavailable Manjinder Serrano Unavailable Unavailable Reason for Visit * Reason Onset Date Comments Med Refill 01/17/2025 Encounter Details Date Type Department Care Team (Late st Contact Info) Description 01/17/2025 Refill [facility] MEDICINE [address] [place], [place] [phone] Magui Perez MD [address] [place], [place] [phone] Depression, unspecified depression type Social History Tobacco [...] documented as of this encounter Care Teams Career Development Counselor Relationship Specialty Start Date End Date Magui Perez MD [address] [place] [address] PCP - General Family Medicine 12/14/17 Enrique Harvey MD [address] [place] [address] Rheumatology 10/09/24 01/30/25January [address] 3rd [place] [address] Gastroenterology 10/09/24 Manjinder Serrano [address] [place] [address] Ophthalmology 11/02/24 Cary Kraus MD [address] [place] [address] [address] [place] [address] Rheumatology 01/31/25 documented as of this encounter
== END 2025-06-08 10:14 | disposition home or self-care (01) ==
LOC: HO.XRAY 10:13
PROVIDERS: PCP Family Medicine; Visit Provider Family Medicine
DX: J45.30 Mild persistent asthma, uncomplicated (principal)
CPT/HCPCS: 71046

== ENCOUNTER → 2025-06-08 10:17 | Outpatient (BNV) | payer MEDICAID, SELFPAY | PROVIDERS: PCP Family Medicine; Visit Provider Radiology Diagnostic Radiology | DX: R06.2 Wheezing (principal) | CPT/HCPCS: 71046 ==

== ENCOUNTER 2025-08-14 11:28 | Outpatient (REF) | payer MEDICAID, SELFPAY ==
--- NOTE | ~2025-08-14 | CT_ITS ---
EXAMINATION: CT CHEST WITHOUT CONTRAST CLINICAL INFORMATION: J98.4 - Other disorders of lung COMPARISON: X-ray June 08, 2025 TECHNIQUE: Multidetector volumetric CT imaging of the chest was done. Axial MIP volume rendering provided. Sagittal and coronal reformatted images were obtained. This CT examination was performed using dose optimization techniques as appropriate, variously including the following: *Automated exposure control *Adjustment of mA and/or kV according to patient size (this includes techniques or standardized protocols for targeted exams where dose is matched to indication/reason for exam; i.e. extremities or head) *Use of iterative reconstruction technique FINDINGS: LUNGS: Focal groundglass and airspace opacity near the azygoesophageal recess of the medial right lower lobe is situated adjacent a large vertebral body osteophyte and is most consistent with atelectasis. Axial CT #9 image 105: There is a 3 x 4 mm subpleural solid nodule in the posterior left lower lobe MEDIASTINUM: Unremarkable CORONARY ARTERY CALCIFICATION: Present PLEURA: There is no pleural effusion. No pleural mass or thickening. AXILLA: No lymphadenopathy. UPPER ABDOMEN: There are surgical clips related to cholecystectomy. There is a 5.5 x 6.6 cm partially exophytic simple renal cyst in the anterior left kidney. There is a 1.4 cm simple cyst in the posterior superior pole right kidney. OSSEOUS STRUCTURES: Mild degenerative changes are present in the mid to lower thoracic spine. CT/CT chest wo con - High Res IMPRESSION: There is a 3 x 4 mm subpleural solid pulmonary nodule in the posterior segment left lower lobe. No further follow-up is indicated per Fleischner Society recommendations, unless the patient falls into a high risk category, in which case a 12 month follow-up CT chest without contrast is optional. High risk patients includes those with a history of smoking, first-degree relative with lung cancer, or exposure to uranium, radon, or asbestos. Fleischner guidelines were followed. Electronically signed by: Jose Guadalupe Cruz MD 08/14/2025 12:01 PM EDT
--- OUTSIDE RECORDS SUMMARY | 2025-08-14 14:53 | XMS_ITS | Encounter Summary ---
Author Organization [facility], Address [address] [place] [address] Phone Care Team Providers Care Pit Clerk Name Role Phone Magui Perez MD Primary Care Provider U bettyaildaiana Encounter Details Date Type Department Care Team (Late st Contact Info) Description 03/30/2022 Documentation Only [facility], [address] [place] [address] Magui Perez MD [address] [place] [address] Social History Tobacco Use Types Packs/Day Years [...] on filedocumented in this encounter Care Teams Pit Clerk Relationship Specialty Start Date End Date Magui Perez MD PCP - General Family Medicine 03/30/22 documented as of this encounter
--- OUTSIDE RECORDS SUMMARY | 2025-08-14 14:53 | XMS_ITS | Encounter Summary ---
Author Organization [employer] Address [address] [place] [address] [place] [address] Care Team Providers Care Plastics Production Machine Operator Name Role Phone Magui Perez MD Primary Care Provider +1- [phone] Enrique Harvey MD Unavailable January Unavailable Manjinder Serrano Unavailable Unavailable Reason for Visit * Reason Onset Date Comments Med Refill 01/17/2025 Encounter Details Date Type Department Care Team (Late st Contact Info) Description 01/17/2025 Refill [facility] MEDICINE 230 [place], [place] [phone] Magui Perez MD 230 [place], [place] [phone] Depression, unspecified depression type Social History Tobacco [...] as of this encounter Plan of Treatment Upcoming Encounters Date Type Department Care Team (Late st Contact Info) Description 09/05/2025 10:30 AM EST Office Visit [facility] MEDICINE [address] [place] [address] Magui Perez MD [address] [place] [address] documented as of this encounter Visit Diagnoses Diagnosis Depression, unspecified depression type documented in this encounter Additional Health Concerns Assessment Noted Time PHQ-9 Depression Total Score: 14 024 10:21 AM EDT documented as of this encounter Care Teams Plastics Production Machine Operator Relationship Specialty Start Date End Date Magui Perez MD [address] [place] [address] PCP - General Family Medicine 12/14/17 Enrique Harvey MD [address] [place] [address] Rheumatology 10/09/24 01/30/[address] 3rd [place] [address] Gastroenterology 10/09/24 Manjinder Serrano [address] [place] [address] Ophthalmology 11/02/24 Cary Kraus MD [address] [place] [address] Rheumatology 01/31/25 documented as of this encounter
--- OUTSIDE RECORDS SUMMARY | 2025-08-14 14:53 | XMS_ITS | Encounter Summary ---
Author Organization [employer] Address [address] [place] [address] [place] [address] Care Team Providers Care Imaging Clerk Name Role Phone Magui Perez MD Primary Care Provider +1- [phone] January Unavailable Manjinder Serrano Unavailable Unavailable Reason for Visit * Reason Onset Date Comments Durable Medical Equipment 08/08/2025 Encounter Details Date Type Department Care Team (Late st Contact Info) Description 08/08/2025 Telephone [facility] MEDICINE [address] [place], [place] [phone] Magui Perez MD [address] [place], [place] [phone] Durable Medical Equipment Social History Tobacco Use Types Packs/Day Years [...] Access Q2 Not on file 06/21/2024 Comments No Sex and Gender Information Value Date Recorded Sex Assigned at Female 04/14/2023 11:47 AM EDT Legal Sex Female 3:50 PM EDT Gender Identity Female 04/14/2023 11:47 AM EDT Sexual Orientation Straight 04/14/2023 11 :47 AM EDT documented as of this encounter Miscellaneous Notes * Telephone Encounter - Evan Chávez - 08/08/2025 2:40 PM EDT Tc from Amita at [facility] requesting a DME order for a commode , a cane and a bed rail to be faxed too [facility] Contact Amita at [phone] documented in this encounter Plan of Treatment Upcoming Encounters Date Type Department Care Team (Late st Contact Info) Description 09/05/2025 10:30 AM EST Office Visit [facility] MEDICINE [address] [place] [address] Magui Perez MD [address] [place] [address] documented as of this encounter Visit Diagnoses Not on filedocumented in this encounter Additional Health Concerns Assessment Noted Time PHQ-9 Depression Total Score: 14 10/03/2 024 10:21 AM EDT documented as of this encounter Care Teams Imaging Clerk Relationship Specialty Start Date End Date Magui Perez MD 230 [place] [address] PCP - General Family Medicine 12/14/17January [address] 3rd [place] [address] Gastroenterology 10/09/24 Manjinder Serrano 180 [place] [address] Ophthalmology 11/02/24 Cary Kraus MD [address] [place] [address] Rheumatology 01/31/25 documented as of this encounter
--- OUTSIDE RECORDS SUMMARY | 2025-08-14 14:53 | XMS_ITS | Encounter Summary ---
Author Organization [facility], Address [address] [place] [address] Phone Care Team Providers Care Disability Attorney Name Role Phone Magui Perez MD Primary Care Provider U bettyaildaiana Encounter Details Date Type Department Care Team (Late st Contact Info) Description 04/12/2022 Documentation Only [facility], [address] [place] [address] Magui Perez MD 230 [place] [address] Social History Tobacco Use Types Packs/Day Years [...] on filedocumented in this encounter Care Teams Disability Attorney Relationship Specialty Start Date End Date Magui Perez MD PCP - General Family Medicine 03/30/22 documented as of this encounter
--- OUTSIDE RECORDS SUMMARY | 2025-08-14 14:53 | XMS_ITS | Encounter Summary ---
Author Organization [facility], Address [address] [place] [address] Phone Care Team Providers Care Charting Clerk Name Role Phone Magui Perez MD Primary Care Provider U bettyaildaiana Encounter Details Date Type Department Care Team (Late st Contact Info) Description 03/30/2022 Documentation Only [facility], [address] [place] [address] Magui Perez MD [address] [place] [address] Social History Tobacco Use Types Packs/Day Years [...] on filedocumented in this encounter Care Teams Charting Clerk Relationship Specialty Start Date End Date Magui Perez MD PCP - General Family Medicine 03/30/22 documented as of this encounter
--- OUTSIDE RECORDS SUMMARY | 2025-08-14 14:54 | XMS_ITS | Patient Health Record ---
Author Organization [facility] Address [address] [place] [address] Care Team Providers Care Research Program Intern Name Role Phone Buddy Valadez Unavailable [phone] Reason For Referral No Information Plan Of Treatment No Information
--- OUTSIDE RECORDS SUMMARY | 2025-08-14 14:54 | XMS_ITS | Clinical Summary ---
Author Organization [facility], Address [address] [place] [address] [place] [address] Phone Care Team Providers Care Cupola Tapper Helper Name Role Phone Chris, Magui Steinberg MD [...] Colorectal Cancer Screening: Sigmoidoscopy 2020 Influenza Vaccine (#1) 2025 2, 12/03/2021, 08/26/2020, Additional history exists Pneumococcal Vaccine: 50+ Years Completed 3 Pneumococcal Vaccine: Peds ( 0 to 5 Years) and At-Risk Patients (6 to 49 Years) Discontinued 04/20/2023 Insurance Medicaid [place] Care Teams Cupola Tapper Helper Relationship Specialty Start Date End Date [place], Magui Steinberg MD PCP - General Family Medicine 03/30/22
--- OUTSIDE RECORDS SUMMARY | 2025-08-14 14:54 | XMS_ITS | Encounter Summary ---
Author Organization [employer] Address [address] [place] [address] Care Team Providers Care Cardroom Hand Name Role Phone Magui Perez MD Primary Care Provider +1- [phone] Enrique Harvey MD Unavailable January Unavailable Manjinder Serrano Unavailable Unavailable Reason for Visit * Reason Onset Date Comments Med Refill 04/20/2023 Encounter Details Date Type Department Care Team (Late st Contact Info) Description 04/20/2023 Telephone [facility] MEDICINE [address] [place], [place] [phone] Magui Perez MD 230 [place], [place] [phone] Med Refill Social History Tobacco Use Types [...] AM EDT documented as of this encounter Functional Status * Over the past 2 weeks, how often have you been bothered by any of the following problems? Question Answer Date of Assessment Author Patient Health Questionnaire-2 Score 0 02/2023 10:16 AM Sherly Messer MA * Over the past 2 weeks, how often have you been bothered by any of the following problems? Question Answer Date of Assessment Author Little interest or pleasure in doing things Not at all 04/20/2023 10:16 AM Sherly Messer M A Feeling down, depressed, or hopeless Not at all 04/20/2023 10:16 AM Sherly Messer M A Trouble falling or staying asleep, or sleeping too much Not at all 04/20/2023 10:16 AM Sherly Messer MA Feeling tired or having funmi le energy Not at all 04/20/2023 10:16 AM Sherly Messer M A Poor appetite or overeating Not at all 04/20/2023 10 :16 AM Sherly Messer MA Feeling bad about yourself - or that you are a failure or have let yourself or your family down Not at all 04/20/2023 10:16 AM Sherly Ann MA Trouble concentrating on thi ngs, such as reading the newspaper or watching television Not at all 04/20/2023 10:16 AM Sherly Messer M A Moving or speaking so slowly that other people could have noticed? Or the opposite - being so fidgety or restless that you have been moving around a lot more than usual. Not at all 04/20/2023 10:16 AM Sherly Messer M A Thoughts that you would be better off or hurting yourself in some way Not at all 04/20/2023 10:16 AM Sherly Messer MA Patient Health Questionnaire -9 Score 0 04/20/2023 10:16 AM Sherly Messer M A documented as of this encounter Miscellaneous Notes * Telephone Encounter - Kaylin Marks - 04/20/2023 11:21 AM EDT Tc from pt requesting medication nystatin (Mycostatin) [id number] UNIT/GM powder to be sent to [facility] pharmacy. documented in this encounter Plan of Treatment Upcoming Encounters Date Type Department Care Team (Late st Contact Info) Description 09/05/2025 10:30 AM EST Office Visit [facility] MEDICINE [address] [place] [address] Magui Perez MD 230 [place] [address] documented as of this encounter Visit Diagnoses Not on filedocumented in this encounter Additional Health Concerns Assessment Noted Time PHQ-9 Depression Total Score: 0 04/20/20 10:16 AM EDT documented as of this encounter Care Teams Cardroom Hand Relationship Specialty Start Date End Date Magui Perez MD [address] [place] [address] PCP - General Family Medicine 12/14/17 Enrique Harvey MD [address] [place] [address] Rheumatology 10/09/24 01/30/25January [address] 3rd [place] [address] Gastroenterology 10/09/24 Manjinder Serrano [address] [place] [address] Ophthalmology 11/02/24 Cary Kraus MD [address] [place] [address] Rheumatology 01/31/25 documented as of this encounter
--- OUTSIDE RECORDS SUMMARY | 2025-08-14 14:54 | XMS_ITS | Encounter Summary ---
Author Organization [employer] Address [address] [place] [address] [place] [address] Care Team Providers Care Filer Helper Name Role Phone Magui Perez MD Primary Care Provider +1- [phone] January Unavailable Manjinder Serrano Unavailable Unavailable Reason for Visit * Reason Onset Date Comments Results 06/06/2025 Encounter Details Date Type Department Care Team ([facility] st Contact Info) Description 06/06/2025 Telephone [facility] MEDICINE 230 [place], [place] [phone] Magui Perez MD 230 [place], [place] [phone] Results Social History Tobacco Use Types Packs/Day Years [...] * Telephone Encounter - Evan Chávez - 06/06/2025 9:45 AM EDT TC from pt requesting call back regarding Results. Type of results: respiratory test Date when done: 06/04 Facility: [facility] Contact pt at [phone] (persian) documented in this encounter Plan of Treatment Upcoming Encounters Date Type Department Care Team (Late st Contact Info) Description 09/05/2025 10:30 AM EST Office Visit [facility] MEDICINE 230 [place], [place] [phone] Magui Perez MD 230 [place] [address] documented as of this encounter Visit Diagnoses Not on filedocumented in this encounter Additional Health Concerns Assessment Noted Time PHQ-9 Depression Total Score: 14 024 10:21 AM EDT documented as of this encounter Care Teams Filer Helper Relationship Specialty Start Date End Date Magui Perez MD 230 [place] [address] PCP - General Family Medicine 12/14/17January [address] 3rd [place] [address] Gastroenterology 10/09/24 Manjinder Serrano 180 [place] [address] Ophthalmology 11/02/24 Cary Kraus MD [address] [place] [address] Rheumatology 01/31/25 documented as of this encounter
--- OUTSIDE RECORDS SUMMARY | 2025-08-14 14:54 | XMS_ITS | Encounter Summary ---
Author Organization [employer] Address [address] [facility] 7 [place] [address] Care Team Providers Care Air Dispatcher Name Role Phone Magui Perez MD Primary Care Provider +1- [phone] January Unavailable Manjinder Serrano Unavailable Unavailable Encounter Details Date Type Department Care Team (Late st Contact Info) Description 08/14/2025 Orders Only [facility] External Provider, [facility] Social History Tobacco Use Types Packs/Day Years [...] 10:30 AM EST [facility] [address] [place] [phone] Magui Perez MD [address] [place] [address] [phone] documented as of this encounter Procedures Procedure Name Priority Date/Time Associated Diagnosis Comments CT CHEST WO CON - HIGH RES Routine 08/14/2025 11:36 AM EDT documented in this encounter Results * CT chest wo con - High Res (08/14/2025 11:36 AM EDT) Anatomical Region Laterality Modality Body, Chest Computed Tomogra phy 08/14/2025 11:3 6 AM EDT Narrative 08/14/2025 12:04 PM EDT [address] [address] [address] Scan Report Signed Patient: Farzana Zapien MR#: [id number] : 1970 Acct:[id number] Age/Sex: 55 / F ADM Date: 08/14/25 Loc: HO.CT Attending Dr: Cary Kraus MD Ordering Physician: Cary Kraus MD Date of Service: 08/14/25 Procedure(s): CT chest wo con - High Res Accession Number(s): [id number] cc: Cary Kraus MD; Magui Perez MD Report Number: [id number]: Total DLP = 229.00 mGy-cm Reason for Exam: J98.4 - Other disorders of lung EXAMINATION: CT CHEST WITHOUT CONTRAST CLINICAL INFORMATION: J98.4 - Other disorders of lung COMPARISON: X-ray June 08, 2025 TECHNIQUE: Multidetector volumetric CT imaging of the chest was done. Axial MIP volume rendering provided. Sagittal and coronal reformatted images were obtained. This CT examination was performed using dose optimization techniques as appropriate, variously including the following: *Automated exposure control *Adjustment of mA and/or kV according to patient size (this includes techniques or standardized protocols for targeted exams where dose is matched to indication/reason for exam; i.e. extremities or head) *Use of iterative reconstruction technique FINDINGS: LUNGS: Focal groundglass and airspace opacity near the azygoesophageal recess of the medial right lower lobe is situated adjacent a large vertebral body osteophyte and is most consistent with atelectasis. Axial CT #9 image 105: There is a 3 x 4 mm subpleural solid nodule in the posterior left lower lobe MEDIASTINUM: Unremarkable CORONARY ARTERY CALCIFICATION: Present PLEURA: There is no pleural effusion. No pleural mass or thickening. AXILLA: No lymphadenopathy. UPPER ABDOMEN: There are surgical clips related to cholecystectomy. There is a 5.5 x 6.6 cm partially exophytic simple renal cyst in the anterior left kidney. There is a 1.4 cm simple cyst in the posterior superior pole right kidney. OSSEOUS STRUCTURES: Mild degenerative changes are present in the mid to lower thoracic spine. CT/CT chest wo con - High Res IMPRESSION: There is a 3 x 4 mm subpleural solid pulmonary nodule in the posterior segment left lower lobe. No further follow-up is indicated per Fleischner Society recommendations, unless the patient falls into a high risk category, in which case a 12 month follow-up CT chest without contrast is optional. High risk patients includes those with a history of smoking, first-degree relative with lung cancer, or exposure to uranium, radon, or asbestos. Fleischner guidelines were followed. Electronically signed by: Jose Guadalupe Cruz MD 08/14/2025 12:01 PM EDT RP Dictated By: Jose Guadalupe Cruz MD Signed By: <Electronically signed by Jose Guadalupe Cruz MD in OV> 08/14/25 1201 DD/ 1136 TD/TT: 08/14/25 1147 Casting Chipper: Procedure Note Donotuseinterpreter, Image - 08/14/[address] [address] [address] Scan Report Signed Patient: Farzana Zapien MMR#: [id number] : 1970Acct:[id number] Age/Sex: 55 / FADM Date: 08/14/25 Loc: HO.CT Attending Dr: Cary Kraus MD Ordering Physician: Cary Kraus MD Date of Service: 08/14/25 Procedure(s): CT chest wo con - High Res Accession Number(s): [id number] cc: Cary Kraus MD; Magui Perez MD Report Number: [id number]: Total DLP = 229.00 mGy-cm Reason for Exam: J98.4 - Other disorders of lung EXAMINATION: CT CHEST WITHOUT CONTRAST CLINICAL INFORMATION: J98.4 - Other disorders of lung COMPARISON: X-ray June 08, 2025 TECHNIQUE: Multidetector volumetric CT imaging of the chest was done. Axial MIP volume rendering provided. Sagittal and coronal reformatted images were obtained. This CT examination was performed using dose optimization techniques as appropriate, variously including the following: *Automated exposure control *Adjustment of mA and/or kV according to patient size (this includes techniques or standardized protocols for targeted exams where dose is matched to indication/reason for exam; i.e. extremities or head) *Use of iterative reconstruction technique FINDINGS: LUNGS: Focal groundglass and airspace opacity near the azygoesophageal recess of the medial right lower lobe is situated adjacent a large vertebral body osteophyte and is most consistent with atelectasis. Axial CT #9 image 105: There is a 3 x 4 mm subpleural solid nodule in the posterior left lower lobe MEDIASTINUM: Unremarkable CORONARY ARTERY CALCIFICATION: Present PLEURA: There is no pleural effusion. No pleural mass or thickening. AXILLA: No lymphadenopathy. UPPER ABDOMEN: There are surgical clips related to cholecystectomy. There is a 5.5 x 6.6 cm partially exophytic simple renal cyst in the anterior left kidney. There is a 1.4 cm simple cyst in the posterior superior pole right kidney. OSSEOUS STRUCTURES: Mild degenerative changes are present in the mid to lower thoracic spine. CT/CT chest wo con - High Res IMPRESSION: There is a 3 x 4 mm subpleural solid pulmonary nodule in the posterior segment left lower lobe. No further follow-up is indicated per Fleischner Society recommendations, unless the patient falls into a high risk category, in which case a 12 month follow-up CT chest without contrast is optional. High risk patients includes those with a history of smoking, first-degree relative with lung cancer, or exposure to uranium, radon, or asbestos. Fleischner guidelines were followed. Electronically signed by: Jose Guadalupe Cruz MD 08/14/2025 12:01 PM EDT RP Dictated By: Jose Guadalupe Cruz MD Signed By: <Electronically signed by Jose Guadalupe Cruz MD in OV> 08/14/25 1201 DD/ 1136 TD/TT: 08/14/25 1147 Casting Chipper: [facility] External Provider IMG CT PROCEDURES Final Result documented in this encounter Visit Diagnoses Not on filedocumented in this encounter Additional Health Concerns Assessment Noted Time PHQ-9 Depression Total Score: 14 024 10:21 AM EDT documented as of this encounter Care Teams Air Dispatcher Relationship Specialty Start Date End Date Magui Perez MD [address] [place] [address] PCP - General Family Medicine 12/14/[address] 3rd [place] [address] Gastroenterology 10/09/24 Manjinder Serrano [address] [place] [address] Ophthalmology 11/02/24 Cary Kraus MD [address] [place] [address] [place] [address] [phone] Rheumatology 01/31/25 documented as of this encounter
--- OUTSIDE RECORDS SUMMARY | 2025-08-14 14:54 | XMS_ITS | Clinical Summary ---
Author Organization [employer] Address [address] [place] [address] 7 [place] [address] Care Team Providers Care Cytogeneticist Name Role Phone Magui Perez MD Primary Care Provider [phone] January Unavailable Manjinder Serrano Unavailable Unavailable Allergies No known active allergies Medications estradiol (Estrace) 0.1 MG/GM vaginal creamIndications:V aginal atrophy 1 gram cream per vagina nightly for 14 days then 1 gram cream per vagina twice a week, greek 42.5 g 11 024 Active baclofen (Lioresal) 10 MG tabletIndications: Pain TAKE 1 TABLET BY MOUTH IN THE MORNING, AT NOON AND AT BEDTIME IF NEEDED FOR MUSCLE SPASMS 60 tablet 1 024 Active cholestyramine (Questran) 4 g packetIndications: History of cholecystectomy Take 2 packets (8 g) by mouth with breakfast and with evening meal. 60 each 3 024 Active Diclofenac Sodium 1 % gelIndications:Ser onegative rheumatoid arthritis (CMS/HCC) (HCC) Apply 2 g topically if needed in the morning, at noon, in the evening, and at bedtime (pain). 150 g 1 024 Active fluticasone (Flonase) 50 MCG/ACT nasal sprayIndications:S easonal allergies Administer 2 sprays into each nostril Once per day. Shake gently. Before first use, prime pump. After use, clean tip and replace cap. 16 g 3 024 Active loratadine (Claritin) 10 MG tabletIndications: Seasonal allergies Take 1 tablet (10 mg) by mouth Once per day. 30 tablet 3 024 Active losartan (Cozaar) 25 MG tabletIndications: Primary hypertension Take 1 tablet (25 mg) by mouth Once per day. 90 tablet 3 024 Active omeprazole (PriLOSEC) [address] capsuleIndications :Gastroesophageal reflux disease, unspecified whether esophagitis present Take 1 capsule (20 mg) by mouth before breakfast. Do not crush or chew. 30 capsule 3 024 Active DULoxetine (Cymbalta) [address] capsuleIndications :Depression, unspecified depression type Take 1 tab po daily Do not crush or chew. 90 capsule 3 024 Active terbinafine (LamISIL AT) 1 % creamIndications:T inea pedis of right foot Apply topically 2 times daily. 12 g 1 025 Active melatonin 5 MG tabletIndications: Insomnia, unspecified type TAKE 1 TABLET BY MOUTH DAILY AT BEDTIME NEEDED FOR SLEEP. 90 tablet 025 Active fluticasone furoate (Arnuity Ellipta) 100 MCG/ACT inhalerIndications :Mild persistent asthma without complication Inhale 1 puff Once per day. Rinse mouth with water after use to reduce aftertaste and incidence of candidiasis. Do not swallow. 1 each 11 025 Active albuterol (Ventolin HFA) 108 (90 Base) MCG/ACT inhalerIndications :Mild persistent asthma without complication Inhale 2 puffs every 6 (six) hours if needed for wheezing or shortness of breath. 18 g 11 025 2025 Active D3 Super Strength 50 MCG (2000 UT) capsuleIndications :Vitamin D deficiency TAKE 1 CAPSULE (50 MCG) BY MOUTH ONCE PER DAY. 90 capsule 3 025 Active levothyroxine (Synthroid) 150 MCG tablet TAKE 1 TABLET BY MOUTH EVERY DAY 90 tablet 025 Active levothyroxine (Synthroid) 150 MCG tablet TAKE 1 TABLET BY MOUTH EVERY DAY 90 tablet 025 2024 Discontinued(R eorder (will not trigger notification to Pharmacy)) Active Problems Problem Noted Date Diagnosed Date Mild persistent asthma without complication 02/15 Tinea pedis of right foot 10/24/2024 Overview [...] Overview (10/24/2024): - Seen on 08/31/24 in [facility] for Benign nevus. Spots in her body to be checked, developed over yrs. Benign nevus: Benign, R cheek, defer tx. Dermatofibroma: Benign, R thigh. Defer tx Assessment & Plan (10/24/2024 9:52 AM EST): - Seen on 08/31/24 in [facility] for Benign nevus. Spots in her body to be checked, developed over yrs. Benign nevus: Benign, R cheek, defer tx. Dermatofibroma: Benign, R thigh. Defer tx Assessment & Plan (07/19/2024 11:07 AM EDT): -referred to Derm 07/19/24 Globus sensation 07/06/2024 Overview (02/22/2025): Seen in walk in 06/21/24 for fatigue [...] oropharynx or hypopharynx to explain globus sensation. 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 I explained to her what this means and that it could be driven by age or even anxiety and it is rather difficult to treat. I advise her to utilize safe swallowing precautions and eat more slowly and try to relax during meals. H/O tubal ligation 06/21/2024 Chronic abdominal pain [...] Menorrhagia 04/20/2023 Obesity 04/20/2023 Seronegative rheumatoid arthritis (CMS/HCC) 02/2023 Overview (01/31/2025): Pt reports multiple areas or [...] week. Folic acid 1 mg daily. 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 07/19/24 discussed possibility of menopausal symptoms worsening pain, pt declined any treatment offered. -will trial Diclofenac Gel. -will provide a note that states pt cannot work due to the severity of her disease. -Seen by rn palliative care Dr. Harvey 08/31/24 diagnosed with seronegative RA [...] today for follow up. -rheumatology note from Julianna Valencia not able to tolerate Enbrel and so [...] week. Folic acid 1 mg daily. 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 07/19/24 discussed possibility of menopausal symptoms worsening pain, pt declined any treatment offered. -will trial Diclofenac Gel. -will provide a note that states pt cannot work due to the severity of her disease. -Seen by rn palliative care Dr. Harvey 08/31/24 diagnosed with seronegative RA [...] 202410/24/24 - Prescribed methotrexate 2.5 MG tablet 01/08/25 - Prescribed folic acid (Folvite) 1 MG [...] week. Folic acid 1 mg daily. 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 07/19/24 discussed possibility [...] by [facility] -dental home is [facility] -health care proxy filed 07/19/24 Assessment & Plan (07/19/2024 10:34 AM EDT): -next physical exam due after 07/19/25 -eye care facilitated by [facility] -dental home is [facility] -health care proxy given and filed 07/19/24 Assessment & Plan (01/26/2024 11:41 AM EDT): -next physical exam due after 04/20/2024 -eye care facilitated by [facility] -dental home is [facility] Assessment & Plan (04/20/2023 10:45 AM EDT): -next physical exam due after 04/20/2024. -eye care facilitated by [facility] -dental home is Colon cancer screening 04/15/2023 Overview (07/19/2024): -colonocopy normal with Dr. Mathis 06/06/2012 who left the area -referal for [facility] gastro given 04/2023, pt given number for [facility] gastro to call 05/23/2023 -seen by Tanya [facility] 11/30/2023 for colonoscopy intake -colonoscopy done 05/2024 with abnormal results. Assessment & Plan (01/26/2024 11:37 AM EDT): -colonocopy normal with Dr. Mathis 06/06/2012 who left the area -referal for [facility] gastro given 04/2023, pt given number for [...] Overview (07/19/2024): Lab Results Component Value Date [id number] 22.4 04/21/2023 -reordered Vit D 07/19/24 Assessment & Plan (07/19/2024 10:50 AM EDT): Lab Results Component Value Date [id number] 22.4 04/21/2023 -reordered Vit D 07/19/24 Assessment & Plan (01/26/2024 11:42 AM EDT): Lab Results Component Value Date [id number] 22.4 04/21/2023 Anxiety 11/15/2013 Hypertension 05/28/2013 Overview [...] 10/24/2024 History of laparoscopic cholecystectomy 06/21/2024 09/04/2024 FDC methotrexate user 06/21/2024 10/24/2024 Upper abdominal pain [...] Encounters Date Type Department Care Team Description 08/14/2025 Orders Only [facility] External Provider, [facility] 08/08/2025 Telephone [facility] [address] [place] [phone] Magui Perez MD Durable Medical Equipment 08/07/[address] [address] Magui Perez MD 07/04/[address] [address] Leana To, Vitamin D deficiency 06/28/2025 3:00 PM EDT Office Visit [facility] [address] [place] [phone] Josh Babin MD Pain in both hands (Primary Dx); Bilateral hand swelling; Seronegative rheumatoid arthritis ([facility]) 06/28/2025 Travel 06/10/2025 Results Follow-Up [facility] [address] [place], [place] [phone] Zhang Gilbert MD XR Chest 2 Views 06/06/[address] [address] Magui Perez MD Results from Last 3 Months Immunizations Immunization Administration Dates Next Due Hep B, adult [...] Passive Smoke Exposure: Never Smokeless Tobacco: Never Tobacco Cessation:Counseling Given: Not Answered [...] Sign Reading Time Taken Comments Blood Pressure 157/87 06/28/2025 2:44 PM EDT n m eds Pulse 79 06/28/2025 2:44 PM EDT Temperature 36.4 C (97.6 F) 06/28/2025 2:44 PM EDT Respiratory Rate 21 06/28/2025 2:44 PM EDT Oxygen Saturation 96% 06/28/2025 2:44 PM EDT Inhaled Oxygen Concentration - - Weight 91.2 kg (201 lb) 06/28/2025 2:44 PM EDT Height 157.5 cm (5' 2 ) 06/28/2025 2:44 PM EDT Body Mass Index 36.76 06/28/2025 2:44 PM EDT Plan of Treatment Upcoming Encounters Date Type Department Care Team (Late st Contact Info) Description 09/05/2025 10:30 AM EST Office Visit [facility] [address] [place] [address] Magui Perez MD [address] [place] [address] Health Maintenance Due Date Last Done Comments CT Colonography 1971 FIT DNA/Cologuard 1971 FIT 1971 FOBT 1970 Sigmoidoscopy 1970 Disability Screening 1971 Alcohol/Substance Use Screening 1983 Dental Prophylaxis 01/22/2015 07/23/2014 Dental Oral Exam 08/02/2015 01/30/2015, 06/28/2014 Dental X-Ray: Bitewings 02/01/2016 01/30/2015, 06/28 Dental X-Ray: Full Mouth 06/29/2017 06/28/2014 Zoster Vaccines (1 of 2) 2021 Depression Monitoring 01/17/2025 07/19/2024, 024 COVID-19 Vaccine ( season) 2025 01/23/2021, 12/26/2020 Influenza Vaccine (#1) 2025 , 12/03/2021, 08/26/2020, Additional history exists SDOH Screening 06/21/2025 06/21/2024 Mammogram 05/07/2026 05/07/2024, 2 , 04/06/2022, Additional history exists Tobacco Screening 06/28/2026 06/28/2025 Pap Smear 01/25/2027 01/26/2024, 01/15, 10/18/2018 DTaP/Tdap/Td Vaccines (2 - Td or Tdap) 12/14/2027 12/14/2017, 03/04/2006 Cervical Cancer Screening 01/25/2029 HPV/Cotest 01/25/2029 01/26/2024, 11/2018, 10/18/2018 Lipid Panel 06/21/2029 06/21/2024, 0 03/2023, 12/04/2021 Colonoscopy 06/07/2034 06/07/2024, 05/18, 06/06/2012 [...] patient's age to complete this topic Meningococcal B Vaccine Aged Out No l onger eligible based on patient's age to complete [...] HIGH RES Routine 08/14/2025 11:36 AM EDT XR CHEST 2 VIEWS Routine 06/08/2025 10:1 8 AM EDT Mild persistent asthma without complication LIPID PANEL, STANDARD Routine 06/21/2024 11:45 AM [...] Recently Relevant to Health Maintenance Results * CT chest wo con - High Res (08/14/2025 11:36 AM EDT) Anatomical Region Laterality Modality Body, Chest Computed Tomogra phy 08/14/2025 11:3 6 AM EDT Narrative 08/14/2025 12:04 PM EDT [address] [address] [address] Scan Report Signed Patient: Farzana Zapien MR#: [id number] : 1970 Acct:[id number] Age/Sex: 55 / F ADM Date: 08/14/25 Loc: HO.CT Attending Dr: Cary Kraus MD Ordering Physician: Cary Kraus MD Date of Service: 08/14/25 Procedure(s): CT chest wo con - High Res Accession Number(s): [id number] cc: Cary Kraus MD; Magui Perez MD Report Number: [id number]: Total DLP = 229.00 mGy-cm Reason for [...] 08/14/25 1201 DD/ 1136 TD/TT: 08/14/25 1147 Master Carpenter: Procedure Note Donotuseinterpreter, Image - 08/14/[address] [place] [address] [address] Scan Report Signed Patient: Farzana Zapien [facility]#: [id number] : 1970Acct:[id number] Age/Sex: 55 / FADM Date: 08/14/25 Loc: HO.CT Attending Dr: Cary Kraus MD Ordering Physician: Cary Kraus MD Date of Service: 08/14/25 Procedure(s): CT chest wo con - High Res Accession Number(s): [id number] cc: Cary Kraus MD; Magui Perez MD Report Number: [id number]: Total DLP = 229.00 mGy-cm Reason for [...] Guadalupe Cruz MD 08/14/2025 12:01 PM EDT Dictated By: Jose Guadalupe Cruz MD Signed By: <Electronically signed by Jose Guadalupe Cruz MD in OV> 08/14/25 1201 DD/ 1136 TD/TT: 08/14/25 1147 Master Carpenter: [facility] External Provider IMG CT PROCEDURES Final Result * XR Chest 2 Views (06/08/2025 10:18 AM EDT) Anatomical Region Laterality Modality Chest Radiographic Zoila ging 06/08/2025 10:1 8 AM EDT Narrative 06/10/2025 7:18 AM EDT [address] [address] XRay Report Signed Patient: Farzana Zapien MR#: [id number] : 1970 Acct:[id number] Age/Sex: 55 / F ADM Date: 06/08/25 Loc: [facility] Attending Dr: Zhang Gilbert MD Ordering Physician: Zhang Gilbert MD Date of Service: 06/08/25 Procedure(s): XR chest 2V Accession Number(s): [id number] cc: Magui Perez MD; Zhang Gilbert MD EXAMINATION: XR CHEST CLINICAL INFORMATION: MILD PERSISTENT ASTHMA WITHOUT COMPLICATIONS,NOCTURNAL WHEEZING COMPARISON: None available. TECHNIQUE: 2 views of the chest were obtained. FINDINGS: No significant abnormality is noted involving the heart, lungs, mediastinum, bony thorax or soft tissues. XR/XR chest 2V IMPRESSION: Unremarkable chest examination. Electronically signed by: Jose Jones MD 06/10/2025 07:15 AM EDT RP Dictated By: Jose Jones MD Signed By: <Electronically signed by Jose Jones MD in OV> 06/10/25 0715 DD/ 1018 TD/TT: 06/08/25 1030 Master Carpenter: [facility] Procedure Note Donotuseinterpreter, Image - 06/10/[address] [address] XRay Report Signed Patient: Farzana Zapien MMR#: [id number] : 1970Acct:[id number] Age/Sex: 55 / FADM Date: 06/08/25 Loc: [facility] Attending Dr: Zhang Gilbert MD Ordering Physician: Zhang Gilbert MD Date of Service: 06/08/25 Procedure(s): XR chest 2V Accession Number(s): [id number] cc: Magui Perez MD; Zhang Gilbert MD EXAMINATION: XR CHEST CLINICAL INFORMATION: MILD PERSISTENT ASTHMA WITHOUT COMPLICATIONS,NOCTURNAL WHEEZING COMPARISON: None available. TECHNIQUE: 2 views of the chest were obtained. FINDINGS: No significant abnormality is noted involving the heart, lungs, mediastinum, bony thorax or soft tissues. XR/XR chest 2V IMPRESSION: Unremarkable chest examination. Electronically signed by: Jose Jones MD 06/10/2025 07:15 AM EDT RP Dictated By: Jose Jones MD Signed By: <Electronically signed by Jose Jones MD in OV> 06/10/25 0715 DD/ 1018 TD/TT: 06/08/25 1030 Master Carpenter: LEW us Zhang Gilbert MD IMG XR PROCEDURES Final Result * (ABNORMAL) Lipid Panel, Standard (06/21/2024 11:45 AM EDT) Triglycerides 109 <150 mg/dL [facility] Comment:Desirable Triglyceri de: less than 150 mg/dLBorderline High Triglyceride 150-199 mg/dLHigh Triglyceride: 200-499 mg/dLVery High Triglyceride: greater than or equal to 5OO mg/dL Cholesterol 205(H) <200 mg/dL [facility] Comment:Desirable Cholestero l: less than 200 mg/dLBorderline High Cholesterol: 200-239 mg/dLHigh Cholesterol: greater than 239 mg/dL LDL Cholesterol Calculated 127(H) <100 mg/dL [facility] Comment:Desirable LDL: less than 100 mg/dLNear Optimal/Above Optimal LDL: 110- 129 mg/dLBorderline High LDL: 130-159 mg/dLHigh LDL: 160-189 mg/dLVery High LDL: greater than or equal to 190 mg/dL HDL Cholesterol 57 >40 mg/dL [facility] Comment:Desirable HDL: great er than 40 mg/dL Note: This HDL assay may give artificially low results in patients with liver disease. Blood Venous blood specimen / Unknown 06/21/2024 11:45 AM EDT 06/21/2024 1:30 PM EDT us Leana To DO LAB BLOOD ORDERABLES Final R esult [facility] [address] [place] [address] [phone] * Hm Colonoscopy (06/07/2024) Colonoscopy Normal Normal Comment:with Dasia Guzman MD Historical Provider HEALTH MAINTENANCE Final Result * BI Mammogram Screening Tomosynthesis Bilateral (05/07/2024 11:36 AM EDT) Anatomical Region Laterality Modality Breast Bilateral Mammography 05/07/2024 11:3 6 AM EDT Narrative 05/29/2024 9:40 PM EDT [facility] [address] [place] [address] Mammography Report Signed Patient: Farzana Zapien MR#: [id number] : 1970 Acct:[id number] Age/Sex: 53 / F ADM Date: 05/07/24 Loc: HO.MAMMO Attending Dr: Magui Perez MD Ordering Physician: Magui Perez MD Results: 1N egative Date of Service: 05/07/24 Follow Up: 1 Year From Orig ina Mammogram Procedure(s): MM tomosynthesis screening BI Accession Number(s): [id number] cc: Magui Perez MD EXAMINATION: MM SCREENING [...] signed by Rosy Palm MD in OV> 05/29/242135 DD/ 1136 TD/TT: Master Carpenter: Procedure Note Donotuseinterpreter, Image - 05/29/2024 [facility] [address] [place] [address] Mammography Report Signed Patient: Farzana Zapien MMR#: [id number] : 1970Acct:[id number] Age/Sex: 53 / FADM Date: 05/07/24 Loc: HO.MAMMO Attending Dr: Magui Perez MD Ordering Physician: Magui Perez MDResults: 1N egative Date of Service: 05/07/24Follow Up: 1 Year From Orig inal Mammogram Procedure(s): MM tomosynthesis screening BI Accession Number(s): [id number] cc: Magui Perez MD EXAMINATION: MM SCREENING [...] signed by Rosy Palm MD in OV> 05/29/242135 DD/ 1136 TD/TT: Master Carpenter: Magui Perez MD IMG BI PROCEDURES Edited R esult - Final * HPV mRNA E6/E7 w/Reflex to HPV Genotypes 16, 18/45 (01/26/2024 12:00 PM EDT) HPV nRNA E6/E7 Not Detected Not Detected [facility] Comment:Methodology: Transcr iption-Mediated AmplificationThis assay detects E6/E7 viral messenger RNA (mRNA) from 14high-risk HPV types (16,18,31,33,35,39,45,51,52,56,58,59,66,68).Cervical sources are required for HPV testing.If a vaginal source from a patient who has had atotal hysterectomy with removal of cervix wassubmitted, please contact the testing laboratoryfor alternative testing options.For additional information, please refer tohttp://education.[employer] ( [employer] )/faq/SRA958u0(This link if provided for information/educational purposes only.)THIS TEST WAS PERFORMED AT:[employer] [place] [phone] ENRIQUEZ MD HPV mRNA E6/E7 TNP [facility] HPV 16 RNA [facility] HPV 18/45 RNA [facility] 01/26/2024 12:0 0 PM EDT 01/31/2024 12:00 PM EDT Magui Perez MD LAB CYTOLOGY ORDERABLES Fi nal Result [facility] [address] [place] [phone] * Pap Smear (01/26/2024 12:00 PM EDT) 01/26/2024 12:0 0 PM EDT 01/31/2024 12:00 PM EDT Narrative [facility] - 02/13/2024 12:50 PM EDT ----- ------- Name: Farzana Zapien Age/Sex: 53/F : 1970 Unit#: [id number] Attend Dr: Magui Perez MD Re01/26/24 Status: DEP REF Location: [facility] Disch: ----- ------- SPEC : [id number] RECD: 01/31/24 STATUS: AMBROSE RUTHERFORD NUM: [id number] JAMILAH: 01/26/[address]: Magui Perez MD ENTERED: 01/31/24-1246 SP TYPE: Pap Smr OTHR DR: ORDERED: Pap Smear Interpretation Satisfactory for evaluation. Negative for intraepithelial lesion or malignancy. HPV mRNA E6/E7: NOT DETECTED This assay detects E6/E7 viral messenger RNA (mRNA) from 14 high-risk HPV types (16, 18, 31, 33, 35, 39, 45, 51, 52, 56, 58, 59, 66, 68) HPV testing performed by [employer], [place], [place]. See reference laboratory portion of the EMR for entire report. Clinical Information LMP: Postmenopausal Previous PAP test: Unknown date, WNL Material Received ThinPrep-Vaginal/Cervical ----- ------- Signed (signature on file) Ghislaine R Botto, CT (ASC) 02/13/24 1250 ----- ------- END OF REPORT Magui Perez MD LAB CYTOLOGY ORDERABLES Fi nal Result Performing Organization Address [facility]/ZIP Co de Phone Number [facility] [address] [place] [phone] * Hepatitis Panel, General (08/23/2023 12:36 PM EST) Hepatitis A IgM Nonreactive Nonreactive [facility] Comment:IgM antibodies to HUANG V not detected; does not exclude earlyacute or recovered HAV infection. ~Hepatitis B Surface Antibody REACTIVE Nonreactive [facility] Comment:REACTIVE: > 11.99 mI U/mL Hepatitis B Core Antibody Nonreactive Nonreactive [facility] Hepatitis C Antibody Nonreactive Nonreactive [facility] Comment:Antibodies to HCV no t detected; does not exclude early acuteHCV infection. Hepatitis B Surface Ag Negative Negative [facility] 08/23/2023 12:3 6 PM EST 08/23/2023 12:36 PM EST Generic External Data Provider LAB BLOOD ORDERAB LES Final Result Performing Organization Address [facility]/ZIP Co de Phone Number [facility] [address] [place] [address] [phone] * HIV AB/AG (08/08/2020 11:40 AM EDT) HIV AB/AG Nonreactive Nonreactive [facility] Comment: HIV-1 p24 Ag and/or HIV-1/HIV-2 Ab not detected. A test result that is nonreactive does not exclude the possibility of exposure to or infection with HIV-1 and/or HIV-2. Nonreactive results in this assay for individuals with prior exposure to HIV-1 and/or HIV-2 may be due to antigen and antibody levels that are below the limit of detection of this assay. The [employer] Inserter HIV Ag/Ab Combo assay result and supplemental assay results should be interpreted in conjunction with the patient's clinical presentation, history and other laboratory results. If the results are inconsistent with clinical evidence, additional testing is suggested to confirm the result. 08/08/2020 11:4 0 AM EDT us Magui Perez MD HISTORICAL/NON ORDERABLE L ABS Final Result Performing Organization Address City/State/[facility] Co de Phone Number [facility] [employer] [facility] Anywhere [address] from Last 3 Months or Most Recently Relevant to Health Maintenance Insurance [facility] C3 [facility] STAND ADULT [facility] DENTAL [facility] Advance Directives Documents on File Type Date Recorded Patient Oral Surgeon Expl anation Advance Directives and Living Will 07/19/2024 Health Care Proxy 07/19/24 Care Teams Cytogeneticist Relationship Specialty Start Date End Date [place], MD Magui [address] [place] [address] PCP - General Family Medicine 12/14/17January [address] [place] [address] Gastroenterology 10/09/24 Manjinder Serrano [address] [place] [address] Ophthalmology 11/02/24 Cary Kraus MD [address] [place] [address] Rheumatology 01/31/25
--- OUTSIDE RECORDS SUMMARY | 2025-08-14 14:54 | XMS_ITS | Encounter Summary ---
Author Organization [facility], Address [address] [place] [address] Phone Care Team Providers Care Water Aerobics Instructor Name Role Phone Magui Perez MD Primary Care Provider U malik Encounter Details Date Type Department Care Team (Late st Contact Info) Description 10/28/2023 Documentation Only [facility], [address] [place] [address] [place], [place] [address] [place] [address] Social History Tobacco Use Types [...] on filedocumented in this encounter Care Teams Water Aerobics Instructor Relationship Specialty Start Date End Date Magui Perez MD PCP - General Family Medicine 03/30/22 documented as of this encounter
--- OUTSIDE RECORDS SUMMARY | 2025-08-14 14:54 | XMS_ITS | Encounter Summary ---
Author Organization [employer] Address [address] [place] [address] 7 [place] [address] Care Team Providers Care Pigment Pusher Name Role Phone Magui Perez MD Primary Care Provider +1- [phone] Enrique Harvey MD Unavailable January Unavailable Manjinder Serrano Unavailable Unavailable Reason for Visit * Reason Comments Med Refill Encounter Details Date Type Department Care Team (Late st Contact Info) Description 06/14/2024 Refill [facility] 230 [place], [place] [phone] Farzana Haq MD 230 [place], [place] [phone] Insomnia, unspecified type Social History Tobacco Use [...] Description 09/05/2025 10:30 AM EST Office Visit [facility] [address] [place] [address] Magui Perez MD [address] [place] [address] documented as of this encounter Visit Diagnoses Diagnosis Insomnia, unspecified type documented in this encounter Additional Health Concerns Assessment Noted Time PHQ-9 Depression Total Score: 0 04/20/20 23 10:16 AM EDT documented as of this encounter Care Teams Pigment Pusher Relationship Specialty Start Date End Date Magui Perez MD [address] [place] [address] PCP - General Family Medicine 12/14/17 Enrique Harvey MD [address] [place] [address] Rheumatology 10/09/24 01/30/25January [address] 3rd [place] [address] Gastroenterology 10/09/24 Manjinder Serrano [address] [place] [address] Ophthalmology 11/02/24 Cary Kraus MD [address] [place] [address] Rheumatology 01/31/25 documented as of this encounter
--- OUTSIDE RECORDS SUMMARY | 2025-08-14 14:54 | XMS_ITS | Encounter Summary ---
Author Organization [employer] Address [address] [place] [address] [place] [address] Care Team Providers Care Avionics Integration Engineer Name Role Phone Magui Perez MD Primary Care Provider +1- [phone] January Unavailable Manjinder Serrano Unavailable Unavailable Encounter Details Date Type Department Care Team ([facility] st Contact Info) Description 04/26/2025 Telephone [facility] 230 [place], [place] [phone] Magui Perez MD 230 [place], [place] [phone] Social History Tobacco Use Types Packs/Day Years [...] Description 09/05/2025 10:30 AM EST Office Visit [facility] [address] [place] [address] Magui Perez MD [address] [place] [address] documented as of this encounter Visit Diagnoses Not on filedocumented in this encounter Additional Health Concerns Assessment Noted Time PHQ-9 Depression Total Score: 14 024 10:21 AM EDT documented as of this encounter Care Teams Avionics Integration Engineer Relationship Specialty Start Date End Date Magui Perez MD [address] [place] [address] PCP - General Family Medicine 12/14/17January [address] 3rd [place] [address] Gastroenterology 10/09/24 Manjinder Serrano [address] [place] [address] Ophthalmology 11/02/24 Cary Kraus MD [address] [place] [address] [address] [place] [address] Rheumatology 01/31/25 documented as of this encounter
--- OUTSIDE RECORDS SUMMARY | 2025-08-14 14:54 | XMS_ITS | Encounter Summary ---
Author Organization [employer] Address [address] [place] [address] [place] [address] Care Team Providers Care Billing Adjudicator Name Role Phone Magui Perez MD Primary Care Provider +1- [phone] Enrique Harvey MD Unavailable January Unavailable Manjinder Serrano Unavailable Unavailable Encounter Details Date Type Department Care Team (Late st Contact Info) Description 07/20/2024 Orders Only [facility] 230 [place], [place] [phone] Magui Perez MD 230 [place], [place] [phone] Social History Tobacco Use Types Packs/Day Years [...] Description 09/05/2025 10:30 AM EST Office Visit [facility] 230 [place] [address] Magui Perez MD 230 [place] [address] documented as of this encounter Visit Diagnoses Not on filedocumented in this encounter Additional Health Concerns Assessment Noted Time PHQ-9 Depression Total Score: 14 024 10:21 AM EDT documented as of this encounter Care Teams Billing Adjudicator Relationship Specialty Start Date End Date Magui Perez MD 230 [place] [address] PCP - General Family Medicine 12/14/17 Enrique Harvey MD [address] [place] [address] Rheumatology 10/09/24 01/30/25LandersJanuary [address] 3rd [place] [address] Gastroenterology 10/09/24 Manjinder Serrano 180 [place] [address] Ophthalmology 11/02/24 Cary Kraus MD [address] [place] [address] Rheumatology 01/31/25 documented as of this encounter
--- OUTSIDE RECORDS SUMMARY | 2025-08-14 14:54 | XMS_ITS | Encounter Summary ---
Author Organization [employer] Address [address] [facility] 7 [place] [address] Care Team Providers Care Yarn Preparation Supervisor Name Role Phone Magui Perez MD Primary Care Provider +1- [phone] January Unavailable Manjinder Serrano Unavailable Unavailable Encounter Details Date Type Department Care Team ([facility] st Contact Info) Description 06/10/2025 Results Follow-Up [facility] [address] [place] [address] Zhang Gilbert MD 230 [place] [address] XR Chest 2 Views Social History Tobacco Use Types Packs/Day Years [...] Description 09/05/2025 10:30 AM EST Office Visit [facility] [address] [place] [address] Magui Perez MD [address] [place] [address] documented as of this encounter Visit Diagnoses Not on filedocumented in this encounter Additional Health Concerns Assessment Noted Time PHQ-9 Depression Total Score: 14 024 10:21 AM EDT documented as of this encounter Care Teams Yarn Preparation Supervisor Relationship Specialty Start Date End Date Magui Perez MD [address] [place] [address] PCP - General Family Medicine 12/14/17January [address] 3rd [place] [address] Gastroenterology 10/09/24 Manjinder Serrano [address] [place] [address] Ophthalmology 11/02/24 Cary Kraus MD [address] [place] [address] [address] [place] [address] [phone] Rheumatology 01/31/25 documented as of this encounter
--- OUTSIDE RECORDS SUMMARY | 2025-08-14 14:54 | XMS_ITS | Encounter Summary ---
Author Organization [employer] Address [address] [place] [address] 7 [place] [address] Care Team Providers Care Biomedical Electronics Technician Name Role Phone Magui Perez MD Primary Care Provider +1- [phone] Enrique Harvey MD Unavailable January Unavailable Manjinder Serrano Unavailable Unavailable Encounter Details Date Type Department Care Team (Late st Contact Info) Description 11/21/2023 Orders Only [facility] 230 [place], [place] [phone] Magui Perez MD 230 [place], [place] [phone] Arthralgia, unspecified joint Social History Tobacco Use [...] Description 09/05/2025 10:30 AM EST Office Visit [facility] [address] [place] [address] Magui Perez MD [address] [place] [address] documented as of this encounter Visit Diagnoses Diagnosis Arthralgia, unspecified joint documented in this encounter Additional Health Concerns Assessment Noted Time PHQ-9 Depression Total Score: 0 04/20/20 23 10:16 AM EDT documented as of this encounter Care Teams Biomedical Electronics Technician Relationship Specialty Start Date End Date Magui Perez MD [address] [place] [address] PCP - General Family Medicine 12/14/17 Enrique Harvey MD [address] [place] [address] Rheumatology 10/09/24 01/30/25January [address] 3rd [place] [address] Gastroenterology 10/09/24 Manjinder Serrano 180 [place] [address] Ophthalmology 11/02/24 Cary Kraus MD [address] [place] [address] Rheumatology 01/31/25 documented as of this encounter
--- OUTSIDE RECORDS SUMMARY | 2025-08-14 14:54 | XMS_ITS | Encounter Summary ---
Author Organization [employer] Address [address] [place] [address] [place] [address] Care Team Providers Care Coke Crane Operator Name Role Phone Magui Perez MD Primary Care Provider +1- [phone] Enrique Harvey MD Unavailable January Unavailable Manjinder Serrano Unavailable Unavailable Reason for Visit * Reason Onset Date Comments Med Refill 08/06/2024 Encounter Details Date Type Department Care Team (Late st Contact Info) Description 08/06/2024 Telephone [facility] 230 [place], [place] [phone] Magui Perez MD 230 [place], [place] [phone] Med Refill Social History Tobacco Use Types [...] EDT TC placed to pt with a booking police officer in regards to request for an albuterol [...] request a script for a albuterol inhaler telegraphic typewriter repairer does not see medication on chart and [...] Description 09/05/2025 10:30 AM EST Office Visit [facility] 230 [place] [address] Magui Perez MD 230 [place] [address] documented as of this encounter Visit Diagnoses Not on filedocumented in this encounter Additional Health Concerns Assessment Noted Time PHQ-9 Depression Total Score: 14 024 10:21 AM EDT documented as of this encounter Care Teams Coke Crane Operator Relationship Specialty Start Date End Date Magui Perez MD 230 [place] [address] PCP - General Family Medicine 12/14/17 Enrique Harvey MD [address] [place] [address] Rheumatology 10/09/24 01/30/25January [address] 3rd [place] [address] Gastroenterology 10/09/24 Manjinder Serrano 180 [place] [address] Ophthalmology 11/02/24 Cary Kraus MD [address] [place] [address] [phone] Rheumatology 01/31/25 documented as of this encounter
--- OUTSIDE RECORDS SUMMARY | 2025-08-14 14:54 | XMS_ITS | Encounter Summary ---
Author Organization [employer] Address [address] [place] [address] [place] [address] Care Team Providers Care Hand Plug Shaper Name Role Phone Magui Perez MD Primary Care Provider +1- [phone] Enrique Harvey MD Unavailable January Unavailable Manjinder Serrano Unavailable Unavailable Reason for Visit * Reason Onset Date Comments Med Refill chartprep 07/16/2024 Encounter Details Date Type Department Care Team (Late st Contact Info) Description 07/16/2024 Refill [facility] 230 [place], [place] [phone] Leana To DO 230 [place], [place] [phone] Pain Social History Tobacco Use Types Packs/Day [...] Answer Date of Assessment Author Patient Health Questionnaire -2 Score 2 07/19/2024 10:21 AM Nataliia Vaca [place] * If you checked off any problems on this questionnaire so far, Question Answer Date of Assessment Author How difficult have these problems made it for you to do your work, take care of things at home, or get along with other people? Extremely difficult 07/19/2024 10:21 AM Nataliia Vaca [place] * Over the last 2 weeks, how often have you been bothered by any of the following problems? Question Answer Date of Assessment Author Feeling nervous, anxious, or on edge 0 07/19/2024 10:21 AM Nataliia Vaca [place] Not being able to stop or co ntrol worrying 1 07/19/2024 10:21 AM Nataliia Vaca [place] Worrying too much about diff erent things 1 07/19/2024 10:21 AM Nataliia Vaca [place] Trouble relaxing 0 07/19/2024 10:21 AM Nataliia Vaca [place] Being so restless that it is hard to sit still 0 07/19/2024 10:21 AM Nataliia Vaca MA Becoming easily annoyed or irritable 0 07/19/2024 10:21 AM Nataliia Vaca MA Feeling afraid as if somethi ng awful might happen 0 07/19/2024 10:21 AM Nataliia Vaca MA SOLITARIO-7 Total Score 2 07/19/2024 10:21 AM Nataliia Vaca [place] * Over the past 2 weeks, how often have you been bothered by any of the following problems? Question Answer Date of Assessment Author Little interest or pleasure in doing things Several days 07/19/2024 10:21 AM Nataliia Vaca MA Feeling down, depressed, or hopeless Several days 07/19/2024 10:21 AM Nataliia Vaca [place] Trouble falling or staying asleep, or sleeping too much Nearly every day 07/19/2024 10:21 AM Nataliia Vaca [place] Feeling tired or having little energy Nearly every day 07/19/2024 10:21 AM Nataliia Vaca [place] Poor appetite or overeating Nearly every day 07/19/2024 10:21 AM Nataliia Vaca [place] Feeling bad about yourself - or that you are a failure or have let yourself or your family down Not at all 07/19/2024 10:21 AM Nataliia Vaca [place] Trouble concentrating on things, such as reading the newspaper or watching television Several days 07/19/2024 10:21 AM Nataliia Vaca MA Moving or speaking so slowly that other people could have noticed? Or the opposite - being so fidgety or restless that you have been moving around a lot more than usual. More than half the days 07/19/2024 10:21 AM Nataliia Vaca MA Thoughts that you would be better off or hurting yourself in some way Not at all 07/19/2024 10:21 AM EDT Nataliia Clifton MA Patient Health Questionnaire-9 Score 14 07/19/2024 10:21 AM EDT Nataliia Clifton [place] documented as of this encounter Miscellaneous Notes [...] pending and [facility] and Mammogram done Overdue care gaps: PHQ-9 and Oral Health documented in this encounter Plan of Treatment Upcoming Encounters Date Type Department Care Team (Late st Contact Info) Description 09/05/2025 10:30 AM EST Office Visit [facility] [address] [place] [address] Magui Perez MD [address] [place] [address] documented as of this encounter Visit Diagnoses Diagnosis Pain Generalized pain documented in this encounter Additional Health Concerns Assessment Noted Time PHQ-9 Depression Total Score: 0 04/20/20 10:16 AM EDT documented as of this encounter Care Teams Hand Plug Shaper Relationship Specialty Start Date End Date Magui Perez MD [address] [place] [address] PCP - General Family Medicine 12/14/17 Enrique Harvey MD [address] [place] [address] Rheumatology 10/09/24 01/30/25January [address] 3rd [place] [address] Gastroenterology 10/09/24 Manjinder Serrano 180 [place] [address] Ophthalmology 11/02/24 Cary Kraus MD [address] [place] [address] Rheumatology 01/31/25 documented as of this encounter
--- OUTSIDE RECORDS SUMMARY | 2025-08-14 14:54 | XMS_ITS | Encounter Summary ---
Author Organization [employer] Address [address] [place] [address] [place] [address] Care Team Providers Care Business Support Professional Name Role Phone Magui Perez MD Primary Care Provider +1- [phone] January Unavailable Manjinder Serrano Unavailable Unavailable Reason for Visit * Reason Onset Date Comments Medication Question 03/28/2025 Encounter Details Date Type Department Care Team ([facility] st Contact Info) Description 03/28/2025 Telephone [facility] 230 [place], [place] [phone] Magui Perez MD 230 [place], [place] [phone] Medication Question Social History Tobacco Use Types Packs/Day Years [...] Telephone Encounter - Kathy Laura RN - 03/28/2025 3:21 PM EDT TC placed to pt pharmacy who confirmed that the levothyroxine (Synthroid) is not covered by the pt insurance and will need to be changed to the generic brand. This message will be forwarded to PCP toplace the new script. * Telephone Encounter - Martín Marina - 03/28/2025 12:22 PM EDT Tc from pt stating she was informed buy pharmacy that levothyroxine (Synthroid, Levoxyl) 50 MCG tablet is not covered and script would need to be changed to the original brand. If any questions please contact pt at [phone]. (Frisian Speaker) documented in this encounter Plan of Treatment Upcoming Encounters Date Type Department Care Team (Late st Contact Info) Description 09/05/2025 10:30 AM EST Office Visit [facility] 230 [place] [address] Magui Perez MD 230 [place] [address] documented as of this encounter Visit Diagnoses Not on filedocumented in this encounter Additional Health Concerns Assessment Noted Time PHQ-9 Depression Total Score: 14 024 10:21 AM EDT documented as of this encounter Care Teams Business Support Professional Relationship Specialty Start Date End Date Magui Perez MD 230 [place] [address] PCP - General Family Medicine 12/14/17January [address] 3rd [place] [address] Gastroenterology 10/09/24 Manjinder Serrano 180 [place] [address] Ophthalmology 11/02/24 Cary Kraus MD [address] [place] [address] Rheumatology 01/31/25 documented as of this encounter
--- OUTSIDE RECORDS SUMMARY | 2025-08-14 14:54 | XMS_ITS | Encounter Summary ---
Author Organization [employer] Address [address] [place] [address] [place] [address] Care Team Providers Care Test Developer Name Role Phone Magui Perez MD Primary Care Provider +1- [phone] Enrique Harvey MD Unavailable January Unavailable Manjinder Serrano Unavailable Unavailable Encounter Details Date Type Department Care Team ([facility] Contact Info) Description 10/31/2022 Abstract [facility] [address] [place] [address] Magui Perez MD [address] [place] [address] [phone] Social History Tobacco Use Types Packs/Day Years [...] Encounters Date Type Department Care Team (Late Contact Info) Description 09/05/2025 10:30 AM EST Office Visit [facility] [address] [place] [address] [phone] Magui Perez MD [address] [place] [address], [place] [address] documented as of this encounter Procedures Procedure Name Priority Date/Time Associated Diagnosis Comments HPV HIGH RISK PCR Routine 10/18/2018 12:00 AM EST PAP SMEAR Routine 10/18/2018 12:00 AM EST documented in this encounter Results * HPV High Risk PCR (10/18/2018 12:00 AM EST) Swab Cervical swab / Unknown Historical Provider LAB MICROBIOLOGY - GENERA L ORDERABLES Final Result Performing Organization Address [facility]/ZIP Co de Phone Number [facility] [address] [place] [phone] * Pap Smear (10/18/2018 12:00 AM EST) Swab Historical Provider LAB CYTOLOGY ORDERABLES F inal Result Performing Organization Address [facility]/ZIP Co de Phone Number [facility] [address] [place] [phone] documented in this encounter Visit Diagnoses Not on filedocumented in this encounter Care Teams Test Developer Relationship Specialty Start Date End Date Magui Perez MD 230 [place] [address] PCP - General Family Medicine 12/14/17 Enrique Harvey MD [address] [place] [address] Rheumatology 10/09/24 01/30/25January [address] 3rd [place] [address] Gastroenterology 10/09/24 Manjinder Serrano 180 [place] [address] Ophthalmology 11/02/24 Cary Kraus MD [address] [place] [address] Rheumatology 01/31/25 documented as of this encounter
--- OUTSIDE RECORDS SUMMARY | 2025-08-14 14:54 | XMS_ITS | Encounter Summary ---
Author Organization [employer] Address [address] [place] [address] [place] [address] Care Team Providers Care Accordion Tuner Name Role Phone Magui Perez MD Primary Care Provider +1- [phone] Enrique Harvey MD Unavailable January Unavailable Manjinder Serrano Unavailable Unavailable Reason for Visit * Reason Onset Date Comments Med Refill 07/03/2024 Encounter Details Date Type Department Care Team (Late st Contact Info) Description 07/03/2024 Refill [facility] 230 [place], [place] [phone] Leana To DO 230 [place], [place] [phone] Social History Tobacco Use Types Packs/Day Years Used Date Smoking Tobacco: Never Passive Smoke Exposure: Never Smokeless Tobacco: Never Alcohol Use Standard Drinks/Week Comments Never 0 (1 standard drink = 0.6 oz pur e alcohol) Depression Answer Date Recorded Patient Health Questionnaire-9 Score 0 04/20/2023 Housing Stability Answer Date Recorded What is your housing situation today? I have padmini sing 06/21/[address] you li [...] 09/05/2025 10:30 AM EST Office Visit [facility] 230 [place] [address] Magui Perez MD [address] [place] [address] documented as of this encounter Visit Diagnoses Not on filedocumented in this encounter Additional Health Concerns Assessment Noted Time PHQ-9 Depression Total Score: 0 04/20/20 23 10:16 AM EDT documented as of this encounter Care Teams Accordion Tuner Relationship Specialty Start Date End Date Magui Perez MD [address] [place] [address] PCP - General Family Medicine 12/14/17 Enrique Harvey MD [address] [place] [address] Rheumatology 10/09/24 01/30/25January [address] 3rd [place] [address] Gastroenterology 10/09/24 Manjinder Serrano [address] [place] [address] Ophthalmology 11/02/24 Cary Kraus MD [address] [place] [address] Drive [address] [place] [address] [phone] Rheumatology 01/31/25 documented as of this encounter
--- OUTSIDE RECORDS SUMMARY | 2025-08-14 14:54 | XMS_ITS | Encounter Summary ---
Author Organization [employer] Address [address] [place] [address] [place] [address] Care Team Providers Care Agricultural Service Worker Name Role Phone Magui Perez MD Primary Care Provider +1- [phone] Enrique Harvey MD Unavailable January Unavailable Manjinder Serrano Unavailable Unavailable Reason for Visit * Reason Onset Date Comments Referral 10/21/2023 Encounter Details Date Type Department Care Team (Late st Contact Info) Description 10/21/[address] [facility] 230 [place] [address] Magui Perez MD 230 [place], [place] [phone] Referral Social History Tobacco Use Types Packs/Day [...] encounter Miscellaneous Notes * Telephone Encounter - Beatanathan Borja Pablo - 10/21/2023 2:59 PM EST Tc from pt requesting a Referral for [facility] Patient has not symptoms Please contact pt @ [phone] documented in this encounter Plan of Treatment Upcoming Encounters Date Type Department Care Team (Late st Contact Info) Description 09/05/2025 10:30 AM EST Office Visit [facility] 230 [place] [address] Magui Perez MD 230 [place] [address] documented as of this encounter Visit Diagnoses Diagnosis Routine eye exam Examination of eyes and vision documented in this encounter Additional Health Concerns Assessment Noted Time PHQ-9 Depression Total Score: 0 04/20/20 23 10:16 AM EDT documented as of this encounter Care Teams Agricultural Service Worker Relationship Specialty Start Date End Date Magui Perez MD 230 [place] [address] PCP - General Family Medicine 12/14/17 Enrique Harvey MD [address] [facility] [address] [place] [address] Rheumatology 10/09/24 01/30/25 Leesa January [address] 3rd [place] [address] Gastroenterology 10/09/24 Manjinder Serrano 180 [place] [address] Ophthalmology 11/02/24 Cary Kraus MD [address] [place] [address] Rheumatology 01/31/25 documented as of this encounter
--- OUTSIDE RECORDS SUMMARY | 2025-08-14 14:54 | XMS_ITS | Encounter Summary ---
Author Organization [facility] Address [address] [place] [address] 7 [place] [address] Care Team Providers Care Traffic Control Specialist Name Role Phone Magui Perez MD Primary Care Provider [phone] Enrique Harvey MD Unavailable January Unavailable Manjinder Serrano Unavailable Unavailable Reason for Visit * Reason Comments Med Change Request Encounter Details Date Type Department Care Team (Late st Contact Info) Description 07/30/2024 Refill [facility] [address], [place] [phone] Magui Perez MD [address] [place], [place] [phone] Insomnia, unspecified type Social History Tobacco Use [...] 10:30 AM EST Office Visit [facility] [address] [place] [id number] Magui Perez MD [address] [place] [id number] documented as of this encounter Visit Diagnoses Diagnosis Insomnia, unspecified type documented in this encounter Additional Health Concerns Assessment Noted Time PHQ-9 Depression Total Score: 14 024 10:21 AM EDT documented as of this encounter Care Teams Traffic Control Specialist Relationship Specialty Start Date End Date Magui Perez MD [address] [place] [id number] PCP - General Family Medicine 12/14/17 Enrique Harvey MD [address] [place] [address] Rheumatology 10/09/24 01/30/[address] [place] [address] Gastroenterology 10/09/24 Manjinder Serrano [address] [place] [id number] Ophthalmology 11/02/24 Cary Kraus MD [address] [place] [address] Rheumatology 01/31/25 documented as of this encounter
== END 2025-08-14 11:29 | disposition home or self-care (01) ==
LOC: HO.CT 11:28
PROVIDERS: PCP Family Medicine; Visit Provider Student in an Organized Health Care Education/Training Program
DX: J98.4 Other disorders of lung (principal); M06.00 Rheumatoid arthritis without rheumatoid factor, unspecified site
CPT/HCPCS: 71250

== ENCOUNTER → 2025-08-14 11:33 | Outpatient (BNV) | payer MEDICAID, SELFPAY | PROVIDERS: PCP Family Medicine; Visit Provider Radiology Diagnostic Radiology | DX: R91.1 Solitary pulmonary nodule (principal) | CPT/HCPCS: 71250 ==

== ENCOUNTER 2025-09-05 11:12 | Outpatient (REF) | payer MEDICAID, SELFPAY ==
--- OUTSIDE RECORDS SUMMARY | 2025-09-05 10:30 | XMS_ITS | Encounter Summary ---
Author Organization [employer] Address [address] [place] [address] [place] [address] Care Team Providers Care Consumer Insight Analyst Name Role Phone Magui Perez MD Primary Care Provider [phone] January Unavailable Manjinder Serrano Unavailable Unavailable Reason for Visit * Reason Comments Follow-up Encounter Details Date Type Department Care Team (Late st Contact Info) Description 09/05/2025 10:30 AM EST Office Visit [facility] [address] [place], [place] [phone] Magui Perez MD [address] [place], [place] [phone] Seronegative rheumatoid arthritis (CMS/HCC) ([facility]) (Primary Dx); Primary hypertension; Hypothyroidism, unspecified type; History of anemia; Mild intermittent asthma without complication; Recurrent major depressive disorder, in partial remission (CMS/HCC); Vitamin D deficiency; Gastroesophageal reflux disease, unspecified whether esophagitis present; Vaginal atrophy; Dermatitis; Class 2 severe obesity due to excess calories with serious comorbidity and body mass index (BMI) of 35.0 to 35.9 in adult; Other specified health status Social History Tobacco Use Types Packs/Day Years [...] Answer Date Recorded Patient Health Questionnaire-9 Score 3 09/05/2025 Patient Health Questionnaire-9 Score 3 09/05/2025 Last PHQ-9: Questionnaire Data Not on file 1 11/05/2024 Housing Stability Answer Date Recorded What is your housing situation today? I have padmini suarez 09/05/[address] you li ve. Do you have problems with any of the following? None of the above 09/05/2025 Food Insecurity Answer Date Recorded Within the past 12 months, y ou worried that your food would run out before you got money to buy more: Never True 09/05/2025 Within the past 12 months,th e food you bought just didn't last and you didn't have enough money to get more: Never True Transportation Answer Date Recorded In the past 12 months, has l ack of transportation kept you from medical appts, meetings, work or from getting things needed for daily living? No 09/05/2025 Utilities Answer Date Recorded In the past 12 months, has t he electric, gas, oil or water company threatened to shut off services in your home? No 09/05/2025 Depression Answer Date Recorded Patient Health Questionnaire-2 Score 2 09/05/2025 Internet Access Answer Date Recorded Internet Access Q1 No 09/05/2025 Internet Access Q2 I do not want or need it 08/18 Comments No Sex and Gender Information Value Date Recorded Sex Assigned at Female 04/14/2023 11:47 AM EDT Legal Sex Female 3:50 PM EDT Gender Identity Female 04/14/2023 11:47 AM EDT Sexual Orientation Straight 04/14/2023 11 :47 AM EDT documented as of this encounter Last Filed Vital Signs Vital Sign Reading Time Taken Comments Blood Pressure 116/72 09/05/2025 10:32 AM EST Pulse 71 09/05/2025 10:32 AM EST Temperature 37.2 C (98.9 F) 09/05/2025 10:32 AM EST Respiratory Rate 20 09/05/2025 10:32 AM EST Oxygen Saturation 97% 09/05/2025 10:32 AM EST Inhaled Oxygen Concentration - - Weight 91 kg (200 lb 9.6 oz) 09/05/2025 10:32 AM EST Height 157.5 cm (5' 2 ) 09/05/2025 10:32 AM EST Body Mass Index 36.69 09/05/2025 10:32 AM EST documented in this encounter Functional Status * Over the past 2 weeks, how often have you been bothered by any of the following problems? Question Answer Date of Assessment Author Patient Health Questionnaire-2 Score 2 08/18 10:44 AM Sherly Gibbons MA * Little interest or pleasure in doing things Answer Date of Assessment Author Several days 09/05/2025 10:44 AM Teresa Gibbons MA * Feeling down, depressed, or hopeless Answer Date of Assessment Author Several days 09/05/2025 10:44 AM Teresa Gibbons MA * Trouble falling or staying asleep, or sleeping too much Answer Date of Assessment Author Several days 09/05/2025 10:44 AM Teresa Gibbons MA * Feeling tired or having little energy Answer Date of Assessment Author Not at all 09/05/2025 10:44 AM Teresa Gibbons MA * Poor appetite or overeating Answer Date of Assessment Author Not at all 09/05/2025 10:44 AM Teresa Gibbons MA * Feeling bad about yourself - or that you are a failure or have let yourself or your family down Answer Date of Assessment Author Not at all 09/05/2025 10:44 AM Teresa Gibbons MA * Trouble concentrating on things, such as reading the newspaper or watching television Answer Date of Assessment Author Not at all 09/05/2025 10:44 AM Teresa Gibbons MA * Moving or speaking so slowly that other people could have noticed? Or the opposite - being so fidgety or restless that you have been moving around a lot more than usual. Answer Date of Assessment Author Not at all 09/05/2025 10:44 AM Teresa Gibbons MA * Thoughts that you would be better off or hurting yourself in some way Answer Date of Assessment Author Not at all 09/05/2025 10:44 AM Teresa Gibbons MA * Patient Health Questionnaire-9 Score Answer Date of Assessment Author 3 09/05/2025 10:44 AM Teresa Gibbons MA * Over the last 2 weeks, how often have you been bothered by any of the following problems? Question Answer Date of Assessment Author Feeling nervous, anxious, or on edge 1 08/18 10:45 AM Sherly Gibbons MA Not being able to stop or co ntrol worrying 0 09/05/2025 10:45 AM Sherly Gibbons M A Worrying too much about diff erent things 1 09/05/2025 10:45 AM Sherly Gibbons M A Trouble relaxing 0 09/05/2025 10:45 AM Sherly Gibbons MA Being so restless that it is hard to sit still 0 09/05/2025 10:45 AM Sherly Gibbons M A Becoming easily annoyed or irritable 0 08/18 10:45 AM Sherly Gibbons MA Feeling afraid as if somethi ng awful might happen 0 09/05/2025 10:45 AM Sherly Gibbons M A SOLITARIO-7 Total Score 2 09/05/2025 10:45 AM Sherly Gibbons MA documented as of this encounter Progress Notes * Magui Perez MD - 09/05/2025 10:30 AM EST Subjective Patient ID: Farzana Denis is a 55 y.o. female with PMHx of hypertension, hypothyroid, seronegative rheumatoid arthritis, graves disease, and anemia who presents for comprehensive annual exam and [facility] conditions. Asthma - Reports taking asthma medications and feels well with current regimen - Had PFTs that were largely unremarkable 05/2025 but symptoms improved with ICS and SABS. - Denies fatigue at present - Underwent a chest CT scan which showed a small nodule (3 mm), no further work up indicated and notobacco history or risk factors - Denies smoking Hand weakness and dexterity issues - Reports difficulty grasping objects, such as pots, which tend to fall from her hand - Noted a small lump ( bolita ) in the hand - Experiences trouble with tasks such as combing hair in the morning, sometimes requiring assistance - States increased anxiety and frustration due to inability to perform household tasks and maintainorganization as before Anxiety/depression - Reports feeling anxious, especially due to loss of independence and inability to perform previoushousehold activities - Expresses frustration and emotional distress related to current limitations. Declines therapist. -Pt reports her Mita is working a little bit but she has not been taking everyday. Arthritis - Reports having arthritis - States that arthritis and asthma do not qualify for certain assistance programs but she did get 1hour [employer] servicees Blood pressure - Monitors blood pressure at home - at goal Social support and assistance - Receives one hour daily of personal care assistance (PCY program) - States difficulty obtaining more hours of assistance due to program limitations - Expresses need for more help due to worsening ability to perform daily activities Legal and disability benefits - Reports two prior denials for disability qualification PAP 01/26/24, Negative for intraepithelial lesion or malignancy. HPV mRNA E6/E7 w/Reflex to HPV Genotypes 16, 18/4. Review of Systems Constitutional: Negative for fatigue, fever and unexpected weight change. Respiratory: Negative for cough. Cardiovascular: Negative for chest pain. Gastrointestinal: Negative for abdominal pain. Genitourinary: Negative for difficulty urinating. Objective Visit Vitals BP 116/72 (BP Location: Left arm, Patient Position: Sitting, BP Cuff Size: Adult) Pulse 71 Temp 98.9 ??F (37.2 ??C) (Oral) Resp 20 Body mass index is 36.69 kg/m??. Physical Exam Constitutional: Appearance: Normal appearance. Comments: Pain getting up on exam table Cardiovascular: Rate and Rhythm: Normal rate and regular rhythm. Heart sounds: Normal heart sounds. Pulmonary: Effort: Pulmonary effort is normal. Breath sounds: Normal breath sounds. Abdominal: Tenderness: There is no abdominal tenderness. Musculoskeletal: Right shoulder: Decreased range of motion. Left shoulder: Decreased range of motion. Right wrist: No swelling. Left wrist: No swelling. Right hand: Swelling present. Left hand: Swelling present. Cervical back: Normal range of motion and neck supple. Comments: Diffuse tenderness and decreased ROM shoulders, elbows, knees Neurological: General: No focal deficit present. Mental Status: She is alert. Psychiatric: Behavior: Behavior normal. Assessment & Plan Seronegative rheumatoid arthritis (CMS/HCC) ([facility]) Pt reports multiple areas or arthralgia with associated fatigue and swelling. Symptoms worse in themorning. -Labs on 04/20/2023 showed significant for elevated CRP of 1.04 with mildly elevated ESR of 23, ISMAEL rhumatiod factor and lyme antibodies negative, TSH was normal. -Note from Dr. Harvey 10/09/24: right hand MRI which showed right radioulnar joint effusion. Which is consistent with active inflammatory arthritis. At this time, patient failed methotrexate after 10months use without improvment Needs a different DMARDs. - note from Dr. Harvey 10/09/24: right hand MRI which showed right radioulnar joint effusion. Whichis consistent with active inflammatory arthritis. At this time, patient failed methotrexate. Needs a different DMARDs. Discussed risks and benefits of TNF inhibitors. Patient agreed to proceed. Will start prior authorization for Enbrel - Continue Cymbalta. Will follow up with Dr. Harvey in December of 202410/24/24 -rheumatology note from Cary Kraus, MDPatient not able to tolerate Enbrel and so she self discontinued it. She also had allergic reactions to this medication. She is still having moderate to severe rheumatoid arthritis with tender and swollen joints affecting her hands, wrists and shoulders. We will need to change medications we will start Humira -humira discontinued and Tyenne started in 2024, note requested, has follow up Sep 2025 Primary hypertension -Blood pressure is at goal -Continue lifestyle modifications -Continue current medications Orders: Albumin, Random Urine W/Creatinine; Future Hepatic Function Panel; Future Lipid Panel, Standard; Future Basic Metabolic Panel; Future Blood Pressure kit; Check blood pressure twice a week or prn Hypothyroidism, unspecified type Lab Results Component Value Date TSH 0.47 07/19/2024 TSH 7.58 (H) 06/21/2024 TSH 12.13 (H) 10/14/2022 -PA done for Syntrhoid prescribed by endocrinology who wanted pt on brand name due to uncontrolled on generic -take med at same time on empty stomach daily -will restart Synthroid as pt was not taking it consistently 07/19/24 Orders: TSH with Reflex to Free T4; Future Synthroid 150 MCG tablet; TAKE 1 TABLET BY MOUTH EVERY DAY History of anemia Lab Results Component Value Date HGB 12.9 08/23/2023 HGB 13.0 04/21/2023 HGB 13.9 10/14/2022 HGB 12.5 03/04/2022 HEMATOCRIT 40.9 10/14/2022 HEMATOCRIT 37.2 03/04/2022 Orders: CBC auto differential; Future Ferritin; Future Iron And Total Iron Binding Capacity; Future Vitamin B12 (Cobalamin) and Folate Panel, Serum; Future Mild intermittent asthma without complication Previously diagnosed with asthma however 05/2025 PFTs not suggestive of asthma but pt repots symptoms controlled with ICS and PAN. Spirometry FEV1 to FVC 88%; FEV1 1.81 L; FVC 2.12 L. No significant response to bronchodilators noted. No obstructive ventilatory defects. No significant response to bronchodilators noted. The patient does have a restrictive ventilatory defect consistent with [id number] restrictive lung disease.Need to consider underlying parenchymal lung conditions and or neuromuscular conditions. Although the patient also has an elevated BMI that may be affecting her lung expansion. The patients diffusing capacity is within normal limits. -CT 08/14/25ere is a 3 x 4 mm subpleural solid pulmonary nodule in the posterior segment left lower lobe. No further follow-up is indicated perFleischner Society recommendations, unless the patient falls into a high risk category, in which case a 12 month follow-up CT chest without contrast is optional. High risk patients includes those with a history of smoking, first-degree relative with lung cancer, or exposure to uranium, radon, or asbestos. Recurrent major depressive disorder, in partial remission (CMS/[facility]) -continue Cymbalta started 07/19/24 -declines therapist -no suicidial or homacidial ideation Vitamin D deficiency Lab Results Component Value Date [id number] 22.4 04/21/2023 Gastroesophageal reflux disease, unspecified whether esophagitis present Controlled on prn omeprazole Orders: omeprazole (PriLOSEC) [address] capsule; Take 1 capsule (20 mg) by mouth before breakfast. Do not crush or chew. Vaginal atrophy Orders: Estradiol (Estrace) 0.01 % cream; Insert 1 g into the vagina every 3 (three) months. 1 gram cream per vagina nightly for 14 days then 1 gram cream per vagina twice a week, [facility] Dermatitis Not active but requests refill for future Orders: triamcinolone (Kenalog) 0.1 % cream; Apply topically if needed in the morning and at bedtime (pain and swelling). Class 2 severe obesity due to excess calories with serious comorbidity and body mass index (BMI) of35.0 to 35.9 in adult Dietary Recommendations: Fruits, vegetables, whole grains, protein foods, and fat-free or low-fat dairy products are healthychoices. Eat different types of protein foods in your diet. This can include seafood, lean meats, poultry, beans, peas, lentils, nuts, seeds, soy products, and eggs. Limit foods and beverages higher in added sugars, saturated fat, and sodium. Exercise Recommendations: At least 150 minutes of moderate-intensity physical activity per week, or an equivalent combinationof moderate- and vigorous-intensity activity Orders: Hemoglobin A1c; Future Other specified health status -next physical exam due after 09/05/26 -eye care facilitated by [facility] -dental home is [facility] Dental health care proxy filed 07/19/24 Follow up in about 1 year (around 09/05/2026) for physical. This note was drafted using Ambient (AI) technology. The patient/patient's guardian has been informed and has consented to the use of this technology: Yes documented in this encounter Miscellaneous Notes * Assessment & Plan Note - Magui Perez MD - 09/05/2025 10:30 AM EST Associated Problem(s): Other specified health status -next physical exam due after 09/05/26 -eye care facilitated by [facility] -dental hyannis is [facility] Dental health care proxy filed 07/19/24 * Assessment & Plan Note - Magui Perez MD - 09/05/2025 10:30 AM EST Associated Problem(s): Hypertension -Blood pressure is at goal -Continue lifestyle modifications -Continue current medications Orders: Albumin, Random Urine W/Creatinine; Future Hepatic Function Panel; Future Lipid Panel, Standard; Future Basic Metabolic Panel; Future Blood Pressure kit; Check blood pressure twice a week or prn * Assessment & Plan Note - Magui Perez MD - 09/05/2025 10:30 AM EST Associated Problem(s): Hypothyroid Lab Results Component Value Date TSH 0.47 07/19/2024 TSH 7.58 (H) 06/21/2024 TSH 12.13 (H) 10/14/2022 -PA done for Syntrhoid prescribed by endocrinology who wanted pt on brand name due to uncontrolled on generic -take med at same time on empty stomach daily -will restart Synthroid as pt was not taking it consistently 07/19/24 Orders: TSH with Reflex to Free T4; Future Synthroid 150 MCG tablet; TAKE 1 TABLET BY MOUTH EVERY DAY * Assessment & Plan Note - Magui Perez MD - 09/05/2025 10:30 AM EST Associated Problem(s): Seronegative rheumatoid arthritis (CMS/HCC) (HCC) Pt reports multiple areas or arthralgia with associated fatigue and swelling. Symptoms worse in themorning. -Labs on 04/20/2023 showed significant for elevated CRP of 1.04 with mildly elevated ESR of 23, ISMAEL rhumatiod factor and lyme antibodies negative, TSH was normal. -Note from Dr. Harvey 10/09/24: right hand MRI which showed right radioulnar joint effusion. Which is consistent with active inflammatory arthritis. At this time, patient failed methotrexate after 10months use without improvment Needs a different DMARDs. - note from Dr. Harvey 10/09/24: right hand MRI which showed right radioulnar joint effusion. Whichis consistent with active inflammatory arthritis. At this time, patient failed methotrexate. Needs a different DMARDs. Discussed risks and benefits of TNF inhibitors. Patient agreed to proceed. Will start prior authorization for Enbrel - Continue Cymbalta. Will follow up with Dr. Harvey in December of 202410/24/24 -rheumatology note from Cary Kraus, MDPatient not able to tolerate Enbrel and so she self discontinued it. She also had allergic reactions to this medication. She is still having moderate to severe rheumatoid arthritis with tender and swollen joints affecting her hands, wrists and shoulders. We will need to change medications we will start Humira -humira discontinued and Tyenne started in 2024, note requested, has follow up Sep 2025 * Assessment & Plan Note - Magui Perez MD - 09/05/2025 10:30 AM EST Associated Problem(s): History of anemia Lab Results Component Value Date HGB 12.9 08/23/2023 HGB 13.0 04/21/2023 HGB 13.9 10/14/2022 HGB 12.5 03/04/2022 HEMATOCRIT 40.9 10/14/2022 HEMATOCRIT 37.2 03/04/2022 Orders: CBC auto differential; Future Ferritin; Future Iron And Total Iron Binding Capacity; Future Vitamin B12 (Cobalamin) and Folate Panel, Serum; Future * Assessment & Plan Note - Magui Perez MD - 09/05/2025 10:30 AM EST Associated Problem(s): Mild intermittent asthma without complication Previously diagnosed with asthma however 05/2025 PFTs not suggestive of asthma but pt repots symptoms controlled with ICS and PAN. Spirometry FEV1 to FVC 88%; FEV1 1.81 L; FVC 2.12 L. No significant response to bronchodilators noted. No obstructive ventilatory defects. No significant response to bronchodilators noted. The patient does have a restrictive ventilatory defect consistent with udmx-wv-tfkihiwj restrictive lung disease.Need to consider underlying parenchymal lung conditions and or neuromuscular conditions. Although the patient also has an elevated BMI that may be affecting her lung expansion. The patients diffusing capacity is within normal limits. -CT 08/14/25ere is a 3 x 4 mm subpleural solid pulmonary nodule in the posterior segment left lower lobe. No further follow-up is indicated perFleischner Society recommendations, unless the patient falls into a high risk category, in which case a 12 month follow-up CT chest without contrast is optional. High risk patients includes those with a history of smoking, first-degree relative with lung cancer, or exposure to uranium, radon, or asbestos. * Assessment & Plan Note - Magui Perez MD - 09/05/2025 10:30 AM EST Associated Problem(s): Recurrent major depressive disorder, in partial remission ([facility]) -continue Cymbalta started 07/19/24 -declines therapist -no suicidial or homacidial ideation * Assessment & Plan Note - Magui Perez MD - 09/05/2025 10:30 AM EST Associated Problem(s): Vitamin D deficiency Lab Results Component Value Date [id number] 22.4 04/21/2023 * Assessment & Plan Note - Magui Perez MD - 09/05/2025 10:30 AM EST Associated Problem(s): Gastroesophageal reflux disease Controlled on prn omeprazole Orders: omeprazole (PriLOSEC) [address] capsule; Take 1 capsule (20 mg) by mouth before breakfast. Do not crush or chew. * Assessment & Plan Note - Magui Perez MD - 09/05/2025 10:30 AM EST Associated Problem(s): Vaginal atrophy Orders: Estradiol (Estrace) 0.01 % cream; Insert 1 g into the vagina every 3 (three) months. 1 gram cream per vagina nightly for 14 days then 1 gram cream per vagina twice a week, [facility] * Assessment & Plan Note - Magui Perez MD - 09/05/2025 10:30 AM EST Associated Problem(s): Obesity Dietary Recommendations: Fruits, vegetables, whole grains, protein foods, and fat-free or low-fat dairy products are healthychoices. Eat different types of protein foods in your diet. This can include seafood, lean meats, poultry, beans, peas, lentils, nuts, seeds, soy products, and eggs. Limit foods and beverages higher in added sugars, saturated fat, and sodium. Exercise Recommendations: At least 150 minutes of moderate-intensity physical activity per week, or an equivalent combinationof moderate- and vigorous-intensity activity Orders: Hemoglobin A1c; Future documented in this encounter Plan of Treatment Scheduled Orders Name Type Priority Associated Diagnoses Orde r Schedule Basic Metabolic Panel Lab Routine Primary hypertension Expected: 09/05/2025 (Approximate), Expires: 09/05/2026 documented as of this encounter Procedures Procedure Name Priority Date/Time Associated Diagnosis Comments VITAMIN B12/FOLATE, SERUM PANEL Routine 09/05/2025 11:29 AM EST History of anemia TSH W/REFLEX TO FT4 Routine 09/05/2025 1 1:29 AM EST Hypothyroidism, unspecified type ALBUMIN, RANDOM URINE W/CREATININE Routine 09/05/2025 11:29 AM EST Primary hypertension CBC WITH AUTO DIFFERENTIAL Routine 09/05/2025 11:29 AM EST History of anemia IRON AND TOTAL IRON BINDING CAPACITY Routine 09/05/2025 11:29 AM EST History of anemia HEMOGLOBIN A1C Routine 09/05/2025 11:29 AM EST Class 2 severe obesity due to excess calories with serious comorbidity and body mass index (BMI) of 35.0 to 35.9 in adult FERRITIN Routine 09/05/2025 11:29 AM EST History of anemia HEPATIC FUNCTION PANEL Routine 09/05/2025 11:29 AM EST Primary hypertension LIPID PANEL, STANDARD Routine 09/05/2025 11:29 AM EST Primary hypertension documented in this encounter Results * Hemoglobin A1c (09/05/2025 11:29 AM EST) Hemoglobin A1c 5.8 <6.0 % [facility] Comment:Hemoglobin A1C Refer ence Range Adults: 4.8 - 6.0 % Non diabetic: < 6.0 % Goal: < 7.0 %Additional Action Suggested: > 8.0 %Note: Hemoglobin A1c results are invalid for patients with abnormal amounts of HbF. Blood transfusions may impact the HbA1c concentration in the patient sample. Estimated Average Glucose 120 mg/dL [facility] Comment:eAG = Estimated ave rage glucose which is %A1C expressed asaverage glucose, using the formula of the [id number] Glucose study (ADAG), Diabetes Care, Vol.31,#8,May. 2007 Blood Venous blood specimen / Unknown 09/05/2025 11:29 AM EST 09/05/2025 12:50 PM EST Magui Perez MD LAB BLOOD ORDERABLES Final Result Performing Organization Address [facility]/ZIP Co de Phone Number [facility] [address] [place] [phone] * (ABNORMAL) Lipid Panel, Standard (09/05/2025 11:29 AM EST) Triglycerides 110 <150 mg/dL [facility] Comment:Desirable Triglyceri de: less than 150 mg/dLBorderline High Triglyceride 150-199 mg/dLHigh Triglyceride: 200-499 mg/dLVery High Triglyceride: greater than or equal to 5OO mg/dL Cholesterol 206(H) <200 mg/dL [facility] Comment:Desirable Cholestero l: less than 200 mg/dLBorderline High Cholesterol: 200-239 mg/dLHigh Cholesterol: greater than 239 mg/dL LDL Cholesterol Calculated 122(H) <100 mg/dL [facility] Comment:Desirable LDL: less than 100 mg/dLNear Optimal/Above Optimal LDL: 110- 129 mg/dLBorderline High LDL: 130-159 mg/dLHigh LDL: 160-189 mg/dLVery High LDL: greater than or equal to 190 mg/dL HDL Cholesterol 62 >40 mg/dL [facility] Comment:Desirable HDL: great er than 40 mg/dL Note: This HDL assay may give artificially low results in patients with liver disease. Blood Venous blood specimen / Unknown 09/05/2025 11:29 AM EST 09/05/2025 12:50 PM EST Magui Perez MD LAB BLOOD ORDERABLES Final Result [facility] [address] [place] [address] [phone] * Hepatic Function Panel (09/05/2025 11:29 AM EST) Bilirubin, Direct 0.2 0.0 - 0.5 mg/dL [facility] Blood Venous blood specimen / Unknown 09/05/2025 11:29 AM EST 09/05/2025 12:50 PM EST Magui Perez MD LAB BLOOD ORDERABLES Final Result Performing Organization Address [facility] Co de Phone Number [facility] [address] [place] [phone] * Albumin, Random Urine W/Creatinine (09/05/2025 11:29 AM EST) Pathologist [facility] Creatinine, Urine 208.54 mg/dL [facility] Microalbumin Urine 12.0 mg/L [facility] Microalbum Creatinine Ratio Ur 5.7 <30 ug/mg cr [facility] Comment:Albumin/Creatinine R atio Reference Ranges: Normal: < 30 ug/mg creatinine Microalbuminuria: 30 - 300 ug/mg creatinineClinical Albuminuria: > 300 ug/mg creatinine Urine 09/05/2025 11:2 9 AM EST 09/05/2025 1:06 PM EST Magui Perez MD LAB URINE ORDERABLES Final Result [facility] [address] [place] [phone] * Vitamin B12 (Cobalamin) and Folate Panel, Serum (09/05/2025 11:29 AM EST) Vitamin B12 394 200 - 900 pg/mL [facility] Comment:NORMAL 200-900 PG/ML INDETERMINATE 160-199 PG/ML DEFICIENT < 160 PG/ML Folate 8.2 > or = 4.0 ng/mL [facility] Comment:Reference Values:> o r = 4.0 ng/mL< 4.0 ng/mL suggests folate deficiency Methotrexate, aminopterin and folinic acid(leucovorin) are chemotherapeutic agents whose molecularstructures are similar to folate; therefore, the Architectfolate assay cannot be used for patients using these drugs. Blood Venous blood specimen / Unknown 09/05/2025 11:29 AM EST 09/05/2025 12:50 PM EST Magui Perez MD LAB BLOOD ORDERABLES Final Result Performing Organization Address [facility] de Phone Number [facility] [address] [place] [phone] * Iron And Total Iron Binding Capacity (09/05/2025 11:29 AM EST) Iron 78 30 - 160 mcg/dL [facility] Total Iron Binding Capacity 266 228 - 428 mcg/dL [facility] Percent Iron Saturation 29 15 - 50 % [facility] Unsaturated Iron Binding 188 ug/dL [facility] Blood Venous blood specimen / Unknown 09/05/2025 11:29 AM EST 09/05/2025 12:50 PM EST Magui Perez MD LAB BLOOD ORDERABLES Final Result Performing Organization Address [facility] de Phone Number [facility] [address] [place] [phone] * (ABNORMAL) TSH with Reflex to Free T4 (09/05/2025 11:29 AM EST) TSH reflex Free T4 5.32(H) 0.32 - 4.0 uIU/mL [facility] Blood Venous blood specimen / Unknown 09/05/2025 11:29 AM EST 09/05/2025 12:50 PM EST Magui Perez MD LAB BLOOD ORDERABLES Final Result Performing Organization Address [facility]/State/ZIP Co de Phone Number [facility] [address] [place] [phone] * Ferritin (09/05/2025 11:29 AM EST) Ferritin 76 10 - 250 ng/mL [facility] Blood Venous blood specimen / Unknown 09/05/2025 11:29 AM EST 09/05/2025 12:50 PM EST Magui Perez MD LAB BLOOD ORDERABLES Final Result [facility] [address] [place] [phone] [phone] * (ABNORMAL) CBC auto differential (09/05/2025 11:29 AM EST) [facility] White Blood Count 4.2(L) 4.8 - 10.8 X10*3/uL [facility] Red Blood Count 4.67 4.20 - 5.50 X10*6/uL [facility] Hemoglobin 13.3 12.0 - 16.0 g/dl [facility] Hematocrit 40.6 37.0 - 47.0 % [facility] Mean Corpuscular Volume 86.9 80.0 - 98.0 fL [facility] Mean Corpuscular Hemoglobin 28.5 27.0 - 33.0 pg [facility] Mean Corpuscular HGB Conc 32.8 31.0 - 35.0 g/dl [facility] Red Cell Distribution Width 13.2 11.0 - 16.0 % [facility] Platelet Count 294 160 - 400 X10*3/uL [facility] Mean Platelet Volume 11.6 9.4 - 12.3 fL [facility] Neutrophils Percent Auto 62.8 45 - 73 % [facility] Imm Gran Pct Auto 0.2 0.0 - 0.4 % [facility] Lymphocytes Percent Auto 27.1 20 - 40 % [facility] Monocytes Percent Auto 6.6 2 - 11 % [facility] Eosinophils Percent Auto 2.8 0 - 4 % [facility] Basophils Percent Auto 0.5 0 - 2 % [facility] NRBC Pct Auto 0.0 0.0 - 0.2 /100WBC [facility] Neutrophils Absolute Auto 2.7 2.0 - 8.3 x10*3/uL [facility] Imm Gran Abs Auto 0.01 0.00 - 0.03 X10*3/uL [facility] Lymphocytes Absolute Auto 1.2 1.2 - 4.9 X10*3/uL [facility] Monocytes Absolute Auto 0.3 0.1 - 1.2 X10*3/uL [facility] Eosinophils Absolute Auto 0.1 0.0 - 0.4 X10*3/uL [facility] Basophils Absolute Auto 0.0 0.0 - 0.2 X10*3/uL [facility] NRBC Abs Auto 0.000 0.0 - 0.012 X10*3/uL [facility] Blood Venous blood specimen / Unknown 09/05/2025 11:29 AM EST 09/05/2025 12:50 PM EST Magui Perez MD LAB BLOOD ORDERABLES Final Result Performing Organization Address City/State/[facility] Co de Phone Number [facility] [address] [place] [phone] documented in this encounter Visit Diagnoses Diagnosis Seronegative rheumatoid arthritis ([facility]/HCC) ([facility])- Primary Rheumatoid arthritis Primary hypertension Unspecified essential hypertension Hypothyroidism, unspecified type History of anemia Personal history of diseases of blood and blood-forming organs Mild intermittent asthma without complication Recurrent major depressive disorder, in partial remission ([facility]) Vitamin D deficiency Gastroesophageal reflux disease, unspecified whether esophagitis present Vaginal atrophy Postmenopausal atrophic vaginitis Dermatitis Contact dermatitis and other eczema, due to unspecified cause Class 2 severe obesity due to excess calories with serious comorbidity and body mass index (BMI) of 35.0 to 35.9 in adult Other specified health status documented in this encounter Additional Health Concerns Assessment Noted Time PHQ-9 Depression Total Score: 3 09/05/20 25 10:44 AM EST documented as of this encounter Care Teams Consumer Insight Analyst Relationship Specialty Start Date End Date Chris, MD Magui [address] [place] [address] PCP - General Family Medicine 12/14/17[address] 3rd [place] [address] Gastroenterology 10/09/24 Manjinder Serrano [address] [place] [address] Ophthalmology 11/02/24 Cary Kraus MD [address] [place] [address] Rheumatology 01/31/25 [facility] for WATERSHED ENGINEER Case Management 09/05/25 documented as of this encounter
[2025-09-05 12:58] LABS: MANUAL DIFF FLAG NO
[2025-09-05 13:11] LABS: Hematocrit 40.6 % (37.0-47.0); Hemoglobin 13.3 g/dl (12.0-16.0); Imm Gran Abs Auto 0.01 X10*3/uL (0.00-0.03); Imm Gran Pct Auto 0.2 % (0.0-0.4); Lymphocytes Absolute Auto 1.2 X10*3/uL (1.2-4.9); Mean Corpuscular HGB Conc 32.8 g/dl (31.0-35.0); Mean Corpuscular Hemoglobin 28.5 pg (27.0-33.0); Mean Corpuscular Volume 86.9 fL (80.0-98.0); NRBC Abs Auto 0.000 X10*3/uL (0.0-0.012); NRBC Pct Auto 0.0 /100WBC (0.0-0.2); Platelet Count 294 X10*3/uL (160-400); Red Blood Count 4.67 X10*6/uL (4.20-5.50); White Blood Count 4.2 X10*3/uL (4.8-10.8)
[2025-09-05 13:12] LABS: Hematocrit 41.1 % (37.0-47.0); Hemoglobin 13.5 g/dl (12.0-16.0); Imm Gran Abs Auto 0.01 X10*3/uL (0.00-0.03); Imm Gran Pct Auto 0.2 % (0.0-0.4); Lymphocytes Absolute Auto 1.2 X10*3/uL (1.2-4.9); Mean Corpuscular HGB Conc 32.8 g/dl (31.0-35.0); Mean Corpuscular Hemoglobin 28.7 pg (27.0-33.0); Mean Corpuscular Volume 87.3 fL (80.0-98.0); NRBC Abs Auto 0.000 X10*3/uL (0.0-0.012); NRBC Pct Auto 0.0 /100WBC (0.0-0.2); Platelet Count 298 X10*3/uL (160-400); Red Blood Count 4.71 X10*6/uL (4.20-5.50); White Blood Count 4.4 X10*3/uL (4.8-10.8)
[2025-09-05 13:56] LABS: Folate 8.2 ng/mL (> or = 4.0); Vitamin B12 394 pg/mL (200-900)
[2025-09-05 14:03] LABS: Alanine Aminotransferase 18 U/L (0-31); Albumin Level 4.6 g/dL (3.5-5.0); Alkaline Phosphatase 113 U/L (39-117); Anion Gap 10 (12-20); Aspartate Amino Transferase 27 U/L (5-31); Blood Urea Nitrogen 13 mg/dL (9-16); Calcium 10.1 mg/dL (8.4-10.2); Carbon Dioxide 28 mmol/L (22-29); Chloride 108 mmol/L (96-108); Cholesterol 205 mg/dL (<200); Estimated Glomerular Filt Rate > 60; HDL Cholesterol 61 mg/dL (>40); Iron 78 mcg/dL (30-160); Microalbum/Creatinine Ratio Ur 5.7 ug/mg cr (<30); Percent Iron Saturation 29 % (15-50); Potassium 4.3 mmol/L (3.3-5.1); Sodium 142 mmol/L (135-145); Total Iron Binding Capacity 266 mcg/dL (228-428); Total Protein 8.2 g/dL (6.5-8.0); Triglycerides 110 mg/dL (<150); Unsaturated Iron Binding 188 ug/dL
[2025-09-05 14:11] LABS: Cholesterol 206 mg/dL (<200); HDL Cholesterol 62 mg/dL (>40); Triglycerides 110 mg/dL (<150)
[2025-09-05 14:15] LABS: Ferritin 76 ng/mL (10-250)
[2025-09-05 14:51] LABS: Free T4 (Free Thyroxine) 1.23 ng/dL (0.71-1.85)
--- OUTSIDE RECORDS SUMMARY | 2025-09-05 17:24 | XMS_ITS | Encounter Summary ---
Author Organization [employer] Address [address] [facility] 7 [place] [address] Care Team Providers Care Roadway Engineer Name Role Phone Magui Perez MD Primary Care Provider +1- [phone] January Unavailable Manjinder Serrano Unavailable Unavailable Encounter Details Date Type Department Care Team (Latest Contact Info) Description 09/05/2025 Travel Social History Tobacco Use Types Packs/Day Years [...] [place] documented as of this encounter Plan of Treatment Not on file documented as of this encounter Visit Diagnoses Not on filedocumented in this encounter Additional Health Concerns Assessment Noted Time PHQ-9 Depression Total Score: 3 09/05/20 10:44 AM EST documented as of this encounter Care Teams Roadway Engineer Relationship Specialty Start Date End Date Magui Perez MD [address] [place] [address] PCP - General Family Medicine 12/14/17[address] 3rd [place] [address] Gastroenterology 10/09/24 Manjinder Serrano [address] [place] [address] Ophthalmology 11/02/24 Cary Kraus MD [address] [place] [address] Rheumatology 01/31/25 [facility] for EMPLOYEE RELATION MANAGER Case Management 09/05/25 documented as of this encounter
--- OUTSIDE RECORDS SUMMARY | 2025-09-05 17:24 | XMS_ITS | Encounter Summary ---
Author Organization [employer] Address [address] [place] [address] 7 [place] [address] Care Team Providers Care Copy Chaser Name Role Phone Magui Perez MD Primary Care Provider +1- [phone] Enrique Harvey MD Unavailable January Unavailable Manjinder Serrano Unavailable Unavailable Reason for Visit * Reason Comments Med Refill Encounter Details Date Type Department Care Team (Late st Contact Info) Description 06/14/2024 Refill [facility]INE [address] [place], [place] [phone] Farzana Haq MD [address] [place], [place] [phone] Insomnia, unspecified type Social History Tobacco Use [...] documented as of this encounter Care Teams Copy Chaser Relationship Specialty Start Date End Date Magui Perez MD [address] [place] [phone] PCP - General Family Medicine 12/14/17 Enrique Harvey MD [address] [place] [address] Rheumatology 10/09/24 01/30/25[address] 3rd [place] [address] Gastroenterology 10/09/24 Manjinder Serrano [address] [place] [address] Ophthalmology 11/02/24 Cary Kraus MD [address] [place] [address] Rheumatology 01/31/25 [facility] for REED OR WIND INSTRUMENT TUNER Case Management 09/05/25 documented as of this encounter
--- OUTSIDE RECORDS SUMMARY | 2025-09-05 17:24 | XMS_ITS | Encounter Summary ---
Author Organization [employer] Address [address] [place] [address] [place] [address] Care Team Providers Care Copying Machine Mechanic Name Role Phone Magui Perez MD Primary Care Provider +1- [phone] Enrique Harvey MD Unavailable January Unavailable Manjinder Serrano Unavailable Unavailable Reason for Visit * Reason Onset Date Comments Med Refill 08/06/2024 Encounter Details Date Type Department Care Team (Late st Contact Info) Description 08/06/2024 Telephone [facility]INE [address] [place], [place] [phone] Magui Perez MD [address] [place], [place] [phone] Med Refill Social History Tobacco Use Types [...] EDT TC placed to pt with a spanish interpreter in regards to request for an albuterol [...] request a script for a albuterol inhaler commercial lines underwriter does not see medication on chart [...] documented as of this encounter Care Teams Copying Machine Mechanic Relationship Specialty Start Date End Date Magui Perez MD [address] [place] [address] PCP - General Family Medicine 12/14/17 Enrique Harvey MD [address] [place] [address] Rheumatology 10/09/24 01/30/25January [address] 3rd [place] [address] Gastroenterology 10/09/24 Manjinder Serrano [address] [place] [address] Ophthalmology 11/02/24 Cary Kraus MD [address] [place] [address] Rheumatology 01/31/25 [facility] for PASTER HAT LINING Case Management 09/05/25 documented as of this encounter
--- OUTSIDE RECORDS SUMMARY | 2025-09-05 17:24 | XMS_ITS | Encounter Summary ---
Author Organization [employer] Address [address] [place] [address] [place] [address] Care Team Providers Care Stretching Press Operator Name Role Phone Magui Perez MD Primary Care Provider +1- [phone] Enrique Harvey MD Unavailable January Unavailable Manjinder Serrano Unavailable Unavailable Encounter Details Date Type Department Care Team (Late st Contact Info) Description 07/20/2024 Orders Only [facility]INE [address] [place], [place] [phone] Magui Perez MD [address] [place], [place] [phone] Social History Tobacco Use Types Packs/Day Years [...] documented as of this encounter Care Teams Stretching Press Operator Relationship Specialty Start Date End Date Magui Perez MD [address] [place] [address] PCP - General Family Medicine 12/14/17 Enrique Harvey MD [address] [place] [address] Rheumatology 10/09/24 01/30/25January [address] 3rd [place] [address] Gastroenterology 10/09/24 Manjinder Serrano [address] [place] [address] Ophthalmology 1/17/25 Cary Kraus MD [address] [place] [address] Rheumatology 01/31/25 [facility] for SURGICAL ENDOSCOPIST Case Management 09/05/25 documented as of this encounter
--- OUTSIDE RECORDS SUMMARY | 2025-09-05 17:24 | XMS_ITS | Encounter Summary ---
Author Organization [employer] Address [address] [place] [address] 7 [place] [address] Care Team Providers Care Financial Management Analyst Name Role Phone Magui Perez MD Primary Care Provider +1- [phone] Enrique Harvey MD Unavailable January Unavailable Manjinder Serrano Unavailable Unavailable Reason for Visit * Reason Comments Med Change Request Encounter Details Date Type Department Care Team (Late st Contact Info) Description 07/30/2024 Refill [facility] MED[facility]INE [address] [place], [place] [phone] Magui Perez MD [address] [place], [place] [phone] Insomnia, unspecified type Social History Tobacco Use [...] documented as of this encounter Care Teams Financial Management Analyst Relationship Specialty Start Date End Date Magui Perez MD [address] [place] [address] PCP - General Family Medicine 12/14/17 Enrique Harvey MD [address] [place] [address] Rheumatology 10/09/24 01/30/25[address] 3rd [place] [address] Gastroenterology 10/09/24 Manjinder Serrano [address] [place] [address] Ophthalmology 11/02/24 Cary Kraus MD [address] [place] [address] Drive [address] [place] [address] Rheumatology 01/31/25 [facility] for MONORAIL CRANE OPERATOR Case Management 09/05/25 documented as of this encounter
--- OUTSIDE RECORDS SUMMARY | 2025-09-05 17:24 | XMS_ITS | Encounter Summary ---
Author Organization [employer] Address [address] [facility] 7 [place] [address] Care Team Providers Care Production Maintenance Technician Name Role Phone Magui Perez MD Primary Care Provider +1- [phone] January Unavailable Manjinder Serrano Unavailable Unavailable Encounter Details Date Type Department Care Team (Late st Contact Info) Description 09/05/2025 Orders Only GENERIC EXTERNAL DATA DEPARTMENT Provider, Generic External Data Social History Tobacco Use Types Packs/Day Years [...] Procedure Name Priority Date/Time Associated Diagnosis Comments CBC WITH AUTO DIFFERENTIAL Routine 09/05/2025 11:29 AM EST SED RATE BY MODIFIED WESTERGREN Routine 09/05/2025 11:29 AM EST C-REACTIVE PROTEIN Routine 09/05/2025 11 :29 AM EST T4, FREE Routine 09/05/2025 11:29 AM EST LIPID PANEL, STANDARD Routine 09/05/2025 11:29 AM EST COMPREHENSIVE METABOLIC PANEL Routine 09/05/2025 11:29 AM EST documented in this encounter Results * T4, Free (09/05/2025 11:29 AM EST) Free T4 (Free Thyroxine) 1.23 0.71 - 1.85 ng/dL [facility] 09/05/2025 11:2 9 AM EST 09/05/2025 12:50 PM EST us Magui Perez MD LAB BLOOD ORDERABLES Final Result Performing Organization Address City/State/[facility] Co de Phone Number [facility] [address] [place] [phone] * (ABNORMAL) Lipid Panel, Standard (09/05/2025 11:29 AM EST) Triglycerides 110 <150 mg/dL [facility] Comment:Desirable Triglyceri de: less than 150 mg/dLBorderline High Triglyceride 150-199 mg/dLHigh Triglyceride: 200-499 mg/dLVery High Triglyceride: greater than or equal to 5OO mg/dL Cholesterol 205(H) <200 mg/dL [facility] Comment:Desirable Cholestero l: less than 200 mg/dLBorderline High Cholesterol: 200-239 mg/dLHigh Cholesterol: greater than 239 mg/dL LDL Cholesterol Calculated 122(H) <100 mg/dL [facility] Comment:Desirable LDL: less than 100 mg/dLNear Optimal/Above Optimal LDL: 110- 129 mg/dLBorderline High LDL: 130-159 mg/dLHigh LDL: 160-189 mg/dLVery High LDL: greater than or equal to 190 mg/dL HDL Cholesterol 61 >40 mg/dL [facility] Comment:Desirable HDL: great er than 40 mg/dL Note: This HDL assay may give artificially low results in patients with liver disease. 09/05/2025 11:2 9 AM EST 09/05/2025 12:50 PM EST Generic External Data Provider LAB BLOOD ORDERAB LES Final Result Performing Organization Address [facility] Co de Phone Number [facility] [address] [place] [phone] * (ABNORMAL) C-reactive Protein (09/05/2025 11:29 AM EST) C Reactive Protein 1.12(H) < or = 0.50 mg/dL [facility] 09/05/2025 11:2 9 AM EST 09/05/2025 12:50 PM EST Generic External Data Provider LAB BLOOD ORDERAB LES Final Result Performing Organization Address [facility] Co de Phone Number [facility] [address] [place] [phone] * (ABNORMAL) Comprehensive Metabolic Panel (09/05/2025 11:29 AM EST) Sodium 142 135 - 145 mmol/L [facility] Potassium 4.3 3.3 - 5.1 mmol/L [facility] Chloride 108 96 - 108 mmol/L [facility] Carbon Dioxide 28 22 - 29 mmol/L [facility] Anion Gap 10(L) 12 - 20 [facility] Urea Nitrogen (BUN) 13 9 - 16 mg/dL [facility] Creatinine, Serum 0.73 0.5 - 1.4 mg/dL [facility] Estimated Glomerular Filt Rate >60 [facility] Comment:Chronic Kidney Disea se: Estimated GFR < 60 mL/min/1.39z7Bavaul Kidney Disease: Estimated GFR < 15 mL/min/1.73m2 Glucose 106 60 - 115 mg/dL [facility] Calcium 10.1 8.4 - 10.2 mg/dL [facility] Bilirubin, Total 0.6 0.0 - 1.0 mg/dL [facility] Aspartate Amino Transferase 27 5 - 31 U/L [facility] Alanine Aminotransferase 18 0 - 31 U/L [facility] Total Protein 8.2(H) 6.5 - 8.0 g/dL [facility] Albumin Level 4.6 3.5 - 5.0 g/dL [facility] Alkaline Phosphatase 113 39 - 117 U/L [facility] 09/05/2025 11:2 9 AM EST 09/05/2025 12:50 PM EST Generic External Data Provider LAB BLOOD ORDERAB LES Final Result Performing Organization Address [facility] Co de Phone Number [facility] [address] [place] [phone] * (ABNORMAL) Sed Rate by Modified Westergren (09/05/2025 11:29 AM EST) Erythrocyte Sedimentation Rate 30(H) 0 - 20 MM/HR [facility] Comment:Patients with polycy themia and many hemoglobin abnormalitiesmay have depressed sed rates whereas patients with anemiamay have elevated sed rates. 09/05/2025 11:2 9 AM EST 09/05/2025 12:50 PM EST Generic External Data Provider LAB BLOOD ORDERAB LES Final Result Performing Organization Address City/[facility] Co de Phone Number [facility] [address] [place] [phone] * (ABNORMAL) CBC auto differential (09/05/2025 11:29 AM EST) White Blood Count 4.4(L) 4.8 - 10.8 X10*3/uL [facility] Red Blood Count 4.71 4.20 - 5.50 X10*6/uL [facility] Hemoglobin 13.5 12.0 - 16.0 g/dl [facility] Hematocrit 41.1 37.0 - 47.0 % [facility] Mean Corpuscular Volume 87.3 80.0 - 98.0 fL [facility] Mean Corpuscular Hemoglobin 28.7 27.0 - 33.0 pg [facility] Mean Corpuscular HGB Conc 32.8 31.0 - 35.0 g/dl [facility] Red Cell Distribution Width 13.0 11.0 - 16.0 % [facility] Platelet Count 298 160 - 400 X10*3/uL [facility] Mean Platelet Volume 11.6 9.4 - 12.3 fL [facility] Neutrophils Percent Auto 63.3 45 - 73 % [facility] Imm Gran Pct Auto 0.2 0.0 - 0.4 % [facility] Lymphocytes Percent Auto 27.8 20 - 40 % [facility] Monocytes Percent Auto 6.4 2 - 11 % [facility] Eosinophils Percent Auto 1.8 0 - 4 % [facility] Basophils Percent Auto 0.5 0 - 2 % [facility] NRBC Pct Auto 0.0 0.0 - 0.2 /100WBC [facility] Neutrophils Absolute Auto 2.8 2.0 - 8.3 x10*3/uL [facility] Imm Gran Abs Auto 0.01 0.00 - 0.03 X10*3/uL [facility] Lymphocytes Absolute Auto 1.2 1.2 - 4.9 X10*3/uL [facility] Monocytes Absolute Auto 0.3 0.1 - 1.2 X10*3/uL [facility] Eosinophils Absolute Auto 0.1 0.0 - 0.4 X10*3/uL [facility] Basophils Absolute Auto 0.0 0.0 - 0.2 X10*3/uL [facility] NRBC Abs Auto 0.000 0.0 - 0.012 X10*3/uL [facility] 09/05/2025 11:2 9 AM EST 09/05/2025 12:50 PM EST us Generic External Data Provider LAB BLOOD ORDERAB LES Final Result [facility] [address] [place] [address] [phone] documented in this encounter Visit Diagnoses Not on filedocumented in this encounter Additional Health Concerns Assessment Noted Time PHQ-9 Depression Total Score: 3 09/05/20 10:44 AM EST documented as of this encounter Care Teams Production Maintenance Technician Relationship Specialty Start Date End Date Magui Perez MD [address] [place] [address] PCP - General Family Medicine 12/14/17January [address] [facility] [address] 3rd [place] [address] Gastroenterology 10/09/24 Manjinder Serrano [address] [place] [address] Ophthalmology 11/02/24 Cary Kraus MD [address] [place] [address] Rheumatology 01/31/25 [facility] for RESEARCH ASST Case Management 09/05/25 documented as of this encounter
--- OUTSIDE RECORDS SUMMARY | 2025-09-05 17:24 | XMS_ITS | Data Portability ---
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 Results were not available for me to review today [email or web address] Not available 12/10/2024 09:37:00 06/10/2025 06/10/2025 - Left-sided tinnitus, chronic, associated with prior head trauma. The patient was educated on lifestyle modifications to potentially alleviate symptoms, including reducing caffeine intake and using background noise to mask the ringing sound. Counseling was provided on the association between high caffeine consumption, poor sleep, and increased tinnitus severity. The patient was advised to consider switching to non-caffeinated beverages and engaging in alternative habits, such as walking and drinking water. Hearing levels were measured and found to be normal bilaterally, establishing a baseline for future reference. No medications or procedures were recommended at this time. Follow-up instructions were provided to monitor symptom progression and lifestyle changes. [email or web address] Not available 06/10/2025 11:24:35 Plan of Treatment Reminders Order Date Submit Date Provider Last Modified By Organization Details Last Modified Time Details Appointments None record ed. Lab None record ed. Referral None record ed. Procedures None record ed. Surgeries None record ed. Imaging None record ed. Medication Orders None record ed. Patient TargetsNo targets recorded. Patient Instructions Encounter Date Encounter Id Patient Instructions Last Modified By Organization Details Last Modified Time 06/10/2025 [id number] Reduce caffeine intake by switching to non-caffeinated beverages. Use background noise, such as a TV or radio, to mask the ringing sound. Monitor symptom progression and lifestyle changes. [email or web address] Not available 06/10/2025 11:24:35 Please note: Parts of this encounter note have been generated by AI based on audio conversation. Patient consent was required prior to utilizing this technology. Content review was required prior to finalizing the note. [email or web address] Not available 06/10/2025 11:24:35 Reason for Referral None Reported. Results Created Date Observation Date Name Description Value Unit Range Abnormal Flag Note LastModifiedBy Organization Detail LastModifiedTime 06/10/20 audio gram No observ ation record ed. BARCODE Not Available 2024 16:55:27 Result Notes None recorded. Problems Name Problem SNOMED Code Status Onset Date Resolution Date Notes Provider Name and Address Organization Details Recorded Time Feeling of lump in throat 476322072 Active 2024 MICHELLE MORENO MD [address] [place] [address], [phone], [facility] - [facility] 09:35:32 Bilateral tinnitus 7830971940350 Active 2024 MICHELLE MORENO MD [address] [place] [address], [phone], [facility] - [facility] 09:35:37 Problem Notes None recorded. Procedures Surgical History Date Name Laterality Status Provider Name and Address Organization Details Recorded Time 06/10/2025 Air & Speech Audio with Tymps - 96842, 29458 & 45677 completed JUANA CROUCH [address] [place] [address],[address], [address], [facility] - [facility] 06/10/2025 10:40:56 12/10/2024 FOL_DP completed MICHELLE MORENO MD [address] [place] [address], [phone], [facility] - [facility] 12/06/2024 08:09:31 Imaging Results None recorded. Procedure Notes None recorded. Medical Equipment None Reported. Medications Name Sig Start Date Stop Date Status Note LastModified by Organization Details LastModified Time amoxicillin 500 mg capsule TAKE 1 CAPSULE BY MOUTH EVERY 8 HOURS 06/10 completed Not Available Not Available Not Available prednisone 10 mg tablet TAKE 3 TABS DAILY FOR 1 WEEK, 2 TABS DAILY FOR 1 WEEK, 1 TAB DAILY FOR 1 WEEK THEN STOP 12/10 completed Not Available Not Available Not Available Synthroid 150 mcg tablet TAKE 1 TABLET BY MOUTH EVERY [...] TIMES A DAY USE FOR 2 WEEKS 06/10 completed Not Available Not Available Not Available triamcinolo ne acetonide 0.1 % topical ointment APPLY TOPICALLY IF NEEDED IN THE MORNING AND AT BEDTIME FOR RASH. active Not Available Not Available No t Available losartan 25 mg tablet TAKE 1 TABLET (25 MG) BY MOUTH ONCE PER DAY. active Not Available Not Available No t Available omeprazole 20 mg capsule,del ayed release TAKE 1 CAPSULE BY MOUTH EVERY DAY active Not Available [...] 2 TIMES PER DAY FOR 2 WKS 06/10 completed Not Available Not Available Not Available loratadine 10 mg tablet TAKE 1 TABLET BY MOUTH EVERY DAY active Not Available Not Available No t Available Ventolin HFA 90 mcg/actuati on aerosol inhaler INHALE 2 PUFFS EVERY 6 HOURS IF NEEDED FOR WHEEZING OR SHORTNESS OF BREATH. active Not Available Not Available No t [...] Not Available Not Available No t Available Vitamin D3 50 mcg (2,000 unit) capsule TAKE 1 CAPSULE (50 MCG) BY MOUTH ONCE PER DAY. active Not Available Not Available No t Available Arnuity Ellipta 100 mcg/actuati on powder for inhalation PLEASE SEE ATTACHED FOR DETAILED DIRECTION S active Not Available Not Available No t Available Humira(CF) Pen 40 mg/0.4 mL subcutaneou s kit active Not Available Not Available Not Available Vitals Date Recorded Body height Body mass index (BMI) Body weight Provider Name and Address Organization Details Last Updated DateTime 12/10/2024 157.48 cm 36.6 kg/m2 68954.47 g Brenton Spear [place] - [facility] [place] 12/10/2024 09:18:56 Date Recorded Body height Provider Name an d Address Organization Details Last Updated DateTime 06/10/2025 157.48 cm SALLY PUENTE [place] - [facility] [place] 06/10/2025 10:28:40 Social History None recorded. Functional Status None [...] Disorder N Anesthesia Complications N Heart Attack (MS) N Other Skin Condition N Diabetes N [...] Diagnosis SNOMED-CT Code Diagnosis ICD10 Code Diagnosis IMO Codes Diagnosis Note [id number] MICHELLE MORENO MD [facility] [address] [address] 12/10/2024 09:12:12 12/10/2024 09:38:15 Feeling of lump in throat 543272815 R09.89 Bilateral tinnitus 94538 39161 102 H93.13 At the end of the visit patient indicated a secondary concern of bilateral tinnitus that has been present for a long time. Will make arrangemen ts for audiometri c testing at a future appointmen t with physician application assistant [id number] MICHELLE MORENO MD [facility] [place] [address] [place] [address] 06/10/2025 10:16:03 06/10/2025 11:26:08 Bilateral tinnitus 7934861837 102 H93.13 Right Ear:Normal hearing with excellent speech discrimina tion.Type A tympanogra m.Left Ear:Normal hearing with excellent speech discrimina tion.Type A tympanogra m. Health Concerns Section Related Observation LastModified by Organization Detai ls LastModified Time None Recorded Concern Status LastModified by Organization Details LastModified Time None Recorded Advance Directives Directive None Recorded Payers Insurance Date Sequence Insurance Name Policy Number Policy Estevez Covered Member ID Estevez Member ID Guarantor Name 06/10/2025 1 [place] [facility] Farzana Denis [id number] Farzana Denis Notes Date Note Type Note Provider Name and Address Organization Details Recorded Time 5 text/html ROS as noted in the HPI globusdysphagia with some solid food and pills get stuck intermittentlocated left neck near larynxonset around 2021+reflux on pepcid+hx of radiation to thyroidno difficulty with liquid or solidhad ba swallow at [facility] in Aug [facility]24[facility] consult December to review results. UGI showed inflammation in esophagus and stomachprev using meds for reflux famotidine & omeprazole, now only TUMS as she feels better controlhx of galbladder removal - now on cholestyramine MICHELLE MORENO MD [address] [address], [place], [address], [facility] - [facility] 12/10/2024 09:37:17 5 text/html ROS as noted in the HPI IPad Samoan - declined laborer/grade check today Tinnitus PV 12/10/24 Elysia globus - normal FOL and exam. defer to GI for management of reflux Farzana Denis is a 55-year-old female who presents for left-sided tinnitus. The patient reports experiencing a steady ringing sound in her left ear for approximately three years. She recalls a fall around the time the symptoms began, during which she struck her left side, including her hip and head. She denies remembering any new medications or other significant events coinciding with the onset of symptoms. The patient reports sleeping seven to eight hours per night and consuming four to five cans of Coca-Cola daily, which she is attempting to reduce. She has not tried background noise or other methods to alleviate the ringing sound. MICHELLE MORENO MD [address] [place] [address], [phone], [facility] - [facility] 06/10/2025 11:25:48 OBGyn Episode No OBEpisode recorded.
--- OUTSIDE RECORDS SUMMARY | 2025-09-05 17:25 | XMS_ITS | Clinical Summary ---
Author Organization [facility], Address [address] [place] [address] [place] [address] Phone Care Team Providers Care Break Off Worker Name Role Phone Bethel, Magui Steinberg MD Primary Care Provider U [...] to 49 Years) Discontinued 04/20/2023 Insurance Medicaid [place] Care Teams Break Off Worker Relationship Specialty Start Date End Date Bethel, Magui Steinberg MD PCP - General Family Medicine 03/30/22
--- OUTSIDE RECORDS SUMMARY | 2025-09-05 17:25 | XMS_ITS | Encounter Summary ---
Author Organization [employer] Address [address] [place] [address] [place] [address] Care Team Providers Care Livestock Yard Attendant Name Role Phone Magui Perez MD Primary Care Provider +1- [phone] January Unavailable Manjinder Serrano Unavailable Unavailable Reason for Visit * Reason Onset Date Comments chartprep 09/04/2025 Encounter Details Date Type Department Care Team (Late st Contact Info) Description 09/04/2025 Telephone [facility] MEDICINE [address] [place], [place] [phone] Magui Perez MD 230 [place], [place] [phone] chartprep Social History Tobacco Use Types Packs/Day Years [...] encounter Miscellaneous Notes * Telephone Encounter - Sherly Craft [place] - 09/04/2025 4:21 PM EST ..Chart Prep Labs: not applicable Images: done CT chest Vaccines due: Covid Due, Flu Due, RSV in Pharmacy Due, and Shingles in pharmacy Due Referrals: Not Applicable Screenings: Not Applicable Overdue care gaps: Sbirt, SDOH, PHQ9, GAD7, and Disability documented in this encounter Plan of Treatment Not on file documented as of this encounter Visit Diagnoses Not on filedocumented in this encounter Additional Health Concerns Assessment Noted Time PHQ-9 Depression Total Score: 14 024 10:21 AM EDT documented as of this encounter Care Teams Livestock Yard Attendant Relationship Specialty Start Date End Date Magui Perez MD [address] [place] [address] PCP - General Family Medicine 12/14/17January [address] 3rd [place] [address] Gastroenterology 10/09/24 Manjinder Serrano [address] [place] [address] Ophthalmology 11/02/24 Cary Kraus MD [address] [place] [address] Rheumatology 01/31/25 documented as of this encounter
--- OUTSIDE RECORDS SUMMARY | 2025-09-05 17:25 | XMS_ITS | Encounter Summary ---
Author Organization [employer] Address [address] [place] [address] [place] [address] Care Team Providers Care Professional Advisor Name Role Phone Magui Perez MD Primary Care Provider +1- [phone] Enrique [place] MD Unavailable January Unavailable Manjinder Serrano Unavailable Unavailable Reason for Visit * Reason Onset Date Comments Med Refill 01/17/2025 Encounter Details Date Type Department Care Team (Late st Contact Info) Description 01/17/2025 Refill [facility] MEDICINE [address] [place], [place] [phone] Magui Perez MD [address] [place], [place] [phone] Depression, unspecified depression type Social History Tobacco [...] documented as of this encounter Care Teams Professional Advisor Relationship Specialty Start Date End Date Magui Perez MD [address] [place] [address] PCP - General Family Medicine 12/14/17 Enrique [place] MD [address] [place] [address] Rheumatology 10/09/24 01/30/25January [address]rd [place] [address] Gastroenterology 10/09/24 Manjinder Serrano [address] [place] [address] Ophthalmology 11/02/24 Cary Kraus MD [address] [place] [address] [address] [place] [address] Rheumatology 01/31/25 Pamela for WRAPPING MACHINE HELPER Case Management 09/05/25 documented as of this encounter
--- OUTSIDE RECORDS SUMMARY | 2025-09-05 17:25 | XMS_ITS | Encounter Summary ---
Author Organization [employer] Address [address] [place] [address] [place] [address] Care Team Providers Care Health Actuary Name Role Phone Magui Perez MD Primary Care Provider +1- [phone] January Unavailable Manjinder Serrano Unavailable Unavailable Encounter Details Date Type Department Care Team ([facility] st Contact Info) Description 08/20/2025 Telephone [facility] MEDICINE 230 [place], [place] [phone] Magui Perez MD [address] [place], [place] [phone] Social History Tobacco Use Types Packs/Day Years [...] as of this encounter Care Teams Health Actuary Relationship Specialty Start Date End Date Magui Perez MD 230 [place] [address] PCP - General Family Medicine 12/14/17January [address]rd [place] [address] Gastroenterology 10/09/24 Manjinder Serrano [address] [place] [address] Ophthalmology 11/02/24 Cary Kraus MD [address] [place] [address] Rheumatology 01/31/25 V[employer]ra for SAND MILLER Case Management 09/05/25 documented as of this encounter
--- OUTSIDE RECORDS SUMMARY | 2025-09-05 17:25 | XMS_ITS | Encounter Summary ---
Author Organization [employer] Address [address] [place] [address] Care Team Providers Care Charging Car Operator Name Role Phone Magui Perez MD Primary Care Provider +1- [phone] Enrique [place] MD Unavailable January Unavailable Manjinder Serrano Unavailable Unavailable Reason for Visit * Reason Onset Date Comments Med Refill 04/20/2023 Encounter Details Date Type Department Care Team (Late st Contact Info) Description 04/20/2023 Telephone [facility] MEDICINE [address] [place], [place] [phone] Magui Perez MD [address] [place], [place] [phone] Med Refill Social History Tobacco Use Types [...] Tc from pt requesting medication nystatin (Mycostatin) 913423 UNIT/GM powder to be sent to [facility] pharmacy. documented in this encounter Plan of Treatment Not on file documented as of this encounter Visit Diagnoses Not on filedocumented in this encounter Additional Health Concerns Assessment Noted Time PHQ-9 Depression Total Score: 0 04/20/20 23 10:16 AM EDT documented as of this encounter Care Teams Charging Car Operator Relationship Specialty Start Date End Date Magui Perez MD [address] [place] [address] PCP - General Family Medicine 12/14/17 Enrique [place] MD [address] [place] [address] Rheumatology 10/09/24 01/30/25January [address]rd [place] [address] Gastroenterology 10/09/24 Manjinder Serrano [address] [place] [address] Ophthalmology 11/02/24 Cary Kraus MD [address] [place] [address] Rheumatology 01/31/25 Pamela for MEDICAL ENGINEER Case Management 09/05/25 documented as of this encounter
--- OUTSIDE RECORDS SUMMARY | 2025-09-05 17:25 | XMS_ITS | Encounter Summary ---
Author Organization [employer] Address [address] [place] [address] [place] [address] Care Team Providers Care Early Childhood Services Coordinator Name Role Phone Magui Perez MD Primary Care Provider +1- [phone] Enrique [place] MD Unavailable January Unavailable Manjinder Serrano Unavailable Unavailable Reason for Visit * Reason Onset Date Comments Referral 10/21/2023 Encounter Details Date Type Department Care Team (Late st Contact Info) Description 10/21/2023 Telephone [facility] MEDICINE 230 [place] [address] Magui Perez MD [address] [place], [place] [phone] Referral Social History Tobacco Use Types Packs/Day [...] encounter Miscellaneous Notes * Telephone Encounter - Beataninazackal Borja Pablo - 10/21/2023 2:59 PM EST Tc from pt requesting a [facility] Patient has not symptoms Please contact pt @ [phone] documented in this encounter Plan of Treatment Not on file documented as of this encounter Visit Diagnoses Diagnosis Routine eye exam Examination of eyes and vision documented in this encounter Additional Health Concerns Assessment Noted Time PHQ-9 Depression Total Score: 0 04/20/20 23 10:16 AM EDT documented as of this encounter Care Teams Early Childhood Services Coordinator Relationship Specialty Start Date End Date Magui Perez MD [address] [place] [address] PCP - General Family Medicine 12/14/17 Enrique [place] MD [address] [place] [address] Rheumatology 10/09/24 01/30/25January [address] 3rd [place] [address] Gastroenterology 10/09/24 Manjinder Serrano [address] [place] [address] Ophthalmology 11/02/24 Cary Kraus MD [address] [place] [address] Rheumatology 01/31/25 Pamela for POWDERMAN Case Management 09/05/25 documented as of this encounter
--- OUTSIDE RECORDS SUMMARY | 2025-09-05 17:25 | XMS_ITS | Patient Health Record ---
Author Organization [employer] [facility] Address [address] [place] [address] Care Team Providers Care Floor Clerk Name Role Phone Buddy Valadez Unavailable [phone] Reason For Referral No Information Plan Of Treatment No Information
--- OUTSIDE RECORDS SUMMARY | 2025-09-05 17:25 | XMS_ITS | Encounter Summary ---
Author Organization [facility], Address [address] [place] [address] Phone Care Team Providers Care Arc Welder Name Role Phone Magui Perez MD Primary Care Provider U bettyaildaiana Encounter Details Date Type Department Care Team (Late st Contact Info) Description 03/30/2022 Documentation Only [facility], [address] [place] [address] Magui Perez MD [address] [place] [address] Social History Tobacco Use Types Packs/Day Years [...] on filedocumented in this encounter Care Teams Arc Welder Relationship Specialty Start Date End Date Magui Perez MD PCP - General Family Medicine 03/30/22 documented as of this encounter
--- OUTSIDE RECORDS SUMMARY | 2025-09-05 17:25 | XMS_ITS | Encounter Summary ---
Author Organization [employer] Address [address] [place] [address] [place] [address] Care Team Providers Care Stevedore Hold Name Role Phone Magui Perez MD Primary Care Provider +1- [phone] January Unavailable Manjinder Serrano Unavailable Unavailable Reason for Visit * Reason Onset Date Comments Med Refill 08/26/2025 Encounter Details Date Type Department Care Team (Late st Contact Info) Description 08/26/2025 Telephone [facility] MEDICINE 230 [place], [place] [phone] Magui Perez MD [address] [place], [place] [phone] Med Refill Social History Tobacco Use Types [...] encounter Miscellaneous Notes * Telephone Encounter - Leana Tsai LPN - 08/26/2025 9:16 AM EST Medication was sent to [facility] #[id number] on 03/09/25 with 11 refills. * Telephone Encounter - Evan Chávez - 08/26/2025 9:12 AM EST TC from pt requesting medication refill. Medications needing refill : albuterol (Ventolin HFA) 108 (90 Base) MCG/ACT inhaler To be sent to: [facility]/pharmacy #[id number] - [place] - [address] [place], [place] [address] [facility] [address] [facility] documented in this encounter Plan of Treatment Not on file documented as of this encounter Visit Diagnoses Not on filedocumented in this encounter Additional Health Concerns Assessment Noted Time PHQ-9 Depression Total Score: 14 024 10:21 AM EDT documented as of this encounter Care Teams Stevedore Hold Relationship Specialty Start Date End Date Magui Perez MD [address] [place] [address] PCP - General Family Medicine 12/14/17LandersJanuary [address]rd [place] [address] Gastroenterology 10/09/24 Manjinder Serrano [address] [place] [address] Ophthalmology 11/02/24 Cary Kraus MD [address] [place] [address] Rheumatology 01/31/25 [employer] for CIRCULATING NURSE Case Management 09/05/25 documented as of this encounter
--- OUTSIDE RECORDS SUMMARY | 2025-09-05 17:25 | XMS_ITS | Encounter Summary ---
Author Organization [employer] Address [address] [place] [address] [place] [address] Care Team Providers Care Dietary Supervisor Name Role Phone Magui Perez MD Primary Care Provider +1- [phone] January Unavailable Manjinder Serrano Unavailable Unavailable Encounter Details Date Type Department Care Team ([facility] st Contact Info) Description 04/26/2025 Telephone [facility] MEDICINE 230 [place], [place] [phone] Magui Perez MD 230 [place], [place] [phone] Social History Tobacco Use Types Packs/Day Years [...] documented as of this encounter Care Teams Dietary Supervisor Relationship Specialty Start Date End Date Magui Perez MD 230 [place] [address] PCP - General Family Medicine 12/14/17January [address] 3rd [place] [address] Gastroenterology 10/09/24 Manjinder Serrano [address] [place] [address] Ophthalmology 11/02/24 Cary Kraus MD [address] [place] [address] Rheumatology 01/31/25 [employer] for MUSIC AGENT Case Management 09/05/25 documented as of this encounter
--- OUTSIDE RECORDS SUMMARY | 2025-09-05 17:25 | XMS_ITS | Encounter Summary ---
Author Organization [employer] Address [address] [place] [address] [place] [address] Care Team Providers Care Fibre Optic Cable Splicer Name Role Phone Magui Perez MD Primary Care Provider +1- [phone] Enrique Harvey MD Unavailable January Unavailable Manjinder Serrano Unavailable Unavailable Encounter Details Date Type Department Care Team (Late st Contact Info) Description 10/31/2022 Abstract [facility] MEDICINE [address] [place], [place] [phone] Magui Perez MD [address] [place], [place] [phone] Social History Tobacco Use Types Packs/Day Years [...] Swab Cervical swab / Unknown Historical Provider MD LAB MICROBIOLOGY - GENERA L ORDERABLES Final Result Performing Organization Address [facility] Co de Phone Number [facility] [address] [place] [address] [phone] * Pap Smear (10/18/2018 12:00 AM EST) Swab Historical Provider LAB CYTOLOGY ORDERABLES F inal Result Performing Organization Address [facility] Co de Phone Number [facility] [address] [place] [phone] [phone] documented in this encounter Visit Diagnoses Not on filedocumented in this encounter Care Teams Fibre Optic Cable Splicer Relationship Specialty Start Date End Date Magui Perez MD [address] [place] [address] PCP - General Family Medicine 12/14/17 Enrique Harvey MD [address] [place] [address] Rheumatology 10/09/24 01/30/25January [address] 3rd [place] [address] Gastroenterology 10/09/24 Manjinder Serrano [address] [place] [address] Ophthalmology 11/02/24 Cary Kraus MD [address] [place] [address] Rheumatology 01/31/25 [facility] SUPERVISOR VAT HOUSE Case Management 09/05/25 documented as of this encounter
--- OUTSIDE RECORDS SUMMARY | 2025-09-05 17:25 | XMS_ITS | Encounter Summary ---
Author Organization [employer] Address [address] [place] [address] [place] [address] Care Team Providers Care Tack Puller Machine Name Role Phone Magui Perez MD Primary Care Provider +1- [phone] Enrique Harvey MD Unavailable January Unavailable Manjinder Serrano Unavailable Unavailable Reason for Visit * Reason Onset Date Comments Med Refill 07/03/2024 Encounter Details Date Type Department Care Team (Late st Contact Info) Description 07/03/2024 Refill [facility] MEDICINE [address] [place], [place] [phone] Leana To DO [address] [place], [place] [phone] Social History Tobacco Use Types Packs/Day Years [...] documented as of this encounter Care Teams Tack Puller Machine Relationship Specialty Start Date End Date Magui Perez MD [address] [place] [address] PCP - General Family Medicine 12/14/17 Enrique Harvey MD [address] [place] [address] Rheumatology 10/09/24 01/30/25January [address] 3rd [place] [address] Gastroenterology 10/09/24 Manjinder Serrano [address] [place] [address] Ophthalmology 11/02/24 Cary Kraus MD [address] [place] [address] Rheumatology 01/31/25 [facility] for DENITRATOR Case Management 09/05/25 documented as of this encounter
--- OUTSIDE RECORDS SUMMARY | 2025-09-05 17:25 | XMS_ITS | Encounter Summary ---
Author Organization [employer] Address [address] [place] [address] [place] [address] Care Team Providers Care Lunchroom Food Service Supervisor Name Role Phone Magui Perez MD Primary Care Provider +1- [phone] January Unavailable Manjinder Serrano Unavailable Unavailable Encounter Details Date Type Department Care Team ([facility] st Contact Info) Description 09/05/2025 Results Follow-Up [facility] MEDICINE [address] [place], [place] [phone] Magui Perez MD 230 [place] [address] CBC auto differential, Ferritin, TSH with Reflex to Free T4, Additional followed-up results: 6 Social History Tobacco Use Types Packs/Day Years [...] Not at all 09/05/2025 10:44 AM Teresa Gibbnos [place] * Thoughts that you would be [...] as of this encounter Plan of Treatment Scheduled Orders Name Type Priority Associated Diagnoses Orde r Schedule TSH W/Reflex to FT4 Lab Routine Hypothyroidism, unspecified type Expected: 09/05/2025 (Approximate), Expires: 09/05/2026 documented as of this encounter Visit Diagnoses Diagnosis Hypothyroidism, unspecified type- Primary documented in this encounter Additional Health Concerns Assessment Noted Time PHQ-9 Depression Total Score: 3 09/05/20 10:44 AM EST documented as of this encounter Care Teams Lunchroom Food Service Supervisor Relationship Specialty Start Date End Date Magui Perez MD [address] [place] [address] PCP - General Family Medicine 12/14/17January 11 [facility] 3rd [place] [address] Gastroenterology 10/09/24 Manjinder Serrano [address] [place] [address] Ophthalmology 11/02/24 Cary Kraus MD [address] [place] [address] Rheumatology 01/31/25 [facility] for AQUATIC CENTRE MANAGER Case Management 09/05/25 documented as of this encounter
--- OUTSIDE RECORDS SUMMARY | 2025-09-05 17:25 | XMS_ITS | Encounter Summary ---
Author Organization [facility], Address [address] [place] [address] Phone Care Team Providers Care Senior Materials Planner Name Role Phone Magui Perez MD Primary Care Provider U bettyaildaiaan Encounter Details Date Type Department Care Team (Late st Contact Info) Description 03/30/2022 Documentation Only [facility], [address] [place] [address] Magui Perez MD [address] [place] [address] Social History Tobacco Use Types Packs/Day Years [...] on filedocumented in this encounter Care Teams Senior Materials Planner Relationship Specialty Start Date End Date Magui Perez MD PCP - General Family Medicine 03/30/22 documented as of this encounter
--- OUTSIDE RECORDS SUMMARY | 2025-09-05 17:25 | XMS_ITS | Encounter Summary ---
Author Organization [facility], Address [address] [place] [address] Phone Care Team Providers Care Paint Stockman Name Role Phone Magui Perez MD Primary Care Provider U bettyaildaiana Encounter Details Date Type Department Care Team (Late st Contact Info) Description 04/12/2022 Documentation Only [facility], [address] [place] [address] Magui Perez MD [address] [place] [address] Social History Tobacco Use Types Packs/Day Years [...] on filedocumented in this encounter Care Teams Paint Stockman Relationship Specialty Start Date End Date Magui Perez MD PCP - General Family Medicine 03/30/22 documented as of this encounter
--- OUTSIDE RECORDS SUMMARY | 2025-09-05 17:25 | XMS_ITS | Encounter Summary ---
Author Organization [employer] Address [address] [place] [address] [place] [address] Care Team Providers Care Facility Rehab Director Name Role Phone Magui Perez MD Primary Care Provider +1- [phone] Enrique Harvey MD Unavailable January Unavailable Manjinder Serrano Unavailable Unavailable Reason for Visit * Reason Onset Date Comments Med Refill chartprep 07/16/2024 Encounter Details Date Type Department Care Team (Late st Contact Info) Description 07/16/2024 Refill [facility] MEDICINE [address] [place], [place] [phone] Leana To DO 230 [place], [place] [phone] Pain Social History Tobacco Use Types Packs/Day [...] Questionnaire -2 Score 2 07/19/2024 10:21 AM EDT Nataliia Clifton [place] * How difficult have these problems made it for you to do your work, take care of things at home, or get along with other people? Answer Date of Assessment Author Extremely difficult 07/19/2024 10:21 AM EDT Nataliia Morgan ra, [place] * Over the last 2 weeks, how often have you been bothered by any of the following problems? Question Answer Date of Assessment Author Feeling nervous, anxious, or on edge 0 07/19/2024 10:21 AM KIETT Nataliia Clifton [place] Not being able to stop or co ntrol worrying 1 07/19/2024 10:21 AM KIETT Nataliia Clifton [place] Worrying too much about diff erent [...] pending and Home sleep test [facility] done and Mammogram done Overdue care gaps: PHQ-9 and Oral Health documented in this encounter Plan of Treatment Not on file documented as of this encounter Visit Diagnoses Diagnosis Pain Generalized pain documented in this encounter Additional Health Concerns Assessment Noted Time PHQ-9 Depression Total Score: 0 04/20/20 10:16 AM EDT documented as of this encounter Care Teams Facility Rehab Director Relationship Specialty Start Date End Date [place] Magui [address] [place] [address] PCP - General Family Medicine 12/14/17 Enrique Harvey MD [address] [place] [address] Rheumatology 10/09/24 01/30/25January [address] 3rd [place] [address] Gastroenterology 10/09/24 Manjinder Serrano [address] [place] [address] Ophthalmology 11/02/24 Cary Kraus MD [address] [place] [address] Rheumatology 01/31/25 [facility] for JUVENILE JUSTICE SPECIALIST Case Management 09/05/25 documented as of this encounter
--- OUTSIDE RECORDS SUMMARY | 2025-09-05 17:25 | XMS_ITS | Continuity of Care Document ---
Author Organization [place] [facility], [facility] Address [address] [place] [address] Care Team Providers Care College Director Name Role Phone [place] Primary Care Provider [phone] Assessment Encounter Date Assessment Date Assessment LastModified by Organization Details LastModified Time 06/10/2025 06/10/2025 - Left-sided tinnitus, chronic, associated [...] By Organization Details Last Modified Time 06/10/2025 26251 Reduce caffeine intake by switching to non-caffeinated [...] Recorded Time Feeling of lump in throat 369827080 Active 2024 MICHELLE MORENO MD [address] [address], [place], [address], [place] [facility] 09:35:32 Bilateral tinnitus [id number] Active 2024 MICHELLE MORENO MD [address] [place] [address], [place], [address], [place] - [facility] 09:35:37 Problem Notes None recorded. Procedures Surgical History Date Name Laterality Status Provider Name and Address Organization Details Recorded Time 06/10/2025 Air & Speech Audio with Tymps - 45545, 28125 & 99426 completed JUANA CROUCH [address] [facility],[address], [address], [facility] - [facility] 06/10/2025 10:40:56 12/10/2024 FOL_DP completed MICHELLE MORENO MD [address] [place] [address],[address], [address], [facility] - [facility] 12/06/2024 08:09:31 Imaging Results None recorded. [...] Not Available Vitals Date Recorded Body height Provider Name an d Address Organization Details Last Updated DateTime 06/10/2025 157.48 cm SALLY PUENTE [place] [facility] 06/10/2025 10:28:40 Social History None recorded. Functional [...] Emphysema N Migraines N Thyroid Problems Y COPD N Depression N Developmental Delay N Glaucoma N Nasal or Sinus Problems N Anemia Y Immune System Disorder N Anesthesia Complications N Heart Attack (NH) N Other Skin Condition N Diabetes N [...] ICD10 Code Diagnosis IMO Codes Diagnosis Note [id number] MICHELLE MORENO MD [facility] of [address] [address] 06/10/2025 10:16:03 06/10/2025 11:26:08 Bilateral tinnitus [id number] 102 H93.13 Right Ear:Normal hearing with excellent speech discrimina tion.Type A tympanogra m.Left Ear:Normal hearing with excellent speech discrimina tion.Type A tympanogra m. Health Concerns Section Related Observation LastModified by Organization Detai ls LastModified Time None Recorded Concern Status LastModified by Organization Details LastModified Time None Recorded Payers Encounter Date Sequence Insurance Name Policy Number Policy Setevez Covered Member ID Estevez Member ID Guarantor Name 06/10/2025 1 [place] [facility] Farzana Denis [id number] Farzana Denis Notes Date Note Type Note Provider Name and Address Organization Details Recorded Time 06/10/2025 text/html ROS as noted in the HPI IPad Solomon Islander - declined closing specialist today Tinnitus PV 12/10/24 Plosky globus - normal FOL and exam. defer [...] alleviate the ringing sound. MICHELLE MORENO MD [address] [place] [address], [place], [address], [place] - [facility] 06/10/2025 11:25:48 OBGyn Episode No OBEpisode recorded.
--- OUTSIDE RECORDS SUMMARY | 2025-09-05 17:25 | XMS_ITS | Encounter Summary ---
Author Organization [employer] Address [address] [place] [address] 7 [place] [address] Care Team Providers Care Patent Engineer Name Role Phone Magui Perez MD Primary Care Provider +1- [phone] Enrique Harvey MD Unavailable January Unavailable Manjinder Serrano Unavailable Unavailable Encounter Details Date Type Department Care Team (Late st Contact Info) Description 11/21/2023 Orders Only [facility] MEDICINE [address] [place], [place] [phone] Magui Perez MD 230 [place], [place] [phone] Arthralgia, unspecified joint Social History Tobacco Use [...] documented as of this encounter Care Teams Patent Engineer Relationship Specialty Start Date End Date Magui Perez MD [address] [place] [address] PCP - General Family Medicine 12/14/17 Enrique Harvey MD [address] [place] [address] Rheumatology 10/09/24 01/30/25January [address] 3rd [place] [address] Gastroenterology 10/09/24 Manjinder Serrano [address] [place] [address] Ophthalmology 11/02/24 Cary Kraus MD [address] [place] [address] Rheumatology 01/31/25 [facility] for OUTPATIENT SCHEDULER Case Management 09/05/25 documented as of this encounter
--- OUTSIDE RECORDS SUMMARY | 2025-09-05 17:25 | XMS_ITS | Encounter Summary ---
Author Organization [employer] Address [address] [place] [address] [place] [address] Care Team Providers Care Construction Estimator Name Role Phone Magui Perez MD Primary Care Provider +1- [phone] January Unavailable Manjinder Serrano Unavailable Unavailable Reason for Visit * Reason Onset Date Comments Results 06/06/2025 Encounter Details Date Type Department Care Team ([facility] st Contact Info) Description 06/06/2025 Telephone [facility] MEDICINE [address] [place], [place] [phone] Magui Perez MD [address] [place], [place] [phone] Results Social History Tobacco Use Types Packs/Day [...] respiratory test Date when done: 06/04 Facility: [facility] Contact pt at [phone] (syriac) documented in this encounter Plan of Treatment Not on file documented as of this encounter Visit Diagnoses Not on filedocumented in this encounter Additional Health Concerns Assessment Noted Time PHQ-9 Depression Total Score: 14 024 10:21 AM EDT documented as of this encounter Care Teams Construction Estimator Relationship Specialty Start Date End Date Magui Perez MD [address] [place] [address] PCP - General Family Medicine 12/14/17 Leesa Tanya [address] 3rd [place] [address] Gastroenterology 10/09/24 Manjinder Serrano [address] [place] [address] Ophthalmology 11/02/24 Cary Kraus MD [address] [place] [address] Rheumatology 01/31/25 Pamela for COLLECTIONS MANAGER Case Management 09/05/25 documented as of this encounter
--- OUTSIDE RECORDS SUMMARY | 2025-09-05 17:25 | XMS_ITS | Clinical Summary ---
Author Organization [employer] Address [address] [place] [address] 7 [place] [address] Care Team Providers Care Deli Cook Name Role Phone Magui Perez MD Primary Care Provider [phone] January Unavailable Manjinder Serrano Unavailable Unavailable Allergies No known active allergies Medications baclofen (Lioresal) 10 MG tabletIndications: Pain TAKE [...] bedtime (pain). 150 g 1 024 Active losartan (Cozaar) 25 MG tabletIndications: Primary hypertension Take 1 tablet (25 mg) by mouth Once per day. 90 tablet 3 024 Active DULoxetine (Cymbalta) [address] capsuleIndications :Depression, unspecified depression type Take 1 tab po daily Do not crush or chew. 90 capsule 3 024 Active melatonin 5 MG tabletIndications: Insomnia, unspecified type TAKE 1 TABLET BY MOUTH DAILY AT BEDTIME NEEDED FOR SLEEP. 90 tablet 025 Active fluticasone furoate (Arnuity Ellipta) 100 MCG/ACT inhalerIndications :Mild persistent asthma without complication Inhale 1 puff Once per day. Rinse mouth with water after use to reduce aftertaste and incidence of candidiasis. Do not swallow. 1 each Active albuterol (Ventolin HFA) 108 (90 Base) MCG/ACT inhalerIndications :Mild persistent asthma without complication Inhale 2 puffs every 6 (six) hours if needed for wheezing or shortness of breath. 18 g 11 025 2025 Active D3 Super Strength 50 MCG (2000 UT) capsuleIndications :Vitamin D deficiency TAKE 1 CAPSULE (50 MCG) BY MOUTH ONCE PER DAY. 90 capsule 3 Active fluticasone (Flonase) 50 MCG/ACT nasal sprayIndications:S easonal allergies Administer 2 sprays into each nostril Once per day. Shake gently. Before first use, prime pump. After use, clean tip and replace cap. 16 g 3 025 2025 Active Tocilizumab-aazg (TAMIA AR)Indications:Ser onegative rheumatoid arthritis (CMS/HCC) ([facility]) Inject under the skin. Active Synthroid 150 MCG tabletIndications: Hypothyroidism, unspecified type TAKE 1 TABLET BY MOUTH EVERY DAY 90 tablet Active omeprazole (PriLOSEC) [address] capsuleIndications :Gastroesophageal reflux disease, unspecified whether esophagitis present Take 1 capsule (20 mg) by mouth before breakfast. Do not crush or chew. 30 capsule 3 025 2025 Active Estradiol (Estrace) 0.01 % creamIndications:V aginal atrophy Insert 1 g into the vagina every 3 (three) months. 1 gram cream per vagina nightly for 14 days then 1 gram cream per vagina twice a week, bruneian 42 g 2 Active triamcinolone (Kenalog) 0.1 % creamIndications:D ermatitis Apply topically if needed in the morning and at bedtime (pain and swelling). 30 g 2 Active Blood Pressure kitIndications:Nancy joaquin hypertension Check blood pressure twice a week or prn 1 kit Active estradiol (Estrace) 0.1 MG/GM vaginal creamIndications:V aginal atrophy 1 gram cream per vagina nightly for 14 days then 1 gram cream per vagina twice a week, bruneian 42.5 g 11 024 2024 Discontinued(R eorder (will not trigger notification to Pharmacy)) fluticasone (Flonase) 50 MCG/ACT nasal sprayIndications:S easonal allergies Administer 2 sprays into each nostril Once per day. Shake gently. Before first use, prime pump. After use, clean tip and replace cap. 16 g 3 024 2024 Discontinued(R eorder (will not trigger notification to Pharmacy)) loratadine (Claritin) 10 MG tabletIndications: Seasonal allergies Take 1 tablet (10 mg) by mouth Once per day. 30 tablet 3 024 2024 Discontinued(M ed list cleanup (will not trigger notification to Pharmacy)) omeprazole (PriLOSEC) [address] capsuleIndications :Gastroesophageal reflux disease, unspecified whether esophagitis present Take 1 capsule (20 mg) by mouth before breakfast. Do not crush or chew. 30 capsule 3 024 2024 Discontinued(R eorder (will not trigger notification to Pharmacy)) terbinafine (LamISIL AT) 1 % creamIndications:T inea pedis of right foot Apply topically 2 times daily. 12 g 1 025 2024 Discontinued(R eorder (will not trigger notification to Pharmacy)) levothyroxine (Synthroid) 150 MCG tablet TAKE 1 TABLET BY MOUTH EVERY DAY 90 tablet 2024 Discontinued(R eorder (will not trigger notification to Pharmacy)) levothyroxine (Synthroid) 150 MCG tablet TAKE 1 TABLET BY MOUTH EVERY DAY 90 tablet 2024 Discontinued(R eorder (will not trigger notification to Pharmacy)) levothyroxine (Synthroid) 150 MCG tablet TAKE 1 TABLET BY MOUTH EVERY DAY 90 tablet 2024 Discontinued Synthroid 150 MCG tablet TAKE 1 TABLET BY MOUTH EVERY DAY 90 tablet 2024 Discontinued(R eorder (will not trigger notification to Pharmacy)) terbinafine (LamISIL AT) 1 % creamIndications:T inea pedis of right foot Apply topically 2 times daily. 12 g 1 025 2024 Discontinued(M ed list cleanup (will not trigger notification to Pharmacy)) Active Problems Problem Noted Date Diagnosed Date Lung nodule 08/15/2025 Overview (08/15/2025): -CT 08/14/25ere is a 3 x 4 [...] or exposure to uranium, radon, or asbestos. Mild intermittent asthma without complication Overview (09/05/2025): Previously diagnosed with asthma however 05/2025 PFTs not suggestive of asthma but pt repots symptoms controlled with ICS and PAN. Spirometry FEV1 to FVC 88%; FEV1 1.81 L; FVC 2.12 L. No significant response to bronchodilators noted. No obstructive ventilatory defects. No significant response to bronchodilators noted. The patient does have a restrictive ventilatory defect consistent with [id number] restrictive lung disease. Need to consider underlying parenchymal lung conditions and [...] or exposure to uranium, radon, or asbestos. Assessment & Plan (09/05/2025 11:16 AM EST): Previously diagnosed with asthma however 05/2025 PFTs not suggestive of asthma but pt repots symptoms controlled with ICS and PAN. Spirometry FEV1 to FVC 88%; FEV1 1.81 L; FVC 2.12 L. No significant response to bronchodilators noted. No obstructive ventilatory defects. No significant response to bronchodilators noted. The patient does have a restrictive ventilatory defect consistent with [id number] restrictive lung disease. Need to consider underlying parenchymal lung conditions and [...] or exposure to uranium, radon, or asbestos. Tinea pedis of right foot 10/24/2024 Overview (10/24/2024): - Prescribed terbinafine (LamISIL AT) 1 % cream 10/24/24 Assessment & Plan (10/24/2024 10:42 AM EST): - Prescribed terbinafine (LamISIL AT) 1 % cream 10/24/24 Macromastia 10/24/2024 Overview (10/24/2024): - Referred to Physical Therapy 10/24/24 Assessment & Plan (10/24/2024 10:41 AM EST): - Referred to Physical Therapy 10/24/24 Recurrent major depressive disorder, in partial remission 07/19/2024 Overview (09/05/2025): -continue Cymbalta started 07/19/24 Assessment & Plan (09/05/2025 11:16 AM EST): -continue Cymbalta started 07/19/24 -declines therapist -no suicidial or homacidial ideation Assessment & Plan (07/19/2024 11:06 AM EDT): -Start Cymbalta 20 mg Gastroesophageal reflux disease 07/19/2024 Assessment & Plan (09/05/2025 11:16 AM EST): Controlled on prn omeprazole Orders: omeprazole (PriLOSEC) [address] capsule; Take 1 capsule (20 mg) by mouth before breakfast. Do not crush or chew. Seasonal allergies 07/19/2024 Skin lesion 07/19/2024 Overview (10/24/2024): - Seen on 08/31/24 in [facility] for Benign nevus. Spots in her body to be checked, developed over yrs. Benign nevus: Benign, R cheek, defer tx. Dermatofibroma: Benign, R thigh. Defer tx Assessment & Plan (10/24/2024 9:52 AM EST): - Seen on 08/31/24 in [facility] for Benign nevus. Spots in her body [...] to explain globus sensation. -note from Tanya Landers ANP reveiwed 02/22/25 barium swallow it it appears [...] well on cholestyramine to control her diarrhea TMJ inflammation 01/26/2024 Overview (02/07/2024): XR 02/07/24 [...] -trial of estrogen cream Assessment & Plan (09/05/2025 11:16 AM EST): Orders: Estradiol (Estrace) 0.01 % cream; Insert 1 g into the vagina every 3 (three) months. 1 gram cream per vagina nightly for 14 days then 1 gram cream per vagina twice a week, bruneian Assessment & Plan (01/26/2024 11:55 AM EDT): [...] Cholesterol: 57 mg/dL Total Cholesterol: 205 mg/dL Menorrhagia 04/20/2023 Obesity 04/20/2023 Assessment & Plan (09/05/2025 11:16 AM EST): Dietary Recommendations: Fruits, vegetables, whole grains, protein foods, and fat-free or low-fat dairy products are healthy choices. Eat different types of protein foods in your diet. This can include seafood, lean meats, poultry, beans, peas, lentils, nuts, seeds, soy products, and eggs. Limit foods and beverages higher in added sugars, saturated fat, and sodium. Exercise Recommendations: At least 150 minutes of moderate-intensity physical activity per week, or an equivalent combination of moderate- and vigorous-intensity activity Orders: Hemoglobin A1c; Future Seronegative rheumatoid arthritis (CMS/HCC) 02/2023 Overview (09/05/2025): Pt reports multiple areas or arthralgia with associated fatigue and swelling. Symptoms worse in the morning. -Labs on 04/20/2023 showed significant for elevated CRP of 1.04 with mildly elevated ESR of 23, ISAMEL rhumatiod factor and lyme antibodies negative, TSH was normal. -Note from Dr. Harvey 10/09/24: right hand MRI which showed right radioulnar joint effusion. Which is consistent with active inflammatory arthritis. At this time, patient failed methotrexate after 10 months use without improvment Needs a different DMARDs. [...] note requested, has follow up Sep 2025 Assessment & Plan (09/05/2025 11:16 AM EST): Pt reports multiple areas or [...] At this time, patient failed methotrexate after 10 months use without improvment Needs a different DMARDs. [...] note requested, has follow up Sep 2025 Assessment & Plan (10/24/2024 10:38 AM EST): [...] week. Folic acid 1 mg daily. 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 07/19/24 discussed possibility of menopausal symptoms worsening pain, pt declined any treatment offered. -will trial Diclofenac Gel. -will provide a note that states pt cannot work due to the severity of her disease. -Seen by toll service observer Dr. Harvey 08/31/24 diagnosed with seronegative RA [...] week. Folic acid 1 mg daily. 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 07/19/24 discussed possibility [...] month. Other specified health status 04/15/2023 Overview (09/05/2025): -next physical exam due after 09/05/26 -eye care facilitated by [facility] -dental home is [facility] -health care proxy filed 07/19/24 Assessment & Plan (09/05/2025 11:16 AM EST): -next physical exam due after 09/05/26 -eye care facilitated by [facility] -dental home is [facility] -health care proxy filed 07/19/24 Assessment & Plan (07/19/2024 10:34 AM EDT): -next physical exam due after 07/19/25 -eye care facilitated by [facility] -dental home is [facility] -health care proxy given and filed 07/19/24 Assessment & Plan (01/26/2024 11:41 AM EDT): -next physical exam due after 04/20/2024 -eye care facilitated by [facility] -dental home is [facility] Assessment & Plan (04/20/2023 10:45 AM EDT): -next physical exam due after 04/20/2024. -eye care facilitated by [facility] -dental home is Colon cancer screening 04/15/2023 Overview (07/19/2024): -colonocopy normal with Dr. Mathis 06/06/2012 who left the area -referal for [facility] gastro given 04/2023, pt given number for [facility] gastro to call 05/23/2023 -seen by Tanya Landers ANP-C 11/30/2023 for colonoscopy intake -colonoscopy done 05/2024 with abnormal results. Assessment & Plan (01/26/2024 11:37 AM EDT): -colonocopy normal with Dr. Mathis 06/06/2012 who left the area -referal for [facility] gastro given 04/2023, pt given number for [facility] gastro to call 05/23/2023 -seen by Tanya Landers ANP-C 11/30/2023 for colonoscopy intake Assessment & Plan (05/23/2023 11:08 AM EDT): -colonocopy normal with Dr. Mathis 06/06/2012 -Gave number for [facility] gastro to call 05/23/2023. Assessment & Plan [...] Jun 2023 Vitamin D deficiency 05/28/2022 Overview (09/05/2025): Lab Results Component Value Date [id number] 25.7 (L) 07/19/2024 [id number] 22.4 (L) 06/21/2024 [id number] 22.4 04/21/2023 Assessment & Plan (09/05/2025 11:16 AM EST): Lab Results Component Value Date [id number] 22.4 04/21/2023 Assessment & Plan (07/19/2024 10:50 AM EDT): Lab Results Component Value Date [id number] 22.4 04/21/2023 -reordered Vit D 07/19/24 Assessment & Plan (01/26/2024 11:42 AM EDT): Lab Results Component Value Date [id number] 22.4 04/21/2023 Anxiety 11/15/2013 Hypertension 05/28/2013 Overview (07/19/2024): -Blood pressure is at goal -Continue lifestyle modifications -Continue current medications Assessment & Plan (09/05/2025 11:16 AM EST): -Blood pressure is at goal -Continue lifestyle modifications -Continue current medications Orders: Albumin, Random Urine W/Creatinine; Future Hepatic Function Panel; Future Lipid Panel, Standard; Future Basic Metabolic Panel; Future Blood Pressure kit; Check blood pressure twice a week or prn Assessment & Plan (10/24/2024 11:35 AM EST): [...] modifications -Continue current medications Hypothyroid 06/09/2012 Overview (09/05/2025): Due to Graves disease Lab Results Component Value Date TSH 0.47 07/19/2024 TSH 7.58 (H) 06/21/2024 TSH 12.13 (H) 10/14/2022 -PA done for Syntrhoid prescribed by endocrinology who wanted pt on brand name due to uncontrolled on generic -take med at same time on empty stomach daily -will restart Synthroid as pt was not taking it consistently 07/19/24 Assessment & Plan (09/05/2025 11:16 AM EST): Lab Results Component Value Date [...] TAKE 1 TABLET BY MOUTH EVERY DAY Assessment & Plan (10/24/2024 11:35 AM EST): [...] 10/14/2022 HEMATOCRIT 37.2 03/04/2022 Assessment & Plan (09/05/2025 11:16 AM EST): Lab Results Component Value Date HGB 12.9 08/23/2023 HGB 13.0 04/21/2023 HGB 13.9 10/14/2022 HGB 12.5 03/04/2022 HEMATOCRIT 40.9 10/14/2022 HEMATOCRIT 37.2 03/04/2022 Orders: CBC auto differential; Future Ferritin; Future Iron And Total Iron Binding Capacity; Future Vitamin B12 (Cobalamin) and Folate Panel, Serum; Future Assessment & Plan (01/26/2024 11:42 AM EDT): Lab Results Component Value Date HGB 12.9 08/23/2023 HGB 13.0 04/21/2023 HGB 13.9 10/14/2022 HGB 12.5 03/04/2022 HEMATOCRIT 40.9 10/14/2022 HEMATOCRIT 37.2 03/04/2022 Resolved Problems Problem Noted Date Diagnosed Date Resolved Date History of cholecystectomy 07/19/2024 0 10/24/2024 History of laparoscopic cholecystectomy 06/21/2024 09/04/2024 long term care phlebotomist methotrexate user 06/21/2024 10/24/2024 Upper abdominal pain [...] culture and Ill let her know results Iron deficiency anemia 01/26/202409/05 Dislocation of jaw 01/26/2024 Cervical cancer screening 01/26/2024 Graves disease 04/20/2023 09/05/2025 Candidiasis 04/20/2023 11/21/2023 Assessment & Plan (04/20/2023 10:52 AM EDT): Powder given 04/20/2023. Anemia 05/28/2022 04/20/2023 Knee pain 08/20/2014 10/24/2024 Encounters Date Type Department Care Team Description 09/05/2025 10:30 AM EST Office Visit [facility] [address] [place] [address] [phone] Magui Perez MD Seronegative rheumatoid arthritis (CMS/HCC) ([facility]) (Primary Dx); Primary hypertension; Hypothyroidism, unspecified type; History of anemia; Mild intermittent asthma without complication; Recurrent major depressive disorder, in partial remission (CMS/HCC); Vitamin D deficiency; Gastroesophageal reflux disease, unspecified whether esophagitis present; Vaginal atrophy; Dermatitis; Class 2 severe obesity due to excess calories with serious comorbidity and body mass index (BMI) of 35.0 to 35.9 in adult; Other specified health status 09/05/2025 Results Follow-Up [facility] [address] [place] [address] [phone] Magui Perez MD CBC auto differential, Ferritin, TSH with Reflex to Free T4, Additional followed-up results: 6 09/05/2025 Orders Only GENERIC EXTERNAL DATA DEPARTMENT Provider, Generic External Data 09/05/2025 Travel 09/04/2025 Telephone [facility] [address] [place] [address] [phone] Magui Perez MD chartprep 08/29/2025 Refill [facility] [address] [place] [address] [phone] Magui Perez MD Tinea pedis of right foot 08/28/2025 Refill [facility] [address] [place] [address] [phone] Magui Perez MD Seasonal allergies 08/26/2025 Telephone [facility] [address] [place] [address] [phone] Magui Perez MD Med Refill 08/23/2025 Refill [facility] [address] [place] [address] [phone] Farzana Haq MD 08/20/2025 Telephone [facility] [address] [place] [address] [phone] Magui Perez MD 08/16/2025 Telephone [facility] [address] [place] [address] [phone] Magui Perez MD Results 08/15/2025 Refill [facility] [address] [place] [address] [phone] Magui Perez MD 08/14/2025 Orders Only [facility] External Provider, [facility] Lung nodule (Primary Dx) 08/08/2025 Telephone [facility] [address] [place] [address] [phone] Magui Perez MD Durable Medical Equipment (DME: Multiple DME Items) 08/07/2025 Refill [facility] [address] [place] [address] [phone] Magui Perez MD 07/04/[address] [id number] Leana To DO Vitamin D deficiency 06/28/2025 3:00 PM EDT Office Visit [facility] [address] [place] [address] [phone] Josh Babin MD Pain in both hands (Primary Dx); Bilateral hand swelling; Seronegative rheumatoid arthritis (CMS/HCC) 06/28/2025 Travel 06/10/2025 Results Follow-Up [facility] [address] [place], [place] [phone] Zhang Gilbert MD XR Chest 2 Views 06/06/2025 Telephone [facility] [address] [place] [phone] Magui Perez MD Results from Last 3 [...] Mass Index 36.69 09/05/2025 10:32 AM EST Plan of Treatment Health Maintenance Due Date Last Done Comments CT Colonography 1971 FIT DNA/Cologuard 1971 FIT 1971 FOBT 1971 Sigmoidoscopy 1971 Dental Prophylaxis 01/22/2015 07/23/2014 Dental Oral Exam 08/02/2015 01/30/2015, 06/28/2014 Dental X-Ray: Bitewings 02/01/2016 01/30/2015, 06/28 Influenza Vaccine (#1) 2026 2, 12/03/2021, 08/26/2020, Additional history exists Postponed from 06/17/2025 (Patient Refused) Mammogram 05/07/2026 05/07/2024, 04/17, 04/06/2022, Additional history exists Alcohol/Substance Use Screening 09/05/2026 09/05/2025 COVID-19 Vaccine ( season) 2026 01/23/2021, 12/26/2020 Postponed from 06/17/2025 (Patient Refused) Depression Screening 09/05/2026 09/05/2025, 09/05/20 25 Diabetes: Hemoglobin A1C 09/05/2026 025, 06/21/2024, 04/21/2023, Additional history exists Disability Screening 09/05/2026 09/05/2025 RSV Patients and Patients Aged 60 years or older (1 - Risk 50-74 years 1-dose series) 09/05/2026 Postponed from 2021 (Patient Refused) SDOH Screening 09/05/2026 09/05/2025 Tobacco Screening 09/05/2026 09/05/2025 Zoster Vaccines (1 of 2) 09/05/2026 Pos tponed from 2021 (Patient Refused) Pap Smear 01/25/2027 01/26/2024, 01/15, 10/18/2018 Dental X-Ray: Full Mouth 03/16/2027 03/15/2024, 06/17 DTaP/Tdap/Td Vaccines (2 - Td or Tdap) 12/14/2027 12/14/2017, 03/04/2006 Cervical Cancer Screening 01/25/2029 HPV/Cotest 01/25/2029 01/26/2024, 11/2018, 10/18/2018 Lipid Panel 09/05/2030 09/05/2025, 08/18, 06/21/2024, Additional history exists Colonoscopy 06/07/2034 06/07/2024, 05/18, 06/07/2024, Additional history exists Colorectal Cancer Screening 06/07/2034 Hepatitis B Vaccines Completed 09/28/2006, 04/05/2006, 03/04/2006 [...] Procedure Name Priority Date/Time Associated Diagnosis Comments T4, FREE Routine 09/05/2025 11:29 AM EST LIPID PANEL, STANDARD Routine 09/05/2025 11:29 AM EST C-REACTIVE PROTEIN Routine 09/05/2025 11 :29 AM EST COMPREHENSIVE METABOLIC PANEL Routine 09/05/2025 11:29 AM EST SED RATE BY MODIFIED WESTERGREN Routine 09/05/2025 11:29 AM EST CBC WITH AUTO DIFFERENTIAL Routine 09/05/2025 11:29 AM EST HEMOGLOBIN A1C Routine 09/05/2025 11:29 AM EST Class 2 severe obesity due to excess calories with serious comorbidity and body mass index (BMI) of 35.0 to 35.9 in adult LIPID PANEL, STANDARD Routine 09/05/2025 11:29 AM EST Primary hypertension HEPATIC FUNCTION PANEL Routine 09/05/2025 11:29 AM EST Primary hypertension ALBUMIN, RANDOM URINE W/CREATININE Routine 09/05/2025 11:29 AM EST Primary hypertension VITAMIN B12/FOLATE, SERUM PANEL Routine 09/05/2025 11:29 AM EST History of anemia IRON AND TOTAL IRON BINDING CAPACITY Routine 09/05/2025 11:29 AM EST History of anemia TSH W/REFLEX TO FT4 Routine 09/05/2025 1 1:29 AM EST Hypothyroidism, unspecified type FERRITIN Routine 09/05/2025 11:29 AM EST History of anemia CBC WITH AUTO DIFFERENTIAL Routine 09/05/2025 11:29 AM EST History of anemia CT CHEST WO CON - HIGH RES Routine 08/14/2025 11:36 AM EDT XR CHEST 2 VIEWS Routine 06/08/2025 10:1 8 AM EDT Mild persistent asthma without complication HM COLONOSCOPY Routine 06/07/2024 BI MAMMOGRAM SCREENING [...] Recently Relevant to Health Maintenance Results * Vitamin B12 (Cobalamin) and Folate Panel, Serum (09/05/2025 11:29 AM EST) Vitamin B12 394 200 - 900 pg/mL [facility] Comment:NORMAL 200-900 PG/ML INDETERMINATE 160-199 PG/ML DEFICIENT < 160 PG/ML Folate 8.2 > or = 4.0 ng/mL [facility] Comment:Reference Values:> o r = 4.0 [...] BLOOD ORDERABLES Final Result Performing Organization Address City/[facility]/ZIP Co de Phone Number [facility] [address] [place] [address] [phone] * (ABNORMAL) TSH with Reflex to Free T4 (09/05/2025 11:29 AM EST) TSH reflex Free T4 5.32(H) 0.32 - 4.0 uIU/mL [facility] Blood Venous blood specimen / Unknown 09/05/2025 11:29 AM EST 09/05/2025 12:50 PM EST Magui Perez MD LAB BLOOD ORDERABLES Final Result [facility] [address] [place] [address] [phone] * Albumin, Random Urine W/Creatinine (09/05/2025 11:29 AM EST) Pathologist [facility] Creatinine, Urine 208.54 mg/dL [facility] Microalbumin Urine 12.0 mg/L [facility] Microalbum Creatinine Ratio Ur 5.7 <30 ug/mg cr [facility] Comment:Albumin/Creatinine R atio Reference Ranges: Normal: < 30 ug/mg creatinine Microalbuminuria: 30 - 300 ug/mg creatinineClinical Albuminuria: > 300 ug/mg creatinine Urine 09/05/2025 11:2 9 AM EST 09/05/2025 1:06 PM EST us Magui Perez MD LAB URINE ORDERABLES Final Result Performing Organization Address City/State/[facility] Co de Phone Number [facility] [address] [place] [address] [phone] * (ABNORMAL) CBC auto differential (09/05/2025 11:29 AM EST) Only the most recent of2 resultswithin the time period is included. Pathologist [facility] White Blood Count 4.4(L) 4.8 - 10.8 X10*3/uL [facility] Red Blood Count 4.71 4.20 - 5.50 X10*6/uL [facility] Hemoglobin 13.5 12.0 - 16.0 g/dl [facility] Hematocrit 41.1 37.0 - 47.0 % [facility] Mean Corpuscular Volume 87.3 80.0 - 98.0 fL [facility] Mean Corpuscular Hemoglobin 28.7 27.0 - 33.0 pg [facility] Mean Corpuscular HGB Conc 32.8 31.0 - 35.0 g/dl [facility] Red Cell Distribution Width 13.0 11.0 - 16.0 % [facility] Platelet Count 298 160 - 400 X10*3/uL [facility] Mean Platelet Volume 11.6 9.4 - 12.3 fL [facility] Neutrophils Percent Auto 63.3 45 - 73 % [facility] Imm Gran Pct Auto 0.2 0.0 - 0.4 % [facility] Lymphocytes Percent Auto 27.8 20 - 40 % [facility] Monocytes Percent Auto 6.4 2 - 11 % [facility] Eosinophils Percent Auto 1.8 0 - 4 % [facility] Basophils Percent Auto 0.5 0 - 2 % [facility] NRBC Pct Auto 0.0 0.0 - 0.2 /100WBC [facility] Neutrophils Absolute Auto 2.8 2.0 - 8.3 x10*3/uL [facility] Imm Gran Abs Auto 0.01 0.00 - 0.03 X10*3/uL [facility] Lymphocytes Absolute Auto 1.2 1.2 - 4.9 X10*3/uL [facility] Monocytes Absolute Auto 0.3 0.1 - 1.2 X10*3/uL [facility] Eosinophils Absolute Auto 0.1 0.0 - 0.4 X10*3/uL [facility] Basophils Absolute Auto 0.0 0.0 - 0.2 X10*3/uL [facility] NRBC Abs Auto 0.000 0.0 - 0.012 X10*3/uL [facility] 09/05/2025 11:2 9 AM EST 09/05/2025 12:50 PM EST us Generic External Data Provider LAB BLOOD ORDERAB LES Final Result [facility] [address] [place] [phone] * Iron And Total Iron Binding Capacity (09/05/2025 11:29 AM EST) Iron 78 30 - 160 mcg/dL [facility] Total Iron Binding Capacity 266 228 - 428 mcg/dL [facility] Percent Iron Saturation 29 15 - 50 % [facility] Unsaturated Iron Binding 188 ug/dL [facility] Blood Venous blood specimen / Unknown 09/05/2025 11:29 AM EST 09/05/2025 12:50 PM EST us Magui Perez MD LAB BLOOD ORDERABLES Final Result Performing Organization Address [facility] Co de Phone Number [facility] [address] [place] [address] [phone] * (ABNORMAL) Sed Rate by Modified Austynergren (09/05/2025 11:29 AM EST) Erythrocyte Sedimentation Rate 30(H) 0 - 20 MM/HR [facility] Comment:Patients with polycy themia and many hemoglobin abnormalitiesmay have depressed sed rates whereas patients with anemiamay have elevated sed rates. 09/05/2025 11:2 9 AM EST 09/05/2025 12:50 PM EST Generic External Data Provider LAB BLOOD ORDERAB LES Final Result Performing Organization Address [facility] Co nv Phone Number [facility] [address] [place] [address] [phone] * (ABNORMAL) C-reactive Protein (09/05/2025 11:29 AM EST) C Reactive Protein 1.12(H) < or = 0.50 mg/dL [facility] 09/05/2025 11:2 9 AM EST 09/05/2025 12:50 PM EST Generic External Data Provider LAB BLOOD ORDERAB LES Final Result Performing Organization Address [facility] Co de Phone Number [facility] [address] [place] [address] [phone] * T4, Free (09/05/2025 11:29 AM EST) Free T4 (Free Thyroxine) 1.23 0.71 - 1.85 ng/dL [facility] 09/05/2025 11:2 9 AM EST 09/05/2025 12:50 PM EST us Magui Perez MD LAB BLOOD ORDERABLES Final Result Performing Organization Address [facility] Co de Phone Number [facility] [address] [place] [address] [phone] * Hemoglobin A1c (09/05/2025 11:29 AM EST) Hemoglobin A1c 5.8 <6.0 % [facility] Comment:Hemoglobin A1C Refer ence Range Adults: 4.8 - 6.0 % Non diabetic: < 6.0 % Goal: < 7.0 %Additional Action Suggested: > 8.0 %Note: Hemoglobin A1c results are invalid for patients with abnormal amounts of HbF. Blood transfusions may impact the HbA1c concentration in the patient sample. Estimated Average Glucose 120 mg/dL [facility] Comment:eAG = Estimated ave rage glucose which is %A1C expressed asaverage glucose, using the formula of the Y2G-GvwrbvlZgbxbsx Glucose study (ADAG), Diabetes Care, Vol.31,#8,2007 Blood Venous blood specimen / Unknown 09/05/2025 11:29 AM EST 09/05/2025 12:50 PM EST Magui Perez MD LAB BLOOD ORDERABLES Final Result Performing Organization Address [facility] Co de Phone Number [facility] [address] [place] [address] [phone] * Ferritin (09/05/2025 11:29 AM EST) Ferritin 76 10 - 250 ng/mL [facility] Blood Venous blood specimen / Unknown 09/05/2025 11:29 AM EST 09/05/2025 12:50 PM EST Magui Perez MD LAB BLOOD ORDERABLES Final Result Performing Organization Address [facility] Co de Phone Number [facility] [address] [place] [address] [phone] * Hepatic Function Panel (09/05/2025 11:29 AM EST) Bilirubin, Direct 0.2 0.0 - 0.5 mg/dL [facility] Blood Venous blood specimen / Unknown 09/05/2025 11:29 AM EST 09/05/2025 12:50 PM EST Magui Perez MD LAB BLOOD ORDERABLES Final Result Performing Organization Address [facility]/ZIP Co de Phone Number [facility] [address] [place] [phone] * (ABNORMAL) Lipid Panel, Standard (09/05/2025 11:29 AM EST) Only the most recent of2 resultswithin the time period is included. Pathologist [facility] Triglycerides 110 <150 mg/dL [facility] Comment:Desirable Triglyceri de: less than 150 mg/dLBorderline High Triglyceride 150-199 mg/dLHigh Triglyceride: 200-499 mg/dLVery High Triglyceride: greater than or equal to 5OO mg/dL Cholesterol 205(H) <200 mg/dL [facility] Comment:Desirable Cholestero l: less than 200 mg/dLBorderline High Cholesterol: 200-239 mg/dLHigh Cholesterol: greater than 239 mg/dL LDL Cholesterol Calculated 122(H) <100 mg/dL [facility] Comment:Desirable LDL: less than 100 mg/dLNear Optimal/Above Optimal LDL: 110- 129 mg/dLBorderline High LDL: 130-159 mg/dLHigh LDL: 160-189 mg/dLVery High LDL: greater than or equal to 190 mg/dL HDL Cholesterol 61 >40 mg/dL [facility] Comment:Desirable HDL: great er than 40 mg/dL Note: This HDL assay may give artificially low results in patients with liver disease. 09/05/2025 11:2 9 AM EST 09/05/2025 12:50 PM EST us Generic External Data Provider LAB BLOOD ORDERAB LES Final Result Performing Organization Address City/[facility]/ZIP Co de Phone Number [facility] [address] [place] [phone] * (ABNORMAL) Comprehensive Metabolic Panel (09/05/2025 11:29 AM EST) Sodium 142 135 - 145 mmol/L [facility] Potassium 4.3 3.3 - 5.1 mmol/L [facility] Chloride 108 96 - 108 mmol/L [facility] Carbon Dioxide 28 22 - 29 mmol/L [facility] Anion Gap 10(L) 12 - 20 [facility] Urea Nitrogen (BUN) 13 9 - 16 mg/dL [facility] Creatinine, Serum 0.73 0.5 - 1.4 mg/dL [facility] Estimated Glomerular Filt Rate >60 [facility] Comment:Chronic Kidney Disea se: Estimated GFR < 60 mL/min/1.62y2Vuwmfn Kidney Disease: Estimated GFR < 15 mL/min/1.73m2 Glucose 106 60 - 115 mg/dL [facility] Calcium 10.1 8.4 - 10.2 mg/dL [facility] Bilirubin, Total 0.6 0.0 - 1.0 mg/dL [facility] Aspartate Amino Transferase 27 5 - 31 U/L [facility] Alanine Aminotransferase 18 0 - 31 U/L [facility] Total Protein 8.2(H) 6.5 - 8.0 g/dL [facility] Albumin Level 4.6 3.5 - 5.0 g/dL [facility] Alkaline Phosphatase 113 39 - 117 U/L [facility] 09/05/2025 11:2 9 AM EST 09/05/2025 12:50 PM EST us Generic External Data Provider LAB BLOOD ORDERAB LES Final Result [facility] [address] [place] [phone] * CT chest wo con - High Res (08/14/2025 11:36 AM EDT) Anatomical Region Laterality Modality Body, Chest Computed Tomogra phy 08/14/2025 11:3 6 AM EDT Narrative 08/14/2025 12:04 PM EDT [address] [address] [address] Scan Report Signed Patient: Farzana Zapien MR#: [id number] : 1970 Acct:[id number] Age/Sex: 55 / F ADM Date: 08/14/25 Loc: HO.CT Attending Dr: Cary Kraus MD Ordering Physician: Cary Kraus MD Date of Service: 08/14/25 Procedure(s): CT chest wo con - High Res Accession Number(s): [id number] cc: Cary Kraus MD; Magui Perez MD Report Number: [id number]: Total DLP = 229.00 mGy-cm Reason for [...] 08/14/25 1201 DD/ 1136 TD/TT: 08/14/25 1147 Tunnel Elastic Operator Zigzag: Procedure Note Donotuseinterpreter, Image - 08/14/[address] [place] [address] [address] Scan Report Signed Patient: Farzana Zapien [facility]#: [id number] : 1970Acct:[id number] Age/Sex: 55 / FADM Date: 08/14/25 Loc: HO.CT Attending Dr: Cary Kraus MD Ordering Physician: Cary Kraus MD Date of Service: 08/14/25 Procedure(s): CT chest wo con - High Res Accession Number(s): [id number] cc: Cary Kraus MD; Magui Perez MD Report Number: [id number]: Total DLP = 229.00 mGy-cm Reason for [...] 08/14/25 1201 DD/ 1136 TD/TT: 08/14/25 1147 Tunnel Elastic Operator Zigzag: [facility] External Provider IMG CT PROCEDURES Final Result * XR Chest 2 Views (06/08/2025 10:18 AM EDT) Anatomical Region Laterality Modality Chest Radiographic Zoila ging 06/08/2025 10:1 8 AM EDT Narrative 06/10/2025 7:18 AM EDT [address] [address] XRay Report Signed Patient: Farzana Zapien MR#: [id number] : 1970 Acct:[id number] Age/Sex: 55 / F ADM Date: 06/08/25 Loc: [facility] Attending Dr: Zhang Gilbert MD Ordering Physician: Zhang Gilbert MD Date of Service: 06/08/25 Procedure(s): XR chest 2V Accession Number(s): [id number] cc: Magui Perez MD; Zhang Gilbert MD EXAMINATION: XR CHEST CLINICAL INFORMATION: MILD PERSISTENT ASTHMA WITHOUT COMPLICATIONS,NOCTURNAL WHEEZING COMPARISON: None available. TECHNIQUE: 2 views of the chest were obtained. FINDINGS: No significant abnormality is noted involving the heart, lungs, mediastinum, bony thorax or soft tissues. XR/XR chest 2V IMPRESSION: Unremarkable chest examination. Electronically signed by: Jose Jones MD 06/10/2025 07:15 AM EDT Dictated By: Jose Jones MD Signed By: <Electronically signed by Jose Jones MD in OV> 06/10/25 0715 DD/ 1018 TD/TT: 06/08/25 1030 Tunnel Elastic Operator Zigzag: [facility] [place] Procedure Note Donotuseinterpreter, Image - 06/10/[address] [address] XRay Report Signed Patient: Farzana Zapien MMR#: [id number] : 1970Acct:[id number] Age/Sex: 55 / FADM Date: 06/08/25 Loc: [facility] Attending Dr: Zhang Gilbert MD Ordering Physician: Zhang Gilbert MD Date of Service: 06/08/25 Procedure(s): XR chest 2V Accession Number(s): [id number] cc: Magui Perez MD; Zhang Gilbert MD EXAMINATION: XR CHEST CLINICAL INFORMATION: MILD PERSISTENT ASTHMA WITHOUT COMPLICATIONS,NOCTURNAL WHEEZING COMPARISON: None available. TECHNIQUE: 2 views of the chest were obtained. FINDINGS: No significant abnormality is noted involving the heart, lungs, mediastinum, bony thorax or soft tissues. XR/XR chest 2V IMPRESSION: Unremarkable chest examination. Electronically signed by: Jose Jones MD 06/10/2025 07:15 AM EDT Dictated By: Jose Jones MD Signed By: <Electronically signed by Jose Jones MD in OV> 06/10/25 0715 DD/ 1018 TD/TT: 06/08/25 1030 Tunnel Elastic Operator Zigzag: LEW Zhang Gilbert MD IMG XR PROCEDURES Final Result * Hm Colonoscopy (06/07/2024) Colonoscopy Normal Normal Comment:with Dasia Guzman MD Historical Provider HEALTH MAINTENANCE Final Result * BI Mammogram Screening Tomosynthesis Bilateral (05/07/2024 11:36 AM EDT) Anatomical Region Laterality Modality Breast Bilateral Mammography 05/07/2024 11:3 6 AM EDT Narrative 05/29/2024 9:40 PM EDT [facility] [address] [place] [address] Mammography Report Signed Patient: Farzana Zapien MR#: [id number] : 1970 Acct:[id number] Age/Sex: 53 / F ADM Date: 05/07/24 Loc: HO.MAMMO Attending Dr: Magui Perez MD Ordering Physician: Magui Perez MD Results: 1N egative Date of Service: 05/07/24 Follow Up: 1 Year From Orig inal Mammogram Procedure(s): MM tomosynthesis screening BI Accession Number(s): [id number] cc: Magui Perez MD EXAMINATION: MM SCREENING [...] in OV> 05/29/24 2136 DD/ 1136 TD/TT: Tunnel Elastic Operator Zigzag: Procedure Note Donotuseinterpreter, Image - 05/29/2024 [facility] [address] [place], [place] [address] Mammography Report Signed Patient: Farzana Zapien MMR#: [id number] : 1970Acct:[id number] Age/Sex: 53 / FADM Date: 05/07/24 Loc: HO.MAMMO Attending Dr: Magui Perez MD Ordering Physician: Magui Perez MDResults: 1N egative Date of Service: 05/07/24Follow Up: 1 Year From Orig inal Mammogram Procedure(s): MM tomosynthesis screening BI Accession Number(s): [id number] cc: Magui Perez MD EXAMINATION: MM SCREENING [...] in OV> 05/29/24 2136 DD/ 1136 TD/TT: Tunnel Elastic Operator Zigzag: Magui Perez MD IM BI PROCEDURES Edited R esult - Final * HPV mRNA E6/E7 w/Reflex to HPV Genotypes 16, 18/45 (01/26/2024 12:00 PM EDT) HPV nRNA E6/E7 Not Detected Not Detected [facility] Comment:Methodology: Transcr iption-Mediated AmplificationThis assay detects E6/E7 viral messenger RNA (mRNA) from 14high-risk HPV types (16,18,31,33,35,39,45,51,52,56,58,59,66,68).Cervical sources are required for HPV testing.If a vaginal source from a patient who has had atotal hysterectomy with removal of cervix wassubmitted, please contact the testing laboratoryfor alternative testing options.For additional information, please refer tohttp://education.Xoomsys/faq/JWX733b9(This link if provided for information/educational purposes only.)THIS TEST WAS PERFORMED AT:[facility] [place] [phone] ENRIQUEZ MD HPV mRNA E6/E7 [facility] HPV 16 RNA [facility] HPV 18/45 RNA [facility] 01/26/2024 12:0 0 PM EDT 01/31/2024 12:00 PM EDT Magui Perez MD LAB CYTOLOGY ORDERABLES Fi nal Result [facility] [address] [place] [phone] * Pap Smear (01/26/2024 12:00 PM EDT) 01/26/2024 12:0 0 PM EDT 01/31/2024 12:00 PM EDT Mar [facility] - 02/13/2024 12:50 PM EDT ----- ------- Name: Farzana Zapien Age/Sex: 53/F : 1970 Unit#: [id number] Attend Dr: Magui Perez MD Re01/26/24 Status: [facility] Location: [facility] Disch: ----- ------- SPEC : [id number] RECD: 01/31/24 STATUS: AMBROSE RUTHER[place]ORD NUM: [id number] JAMILAH: 01/26/[address] [facility] [address]: Magui Perez MD ENTERED: 01/31/24-1246 SP TYPE: Pap Smr OTHR DR: ORDERED: Pap Smear Interpretation Satisfactory for evaluation. Negative for intraepithelial lesion or malignancy. HPV mRNA E6/E7: NOT DETECTED This assay detects E6/E7 viral messenger RNA (mRNA) from 14 high-risk HPV types (16, 18, 31, 33, 35, 39, 45, 51, 52, 56, 58, 59, 66, 68) HPV testing performed by [facility], [place], [place]. See reference laboratory portion of the EMR for entire report. Clinical Information LMP: Postmenopausal Previous PAP test: Unknown date, WNL Material Received ThinPrep-Vaginal/Cervical ----- ------- Signed (signature on file) JUSTIN Doe (ASCP) 02/13/24 1250 ----- ------- END OF REPORT Magui Perez MD LAB CYTOLOGY ORDERABLES Fi nal Result [facility] [address] [place] [phone] * Hepatitis Panel, General (08/23/2023 12:36 PM EST) Hepatitis A IgM Nonreactive Nonreactive [facility] Comment:IgM antibodies to HUANG V not detected; does not exclude earlyacute or recovered HAV infection. ~Hepatitis B Surface Antibody REACTIVE Nonreactive [facility] Comment:REACTIVE: > 11.99 mI U/mL Hepatitis B Core Antibody Nonreactive Nonreactive [facility] Hepatitis C Antibody Nonreactive Nonreactive [facility] Comment:Antibodies to HCV no t detected; does not exclude early acuteHCV infection. Hepatitis B Surface Ag Negative Negative [facility] 08/23/2023 12:3 6 PM EST 08/23/2023 12:36 PM EST us Generic External Data Provider LAB BLOOD ORDERAB LES Final Result [facility] [address] [place] [phone] * HIV AB/AG (08/08/2020 11:40 AM EDT) [facility] HIV AB/AG Nonreactive Nonreactive [facility] [...] of detection of this assay. The [employer]anna Ins[employer] Mechan[employer] HIV Ag/Ab Combo assay result and supplemental assay results should be interpreted in conjunction with the patient's clinical presentation, history and other laboratory results. If the results are inconsistent with clinical evidence, additional testing is suggested to confirm the result. 08/08/2020 11:4 0 AM EDT us Magui Perez MD HISTORICAL/NON ORDERABLE L ABS Final Result Performing Organization Address City/[facility] Co de Phone Number [facility] [address] from Last 3 Months or Most Recently Relevant to Health Maintenance Insurance [facility] C3 [place] ST[place] ADULT [facility] Advance Directives Documents on File Type Date Recorded Patient Care Partner Expl anation Advance Directives and Living Will 07/19/2024 Health Care Proxy 07/19/24 Care Teams Deli Cook Relationship Specialty Start Date End Date Chris, MD Magui [address] [place] [phone] PCP - General Family Medicine 12/14/17January [address]rd [place] [address] Gastroenterology 10/09/24 Manjinder Serrano [address] [place] [address] Ophthalmology 11/02/24 Cary Kraus MD [address] [place] [address] Rheumatology 01/31/25 [facility] for RIVETER PORTABLE MACHINE Case Management 09/05/25
--- OUTSIDE RECORDS SUMMARY | 2025-09-05 17:25 | XMS_ITS | Encounter Summary ---
Author Organization [employer] Address [address] [place] [address] [place] [address] Care Team Providers Care Diamond Assorter Name Role Phone Magui Perez MD Primary Care Provider [phone] January Unavailable Manjinder Serrano Unavailable Unavailable Reason for Visit * Reason Onset Date Comments Medication Question 03/28/2025 Encounter Details Date Type Department Care Team ([facility] st Contact Info) Description 03/28/2025 Telephone [facility] [address] [place], [place] [phone] Magui Perez MD [address] [place], [place] [phone] Medication Question Social History Tobacco Use Types [...] the past 12 months, has t he [employer], gas, oil or water company threatened to [...] If any questions please contact pt at [phone]. (Kiswahili Speaker) documented in this encounter Plan of Treatment Not on file documented as of this encounter Visit Diagnoses Not on filedocumented in this encounter Additional Health Concerns Assessment Noted Time PHQ-9 Depression Total Score: 14 024 10:21 AM EDT documented as of this encounter Care Teams Diamond Assorter Relationship Specialty Start Date End Date Magui Perez MD [address] [place] [address] PCP - General Family Medicine 12/14/[address] [place] [address] Gastroenterology 10/09/24 Manjinder Serrano [address] [place] [address] Ophthalmology 11/02/24 Cary Kraus MD [address] [place] [address] Rheumatology 01/31/25 [employer] 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
--- OUTSIDE RECORDS SUMMARY | 2025-09-05 17:25 | XMS_ITS | Encounter Summary ---
Author Organization [facility], Address [address] [place] [address] Phone Care Team Providers Care Solar Consultant Name Role Phone Magui Perez MD Primary Care Provider U malik Encounter Details Date Type Department Care Team (Late st Contact Info) Description 10/28/2023 Documentation Only [facility], [address] [place] [address] Dere[place], [place] [address] [place] [address] Social History Tobacco Use Types [...] on filedocumented in this encounter Care Teams Solar Consultant Relationship Specialty Start Date End Date Magui Perez MD PCP - General Family Medicine 03/30/22 documented as of this encounter
== END 2025-09-05 11:13 | disposition home or self-care (01) ==
LOC: HO.HHCL 11:12
PROVIDERS: Student in an Organized Health Care Education/Training Program; PCP Family Medicine; Visit Provider Family Medicine
DX: I10 Essential (primary) hypertension (principal); E66.812 Obesity, class 2; E03.9 Hypothyroidism, unspecified; Z68.35 Body mass index [BMI] 35.0-35.9, adult; Z79.899 Other long term (current) drug therapy; Z86.2 Personal history of diseases of the blood and blood-forming organs and certain disorders involving the immune mechanism
CPT/HCPCS: 36415; 80053; 80061; 82043; 82248; 82570; 82607; 82728; 82746; 83036; 83540; 84439; 84443; 85025; 85652; 86140

== ENCOUNTER 2025-09-11 13:05 | Outpatient (REF) | payer MEDICAID, SELFPAY ==
--- NOTE | ~2025-09-11 | MM_ITS ---
EXAMINATION: MM SCREENING DIGITAL BREAST TOMOSYNTHESIS, BILATERAL CLINICAL INFORMATION: Screening. Asymptomatic. COMPARISON: Comparison made to multiple prior, most recent May 07, 2024, and most remote August 17, 2017. TECHNIQUE: Digital breast tomosynthesis is performed in mediolateral oblique and craniocaudal views along with computer-aided detection (CAD). Synthesized 2D images are generated from the tomosynthesis. FINDINGS: BREAST COMPOSITION: There are scattered areas of fibroglandular density. BILATERAL BREASTS: No significant masses, suspicious calcifications or other abnormalities are seen in either breast. MM/MM tomosynthesis screening BI IMPRESSION: BILATERAL BREASTS: Negative, no mammographic evidence of malignancy. Normal interval follow-up is recommended in 12 months. ASSESSMENT: BI-RADS: Category 1: Negative RECOMMENDATION: Routine annual mammography screening. FOLLOW-UP: 1 year F/U This examination should not preclude the clinical evaluation of a suspicious palpable abnormality. This patient's information was entered into a reminder system with a target due date for their next mammogram. Electronically signed by: Mary Barnett MD 09/13/2025 05:21 PM [facility]
--- OUTSIDE RECORDS SUMMARY | 2025-09-11 16:12 | XMS_ITS | Encounter Summary ---
Author Organization [facility], Address [address] [place] [address] Phone Care Team Providers Care Coronary Care Unit Nurse Name Role Phone Magui Perez MD Primary Care Provider U bettyaildaiana Encounter Details Date Type Department Care Team (Late st Contact Info) Description 03/30/2022 Documentation Only [facility], [address] [place] [address] Magui Perez MD [address] [place] [address] Social History Tobacco Use Types Packs/Day Years [...] on filedocumented in this encounter Care Teams Coronary Care Unit Nurse Relationship Specialty Start Date End Date Magui Perez MD PCP - General Family Medicine 03/30/22 documented as of this encounter
--- OUTSIDE RECORDS SUMMARY | 2025-09-11 16:12 | XMS_ITS | Encounter Summary ---
Author Organization [facility], Address [address] [place] [address] Phone Care Team Providers Care Electrical Unit Rebuilder Name Role Phone Magui Perez MD Primary Care Provider U bettyaildaiana Encounter Details Date Type Department Care Team (Late st Contact Info) Description 03/30/2022 Documentation Only [facility], [address] [place] [address] Magui Perez MD [address] [place] [address] Social History Tobacco Use Types Packs/Day Years [...] on filedocumented in this encounter Care Teams Electrical Unit Rebuilder Relationship Specialty Start Date End Date Magui Perez MD PCP - General Family Medicine 03/30/22 documented as of this encounter
--- OUTSIDE RECORDS SUMMARY | 2025-09-11 16:12 | XMS_ITS | Encounter Summary ---
Author Organization [facility], Address [address] [place] [address] Phone Care Team Providers Care Center Aisle Cashier Name Role Phone Magui Perez MD Primary Care Provider U malik Encounter Details Date Type Department Care Team (Late st Contact Info) Description 10/28/2023 Documentation Only [facility], [address] [place] [address] Dere[place], [place] [address] [place] [address] Social History Tobacco Use Types [...] on filedocumented in this encounter Care Teams Center Aisle Cashier Relationship Specialty Start Date End Date Magui Perez MD PCP - General Family Medicine 03/30/22 documented as of this encounter
--- OUTSIDE RECORDS SUMMARY | 2025-09-11 16:12 | XMS_ITS | Encounter Summary ---
Author Organization [facility], Address [address] [place] [address] Phone Care Team Providers Care Cable Worker Helper Name Role Phone Magui Perez MD Primary Care Provider U bettyaildaiana Encounter Details Date Type Department Care Team (Late st Contact Info) Description 04/12/2022 Documentation Only [facility], [address] [place] [address] Magui Perez MD [address] [place] [address] Social History Tobacco Use Types Packs/Day Years [...] on filedocumented in this encounter Care Teams Cable Worker Helper Relationship Specialty Start Date End Date Magui Perez MD PCP - General Family Medicine 03/30/22 documented as of this encounter
--- OUTSIDE RECORDS SUMMARY | 2025-09-11 16:12 | XMS_ITS | Data Portability ---
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 as she likely has repeat upper endoscopy [...] By Organization Details Last Modified Time 06/10/2025 49250 Reduce caffeine intake by switching to non-caffeinated [...] Recorded Time Feeling of lump in throat [id number] Active 2024 MICHELLE MORENO MD [address] [place] [address], [phone], [facility] - [facility] 09:35:32 Bilateral tinnitus 3257104317114 Active 2024 MICHELLE MORENO MD [address] [place] [address], [phone], [facility] - [facility] 09:35:37 Problem Notes None recorded. Procedures Surgical History Date Name Laterality Status Provider Name and Address Organization Details Recorded Time 06/10/2025 Air & Speech Audio with Tymps - 71201, 32146 & [address]4814 completed JUANA CROUCH [address] [place] [address],[address], [address], [facility] - [facility] 06/10/2025 10:40:56 12/10/2024 FOL_DP completed MICHELLE MORENO MD [address] [place] [address], [phone], [facility] - [facility] 12/06/2024 08:09:31 Imaging Results None recorded. [...] Updated DateTime 12/10/2024 157.48 cm 36.6 kg/m2 92099.47 g Brenton Spear [place] [facility] [place] 12/10/2024 09:18:56 Date Recorded Body height Provider Name an d Address Organization Details Last Updated DateTime 06/10/2025 157.48 cm SALLY PUENTE [place] - [facility] [place] 06/10/2025 10:28:40 Social History None recorded. Functional [...] Disorder N Anesthesia Complications N Heart Attack (ND) N Other Skin Condition N Diabetes N [...] ICD10 Code Diagnosis IMO Codes Diagnosis Note [id number] MICHELLE MORENO MD [facility] of [address] [address] 12/10/2024 09:12:12 12/10/2024 09:38:15 Feeling of lump in throat 866598301 R09.89 Bilateral tinnitus 09659 20437 102 H93.13 At the end of the visit patient indicated a secondary concern of bilateral tinnitus that has been present for a long time. Will make arrangemen ts for audiometri c testing at a future appointmen t with physician certified pathology assistant [id number] MICHELLE MORENO MD [facility] [facility] [address] [place] [address] 06/10/2025 10:16:03 06/10/2025 11:26:08 Bilateral tinnitus [id number] 102 H93.13 Right Ear:Normal hearing with excellent [...] Estevez Member ID Guarantor Name 06/10/2025 1 [place]: [facility] Farzana Denis [id number] Farzana Denis Notes Date Note Type Note Provider Name and Address Organization Details Recorded Time 5 text/html ROS as noted in the HPI globusdysphagia with some solid food and pills get stuck intermittentlocated left neck near larynxonset around 2021+reflux on pepcid+hx of radiation to thyroidno difficulty with liquid or solidhad ba swallow at [place] in Aug 2024GI consult December to review results. 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 MICHELLE MORENO MD [address] [place] [address], [phone], [facility] - [facility] 06/10/2025 11:25:48 OBGyn Episode No OBEpisode recorded.
--- OUTSIDE RECORDS SUMMARY | 2025-09-11 16:12 | XMS_ITS | Clinical Summary ---
Author Organization [facility], Address [address] [place] [address] [place] [address] Phone Care Team Providers Care Hr Manager Name Role Phone [place], Magui Steinberg MD Primary Care Provider U [...] to 49 Years) Discontinued 04/20/2023 Insurance Medicaid [place] Care Teams Hr Manager Relationship Specialty Start Date End Date [place], Magui Steinberg MD PCP - General Family Medicine 03/30/22
== END 2025-09-11 13:06 | disposition home or self-care (01) ==
LOC: HO.MAMMO 13:05
PROVIDERS: PCP Family Medicine; Visit Provider Family Medicine
DX: Z12.31 Encounter for screening mammogram for malignant neoplasm of breast (principal)
CPT/HCPCS: 77063; 77067

== ENCOUNTER → 2025-09-11 13:30 | Outpatient (BNV) | payer MEDICAID, SELFPAY | PROVIDERS: PCP Family Medicine; Visit Provider Radiology Body Imaging | DX: Z12.31 Encounter for screening mammogram for malignant neoplasm of breast (principal) | CPT/HCPCS: 77063; 77067 ==

== ENCOUNTER 2025-10-03 10:53 | Outpatient (REF) | payer MEDICAID, SELFPAY ==
--- NOTE | ~2025-10-03 | XR_ITS ---
EXAMINATION: XR LUMBOSACRAL SPINE CLINICAL INFORMATION: acute mid LBP COMPARISON: CT on 08/03/2021 TECHNIQUE: Three views of the lumbosacral spine. FINDINGS: Right upper quadrant clips are consistent with prior cholecystectomy. There is also a clip in the central pelvis. There are 5 nonrib-bearing lumbar segments. Vertebral body height is preserved since the CT. Mild degenerative changes in the lower thoracic spine are similar to the prior. L3-4: There is mild disc space narrowing, increased since the prior. There are enlarging anterior osteophytes. L5-S1: There is mild facet sclerosis. XR/XR lumbar spine 2-3V IMPRESSION: No acute bony abnormality. Mild degenerative changes are stable to increased since 2020. Electronically signed by: Jose Guadalupe Cruz MD 10/03/2025 11:12 AM DARRIN DUNHAM
--- OUTSIDE RECORDS SUMMARY | 2025-10-03 10:00 | XMS_ITS | Encounter Summary ---
Author Organization [employer] Address [address] [facility] 7 [place] [address] Care Team Providers Care Oil Pipe Inspector Name Role Phone Magui Perez MD Primary Care Provider +1- [phone] January Unavailable Manjinder Serrano Unavailable Unavailable Encounter Details Date Type Department Care Team (Late st Contact Info) Description 10/03/2025 10:00 AM EST Office Visit [facility] [address] [place] [address] Acute bilateral low back pain without sciatica (Primary Dx); Urinary incontinence, unspecified type; Pain; Seronegative rheumatoid arthritis (CMS/HCC) (HCC) Social History Tobacco Use Types Packs/Day Years [...] Sign Reading Time Taken Comments Blood Pressure 150/80 10/03/2025 10:07 AM EST Pulse 64 10/03/2025 10:07 AM EST Temperature 36.6 C (97.8 F) 10/03/2025 10:07 AM EST Respiratory Rate 18 10/03/2025 10:07 AM EST Oxygen Saturation 99% 10/03/2025 10:07 AM EST Inhaled Oxygen Concentration - - Weight 88.9 kg (196 lb) 10/03/2025 10:07 AM EST Height 157.5 cm (5' 2 ) 10/03/2025 10:07 AM EST Body Mass Index 35.85 10/03/2025 10:07 AM EST documented in this encounter Plan of Treatment Upcoming Encounters Date Type Department Care Team (Late st Contact Info) Description 11/20/2025 10:30 AM EST Office Visit [facility] MEDICINE [address] [place], [place] [phone] Magui Perez MD [address] [place], [place] [phone] Scheduled Orders Name Type Priority Associated Diagnoses Orde r Schedule Culture, Urine, Routine Microbiology Routine Urinary incontinence, unspecified type Expected: 10/03/2025 (Approximate), Expires: 10/03/2026 documented as of this encounter Procedures Procedure Name Priority Date/Time Associated Diagnosis Comments POCT URINALYSIS DIPSTICK Routine 10/03/2025 11:35 AM EST Urinary incontinence, unspecified type XR LUMBAR SPINE 2-3 VIEWS Routine 10/03/2025 11:05 AM EST Acute bilateral low back pain without sciatica documented in this encounter Results * POCT Urinalysis (10/03/2025 11:35 AM EST) Color, UA Light Yellow Clarity, UA Cloudy Glucose, UA Negative Bilirubin, UA Negative Ketones, UA Negative Spec Grav, UA 1.030 Blood, UA Negative Negative, None Detected pH, UA 5.5 Protein, UA Negative Urobilinogen, UA 0.2 Leukocytes, UA Negative Negative, Rare, Trace, 1+ (17), 2+ (35), 3+ (70), Trace (15) Nitrite, UA Negative Negative, None Detected Appearance, UA cloudy QC Media Lot # [id number] Lot# Expiration Date Urine (Urine, Random) 10/03/2025 11:35 AM EST Leana To DO POINT OF CARE TEST ENTER/LISA T ORDERABLES Final Result * XR Lumbar Spine 2-3 Views (10/03/2025 11:05 AM EST) Anatomical Region Laterality Modality Spine, L-spine Radiographic Zoila ging 10/03/2025 11:0 5 AM EST Narrative 10/03/2025 11:15 AM EST [address] [address] XRay Report Signed Patient: Farzana Zapien MR#: [id number] : 1970 Acct:[id number] Age/Sex: 55 / F ADM Date: 10/03/25 Loc: [facility] Attending Dr: Leana To DO Ordering Physician: Leana To DO Date of Service: 10/03/25 Procedure(s): XR lumbar spine 2-3V Accession Number(s): [id number] cc: Leana To DO Reason for Exam: acute mid LBP EXAMINATION: XR LUMBOSACRAL SPINE CLINICAL INFORMATION: acute mid LBP COMPARISON: CT on 08/03/2021 TECHNIQUE: Three views of the lumbosacral spine. FINDINGS: Right upper quadrant clips are consistent with prior cholecystectomy. There is also a clip in the central pelvis. There are 5 nonrib-bearing lumbar segments. Vertebral body height is preserved since the CT. Mild degenerative changes in the lower thoracic spine are similar to the prior. L3-4: There is mild disc space narrowing, increased since the prior. There are enlarging anterior osteophytes. L5-S1: There is mild facet sclerosis. XR/XR lumbar spine 2-3V IMPRESSION: No acute bony abnormality. Mild degenerative changes are stable to increased since 2020. Electronically signed by: Jose Guadalupe Cruz MD 10/03/2025 11:12 AM [facility] Dictated By: Jose Guadalupe Cruz MD Signed By: <Electronically signed by Jose Guadalupe Cruz MD in OV> 10/03/25 1112 DD/ 1105 TD/TT: 10/03/25 1106 Steel Welder: Procedure Note Donotuseinterpreter, Image - 10/03/[address] [address] XRay Report Signed Patient: Farzana Zapien MMR#: [id number] : 1970Acct:[id number] Age/Sex: 55 / FADM Date: 10/03/25 Loc: [facility] Attending Dr: Leana To DO Ordering Physician: Leana To DO Date of Service: 10/03/25 Procedure(s): XR lumbar spine 2-3V Accession Number(s): [id number] cc: Leana To DO Reason for Exam: acute mid LBP EXAMINATION: XR LUMBOSACRAL SPINE CLINICAL INFORMATION: acute mid LBP COMPARISON: CT on 08/03/2021 TECHNIQUE: Three views of the lumbosacral spine. FINDINGS: Right upper quadrant clips are consistent with prior cholecystectomy. There is also a clip in the central pelvis. There are 5 nonrib-bearing lumbar segments. Vertebral body height is preserved since the CT. Mild degenerative changes in the lower thoracic spine are similar to the prior. L3-4: There is mild disc space narrowing, increased since the prior. There are enlarging anterior osteophytes. L5-S1: There is mild facet sclerosis. XR/XR lumbar spine 2-3V IMPRESSION: No acute bony abnormality. Mild degenerative changes are stable to increased since 2020. Electronically signed by: Jose Guadalupe Cruz MD 10/03/2025 11:12 AM EST RP Dictated By: Jose Guadalupe Cruz MD Signed By: <Electronically signed by Jose Guadalupe Cruz MD in OV> 10/03/25 1112 DD/ 1105 TD/TT: 10/03/25 1106 Steel Welder: Leana To DO IMG XR PROCEDURES Final Resu lt documented in this encounter Visit Diagnoses Diagnosis Acute bilateral low back pain without sciatica- Primary Urinary incontinence, unspecified type Pain Generalized pain Seronegative rheumatoid arthritis (CMS/HCC) (HCC) Rheumatoid arthritis documented in this encounter Administered Medications Inactive Administered Medications - up to 3 most recent administrations Medication Order MAR Action Action Date Dose Rate Site ketorolac (Toradol) injection 30 mg 30 mg, Intramuscular, Once, On Nikki 10/03/25 at 1045, For 1 doseIndications:Acute bilateral low back pain without sciatica Given 10/03/2025 10:45 AM EST 30 mg Left Deltoid documented in this encounter Additional Health Concerns Assessment Noted Time PHQ-9 Depression Total Score: 3 09/05/20 10:44 AM EST documented as of this encounter Care Teams Oil Pipe Inspector Relationship Specialty Start Date End Date Magui Perez MD [address] [place] [address] PCP - General Family Medicine 12/14/17January [address] 3rd [place] [address] Gastroenterology 10/09/24 Manjinder Serrano [address] [place] [address] Ophthalmology 11/02/24 Cary Kraus MD [address] [place] [address] Rheumatology 01/31/25 [facility] for BRAIN SURGEON Case Management 09/05/25 documented as of this encounter
--- OUTSIDE RECORDS SUMMARY | 2025-10-03 14:03 | XMS_ITS | Encounter Summary ---
Author Organization [employer] Address [address] [place] [address] [place] [address] Care Team Providers Care Master Barber Name Role Phone Magui Perez MD Primary Care Provider +1- [phone] Enrique Harvey MD Unavailable January Unavailable Manjinder Serrano Unavailable Unavailable Reason for Visit * Reason Onset Date Comments Med Refill 08/06/2024 Encounter Details Date Type Department Care Team (Late st Contact Info) Description 08/06/2024 Telephone [facility] MEDICINE [address] [place], [place] [phone] Maugi Perez MD [address] [place], [place] [phone] Med Refill Social History Tobacco Use Types [...] EDT TC placed to pt with a canceling and cutting control clerk in regards to request for an albuterol [...] request a script for a albuterol inhaler medical technical writer does not see medication on chart [...] Description 11/20/2025 10:30 AM EST Office Visit [facility] [address] [place] [address] Magui Perez MD [address] [place] [address] documented as of this encounter Visit Diagnoses Not on filedocumented in this encounter Additional Health Concerns Assessment Noted Time PHQ-9 Depression Total Score: 14 024 10:21 AM EDT documented as of this encounter Care Teams Master Barber Relationship Specialty Start Date End Date Magui Perez MD [address] [place] [address] PCP - General Family Medicine 12/14/17 Enrique Harvey MD [address] [place] [address] Rheumatology 10/09/24 01/30/25January [address] 3rd [place] [address] Gastroenterology 10/09/24 Manjinder Serrano [address] [place] [address] Ophthalmology 11/02/24 Cary Kraus MD [address] [place] [phone] Rheumatology 01/31/25 Pamela for MANAGER MISSION Case Management 09/05/25 documented as of this encounter
--- OUTSIDE RECORDS SUMMARY | 2025-10-03 14:03 | XMS_ITS | Encounter Summary ---
Author Organization [employer] Address [address] [place] [address] [place] [address] Care Team Providers Care Covered Buckle Assembler Name Role Phone Magui Perez MD Primary Care Provider +1- [phone] Enrique Harvey MD Unavailable January Unavailable Manjinder Serrano Unavailable Unavailable Encounter Details Date Type Department Care Team (Late st Contact Info) Description 07/20/2024 Orders Only [facility] MEDICINE [address] [place], [place] [phone] Magui Perez MD [address] [place], [place] [phone] Social History Tobacco Use Types Packs/Day Years [...] 10:30 AM EST Office Visit [facility] MEDICINE [address] [place] [address] Magui Perez MD [address] [place] [address] documented as of this encounter Visit Diagnoses Not on filedocumented in this encounter Additional Health Concerns Assessment Noted Time PHQ-9 Depression Total Score: 14 024 10:21 AM EDT documented as of this encounter Care Teams Covered Buckle Assembler Relationship Specialty Start Date End Date Magui Perez MD [address] [place] [address] PCP - General Family Medicine 12/14/17 Enrique Harvey MD [address] [place] [address] Rheumatology 10/09/24 01/30/25January [address] 3rd [place] [address] Gastroenterology 10/09/24 Manjinder Serrano [address] [place] [address] Ophthalmology 11/02/24 Cary Kraus MD [address] [place] [address] Rheumatology 01/31/25 [facility] for HYDRAULIC MODELING ENGINEER Case Management 09/05/25 documented as of this encounter
--- OUTSIDE RECORDS SUMMARY | 2025-10-03 14:03 | XMS_ITS | Data Portability ---
Author Organization [place] [facility], Allergy Address [address] [place] [address] Care Team Providers Care Manager Of Compensation Name Role Phone DALLAS GREENE Primary Care [...] Encouraged her to continue work with her song lyricist as she likely has repeat upper endoscopy [...] By Organization Details Last Modified Time 06/10/2025 89291 Reduce caffeine intake by switching to non-caffeinated [...] Recorded Time Feeling of lump in throat 235033791 Active 2024 MICHELLE MORENO MD [address] [place] [address], [phone], [facility] - [facility] 09:35:32 Bilateral tinnitus 6916173858813 Active 2024 MICHELLE MORENO MD [address] [place] [address], [phone], [facility] - [facility] 09:35:37 Problem Notes None recorded. Procedures Surgical History Date Name Laterality Status Provider Name and Address Organization Details Recorded Time 06/10/2025 Air & Speech Audio with Tymps - 69006, [address] & 68736 completed JUANA CROUCH [address] [place] [address],[address], [address], [facility] - [facility] 06/10/2025 10:40:56 12/10/2024 FOL_DP completed MICHELLE MORENO MD [address] [place] [address], [phone], [facility] - [facility] 12/06/2024 08:09:31 Imaging Results None recorded. [...] Updated DateTime 12/10/2024 157.48 cm 36.6 kg/m2 92043.47 g Brenton Spear [place] [facility] [place] 12/10/2024 09:18:56 Date Recorded Body height Provider Name an d Address Organization Details Last Updated DateTime 06/10/2025 157.48 cm SALLY PUENTE [place] [facility] [place] 06/10/2025 10:28:40 Social History None recorded. Functional [...] Disorder N Anesthesia Complications N Heart Attack (NE) N Other Skin Condition N Diabetes N [...] ICD10 Code Diagnosis IMO Codes Diagnosis Note [id number] MICHELLE MORENO MD [facility] [address] [address] 12/10/2024 09:12:12 12/10/2024 09:38:15 Feeling of lump in throat 863702504 R09.89 Bilateral tinnitus [address] 102 H93.13 At the end of the visit patient indicated a secondary concern of bilateral tinnitus that has been present for a long time. Will make arrangemen ts for audiometri c testing at a future appointmen t with physician assistant professor of nursing [address] MICHELLE MORENO MD [facility] [address] [place] [address] 06/10/2025 10:16:03 06/10/2025 11:26:08 Bilateral tinnitus 8721226753 102 H93.13 Right Ear:Normal hearing with excellent [...] Estevez Member ID Guarantor Name 06/10/2025 1 [place]: [facility] Farzana Denis [id number] Farzana Denis Notes Date Note Type Note Provider Name and Address Organization Details Recorded Time 5 text/html ROS as noted in the HPI globusdysphagia with some solid food and pills get stuck intermittentlocated left neck near larynxonset around 2021+reflux on pepcid+hx of radiation to thyroidno difficulty with liquid or solidhad ba swallow at [place] in Aug 2024GI consult December to review results. UGI showed inflammation in esophagus and stomachprev using meds for reflux famotidine & omeprazole, now only TUMS as she feels better controlhx of galbladder removal - now on cholestyramine MICHELLE MORENO MD [address] [address], [place], [address], [facility] - [facility] 12/10/2024 09:37:17 5 text/html ROS as noted in the HPI IPad Croatian - declined drill press hand today Tinnitus PV 12/10/24 Elysia globus - [...] alleviate the ringing sound. MICHELLE MORENO MD [address] [place] [address], [phone], [facility] - [facility] 06/10/2025 11:25:48 OBGyn Episode No OBEpisode recorded.
--- OUTSIDE RECORDS SUMMARY | 2025-10-03 14:03 | XMS_ITS | Encounter Summary ---
Author Organization [employer] Address [address] [facility] 7 [place] [address] Care Team Providers Care Mainspring Winder And Oiler Name Role Phone Magui Perez MD Primary Care Provider +1- [phone] January Unavailable Manjinder Serrano Unavailable Unavailable Encounter Details Date Type Department Care Team (Latest Contact Info) Description 10/03/2025 Travel Social History Tobacco Use Types Packs/Day [...] Description 11/20/2025 10:30 AM EST Office Visit [facility] MEDICINE [address] [place] [address] Magui Perez MD [address] [place] [address] documented as of this encounter Visit Diagnoses Not on filedocumented in this encounter Additional Health Concerns Assessment Noted Time PHQ-9 Depression Total Score: 3 09/05/20 10:44 AM EST documented as of this encounter Care Teams Mainspring Winder And Oiler Relationship Specialty Start Date End Date Magui Perez MD [address] [place] [address] PCP - General Family Medicine 12/14/17January [address]rd [place] [address] Gastroenterology 10/09/24 Manjinder Serrano [address] [place] [address] Ophthalmology 11/02/24 Cary Kraus MD [address] [place] [address] Rheumatology 01/31/25 [facility] for FOOD SCIENTIST Case Management 09/05/25 documented as of this encounter
--- OUTSIDE RECORDS SUMMARY | 2025-10-03 14:03 | XMS_ITS | Encounter Summary ---
Author Organization [employer] Address [address] [place] [address] [place] [address] Care Team Providers Care Crop Or Grain Farmer Name Role Phone Magui Perez MD Primary Care Provider +1- [phone] January Unavailable Manjinder Serrano Unavailable Unavailable Encounter Details Date Type Department Care Team ([facility] st Contact Info) Description 08/20/2025 Telephone [facility] MEDICINE [address] [place], [place] [phone] Magui Perez MD [address] [place], [place] [phone] Social History Tobacco Use Types Packs/Day Years [...] Description 11/20/2025 10:30 AM EST Office Visit [facility] MEDICINE [address] [place] [address] Magui Perez MD [address] [place] [address] documented as of this encounter Visit Diagnoses Not on filedocumented in this encounter Additional Health Concerns Assessment Noted Time PHQ-9 Depression Total Score: 14 024 10:21 AM EDT documented as of this encounter Care Teams Crop Or Grain Farmer Relationship Specialty Start Date End Date Magui Perez MD [address] [place] [address] PCP - General Family Medicine 12/14/17January [address] 3rd [place] [address] Gastroenterology 10/09/24 Manjinder Serrano [address] [place] [address] Ophthalmology 11/02/24 Cary Kraus MD [address] [place] [address] [address] [place] [phone] Rheumatology 01/31/25 Pamela for BUFFING AND POLISHING WHEEL REPAIRER Case Management 09/05/25 documented as of this encounter
--- OUTSIDE RECORDS SUMMARY | 2025-10-03 14:03 | XMS_ITS | Clinical Summary ---
Author Organization [facility], Address [address] [place] [address] [place] [address] Phone Care Team Providers Care Industrial Engineering Intern Name Role Phone [place], Magui Steinberg MD Primary Care Provider U [...] to 49 Years) Discontinued 04/20/2023 Insurance Medicaid [place] Care Teams Industrial Engineering Intern Relationship Specialty Start Date End Date [place], Magui Steinberg MD PCP - General Family Medicine 03/30/22
--- OUTSIDE RECORDS SUMMARY | 2025-10-03 14:03 | XMS_ITS | Encounter Summary ---
Author Organization [employer] Address [address] [place] [address] 7 [place] [address] Care Team Providers Care Proofreader Name Role Phone Magui Perez MD Primary Care Provider +1- [phone] Enrique Harvey MD Unavailable January Unavailable Manjinder Serrano Unavailable Unavailable Reason for Visit * Reason Comments Med Change Request Encounter Details Date Type Department Care Team (Late st Contact Info) Description 07/30/2024 Refill [facility]INE [address] [place], [place] [phone] Magui Perez MD 230 [place], [place] [phone] Insomnia, unspecified type Social History Tobacco Use [...] Description 11/20/2025 10:30 AM EST Office Visit [facility] [address] [place] [address] Magui Perez MD [address] [place] [address] documented as of this encounter Visit Diagnoses Diagnosis Insomnia, unspecified type documented in this encounter Additional Health Concerns Assessment Noted Time PHQ-9 Depression Total Score: 14 024 10:21 AM EDT documented as of this encounter Care Teams Proofreader Relationship Specialty Start Date End Date Magui Perez MD [address] [place] [address] PCP - General Family Medicine 12/14/17 Enrique Harvey MD [address] [place] [address] Rheumatology 10/09/24 01/30/[address] 3rd [place] [address] Gastroenterology 10/09/24 Manjinder Serrano [address] [place] [address] Ophthalmology 11/02/24 Cary Kraus MD [address] [place] [address] Rheumatology 01/31/25 [facility] for LIFTER Case Management 09/05/25 documented as of this encounter
--- OUTSIDE RECORDS SUMMARY | 2025-10-03 14:03 | XMS_ITS | Encounter Summary ---
Author Organization [employer] Address [address] [place] [address] [place] [address] Care Team Providers Care Analytic Manager Name Role Phone Magui Perez MD Primary Care Provider +1- [phone] Enrique Harvey MD Unavailable January Unavailable Manjinder Serrano Unavailable Unavailable Reason for Visit * Reason Onset Date Comments Med Refill 07/03/2024 Encounter Details Date Type Department Care Team (Late st Contact Info) Description 07/03/2024 Refill [facility] MED[facility]INE 230 [place], [place] [phone] Leana To DO 230 [place], [place] [phone] Social History Tobacco Use Types Packs/Day Years [...] Description 11/20/2025 10:30 AM EST Office Visit [facility] 230 [place] [address] Magui Perez MD [address] [place] [address] documented as of this encounter Visit Diagnoses Not on filedocumented in this encounter Additional Health Concerns Assessment Noted Time PHQ-9 Depression Total Score: 0 04/20/20 23 10:16 AM EDT documented as of this encounter Care Teams Analytic Manager Relationship Specialty Start Date End Date Magui Perez MD [address] [place] [address] PCP - General Family Medicine 12/14/17 Enrique Harvey MD [address] [place] [address] Rheumatology 10/09/24 01/30/25January [address] 3rd [place] [address] Gastroenterology 10/09/24 Manjinder Serrano [address] [place] [address] Ophthalmology 11/02/24 Cary Kraus MD [address] [place] [address] [phone] Rheumatology 01/31/25 Pamela for WEATHERIZATION OPERATIONS MANAGER Case Management 09/05/25 documented as of this encounter
--- OUTSIDE RECORDS SUMMARY | 2025-10-03 14:03 | XMS_ITS | Encounter Summary ---
Author Organization [employer] Address [address] [place] [address] [place] [address] Care Team Providers Care Natural Fabricator Name Role Phone Magui Perez MD Primary Care Provider +1- [phone] January Unavailable Manjinder Serrano Unavailable Unavailable Reason for Visit * Reason Onset Date Comments Med Refill 08/26/2025 Encounter Details Date Type Department Care Team (Late st Contact Info) Description 08/26/2025 Telephone [facility] MEDICINE 230 [place], [place] [phone] Magui Perez MD 230 [place], [place] [phone] Med Refill Social History Tobacco Use Types [...] 9:16 AM EST Medication was sent to [facility] #[id number] on 03/09/25 with 11 refills. * Telephone Encounter - Evan Chávez - 08/26/2025 9:12 AM EST TC from pt requesting medication refill. Medications needing refill : albuterol (Ventolin HFA) 108 (90 Base) MCG/ACT inhaler To be sent to: [facility]/pharmacy #[id number] - [place] - [facility] [address] documented in this encounter Plan of Treatment Upcoming Encounters Date Type Department Care Team (Late st Contact Info) Description 11/20/2025 10:30 AM EST Office Visit [facility] MED[facility]INE 230 [place] [address] Magui Perez MD 230 [place] [address] documented as of this encounter Visit Diagnoses Not on filedocumented in this encounter Additional Health Concerns Assessment Noted Time PHQ-9 Depression Total Score: 14 024 10:21 AM EDT documented as of this encounter Care Teams Natural Fabricator Relationship Specialty Start Date End Date Magui Perez MD 230 [place] [address] PCP - General Family Medicine 12/14/17January [address] 3rd [place] [address] Gastroenterology 10/09/24 Manjinder Serrano 180 [place] [address] Ophthalmology 11/02/24 Cary Kraus MD [address] [place] [address] Rheumatology 01/31/25 [facility] COMMUNITY ORGANIZATION DIRECTOR Case Management 09/05/25 documented as of this encounter
--- OUTSIDE RECORDS SUMMARY | 2025-10-03 14:03 | XMS_ITS | Encounter Summary ---
Author Organization [employer] Address [address] [place] [address] 7 [place] [address] Care Team Providers Care Process Cheese Cooker Name Role Phone Magui Perez MD Primary Care Provider +1- [phone] Enrique Harvey MD Unavailable January Unavailable Manjinder Serrano Unavailable Unavailable Reason for Visit * Reason Comments Med Refill Encounter Details Date Type Department Care Team (Late st Contact Info) Description 06/14/[address] [facility] MED[facility]INE 230 [place], [place] [phone] Farzana Haq MD 230 [place], [place] [phone] Insomnia, unspecified type Social History Tobacco Use [...] Description 11/20/2025 10:30 AM EST Office Visit [facility]INE [address] [place] [address] Magui Perez MD [address] [place] [address] documented as of this encounter Visit Diagnoses Diagnosis Insomnia, unspecified type documented in this encounter Additional Health Concerns Assessment Noted Time PHQ-9 Depression Total Score: 0 04/20/20 23 10:16 AM EDT documented as of this encounter Care Teams Process Cheese Cooker Relationship Specialty Start Date End Date Magui Perez MD [address] [place] [address] PCP - General Family Medicine 12/14/17 Enrique Harvey MD [address] [place] [address] Rheumatology 10/09/24 01/30/25January [address] 3rd [place] [address] Gastroenterology 10/09/24 Manjinder Serrano [address] [place] [address] Ophthalmology 11/02/24 Cary Kraus MD [address] [place] [address] Rheumatology 01/31/25 Pamela for TUBE SORTER Case Management 09/05/25 documented as of this encounter
--- OUTSIDE RECORDS SUMMARY | 2025-10-03 14:03 | XMS_ITS | Encounter Summary ---
Author Organization [employer] Address [address] [place] [address] [place] [address] Care Team Providers Care Ripening Room Hand Name Role Phone Magui Perez MD Primary Care Provider +1- [phone] Enrique Harvey MD Unavailable January Unavailable Mnajinder Serrano Unavailable Unavailable Reason for Visit * Reason Onset Date Comments Med Refill chartprep 07/16/2024 Encounter Details Date Type Department Care Team (Late st Contact Info) Description 07/16/2024 Refill [facility] MED[facility]INE 230 [place], [place] [phone] Leana To DO 230 [place], [place] [phone] Pain Social History Tobacco Use Types Packs/Day [...] pending and Home sleep test [facility]oscopy done and Mammogram done Overdue care gaps: PHQ-9 and Oral Health documented in this encounter Plan of Treatment Upcoming Encounters Date Type Department Care Team (Late st Contact Info) Description 11/20/2025 10:30 AM EST Office Visit [facility] MEDICINE [address] [place] [address] Magui Perez MD [address] [place] [address] documented as of this encounter Visit Diagnoses Diagnosis Pain Generalized pain documented in this encounter Additional Health Concerns Assessment Noted Time PHQ-9 Depression Total Score: 0 04/20/20 10:16 AM EDT documented as of this encounter Care Teams Ripening Room Hand Relationship Specialty Start Date End Date Magui Perez MD [address] [place] [address] PCP - General Family Medicine 12/14/17 Enrique Harvey MD [address] [place] [address] Rheumatology 10/09/24 01/30/25January [address] 3rd [place] [address] Gastroenterology 10/09/24 Manjinder Serrano 180 [place] [address] Ophthalmology 11/02/24 Cary Kraus MD [address] [place] [address] Rheumatology 01/31/25 [facility] for ENGINEER AUTOMATED EQUIPMENT Case Management 09/05/25 documented as of this encounter
--- OUTSIDE RECORDS SUMMARY | 2025-10-03 14:04 | XMS_ITS | Encounter Summary ---
Author Organization [facility], Address [address] [place] [address] Phone Care Team Providers Care Video Game Maker Name Role Phone Magui Perez MD Primary Care Provider U bettyaildaiana Encounter Details Date Type Department Care Team (Late st Contact Info) Description 03/30/2022 Documentation Only [facility], [address] [place] [address] Magui Perez MD 230 [place] [address] Social History Tobacco Use Types Packs/Day Years [...] on filedocumented in this encounter Care Teams Video Game Maker Relationship Specialty Start Date End Date Magui Perez MD PCP - General Family Medicine 03/30/22 documented as of this encounter
--- OUTSIDE RECORDS SUMMARY | 2025-10-03 14:04 | XMS_ITS | Encounter Summary ---
Author Organization [employer] Address [address] [place] [address] Care Team Providers Care Law Enforcement Instructor Name Role Phone Magui Perez MD Primary Care Provider +1- [phone] Enrique Harvey MD Unavailable January Unavailable Manjinder Serrano Unavailable Unavailable Reason for Visit * Reason Onset Date Comments Med Refill 04/20/2023 Encounter Details Date Type Department Care Team (Late st Contact Info) Description 04/20/2023 Telephone [facility] MEDICINE 230 [place], [place] [phone] Magui Perez MD 230 [place], [place] [phone] Med Refill Social History Tobacco Use Types [...] Tc from pt requesting medication nystatin (Mycostatin) 457118 UNIT/GM powder to be sent to [facility] pharmacy. documented in this encounter Plan of Treatment Upcoming Encounters Date Type Department Care Team (Late st Contact Info) Description 11/20/2025 10:30 AM EST Office Visit [facility] MEDICINE [address] [place] [address] Magui Perez MD 230 [place] [address] documented as of this encounter Visit Diagnoses Not on filedocumented in this encounter Additional Health Concerns Assessment Noted Time PHQ-9 Depression Total Score: 0 04/20/20 10:16 AM EDT documented as of this encounter Care Teams Law Enforcement Instructor Relationship Specialty Start Date End Date Magui Perez MD [address] [place] [address] PCP - General Family Medicine 12/14/17 Enrique Harvey MD [address] [place] [address] Rheumatology 10/09/24 01/30/25January [address] 3rd [place] [address] Gastroenterology 10/09/24 Manjinder Serrano [address] [place] [address] Ophthalmology 11/02/24 Cary Kraus MD [address] [place] [address] Rheumatology 01/31/25 [facility] for ART FRAMING MANAGER Case Management 09/05/25 documented as of this encounter
--- OUTSIDE RECORDS SUMMARY | 2025-10-03 14:04 | XMS_ITS | Encounter Summary ---
Author Organization [employer] Address [address] [place] [address] [place] [address] Care Team Providers Care Varnish Filterer Name Role Phone Magui Perez MD Primary Care Provider +1- [phone] Enrique Harvey MD Unavailable January Unavailable Manjinder Serrano Unavailable Unavailable Reason for Visit * Reason Onset Date Comments Referral 10/21/2023 Encounter Details Date Type Department Care Team (Late st Contact Info) Description 10/21/2023 Telephone [facility] MEDICINE 230 [place] [address] Magui Perez MD 230 [place], [place] [phone] Referral Social History Tobacco Use Types Packs/Day [...] has not symptoms Please contact pt @ [phone] documented in this encounter Plan of Treatment Upcoming Encounters Date Type Department Care Team (Late st Contact Info) Description 11/20/2025 10:30 AM EST Office Visit [facility]INE 230 [place] [address] Magui Perez MD [address] [place] [address] documented as of this encounter Visit Diagnoses Diagnosis Routine eye exam Examination of eyes and vision documented in this encounter Additional Health Concerns Assessment Noted Time PHQ-9 Depression Total Score: 0 04/20/20 23 10:16 AM EDT documented as of this encounter Care Teams Varnish Filterer Relationship Specialty Start Date End Date Magui Perez MD 230 [place] [address] PCP - General Family Medicine 12/14/17 Enrique Harvey MD [address] [place] [address] Rheumatology 10/09/24 01/30/25 Leesa January [address] 3rd [place] [address] Gastroenterology 10/09/24 Manjinder Serrano 180 [place] [address] Ophthalmology 11/02/24 Cary Kraus MD [address] [place] [address] Rheumatology 01/31/25 [facility] for PLUMBING TECHNICIAN Case Management 09/05/25 documented as of this encounter
--- OUTSIDE RECORDS SUMMARY | 2025-10-03 14:04 | XMS_ITS | Encounter Summary ---
Author Organization [facility], Address [address] [place] [address] Phone Care Team Providers Care Anode Worker Name Role Phone Magui Perez MD Primary Care Provider U bettyaildaiana Encounter Details Date Type Department Care Team (Late st Contact Info) Description 04/12/2022 Documentation Only [facility], [address] [place] [address] Magui Perez MD 230 [place] [address] Social History Tobacco Use Types Packs/Day Years [...] on filedocumented in this encounter Care Teams Anode Worker Relationship Specialty Start Date End Date Magui Perez MD PCP - General Family Medicine 03/30/22 documented as of this encounter
--- OUTSIDE RECORDS SUMMARY | 2025-10-03 14:04 | XMS_ITS | Encounter Summary ---
Author Organization [employer] Address [address] [place] [address] [place] [address] Care Team Providers Care Plate Sensitizer Name Role Phone Magui Perez MD Primary Care Provider +1- [phone] Enrique Harvey MD Unavailable January Unavailable Manjinder Serrano Unavailable Unavailable Encounter Details Date Type Department Care Team ([facility] Contact Info) Description 10/31/2022 Abstract [facility] MEDICINE [address] [place] [address] Magui Perez MD [address] [place] [address] [phone] Social History Tobacco Use Types Packs/Day Years [...] Department Care Team (Late Contact Info) Description 11/20/2025 10:30 AM EST Office Visit [facility] MEDICINE [address] [place] [address] [phone] Magui Perez MD [address] [place] [address], [place] [address] documented as of this encounter Procedures Procedure Name Priority Date/Time Associated Diagnosis Comments HPV HIGH RISK PCR Routine 10/18/2018 12:00 AM EST PAP SMEAR Routine 10/18/2018 12:00 AM EST documented in this encounter Results * HPV High Risk PCR (10/18/2018 12:00 AM EST) Swab Cervical swab / Unknown Historical Provider LAB MICROBIOLOGY - GENERA L ORDERABLES Final Result Performing Organization Address [facility]/ZIP Co de Phone Number [facility] [address] [place] [phone] * Pap Smear (10/18/2018 12:00 AM EST) Swab Historical Provider LAB CYTOLOGY ORDERABLES F inal Result Performing Organization Address [facility]/ZIP Co de Phone Number [facility] [address] [place] [phone] documented in this encounter Visit Diagnoses Not on filedocumented in this encounter Care Teams Plate Sensitizer Relationship Specialty Start Date End Date Magui Perez MD 230 [place] [address] PCP - General Family Medicine 12/14/17 Enrique Harvey MD [address] [place] [address] Rheumatology 10/09/24 01/30/25January [address] 3rd [place] [address] Gastroenterology 10/09/24 Manjinder Serrano [address] [place] [address] Ophthalmology 11/02/24 Cary Kraus MD [address] [place] [address] Rheumatology 01/31/25 [facility] for CHIEF COUNSEL Case Management 09/05/25 documented as of this encounter
--- OUTSIDE RECORDS SUMMARY | 2025-10-03 14:04 | XMS_ITS | Encounter Summary ---
Author Organization [facility], Address [address] [place] [address] Phone Care Team Providers Care Fuel Cell Systems Engineer Name Role Phone Magui Perez MD Primary Care Provider U bettyaildaiana Encounter Details Date Type Department Care Team (Late st Contact Info) Description 03/30/2022 Documentation Only [facility], [address] [place] [address] Magui Perez MD 230 [place] [address] Social History Tobacco Use Types Packs/Day Years [...] on filedocumented in this encounter Care Teams Fuel Cell Systems Engineer Relationship Specialty Start Date End Date Magui Perez MD PCP - General Family Medicine 03/30/22 documented as of this encounter
--- OUTSIDE RECORDS SUMMARY | 2025-10-03 14:04 | XMS_ITS | Encounter Summary ---
Author Organization [employer] Address [address] [place] [address] [place] [address] Care Team Providers Care Watch Band Assembler Name Role Phone Magui Perez MD Primary Care Provider +1- [phone] Enrique Harvey MD Unavailable January Unavailable Manjinder Serrano Unavailable Unavailable Reason for Visit * Reason Onset Date Comments Med Refill 01/17/2025 Encounter Details Date Type Department Care Team (Late st Contact Info) Description 01/17/2025 Refill [facility] MEDICINE 230 [place], [place] [phone] Magui Perez MD 230 [place], [place] [phone] Depression, unspecified depression type Social History Tobacco [...] 11/20/2025 10:30 AM EST Office Visit [facility] MEDICINE [address] [place] [address] Magui Perez MD [address] [place] [address] documented as of this encounter Visit Diagnoses Diagnosis Depression, unspecified depression type documented in this encounter Additional Health Concerns Assessment Noted Time PHQ-9 Depression Total Score: 14 024 10:21 AM EDT documented as of this encounter Care Teams Watch Band Assembler Relationship Specialty Start Date End Date Magui Perez MD [address] [place] [address] PCP - General Family Medicine 12/14/17 Enrique Harvey MD [address] [place] [address] Rheumatology 10/09/24 01/30/[address] 3rd [place] [address] Gastroenterology 10/09/24 Manjinder Serrano [address] [place] [address] Ophthalmology 11/02/24 Cary Kraus MD [address] [place] [address] Rheumatology 01/31/25 [facility] for FIELD RESEARCH ASSISTANT Case Management 09/05/25 documented as of this encounter
--- OUTSIDE RECORDS SUMMARY | 2025-10-03 14:04 | XMS_ITS | Patient Health Record ---
Author Organization [facility] Address [address] [place] [address] Care Team Providers Care Buckle Stapler Name Role Phone Buddy Valadez Unavailable [phone] Reason For Referral No Information Plan Of Treatment No Information
--- OUTSIDE RECORDS SUMMARY | 2025-10-03 14:04 | XMS_ITS | Encounter Summary ---
Author Organization [employer] Address [address] [place] [address] 7 [place] [address] Care Team Providers Care Insole Rasper Name Role Phone Magui Perez MD Primary Care Provider +1- [phone] Enrique Harvey MD Unavailable January Unavailable Manjinder Serrano Unavailable Unavailable Encounter Details Date Type Department Care Team (Late st Contact Info) Description 11/21/2023 Orders Only [facility] MEDICINE 230 [place], [place] [phone] Magui Perez MD 230 [place], [place] [phone] Arthralgia, unspecified joint Social History Tobacco Use [...] Description 11/20/2025 10:30 AM EST Office Visit [facility] MEDICINE [address] [place] [address] Magui Perez MD [address] [place] [address] documented as of this encounter Visit Diagnoses Diagnosis Arthralgia, unspecified joint documented in this encounter Additional Health Concerns Assessment Noted Time PHQ-9 Depression Total Score: 0 04/20/20 23 10:16 AM EDT documented as of this encounter Care Teams Insole Rasper Relationship Specialty Start Date End Date Magui Perez MD [address] [place] [address] PCP - General Family Medicine 12/14/17 Enrique Harvey MD [address] [place] [address] Rheumatology 10/09/24 01/30/25January [address] 3rd [place] [address] Gastroenterology 10/09/24 Manjinder Serrano 180 [place] [address] Ophthalmology 11/02/24 Cary Kraus MD [address] [place] [address] Rheumatology 4/17/25 [facility] for TRIM SETTER Case Management 09/05/25 documented as of this encounter
--- OUTSIDE RECORDS SUMMARY | 2025-10-03 14:04 | XMS_ITS | Encounter Summary ---
Author Organization [facility], Address [address] [place] [address] Phone Care Team Providers Care Benzene Operator Name Role Phone Magui Perez MD Primary Care Provider U malik Encounter Details Date Type Department Care Team (Late st Contact Info) Description 10/28/2023 Documentation Only [facility], [address] [place] [address] [place] [address] [place] [address] Social History Tobacco Use Types [...] on filedocumented in this encounter Care Teams Benzene Operator Relationship Specialty Start Date End Date Magui Perez MD PCP - General Family Medicine 03/30/22 documented as of this encounter
--- OUTSIDE RECORDS SUMMARY | 2025-10-03 14:05 | XMS_ITS | Encounter Summary ---
Author Organization [employer] Address [address] [place] [address] [place] [address] Care Team Providers Care Promotions Executive Producer Name Role Phone Magui Perez MD Primary Care Provider +1- [phone] January Unavailable Manjinder Serrano Unavailable Unavailable Reason for Visit * Reason Onset Date Comments Medication Question 03/28/2025 Encounter Details Date Type Department Care Team ([facility] st Contact Info) Description 03/28/2025 Telephone [facility] [address] [place], [place] [phone] Magui Perez MD [address] [place], [place] [phone] Medication Question Social History Tobacco Use Types [...] If any questions please contact pt at [phone]. (Bulgarian Speaker) documented in this encounter Plan of Treatment Upcoming Encounters Date Type Department Care Team (Late st Contact Info) Description 11/20/2025 10:30 AM EST Office Visit [facility] [address] [place] [address] Magui Perez MD [address] [place] [address] documented as of this encounter Visit Diagnoses Not on filedocumented in this encounter Additional Health Concerns Assessment Noted Time PHQ-9 Depression Total Score: 14 024 10:21 AM EDT documented as of this encounter Care Teams Promotions Executive Producer Relationship Specialty Start Date End Date Magui Perez MD [address] [place] [address] PCP - General Family Medicine 12/14/17January [address]rd [place] [address] Gastroenterology 10/09/24 Manjinder Serrano [address] [place] [address] Ophthalmology 11/02/24 Cary Kraus MD [address] [place] [address] Rheumatology 01/31/25 [facility] [employer] Case Management 09/05/25 documented as of this encounter
--- OUTSIDE RECORDS SUMMARY | 2025-10-03 14:05 | XMS_ITS | Encounter Summary ---
Author Organization [employer] Address [address] [place] [address] [place] [address] Care Team Providers Care Laborer Car Barn Name Role Phone Magui Perez MD Primary Care Provider +1- [phone] January Unavailable Manjinder Serrano Unavailable Unavailable Encounter Details Date Type Department Care Team ([facility] st Contact Info) Description 04/26/2025 Telephone [facility] [address] [place], [place] [phone] Magui Perez MD [address] [place], [place] [phone] Social History Tobacco Use Types Packs/Day Years [...] Description 11/20/2025 10:30 AM EST Office Visit [facility] [address] [place] [address] Magui Perez MD [address] [place] [address] documented as of this encounter Visit Diagnoses Not on filedocumented in this encounter Additional Health Concerns Assessment Noted Time PHQ-9 Depression Total Score: 14 024 10:21 AM EDT documented as of this encounter Care Teams Laborer Car Barn Relationship Specialty Start Date End Date Magui Perez MD [address] [place] [address] PCP - General Family Medicine 12/14/17January [address]rd [place] [address] Gastroenterology 10/09/24 Manjinder Serrano [address] [place] [address] Ophthalmology 11/02/24 Cary Kraus MD [address] [place] [address] [address] [place] [phone] Rheumatology 01/31/25 [facility] for [employer] Case Management 09/05/25 documented as of this encounter
--- OUTSIDE RECORDS SUMMARY | 2025-10-03 14:05 | XMS_ITS | Clinical Summary ---
Author Organization [email or web address] Address [address] [place] [address] [address] [place] [address] Care Team Providers Care Aviation Electrician Name Role Phone Magui Perez MD Primary Care Provider [phone] January Unavailable Manjinder Serrano Unavailable Unavailable Allergies No known active allergies Medications cholestyramine (Questran) 4 g packetIndications: History of cholecystectomy Take 2 packets (8 g) by mouth with breakfast and with evening meal. 60 each 3 024 Active losartan (Cozaar) 25 MG [...] of candidiasis. Do not swallow. 1 each 025 Active albuterol (Ventolin HFA) 108 (90 Base) MCG/ACT inhalerIndications :Mild persistent asthma without complication Inhale 2 puffs every 6 (six) hours if needed for wheezing or shortness of breath. 18 g 025 2025 Active D3 Super Strength 50 MCG (1999 UT) capsuleIndications :Vitamin D deficiency TAKE 1 CAPSULE (50 MCG) BY MOUTH ONCE PER DAY. 90 capsule 3 Active fluticasone (Flonase) 50 MCG/ACT nasal sprayIndications:S easonal allergies Administer 2 sprays into each nostril Once per day. Shake gently. Before first use, prime pump. After use, clean tip and replace cap. 16 g 3 025 2025 Active Tocilizumab-aazg (TAMIA LA)Indications:Ser onegative rheumatoid arthritis (CMS/HCC) ([facility]) Inject under the skin. Active Synthroid 150 [...] gram cream per vagina twice a week, hungarian 42 g 2 Active triamcinolone (Kenalog) 0.1 % creamIndications:D ermatitis Apply topically if needed in the morning and at bedtime (pain and swelling). 30 g 2 Active Blood Pressure kitIndications:[facility] hypertension Check blood pressure twice a week or prn 1 kit Active baclofen (Lioresal) 10 MG tabletIndications: Pain TAKE 1 TABLET BY MOUTH IN THE MORNING, AT NOON AND AT BEDTIME IF NEEDED FOR MUSCLE SPASMS 60 tablet 1 Active predniSONE (Deltasone) 20 MG tablet Take 1 tablet (20 mg) by mouth 2 times daily for 5 days. 10 tablet 025 2024 Active acetaminophen (Tylenol 8 Hour) 650 MG ER tablet Take 1 tablet (650 mg) by mouth every 8 (eight) hours if needed for mild pain. Do not crush, chew, or split. 50 tablet 1 025 2025 Active naproxen (Naprosyn) 500 MG tablet Take 1 tablet (500 mg) by mouth if needed in the morning and at bedtime for mild pain. 30 tablet 025 2025 Active traMADol (Ultram) 50 MG tabletIndications: Acute bilateral low back pain without sciatica Take 1 tablet (50 mg) by mouth if needed in the morning, at noon, and at bedtime for severe pain for up to 5 days. 15 tablet 025 2024 Active Diclofenac Sodium 1 % gelIndications:Ser onegative rheumatoid arthritis (CMS/HCC) ([facility]) Apply 2 g topically if needed in the morning, at noon, in the evening, and at bedtime (pain). 150 g 3 Active estradiol (Estrace) 0.1 MG/GM vaginal creamIndications:V aginal atrophy 1 gram cream per vagina nightly for 14 days then 1 gram cream per vagina twice a week, hungarian 42.5 g 11 024 2024 Discontinued(R eorder (will not trigger notification to Pharmacy)) baclofen (Lioresal) 10 MG tabletIndications: Pain TAKE 1 TABLET BY MOUTH IN THE MORNING, AT NOON AND AT BEDTIME IF NEEDED FOR MUSCLE SPASMS 60 tablet 1 024 2024 Discontinued(R eorder (will not trigger notification to Pharmacy)) Diclofenac Sodium 1 % gelIndications:Ser onegative rheumatoid arthritis ([facility]) ([facility]) Apply 2 g topically if needed in the morning, at noon, in the evening, and at bedtime (pain). 150 g 1 024 2024 Discontinued(R eorder (will not trigger [...] eorder (will not trigger notification to Pharmacy)) Synthroid 150 MCG tablet TAKE 1 TABLET BY MOUTH EVERY DAY 90 tablet 025 2024 Discontinued(R eorder (will not trigger notification to Pharmacy)) terbinafine (LamISIL AT) 1 % creamIndications:T inea pedis of right foot Apply topically 2 times daily. 12 g 1 025 2024 Discontinued(M ed list cleanup (will not trigger notification to Pharmacy)) Hospital, Clinic, or Other Facility Administered Medication Ordered Dose Route Frequency Start Date End Date Status ketorolac (Toradol) injection 30 mgIndications:Acute bilateral low back pain without sciatica 30 mg IM Once 10/03/2025 10/03/2025 Ended Active Problems Problem Noted Date Diagnosed Date [...] have a restrictive ventilatory defect consistent with nzmr-hz-qrwsgkyk restrictive lung disease. Need to consider underlying [...] have a restrictive ventilatory defect consistent with wmkk-te-xfpedgaz restrictive lung disease. Need to consider underlying [...] Overview (10/24/2024): - Seen on 08/31/24 in [facility] for Benign nevus. Spots in her body to be checked, developed over yrs. Benign nevus: Benign, R cheek, defer tx. Dermatofibroma: Benign, R thigh. Defer tx Assessment & Plan (10/24/2024 9:52 AM EST): - Seen on 08/31/24 in [facility] for Benign [facility]. Spots in her [...] gram cream per vagina twice a week, hungarian Assessment & Plan (01/26/2024 11:55 AM EDT): [...] Hemoglobin A1c; Future Seronegative rheumatoid arthritis (CMS/HCC) 07/0 02/2023 Overview (09/05/2025): Pt reports multiple areas [...] of 202410/24/24 -rheumatology note from [facility] Kraus, Julianna not able to tolerate Enbrel and so [...] week. Folic acid 1 mg daily. Saw Bonsai Culturist last month in 06/2024. 07/19/24 discussed possibility of menopausal symptoms worsening pain, pt declined any treatment offered. -will trial Diclofenac Gel. -will provide a note that states pt cannot work due to the severity of her disease. -Seen by marble installer supervisor Dr. Harvey 08/31/24 diagnosed with seronegative RA [...] week. Folic acid 1 mg daily. Saw Bonsai Culturist last month in 06/2024. 07/19/24 discussed possibility [...] by [facility] -dental home is [facility] -health care proxy filed 07/19/24 Assessment & Plan (09/05/2025 11:16 AM EST): -next physical exam due after 09/05/26 -eye care facilitated by [facility] -dental home is [facility] -health care proxy filed 07/19/24 Assessment & Plan (07/19/2024 10:34 AM EDT): -next physical exam due after 07/19/25 -eye care facilitated by [facility] -dental home is [facility] -health care proxy given and filed 07/19/24 Assessment & Plan (01/26/2024 11:41 AM EDT): -next physical exam due after 04/20/2024 -eye care facilitated by [facility] -dental home is [facility] Assessment & Plan (04/20/2023 10:45 AM EDT): -next physical exam due after 04/20/2024. -eye care facilitated by [facility] -dental home is Colon cancer screening 04/15/2023 Overview (07/19/2024): -colonocopy normal with Dr. Mathis 06/06/2012 who left the area -referal for [facility] gastro given 04/2023, pt given number for [facility] gastro to call 05/23/2023 -seen by Tanya [facility] 11/30/2023 for colonoscopy intake -colonoscopy done 05/2024 with abnormal results. Assessment & Plan (01/26/2024 11:37 AM EDT): -colonocopy normal with Dr. Mathis 06/06/2012 who left the area -referal for [facility] gastro given 04/2023, pt given number for [facility] gastro to call 05/23/2023 -seen by Tanya Landers [facility] 11/30/2023 for colonoscopy intake Assessment & Plan (05/23/2023 11:08 AM EDT): -colonocopy normal with Dr. Mathis 06/06/2012 -Gave number for [facility] to call 05/23/2023. Assessment & Plan [...] Overview (09/05/2025): Lab Results Component Value Date [id number] 25.7 (L) 07/19/2024 [id number] 22.4 (L) 06/21/2024 [id number] 22.4 04/21/2023 Assessment & Plan (09/05/2025 11:16 AM EST): Lab Results Component Value Date [id number] 22.4 04/21/2023 Assessment & Plan (07/19/2024 10:50 AM EDT): Lab Results Component Value Date [id number] 22.4 04/21/2023 -reordered Vit D 07/19/24 Assessment & Plan (01/26/2024 11:42 AM EDT): Lab Results Component Value Date [id number] 22.4 04/21/2023 Anxiety 11/15/2013 Hypertension 05/28/2013 Overview [...] 10/24/2024 History of laparoscopic cholecystectomy 06/21/2024 09/04/2024 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 06/21/2024 10/24/2024 Upper abdominal pain [...] Encounters Date Type Department Care Team Description 10/03/2025 10:00 AM EST Office Visit [facility] [address] [place] [phone] Acute bilateral low back pain without sciatica (Primary Dx); Urinary incontinence, unspecified type; Pain; Seronegative rheumatoid arthritis (CMS/HCC) ([facility]) 10/03/2025 Travel 09/11/2025 Orders Only [facility] [address] [place] [phone] Magui Perez MD 09/05/2025 10:30 AM EST Office Visit [facility] [address] [place] [address] [phone] Magui Perez MD Seronegative rheumatoid arthritis (CMS/[facility]) ([facility]) (Primary Dx); Primary hypertension; Hypothyroidism, unspecified type; History of anemia; Mild intermittent asthma without complication; Recurrent major depressive disorder, in partial remission ([facility]); Vitamin D deficiency; Gastroesophageal reflux disease, unspecified whether esophagitis present; Vaginal atrophy; Dermatitis; Class 2 severe obesity due to excess calories with serious comorbidity and body mass index (BMI) of 35.0 to 35.9 in adult; Other specified health status 09/05/2025 Results Follow-Up [facility] [address] [place] [phone] Magui Perez MD CBC auto differential, Ferritin, TSH with Reflex to Free T4, Additional followed-up results: 6 09/05/2025 Orders Only GENERIC EXTERNAL DATA DEPARTMENT Provider, Generic External Data 09/05/2025 Travel 09/04/[address] [address] Magui Perez MD chartprep 08/29/2025 Refill [facility] [address] [place] [address] [phone] Magui Perez MD Tinea pedis of right foot 08/28/2025 Refill [facility] [address] [place] [address] [phone] Magui Perez MD Seasonal allergies 08/26/2025 Telephone [facility] [address] [place] [phone] Magui Perez MD Med Refill 08/23/2025 Refill [facility] [address] [place] [address] [phone] Farzana Haq MD 08/20/2025 Telephone [facility] [address] [place] [phone] Magui Perez MD 08/16/2025 Telephone [facility] [address] [place] [address] [phone] Magui Perez MD Results 08/15/2025 Refill [facility] [address] [place] [address] [phone] Magui Perez MD 08/14/2025 Orders Only [facility] [facility] [employer] External Provider, [facility] Lung nodule (Primary Dx) 08/08/2025 Telephone [facility] [address] [place] [address] Magui Perez MD Durable Medical Equipment (DME: Multiple DME Items) 08/07/2025 Refill [facility] [address] [place], [place] [phone] Magui Perez MD 07/04/2025 Refill [facility] [address] [place] [address] Leana To DO Vitamin D deficiency from Last 3 Months Immunizations Immunization Administration [...] Mass Index 35.85 10/03/2025 10:07 AM EST Plan of Treatment Upcoming Encounters Date Type Department Care Team (Late st Contact Info) Description 11/20/2025 10:30 AM EST Office Visit [facility] [address] [place] [phone] Magui Perez MD [address] [place] [address] Health Maintenance Due Date Last Done Comments CT Colonography 1971 FIT DNA/Cologuard 1971 FIT 1971 FOBT 1970 Sigmoidoscopy 1970 Dental Prophylaxis 01/22/2015 07/23/2014 Dental Oral Exam 08/02/2015 01/30/2015, 06/28/2014 Dental X-Ray: Bitewings 02/01/2016 01/30/2015, 06/28 Influenza Vaccine (#1) 2026 , 12/03/2021, 08/26/2020, Additional history exists Postponed from 06/17/2025 (Patient Refused) Alcohol/Substance Use Screening 09/05/2026 09/05/2025 COVID-19 Vaccine [...] Dental X-Ray: Full Mouth 03/16/2027 03/15/2024, 06/17 Mammogram 09/11/2027 09/11/2025, 04/17, 05/05/2023, Additional history exists DTaP/Tdap/Td Vaccines (2 - Td or Tdap) [...] Acute bilateral low back pain without sciatica BI MAMMOGRAM SCREENING TOMOSYNTHESIS BILATERAL Routine 09/11/2025 1:12 PM EST T4, FREE Routine 09/05/2025 11:29 AM [...] HIGH RES Routine 08/14/2025 11:36 AM EDT HM COLONOSCOPY Routine 06/07/2024 HPV MRNA E6/E7 REFLEX TO HPV 16, [...] Recently Relevant to Health Maintenance Results * POCT Urinalysis (10/03/2025 11:35 AM [...] AM EST Narrative 10/03/2025 11:15 AM EST [address] [address] XRay Report Signed Patient: Farzana Zapien MR#: [id number] : 1970 Acct:[id number] Age/Sex: 55 / F ADM Date: 10/03/25 Loc: HO.HHCX Attending Dr: Leana To DO Ordering Physician: Leana To DO Date of Service: 10/03/25 Procedure(s): XR lumbar spine 2-3V Accession Number(s): [id number] cc: Leana To DO Reason for Exam: [...] Guadalupe Cruz MD 10/03/2025 11:12 AM EST Dictated By: Jose Guadalupe Cruz MD Signed By: <Electronically signed by Jose Guadalupe Cruz MD in OV> 10/03/25 1112 DD/ 1105 TD/TT: 10/03/25 1106 Marketing Account Executive: Procedure Note Donotuseinterpreter, Image - 10/03/[address] [place] [address] XRay Report Signed Patient: Farzana Zapien MMR#: [id number] : 1970Acct:[id number] Age/Sex: 55 / FADM Date: 10/03/25 Loc: HO.HHCX Attending Dr: Leana To DO Ordering Physician: Leana To DO Date of Service: 10/03/25 Procedure(s): XR lumbar spine 2-3V Accession Number(s): [id number] cc: Leana To DO Reason for Exam: [...] Guadalupe Cruz MD 10/03/2025 11:12 AM EST Dictated By: Jose Guadalupe Cruz MD Signed By: <Electronically signed by Jose Guadalupe Cruz MD in OV> 10/03/25 1112 DD/ 1105 TD/TT: 10/03/25 1106 Marketing Account Executive: Leana To DO IMG XR PROCEDURES Final Resu lt * BI Mammogram Screening Tomosynthesis Bilateral (09/11/2025 1:12 PM EST) Anatomical Region Laterality Modality Breast Bilateral Mammography 09/11/2025 1:12 PM EST Narrative 09/13/2025 5:24 PM EST [address] [place] [address] Mammography Report Signed Patient: Farzana Zapien MR#: [id number] : 1970 Acct:[id number] Age/Sex: 55 / F ADM Date: 09/11/25 Loc: HO.MAMMO Attending Dr: Magui Perez MD Ordering Physician: Magui Perez MD Results: 1N egative Date of Service: 09/11/25 Follow Up: 1 Year From Orig inal Mammogram Procedure(s): MM tomosynthesis screening BI Accession Number(s): [id number] cc: Magui Perez MD Reason For Exam: SCREENING EXAMINATION: MM SCREENING DIGITAL BREAST TOMOSYNTHESIS, BILATERAL CLINICAL INFORMATION: Screening. Asymptomatic. COMPARISON: Comparison made to multiple prior, most recent May 07, 2024, and most remote August 17, 2017. TECHNIQUE: Digital breast tomosynthesis is performed in mediolateral oblique and craniocaudal views along with computer-aided detection (CAD). Synthesized 2D images are generated from the tomosynthesis. FINDINGS: BREAST COMPOSITION: There are scattered areas of fibroglandular density. BILATERAL BREASTS: No significant masses, suspicious calcifications or other abnormalities are seen in either breast. MM/MM tomosynthesis screening BI IMPRESSION: BILATERAL BREASTS: Negative, no mammographic evidence of malignancy. Normal interval follow-up is recommended in 12 months. ASSESSMENT: BI-RADS: Category 1: Negative RECOMMENDATION: Routine annual mammography screening. FOLLOW-UP: 1 year F/U This examination should not preclude the clinical evaluation of a suspicious palpable abnormality. This patient's information was entered into a reminder system with a target due date for their next mammogram. Electronically signed by: Mary Barnett MD 09/13/2025 05:21 PM [facility] Dictated By: Mary Barnett MD Signed By: <Electronically signed by Mary Barnett MD in OV> 09/13/25 1721 DD/ 1312 TD/TT: 09/11/25 1320 Marketing Account Executive: Procedure Note Donotuseinterpreter, Image - 09/13/2025 [facility] [address] [place], [place] [address] Mammography Report Signed Patient: Farzana Zapien MMR#: [id number] : 1970Acct:[id number] Age/Sex: 55 / FADM Date: 09/11/25 Loc: HO.MAMMO Attending Dr: Magui Perez MD Ordering Physician: Magui Perez MDResults: 1N egative Date of Service: 09/11/25Follow Up: 1 Year From Orig inal Mammogram Procedure(s): MM tomosynthesis screening BI Accession Number(s): [id number] cc: Magui Perez MD Reason For Exam: SCREENING EXAMINATION: MM SCREENING DIGITAL BREAST TOMOSYNTHESIS, BILATERAL CLINICAL INFORMATION: Screening. Asymptomatic. COMPARISON: Comparison made to multiple prior, most recent May 07, 2024, and most remote August 17, 2017. TECHNIQUE: Digital breast tomosynthesis is performed in mediolateral oblique and craniocaudal views along with computer-aided detection (CAD). Synthesized 2D images are generated from the tomosynthesis. FINDINGS: BREAST COMPOSITION: There are scattered areas of fibroglandular density. BILATERAL BREASTS: No significant masses, suspicious calcifications or other abnormalities are seen in either breast. MM/MM tomosynthesis screening BI IMPRESSION: BILATERAL BREASTS: Negative, no mammographic evidence of malignancy. Normal interval follow-up is recommended in 12 months. ASSESSMENT: BI-RADS: Category 1: Negative RECOMMENDATION: Routine annual mammography screening. FOLLOW-UP: 1 year F/U This examination should not preclude the clinical evaluation of a suspicious palpable abnormality. This patient's information was entered into a reminder system with a target due date for their next mammogram. Electronically signed by: Mary Barnett MD 09/13/2025 05:21 PM [facility] Dictated By: Mary Barnett MD Signed By: <Electronically signed by Mary Barnett MD in OV> 09/13/25 1721 DD/ 1312 TD/TT: 09/11/25 1320 Marketing Account Executive: Magui Perez MD IMG BI PROCEDURES Final Re sult * Vitamin B12 (Cobalamin) and Folate Panel, Serum (09/05/2025 11:29 AM EST) Vitamin B12 394 200 - 900 pg/mL [facility] Comment:NORMAL 200-900 PG/ML INDETERMINATE 160-199 PG/ML DEFICIENT < 160 PG/ML Folate 8.2 > or = 4.0 ng/mL [facility] Comment:Reference Values:> o r = 4.0 [...] BLOOD ORDERABLES Final Result Performing Organization Address City/[facility]/ZIP Co de Phone Number [facility] [address] [place] [phone] * (ABNORMAL) TSH with Reflex to Free T4 (09/05/2025 11:29 AM EST) TSH reflex Free T4 5.32(H) 0.32 - 4.0 uIU/mL [facility] Blood Venous blood specimen / Unknown 09/05/2025 11:29 AM EST 09/05/2025 12:50 PM EST Magui Perez MD LAB BLOOD ORDERABLES Final Result Performing Organization Address City/[facility]/ZIP Co de Phone Number [facility] [address] [place] [phone] * Albumin, Random Urine W/Creatinine (09/05/2025 11:29 AM EST) Creatinine, Urine 208.54 mg/dL [facility] Microalbumin Urine 12.0 mg/L H [facility] Microalbum Creatinine Ratio Ur 5.7 <30 ug/mg cr [facility] Comment:Albumin/Creatinine R atio Reference Ranges: Normal: < 30 ug/mg creatinine Microalbuminuria: 30 - 300 ug/mg creatinineClinical Albuminuria: > 300 ug/mg creatinine Urine 09/05/2025 11:2 9 AM EST 09/05/2025 1:06 PM EST us Magui Preez MD LAB URINE ORDERABLES Final Result [facility] [address], [place] [phone] * (ABNORMAL) CBC auto differential (09/05/2025 11:29 AM EST) Only the most recent of2 resultswithin the time period is included. White Blood Count 4.4(L) 4.8 - 10.8 X10*3/uL [facility] Red Blood Count 4.71 4.20 - 5.50 X10*6/uL [facility] Hemoglobin 13.5 12.0 - 16.0 g/dl [facility] Hematocrit 41.1 37.0 - 47.0 % [facility] Mean Corpuscular Volume 87.3 80.0 - 98.0 fL [facility] Mean Corpuscular Hemoglobin 28.7 27.0 - 33.0 pg [facility] Mean Corpuscular HGB Conc 32.8 31.0 - 35.0 g/dl [facility] Red Cell Distribution Width 13.0 11.0 - 16.0 % [facility] Platelet Count 298 160 - 400 X10*3/uL [facility] Mean Platelet Volume 11.6 9.4 - 12.3 fL [facility] Neutrophils Percent Auto 63.3 45 - 73 % [facility] Imm Gran Pct Auto 0.2 0.0 - 0.4 % [facility] Lymphocytes Percent Auto 27.8 20 - 40 % [facility] Monocytes Percent Auto 6.4 2 - 11 % [facility] Eosinophils Percent Auto 1.8 0 - 4 % [facility] Basophils Percent Auto 0.5 0 - 2 % [facility] NRBC Pct Auto 0.0 0.0 - 0.2 /100WBC [facility] Neutrophils Absolute Auto 2.8 2.0 - 8.3 x10*3/uL [facility] Imm Gran Abs Auto 0.01 0.00 - 0.03 X10*3/uL [facility] Lymphocytes Absolute Auto 1.2 1.2 - 4.9 X10*3/uL [facility] Monocytes Absolute Auto 0.3 0.1 - 1.2 X10*3/uL [facility] Eosinophils Absolute Auto 0.1 0.0 - 0.4 X10*3/uL [facility] Basophils Absolute Auto 0.0 0.0 - 0.2 X10*3/uL [facility] NRBC Abs Auto 0.000 0.0 - 0.012 X10*3/uL [facility] 09/05/2025 11:2 9 AM EST 09/05/2025 12:50 PM EST us Generic External Data Provider LAB BLOOD ORDERAB LES Final Result [facility] [address] [place] [address] [phone] * Iron And Total Iron Binding Capacity (09/05/2025 11:29 AM EST) Iron 78 30 - 160 mcg/dL [facility] Total Iron Binding Capacity 266 228 - 428 mcg/dL [facility] Percent Iron Saturation 29 15 - 50 % [facility] Unsaturated Iron Binding 188 ug/dL [facility] Blood Venous blood specimen / Unknown 09/05/2025 11:29 AM EST 09/05/2025 12:50 PM EST us Magui Perez MD LAB BLOOD ORDERABLES Final Result Performing Organization Address [facility] de Phone Number [facility] [address] [place] [phone] * (ABNORMAL) Sed Rate by Modified Westergren (09/05/2025 11:29 AM EST) Erythrocyte Sedimentation Rate 30(H) 0 - 20 MM/HR [facility] Comment:Patients with polycy themia and many hemoglobin abnormalitiesmay have depressed sed rates whereas patients with anemiamay have elevated sed rates. 09/05/2025 11:2 9 AM EST 09/05/2025 12:50 PM EST us Generic External Data Provider LAB BLOOD ORDERAB LES Final Result Performing Organization Address [facility] Number [facility] [address] [place] [phone] * (ABNORMAL) C-reactive Protein (09/05/2025 11:29 AM EST) C Reactive Protein 1.12(H) < or = 0.50 mg/dL [facility] 09/05/2025 11:2 9 AM EST 09/05/2025 12:50 PM EST Generic External Data Provider LAB BLOOD ORDERAB LES Final Result Performing Organization Address [facility] Phone Number [facility] [address] [place] [phone] * T4, Free (09/05/2025 11:29 AM EST) Free T4 (Free Thyroxine) 1.23 0.71 - 1.85 ng/dL [facility] 09/05/2025 11:2 9 AM EST 09/05/2025 12:50 PM EST Magui Perez MD LAB BLOOD ORDERABLES Final Result Performing Organization Address [facility]/ZIP Co de Phone Number [facility] [address] [place] [phone] * Hemoglobin A1c (09/05/2025 11:29 AM EST) Hemoglobin A1c 5.8 <6.0 % [facility] Comment:Hemoglobin A1C Refer ence Range Adults: 4.8 - 6.0 % Non diabetic: < 6.0 % Goal: < 7.0 %Additional Action Suggested: > 8.0 %Note: Hemoglobin A1c results are invalid for patients with abnormal amounts of HbF. Blood transfusions may impact the HbA1c concentration in the patient sample. Estimated Average Glucose 120 mg/dL [facility] Comment:eAG = Estimated ave rage glucose which is %A1C expressed asaverage glucose, using the formula of the [id number] Glucose study (ADAG), Diabetes Care, Vol.31,#8,May. 2007 Blood Venous blood specimen / Unknown 09/05/2025 11:29 AM EST 09/05/2025 12:50 PM EST Magui Perez MD LAB BLOOD ORDERABLES Final Result Performing Organization Address [facility] Co de Phone Number [facility] [address] [place] [phone] * Ferritin (09/05/2025 11:29 AM EST) Ferritin 76 10 - 250 ng/mL [facility] Blood Venous blood specimen / Unknown 09/05/2025 11:29 AM EST 09/05/2025 12:50 PM EST Magui Perez MD LAB BLOOD ORDERABLES Final Result Performing Organization Address [facility] Co de Phone Number [facility] [address] [place] [phone] * Hepatic Function Panel (09/05/2025 11:29 AM EST) Bilirubin, Direct 0.2 0.0 - 0.5 mg/dL [facility] Blood Venous blood specimen / Unknown 09/05/2025 11:29 AM EST 09/05/2025 12:50 PM EST us Magui Perez MD LAB BLOOD ORDERABLES Final Result Performing Organization Address City/[facility] Co de Phone Number [facility] [address] [place] [phone] * (ABNORMAL) Lipid Panel, Standard (09/05/2025 11:29 AM EST) Only the most recent of2 resultswithin the time period is included. Triglycerides 110 <150 mg/dL [facility] Comment:Desirable Triglyceri de: less than 150 mg/dLBorderline High Triglyceride 150-199 mg/dLHigh Triglyceride: 200-499 mg/dLVery High Triglyceride: greater than or equal to 5OO mg/dL Cholesterol 205(H) <200 mg/dL [facility] Comment:Desirable Cholestero l: less than 200 mg/dLBorderline High Cholesterol: 200-239 mg/dLHigh Cholesterol: greater than 239 mg/dL LDL Cholesterol Calculated 122(H) <100 mg/dL [facility] Comment:Desirable LDL: less than 100 mg/dLNear Optimal/Above Optimal LDL: 110- 129 mg/dLBorderline High LDL: 130-159 mg/dLHigh LDL: 160-189 mg/dLVery High LDL: greater than or equal to 190 mg/dL HDL Cholesterol 61 >40 mg/dL [facility] Comment:Desirable HDL: great er than 40 mg/dL Note: This HDL assay may give artificially low results in patients with liver disease. 09/05/2025 11:2 9 AM EST 09/05/2025 12:50 PM EST us Generic External Data Provider LAB BLOOD ORDERAB LES Final Result Performing Organization Address City/[facility]/ZIP Co de Phone Number [facility] [address] [place] [phone] * (ABNORMAL) Comprehensive Metabolic Panel (09/05/2025 11:29 AM EST) Sodium 142 135 - 145 mmol/L [facility] Potassium 4.3 3.3 - 5.1 mmol/L [facility] Chloride 108 96 - 108 mmol/L [facility] Carbon Dioxide 28 22 - 29 mmol/L [facility] Anion Gap 10(L) 12 - 20 [facility] Urea Nitrogen (BUN) 13 9 - 16 mg/dL [facility] Creatinine, Serum 0.73 0.5 - 1.4 mg/dL [facility] Estimated Glomerular Filt Rate >60 [facility] Comment:Chronic Kidney Disea se: Estimated GFR < 60 mL/min/1.23q6Rdcopt Kidney Disease: Estimated GFR < 15 mL/min/1.73m2 Glucose 106 60 - 115 mg/dL [facility] Calcium 10.1 8.4 - 10.2 mg/dL [facility] Bilirubin, Total 0.6 0.0 - 1.0 mg/dL [facility] Aspartate Amino Transferase 27 5 - 31 U/L [facility] Alanine Aminotransferase 18 0 - 31 U/L [facility] Total Protein 8.2(H) 6.5 - 8.0 g/dL [facility] Albumin Level 4.6 3.5 - 5.0 g/dL [facility] Alkaline Phosphatase 113 39 - 117 U/L [facility] 09/05/2025 11:2 9 AM EST 09/05/2025 12:50 PM EST us Generic External Data Provider LAB BLOOD ORDERAB LES Final Result [facility] [address] [place] [phone] * CT chest wo con - High Res (08/14/2025 11:36 AM EDT) Anatomical Region Laterality Modality Body, Chest Computed Tomogra phy 08/14/2025 11:3 6 AM EDT Narrative 08/14/2025 12:04 PM EDT [address] [address] [address] Scan Report Signed Patient: Farzana Zapien MR#: [id number] : 1970 Acct:[id number] Age/Sex: 55 / F ADM Date: 08/14/25 Loc: HO.CT Attending Dr: Cary Kraus MD Ordering Physician: Cary Kraus MD Date of Service: 08/14/25 Procedure(s): CT chest wo con - High Res Accession Number(s): [id number] cc: Cary Kraus MD; Magui Perez MD Report Number: [id number]: Total DLP = 229.00 mGy-cm Reason for [...] 08/14/25 1201 DD/ 1136 TD/TT: 08/14/25 1147 Marketing Account Executive: Procedure Note Donotuseinterpreter, Image - 08/14/[address] [place] [address] [address] Scan Report Signed Patient: Farzana Zapien MMR#: [id number] : 1970Acct:[id number] Age/Sex: 55 / FADM Date: 08/14/25 Loc: .CT Attending Dr: Cary Kraus MD Ordering Physician: Cary Kraus MD Date of Service: 08/14/25 Procedure(s): CT chest wo con - High Res Accession Number(s): [id number] cc: Cary Kraus MD; Magui Perez MD Report Number: [id number]: Total DLP = 229.00 mGy-cm Reason for [...] 08/14/25 1201 DD/ 1136 TD/TT: 08/14/25 1147 Marketing Account Executive: [facility] External Provider IMG CT PROCEDURES Final Result * Colonoscopy (06/07/2024) Colonoscopy Normal Normal Comment:with Dasia Guzman MD Historical Provider HEALTH MAINTENANCE Final Result * HPV mRNA E6/E7 w/Reflex to HPV Genotypes 16, 18/45 (01/26/2024 12:00 PM EDT) HPV nRNA E6/E7 Not Detected Not Detected [facility] Comment:Methodology: Transcr iption-Mediated AmplificationThis assay detects E6/E7 viral messenger RNA (mRNA) from 14high-risk HPV types (16,18,31,33,35,39,45,51,52,56,58,59,66,68).Cervical sources are required for HPV testing.If a vaginal source from a patient who has had atotal hysterectomy with removal of cervix wassubmitted, please contact the testing laboratoryfor alternative testing options.For additional information, please refer tohttp://education.[employer]/faq/TET307r5(This link if provided for information/educational purposes only.)THIS TEST WAS PERFORMED AT:[facility] [place] [phone] ENRIQUEZ MD HPV mRNA E6/E7 TNP [facility] HPV 16 [facility] HPV 18/45 RNA [facility] 01/26/2024 12:0 0 PM EDT 01/31/2024 12:00 PM EDT Magui Perez MD LAB CYTOLOGY ORDERABLES Fi nal Result [facility] [address] [place] [phone] * Pap Smear (01/26/2024 12:00 PM EDT) 01/26/2024 12:0 0 PM EDT 01/31/2024 12:00 PM EDT Narrative [facility] - 02/13/2024 12:50 PM EDT ----- ------- Name: Farzana Zapien Age/Sex: 53/F : 1970 Unit#: [id number] Attend Dr: Magui Perez MD Re01/26/24 Status: DEP REF Location: [facility] Disch: ----- ------- SPEC : [id number] RECD: 01/31/24 STATUS: AMBROSE RUTHERFORD NUM: [id number] JAMILAH: 01/26/[address]: Magui Perez MD [...] 59, 66, 68) HPV testing performed by [facility], [place], [place]. See reference laboratory portion of the EMR for entire report. Clinical Information LMP: Postmenopausal Previous PAP test: Unknown date, WNL Material Received ThinPrep-Vaginal/Cervical ----- ------- Signed (signature on file) Ghislaine R Botto, CT (ASC) 02/13/24 1250 ----- ------- END OF REPORT Magui Perez MD LAB CYTOLOGY ORDERABLES Fi nal Result Performing Organization Address [facility]/ZIP Co de Phone Number [facility] [address] [place] [phone] * Hepatitis Panel, General (08/23/2023 12:36 PM EST) Hepatitis A IgM Nonreactive Nonreactive [facility] Comment:IgM antibodies to HUANG V not detected; does not exclude earlyacute or recovered HAV infection. ~Hepatitis B Surface Antibody REACTIVE Nonreactive [facility] Comment:REACTIVE: > 11.99 mI U/mL Hepatitis B Core Antibody Nonreactive Nonreactive [facility] Hepatitis C Antibody Nonreactive Nonreactive [facility] Comment:Antibodies to HCV no t detected; does not exclude early acuteHCV infection. Hepatitis B Surface Ag Negative Negative [facility] 08/23/2023 12:3 6 PM EST 08/23/2023 12:36 PM EST Generic External Data Provider LAB BLOOD ORDERAB LES Final Result Performing Organization Address [facility]/ZIP Co de Phone Number [facility] [address] [place] [address] [phone] * HIV AB/AG (08/08/2020 11:40 AM [...] of detection of this assay. The [employer]ice HIV Ag/Ab Combo assay result and supplemental assay results should be interpreted in conjunction with the patient's clinical presentation, history and other laboratory results. If the results are inconsistent with clinical evidence, additional testing is suggested to confirm the result. 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
== END 2025-10-03 10:54 | disposition home or self-care (01) ==
LOC: HO.HHCX 10:53
PROVIDERS: Visit Provider Family Medicine
DX: M54.6 Pain in thoracic spine (principal); R32 Unspecified urinary incontinence
CPT/HCPCS: 72100; 87086

== ENCOUNTER → 2025-10-03 10:54 | Outpatient (BNV) | payer MEDICAID, SELFPAY | PROVIDERS: Visit Provider Radiology Diagnostic Radiology | DX: M51.360 Other intervertebral disc degeneration, lumbar region with discogenic back pain only (principal) | CPT/HCPCS: 72100 ==